=== PATIENT | male | born 1950 | race African-American/Black ===

== ENCOUNTER 2018-10-09 17:56 | Emergency (ER) | payer OTHER ==
[2018-10-09 18:54] LABS: Absolute Lymphocytes (CBC) 1.3 K/uL (0.7-4.9); Absolute Monocytes 0.4 K/uL (0.1-1.3); Absolute Neutrophil 4.1 K/uL (1.8-8.0); Basophils % 0.5 % (0-1.3); Eosinophils % 1.2 % (0-4.4); Lymphocytes % 22.5 % (15.3-44.8); Monocytes % 6.1 % (3.3-12.3); Protime INR 1.15; RBC Red Blood Cell Count 3.88 M/uL (4.33-5.43)
[2018-10-09 19:07] LABS: ALT/SGPT 42 U/L (12-78); AST/SGOT 85 U/L (15-37); Albumin 3.6 g/dL (3.4-5.0); Alkaline Phosphatase 152 U/L (45-117); BUN Blood Urea Nitrogen 6 mg/dL (7-18); Bicarbonate 27 mmol/L (21-32); Bilirubin Direct 0.4 mg/dL (0-0.2); Bilirubin Total 0.5 mg/dL (0.2-1.0); Glucose Level 95 mg/dL (74-106); NT PRO-BNP 377 pg/mL (<125); Potassium 3.9 mmol/L (3.5-5.1); Protein, Total 7.7 g/dL (6.4-8.2); Sodium Level 140 mmol/L (136-145); Troponin (Emerg Dept Use Only) < 0.02 ng/mL (0.0-0.045)
--- NOTE | 2018-10-09 19:15 | RAD REPORT ---
EXAM DESCRIPTION: Mac Single View10/09/2018 7:01 pm CLINICAL HISTORY: sob COMPARISON: 2017 FINDINGS: The lungs appear clear of acute infiltrate. The heart is normal size IMPRESSION: No acute abnormalities displayed
[2018-10-09 20:47] LABS: Urine Blood NEGATIVE (NEG); Urine Glucose NEGATIVE (NEG); Urine Protein NEGATIVE (NEG); Urine Specific Gravity 1.015 (1.005-1.030); Urine pH 5.5 (5.0-7.0)
[2018-10-09] MEDS ORDERED: NA CHLORIDE 0.9% 1,000 ML ONE (21:00)
[2018-10-09] MEDS ORDERED: CEFTRIAXONE/SWI 1gm 1 GM/10 ML SYR ONE (21:19)
[2018-10-09] MEDS ORDERED: predniSONE 20 MG TAB ONE (21:21)
[2018-10-09] MEDS ORDERED: HYDROCODONE/APAP 10/325 TAB ONE (21:38)
--- NOTE | 2018-10-09 22:10 | ER ---
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 Transition of care: patient was not received from another setting of care. Onset of symptoms was October 09, 2018. Risk Assessment: Do you want to hurt yourself or someone else? Patient reports no desire to harm self or others. Initial Sepsis Screen: Does the patient meet any 2 criteria? RR > 20 per min. HR > 90 bpm. Does the patient have a suspected source of infection? No. Patient's initial sepsis screen is negative. Care prior to arrival: None. 18:07 Method Of Arrival: Wheelchair sg 18:07 Acuity: JOSEPHINE 3 sg Historical: - Allergies: 18:06 No Known Allergies; sg - PSHx: 18:06 None; sg - Immunization history:: Adult Immunizations not up to date. - Social history:: Smoking status: Patient uses tobacco products, unknown amount. - Ebola Screening: : Patient negative for fever greater than or equal to 101.5 degrees Fahrenheit, and additional compatible Ebola Virus Disease symptoms Patient denies exposure to infectious person Patient denies travel to an Ebola-affected area in the 21 days before illness onset No symptoms or risks identified at this time. Screenin:30 Abuse screen: Denies threats or abuse. Denies injuries from another. Nutritional hb screening: No deficits noted. Tuberculosis screening: No symptoms or risk factors identified. Fall Risk None identified. Assessment: 18:30 General: Appears in no apparent distress. ill, Behavior is calm, cooperative. Pain: hb Denies pain. Neuro: Level of Consciousness is awake, alert, obeys commands, Oriented to person, place, time, situation. Cardiovascular: Heart tones S1 S2 present Capillary refill < 3 seconds Patient's skin is warm and dry. Respiratory: Airway is patent Respiratory effort is even, mildly labored Respiratory pattern is tachypnea Breath sounds with rhonchi. GI: Abdomen is non-distended, Bowel sounds present X 4 quads. Abd is soft X 4 quads Reports nausea. : No signs and/or symptoms were reported regarding the genitourinary system. EENT: No signs and/or symptoms were reported regarding the EENT system. Derm: Skin is intact, is healthy with good turgor. Musculoskeletal: No signs and/or symptoms reported regarding the musculoskeletal system. 19:00 General: Appears uncomfortable, Behavior is calm, cooperative, appropriate for age. ea Pain: Denies pain. Neuro: Level of Consciousness is awake, alert, obeys commands, Oriented to person, place, time, situation. Cardiovascular: Patient's skin is warm and dry. Respiratory: Airway is patent Respiratory effort is even. : No signs and/or symptoms were reported regarding the genitourinary system. Derm: Skin is intact. Musculoskeletal: No signs and/or symptoms reported regarding the musculoskeletal system. 19:15 Reassessment: Patient appears in no apparent distress at this time. Patient and/or jd3 family updated on plan of care and expected duration. Pain level reassessed. Patient is alert, oriented x 3, equal unlabored respirations, skin warm/dry/pink. 20:05 Reassessment: Patient appears in no apparent distress at this time. Patient and/or jd3 family updated on plan of care and expected duration. Pain level reassessed. Patient is alert, oriented x 3, equal unlabored respirations, skin warm/dry/pink. 21:02 Reassessment: Patient appears in no apparent distress at this time. No changes from jd3 previously documented assessment. Patient and/or family updated on plan of care and expected duration. Pain level reassessed. Patient is alert, oriented x 3, equal unlabored respirations, skin warm/dry/pink. 23:03 Reassessment: Patient appears in no apparent distress at this time. Patient and/or jd3 family updated on plan of care and expected duration. Pain level reassessed. Patient is alert, oriented x 3, equal unlabored respirations, skin warm/dry/pink. Patient states feeling better. Vital Signs: 18:06 BP 161 / 90; Pulse 108; Resp 21; Temp 97.7; Pulse Ox 94% on R/A; Weight 64.41 kg; sg 19:30 BP 153 / 81; Pulse 104; Resp 22 S; Pulse Ox 98% on R/A; jd3 20:30 BP 147 / 79; Pulse 102; Resp 16 S; Pulse Ox 98% on R/A; jd3 21:04 BP 157 / 73; Pulse 124; Resp 25 S; Pulse Ox 97% on R/A; jd3 22:02 BP 155 / 79; Pulse 104; Resp 29; Temp 101.6; Pulse Ox 98% ; lt1 22:42 BP 154 / 88; Pulse 120; Resp 26; Temp 100.5; Pulse Ox 98% ; lt1 ED Course: 17:57 Patient arrived in ED. as 18:08 Triage completed. sg 18:09 Arm band placed on. sg 18:10 David Sapp NP is PHCP. pm1 18:10 Uday Hardin MD is Attending Physician. pm1 18:30 Cierra Conner, RN is Primary Nurse. hb 18:31 EKG done, by ED staff, reviewed by David Sapp NP. jb1 18:38 Flu and/or RSV swab sent to lab. jb1 18:38 Flu Sent. jb1 18:44 Patient has correct armband on for positive identification. Placed in gown. Bed in low hb position. Call light in reach. Side rails up X 1. after school tutor on. Pulse ox on. NIBP on. 18:44 Inserted saline lock: 20 gauge in right antecubital area, using aseptic technique. hb Blood collected. 19:01 XRAY Chest (1 view) In Process Unspecified. EDMS 22:26 Primary Nurse role handed off by Cierra Conner, RN ed1 22:49 Sean Vu, DAYANA is Primary Nurse. jd3 23:05 No provider procedures requiring assistance completed. IV discontinued, intact, jd3 bleeding controlled, No redness/swelling at site. Pressure dressing applied. Administered Medications: 21:21 Drug: predniSONE 60 mg Route: PO; jd3 22:10 Follow up: Response: No adverse reaction ea 21:22 Drug: NS 0.9% 1000 ml Route: IV; Rate: 1000 ml; Site: right antecubital; jd3 23:06 Follow up: Response: No adverse reaction; IV Status: Completed infusion jd3 21:22 Drug: Rocephin 1 grams Route: IV; Rate: calculated rate; Site: right antecubital; jd3 23:06 Follow up: Response: No adverse reaction; IV Status: Completed infusion jd3 21:39 Drug: [place] 10 mg-325 mg 1 tabs Route: PO; jd3 23:06 Follow up: Response: No adverse reaction jd3 22:10 Drug: Ibuprofen 600 mg Route: PO; ea 23:06 Follow up: Response: No adverse reaction jd3 22:26 Drug: Xopenex 1.25 mg Route: Inhalation; jd3 Outcome: 22:09 Discharge ordered by MD. pm1 23:05 Discharged to home via wheelchair, with family. jd3 23:05 Condition: stable 23:05 Discharge instructions given to patient, family. 23:07 Patient left the ED. jd3 Signatures: Dispatcher [employer] EDMS Alli Regalado jb1 Cristi Kincaid, Susi Andrade RN, Erika, RN RN ed1 David Sapp, [employer] pm1 Cierra Conner RN RN hb Antunez, Elena, RN RN ea Davies, Jonathon, RN RN jd3 Tran, Leah [facility]
--- NOTE | 2018-10-09 22:10 | EDPHYS ---
Physician Documentation [facility] Name: Alex Mdarid Jr Age: 68 yrs Sex: Male : 1950 Arrival Date: 10/09/2018 Time: 17:57 Bed 4 Private MD: ED Physician Uday Hardin HPI: 10/09 19:05 This 68 yrs old Black Male presents to ER via Wheelchair with complaints of Vomiting, pm1 Shortness Of Breath. 19:05 The patient or guardian reports cough, with productive sputum, that is yellow. Onset: pm1 The symptoms/episode began/occurred today. Severity of symptoms: in the emergency department the symptoms have improved. Modifying factors: The symptoms are alleviated by nothing, the symptoms are aggravated by nothing. Associated signs and symptoms: Pertinent positives: Vomiting this AM and prior to arrival. Shortness of breath, Pertinent negatives: chest pain, fever, abdominal pain, diarrhea. The patient has not experienced similar symptoms in the past. The patient has not recently seen a physician. Historical: - Allergies: 18:06 No Known Allergies; sg - PSHx: 18:06 None; sg - Immunization history:: Adult Immunizations not up to date. - Social history:: Smoking status: Patient uses tobacco products, unknown amount. - Ebola Screening: : Patient negative for fever greater than or equal to 101.5 degrees Fahrenheit, and additional compatible Ebola Virus Disease symptoms Patient denies exposure to infectious person Patient denies travel to an Ebola-affected area in the 21 days before illness onset No symptoms or risks identified at this time. ROS: 19:05 Constitutional: Negative for fever, chills, and weight loss, Eyes: Negative for injury, pm1 pain, redness, and discharge, ENT: Negative for injury, pain, and discharge, Neck: Negative for injury, pain, and swelling, Cardiovascular: Negative for chest pain, palpitations, and edema. 19:05 Back: Negative for injury and pain. 19:05 : Negative for injury, bleeding, discharge, and swelling, MS/Extremity: Negative for injury and deformity, Skin: Negative for injury, rash, and discoloration, Neuro: Negative for headache, weakness, numbness, tingling, and seizure. 19:05 Respiratory: Positive for cough, shortness of breath, Negative for sputum production, wheezing. 19:05 Abdomen/GI: Positive for vomiting, Negative for abdominal pain, diarrhea, constipation. Exam: 19:05 Constitutional: This is a well developed, well nourished patient who is awake, alert, pm1 and in no acute distress. Head/Face: Normocephalic, atraumatic. Eyes: Pupils equal round and reactive to light, extra-ocular motions intact. Lids and lashes normal. Conjunctiva and sclera are non-icteric and not injected. Cornea within normal limits. Periorbital areas with no swelling, redness, or edema. ENT: Nares patent. No nasal discharge, no septal abnormalities noted. Tympanic membranes are normal and external auditory canals are clear. Oropharynx with no redness, swelling, or masses, exudates, or evidence of obstruction, uvula midline. Mucous membranes moist. Neck: Trachea midline, no thyromegaly or masses palpated, and no cervical lymphadenopathy. Supple, full range of motion without nuchal rigidity, or vertebral point tenderness. No Meningismus. Chest/axilla: Normal chest wall appearance and motion. Nontender with no deformity. No lesions are appreciated. Cardiovascular: Regular rate and rhythm with a normal S1 and S2. No gallops, murmurs, or rubs. No pulse deficits. Respiratory: Lungs have equal breath sounds bilaterally, clear to auscultation and percussion. No rales, rhonchi or wheezes noted. No increased work of breathing, no retractions or nasal flaring. Abdomen/GI: Soft, non-tender, with normal bowel sounds. No distension or tympany. No guarding or rebound. No evidence of tenderness throughout. Back: No spinal tenderness. No costovertebral tenderness. Full range of motion. Skin: Warm, dry with normal turgor. Normal color with no rashes, no lesions, and no evidence of cellulitis. MS/ Extremity: Pulses equal, no cyanosis. Neurovascular intact. Full, normal range of motion. 19:05 Neuro: Orientation: is normal, Motor: is normal, moves all fours. Vital Signs: 18:06 BP 161 / 90; Pulse 108; Resp 21; Temp 97.7; Pulse Ox 94% on R/A; Weight 64.41 kg; sg 19:30 BP 153 / 81; Pulse 104; Resp 22 S; Pulse Ox 98% on R/A; jd3 20:30 BP 147 / 79; Pulse 102; Resp 16 S; Pulse Ox 98% on R/A; jd3 21:04 BP 157 / 73; Pulse 124; Resp 25 S; Pulse Ox 97% on R/A; jd3 22:02 BP 155 / 79; Pulse 104; Resp 29; Temp 101.6; Pulse Ox 98% ; lt1 22:42 BP 154 / 88; Pulse 120; Resp 26; Temp 100.5; Pulse Ox 98% ; lt1 MDM: 18:10 Patient medically screened. pm1 20:51 Data reviewed: vital signs. pm1 21:23 ED course: Patient without any complaints of shortness of breath. Patient reports left pm1 knee pain for the past 30 minutes. Possible cause for elevated heart rate along with vomiting. Will give patient fluids and pain medication. 22:09 Data interpreted: Pulse oximetry: on room air is 98 %. Interpretation: normal. pm1 Counseling: I had a detailed discussion with the patient and/or guardian regarding: the historical points, exam findings, and any diagnostic results supporting the discharge/admit diagnosis, lab results, radiology results, the need for outpatient follow up, to return to the emergency department if symptoms worsen or persist or if there are any questions or concerns that arise at home. 10/09 18:32 Order name: Basic Metabolic Panel; Complete Time: 19:08 pm1 10/09 18:32 Order name: CBC with Diff; Complete Time: 19:07 pm1 10/09 18:32 Order name: LFT's; Complete Time: 19:08 pm1 10/09 18:32 Order name: Magnesium; Complete Time: 19:08 pm1 10/09 18:32 Order name: NT PRO-BNP; Complete Time: 19:08 pm1 10/09 18:32 Order name: PT-INR; Complete Time: 19:07 pm1 10/09 18:32 Order name: Troponin (emerg Dept Use Only); Complete Time: 19:08 pm1 10/09 18:32 Order name: XRAY Chest (1 view); Complete Time: 19:16 pm1 10/09 18:32 Order name: Flu; Complete Time: 20:37 pm1 10/09 19:20 Order name: Urine Dipstick--Ancillary (enter results); Complete Time: 20:51 eb 10/09 18:32 Order name: EKG; Complete Time: 18:33 pm1 10/09 18:32 Order name: Cardiac monitoring; Complete Time: 18:32 pm1 10/09 18:32 Order name: EKG - Nurse/Tech; Complete Time: 18:33 pm1 10/09 18:32 Order name: IV Saline Lock; Complete Time: 18:33 pm1 10/09 18:32 Order name: Labs collected and sent; Complete Time: 18:44 pm1 10/09 18:32 Order name: O2 Per Protocol; Complete Time: 18:33 pm1 10/09 18:32 Order name: O2 Sat Monitoring; Complete Time: 18:33 pm1 Administered Medications: 21:21 Drug: predniSONE 60 mg Route: PO; jd3 22:10 Follow up: Response: No adverse reaction ea 21:22 Drug: NS 0.9% 1000 ml Route: IV; Rate: 1000 ml; Site: right antecubital; jd3 23:06 Follow up: Response: No adverse reaction; IV Status: Completed infusion jd3 21:22 Drug: Rocephin 1 grams Route: IV; Rate: calculated rate; Site: right antecubital; jd3 23:06 Follow up: Response: No adverse reaction; IV Status: Completed infusion jd3 21:39 Drug: [place] 10 mg-325 mg 1 tabs Route: PO; jd3 23:06 Follow up: Response: No adverse reaction jd3 22:10 Drug: Ibuprofen 600 mg Route: PO; ea 23:06 Follow up: Response: No adverse reaction jd3 22:26 Drug: Xopenex 1.25 mg Route: Inhalation; jd3 Disposition: 10/09/18 22:09 Discharged to Home. Impression: Bronchitis, not specified as acute or chronic. - Condition is Stable. - Discharge Instructions: Acute Bronchitis, Adult, How to Use an Inhaler, Steps to Quit Smoking, Cough, Adult. - Prescriptions for Zithromax Z- Jaylon 250 mg Oral Tablet - take 1 tablet by ORAL route as directed for 5 days Day 1 - take two (2) tablets one time. Day 2, 3, 4 , 5 take one (1) tablet once daily.; 6 tablet. Medrol (Jaylon) 4 mg Oral Tablets, Dose Pack - take 1 tablet by ORAL route as directed - follow package instructions; 1 packet. Albuterol Sulfate 90 mcg/actuation - inhale 1-2 puff by INHALATION route every 4-6 hours; 1 Inhaler. Guaifenesin AC 10- 100 mg/5 mL Oral Liquid - take 10 milliliter by ORAL route every 4 hours As needed; 240 milliliter. - Medication Reconciliation Form, Thank You Letter, Antibiotic Education, Prescription Opioid Use, Family Work Release form. - Follow up: Emergency Department; When: As needed; Reason: Worsening of condition. Follow up: Private Physician; When: 2 - 3 days; Reason: Recheck today's complaints, Continuance of care, Re-evaluation by your physician. - Problem is new. - Symptoms have improved. Addendum: 10/12/2018 19:16 Co-signature as Attending Physician, Uday Hardin MD. r n Signatures: Dispatcher [employer] EDCristi Krishnamurthy RN Uday Malagon MD MD rn Marinas, Patrick, PROTECTIVE SERVICES SOCIAL WORKER PROTECTIVE SERVICES SOCIAL WORKER pm1 Najma Winters RN Sean Arenas ea, RN RN jd3 Corrections: (The following items were deleted from the chart) 10/09 23:07 22:09 10/09/2018 22:09 Discharged to Home. Impression: Bronchitis, not specified as jd3 acute or chronic. Condition is Stable. Forms are Medication Reconciliation Form, Thank You Letter, Antibiotic Education, Prescription Opioid Use. Follow up: Emergency Department; When: As needed; Reason: Worsening of condition. Follow up: Private Physician; When: 2 - 3 days; Reason: Recheck today's complaints, Continuance of care, Re-evaluation by your physician. Problem is new. Symptoms have improved. pm1
[2018-10-09] MEDS ORDERED: IBUPROFEN 400 MG TAB ONE (22:17)
[2018-10-09] MEDS ORDERED: IBUPROFEN 200 MG TAB PO ONE (22:17)
[2018-10-09] MEDS ORDERED: LEVALBUTEROL 1.25 MG/3 ML NEB ONE (22:33)
--- NOTE | 2018-10-10 07:28 | EKG ---
Test Date: 2018-10-09 Test Time: 18:15:32 Propeller Inspector: VERO MEASUREMENT RESULTS: Intervals: Rate: 104 OH: 184 QRSD: 74 QT: 346 QTc: 454 [place]: P: 64 OH: 184 QRS: 0 T: 61 INTERPRETIVE STATEMENTS: Sinus tachycardia Otherwise normal ECG No previous ECG available for comparison Electronically Signed On 10-10-18 07:27:56 CDT by Ollie Thomas
== END 2018-10-09 23:07 | disposition home or self-care (01) ==
LOC: ER 17:56
DX: J40 Bronchitis, not specified as acute or chronic (principal); Z72.0 Tobacco use
CPT/HCPCS: 96365; 93005; 85025; 80048; 36415; 83735; 85610; 80076; 81003; 84484; 83880; 87804 ×2; 71045; 99285; 96366; J0696; J7030; J7512

== ENCOUNTER 2018-11-05 13:12 | Observation (INO) | payer OTHER ==
[2018-11-05 14:30] LABS: Absolute Lymphocytes (CBC) 2.4 K/uL (0.7-4.9); Absolute Monocytes 0.4 K/uL (0.1-1.3); Absolute Neutrophil 2.3 K/uL (1.8-8.0); Basophils % 0.8 % (0-1.3); Eosinophils % 3.8 % (0-4.4); Hematocrit 40.4 % (39.6-49.0); Lymphocytes % 44.6 % (15.3-44.8); MPV 10.4 fL (7.6-11.3); Monocytes % 7.7 % (3.3-12.3); RBC Red Blood Cell Count 3.76 M/uL (4.33-5.43)
[2018-11-05 14:35] LABS: Protime INR 1.16
[2018-11-05 14:49] LABS: Urine Blood NEGATIVE (NEG); Urine Glucose NEGATIVE (NEG); Urine Protein NEGATIVE (NEG); Urine pH 5.5 (5.0-7.0)
[2018-11-05 14:51] LABS: ALT/SGPT 37 U/L (12-78); AST/SGOT 64 U/L (15-37); Albumin 3.4 g/dL (3.4-5.0); Alkaline Phosphatase 139 U/L (45-117); BUN Blood Urea Nitrogen 4 mg/dL (7-18); Bicarbonate 27 mmol/L (21-32); Bilirubin Direct 0.3 mg/dL (0-0.2); Bilirubin Total 0.7 mg/dL (0.2-1.0); Glucose Level 84 mg/dL (74-106); Magnesium 2.2 mg/dL (1.8-2.4); NT PRO-BNP 242 pg/mL (<125); Potassium 3.8 mmol/L (3.5-5.1); Protein, Total 7.6 g/dL (6.4-8.2); Sodium Level 143 mmol/L (136-145); Troponin (Emerg Dept Use Only) 0.02 ng/mL (0.0-0.045)
--- NOTE | 2018-11-05 15:10 | RAD REPORT ---
EXAM DESCRIPTION: Mac Single View11/05/2018 2:33 pm CLINICAL HISTORY: Shortness of breath COMPARISON: September 2018 FINDINGS: The lungs appear clear of acute infiltrate. The heart is normal size IMPRESSION: No acute abnormalities displayed
[2018-11-05 15:20] LABS: Anisocytosis 1+; Blood Morphology Comment NOTED (NOT SEEN); Macrocytosis 1+; Platelet Estimate DECR; Urine White Blood Cell Casts OK
--- NOTE | 2018-11-05 17:00 | ER ---
Nurse's Notes [facility] Name: Alex Madrid Jr Age: 68 yrs Sex: Male : 1950 Arrival Date: 11/05/2018 Time: 13:15 Bed 16 Private MD: William Seth Diagnosis: Acute embolism and thrombosis of unspecified deep veins of left lower extremity Presentation: 11/05 13:26 Presenting complaint: states: bilateral feet swelling and pain that has been ss ongoing for 1 week. Also c/o intermittent R elbow swelling and pain for the same period. Transition of care: patient was not received from another setting of care. Onset of symptoms was October 29, 2018. Risk Assessment: Do you want to hurt yourself or someone else? Patient reports no desire to harm self or others. Initial Sepsis Screen: Does the patient meet any 2 criteria? No. Patient's initial sepsis screen is negative. Does the patient have a suspected source of infection? No. Patient's initial sepsis screen is negative. Care prior to arrival: None. 13:26 Method Of Arrival: Wheelchair ss 13:26 Acuity: JOSEPHINE 3 ss Historical: - Allergies: 13:28 No Known Allergies; ss - Home Meds: 13:28 None [Active]; ss - PMHx: 13:28 Hypertension; ss - PSHx: 13:28 None; ss - Immunization history:: Adult Immunizations up to date. - Social history:: Smoking status: Patient uses tobacco products, smokes one-half pack cigarettes per day. - Ebola Screening: : Patient denies exposure to infectious person Patient denies travel to an Ebola-affected area in the 21 days before illness onset. Screenin:27 Abuse screen: Denies threats or abuse. Denies injuries from another. Nutritional jl7 screening: No deficits noted. Tuberculosis screening: No symptoms or risk factors identified. Fall Risk IV access (20 points). Assessment: 14:27 General: Appears in no apparent distress. uncomfortable, Behavior is calm, cooperative, jl7 appropriate for age. Pain: Complains of pain in bilateral feet Pain currently is 9 out of 10 on a pain scale. Quality of pain is described as stinging, Pain began 1 week ago Is continuous. Neuro: Level of Consciousness is awake, alert, obeys commands, Oriented to person, place, time, situation. Cardiovascular: Denies chest pain, Heart tones S1 S2 present Patient's skin is warm and dry. Edema is 3+ to left ankle, left foot, right ankle and right foot. Respiratory: Airway is patent Respiratory effort is even, unlabored, Respiratory pattern is regular, symmetrical, Breath sounds are clear bilaterally. Denies shortness of breath. GI: No signs and/or symptoms were reported involving the gastrointestinal system. : No signs and/or symptoms were reported regarding the genitourinary system. EENT: No signs and/or symptoms were reported regarding the EENT system. Derm: Skin is dry, Skin is normal, Skin temperature is warm. Musculoskeletal: Swelling present in right elbow. 15:30 Reassessment: Patient appears in no apparent distress at this time. No changes from jl7 previously documented assessment. Patient and/or family updated on plan of care and expected duration. Pain level reassessed. Patient is alert, oriented x 3, equal unlabored respirations, skin warm/dry/pink. 16:34 Reassessment: Patient appears in no apparent distress at this time. Patient and/or jl7 family updated on plan of care and expected duration. Pain level reassessed. Patient is alert, oriented x 3, equal unlabored respirations, skin warm/dry/pink. 17:30 Reassessment: Patient appears in no apparent distress at this time. Patient and/or em family updated on plan of care and expected duration. Pain level reassessed. Patient is alert, oriented x 3, equal unlabored respirations, skin warm/dry/pink. Patient denies pain at this time. Vital Signs: 13:28 BP 143 / 87; Pulse 73; Resp 16; Temp 99.3(TE); Pulse Ox 98% on R/A; Weight 58.97 kg; ss Height 5 ft. 9 in. (175.26 cm); Pain 9/10; 14:27 BP 139 / 81; Pulse 75; Resp 17 S; Pulse Ox 99% on R/A; jl7 16:34 BP 136 / 73; Pulse 86; Resp 22 S; Pulse Ox 98% on R/A; jl7 17:30 BP 115 / 65; Pulse 76; Resp 18; Temp 98.1(O); Pulse Ox 99% on R/A; Pain 0/10; em 13:28 Body Mass Index 19.20 (58.97 kg, 175.26 cm) ED Course: 13:15 Patient arrived in ED. mr 13:15 William Seth MD is Private Physician. mr 13:28 Triage completed. ss 13:28 Arm band placed on right wrist. ss 13:31 Renard Oneil PA is PHCP. cp 13:31 Tamir Quijano MD is Attending Physician. cp 14:05 Praveena Yap, DAYANA is Primary Nurse. jl7 14:20 Inserted saline lock: 20 gauge in left antecubital area, using aseptic technique. jl7 ,using aseptic technique. inserted by Jayy Poultry Pinner Student. 14:25 Initial lab(s) drawn, by pa, sent to lab. jl7 14:26 EKG done, by ED staff, reviewed by Tamir Quijano MD. [facility] 14:27 Patient has correct armband on for positive identification. Placed in gown. Bed in low jl7 position. Call light in reach. Side rails up X 1. bus driver/monitor on. Pulse ox on. NIBP on. 14:33 XRAY Chest (1 view) In Process Unspecified. EDMS 15:54 Ultrasound completed. Patient tolerated well. Notified [employer]ITIONAL [employer] HERBALIST/PA page. sg3 16:43 US Extremity Venous W Compression Sammy In Process Unspecified. EDMS 16:59 Abiola Rudolph MD is Hospitalizing Provider. cp 18:08 No provider procedures requiring assistance completed. Patient admitted, IV remains in em place. Administered Medications: 16:05 Drug: Lasix 20 mg Route: IVP; Site: left antecubital; jl7 16:36 Follow up: Response: No adverse reaction jl7 Outcome: 17:00 Decision to Hospitalize by Provider. cp 18:08 Admitted to Tele accompanied by tech, via wheelchair, room 427, with chart, Report em called to DAYANA Vazquez 18:08 Condition: good 18:08 Instructed on the need for admit, Demonstrated understanding of instructions. 18:11 Patient left the ED. em Signatures: Dispatcher [employer] Erkia Garcia mr HooperJh, PLANT MECHANIC PLANT MECHANIC em Mary Grace Sebastian RN RN Renard Oneil PA PA Heavenly Reynolds 5 Praveena Yap RN RN jl7 Renetta Cardona sg3
--- NOTE | 2018-11-05 17:00 | EDPHYS ---
Physician Documentation [facility] Name: Alex Madrid Jr Age: 68 yrs Sex: Male : 1950 Arrival Date: 11/05/2018 Time: 13:15 Bed 16 Private MD: William Seth ED Physician Tamir Quijano HPI: 11/05 14:05 This 68 yrs old Black Male presents to ER via Wheelchair with complaints of Elbow cp Swelling, Feet Swelling. 14:05 The patient presents with pain, that is acute, swelling, tenderness. The complaints cp affect the anterior aspect of left ankle and dorsum of left foot, anterior aspect of right ankle and dorsum of right foot. Onset: The symptoms/episode began/occurred 1 week(s) ago. 14:05 Associated signs and symptoms: Pertinent negatives fever, warmth, weakness. Treatment cp prior to arrival includes: no previous treatment. Historical: - Allergies: 13:28 No Known Allergies; ss - Home Meds: 13:28 None [Active]; ss - PMHx: 13:28 Hypertension; ss - PSHx: 13:28 None; ss - Immunization history:: Adult Immunizations up to date. - Social history:: Smoking status: Patient uses tobacco products, smokes one-half pack cigarettes per day. - Ebola Screening: : Patient denies exposure to infectious person Patient denies travel to an Ebola-affected area in the 21 days before illness onset. ROS: 14:10 Constitutional: Negative for body aches, chills, fever, poor PO intake. cp 14:10 Eyes: Negative for injury, pain, redness, and discharge. cp 14:10 ENT: Negative for drainage from ear(s), ear pain, sore throat, difficulty swallowing, difficulty handling secretions. 14:10 Cardiovascular: Positive for edema, Negative for chest pain, palpitations. 14:10 Respiratory: Negative for cough, shortness of breath, wheezing. 14:10 Abdomen/GI: Negative for abdominal pain, nausea, vomiting, and diarrhea. 14:10 MS/extremity: Positive for swelling, of the right elbow, Negative for injury or acute deformity, decreased range of motion. 14:10 Skin: Negative for rash. 14:10 Neuro: Negative for altered mental status, headache, weakness. 14:10 All other systems are negative. Exam: 14:15 Constitutional: The patient appears in no acute distress, alert, awake, cp non-diaphoretic, non-toxic, well developed, well nourished. 14:15 Head/Face: Normocephalic, atraumatic. cp 14:15 Eyes: Periorbital structures: appear normal, Conjunctiva: normal, no exudate, no injection, Sclera: no appreciated abnormality, Lids and lashes: appear normal, bilaterally. 14:15 ENT: External ear(s): are unremarkable, Nose: is normal, Mouth: is normal, Posterior pharynx: is normal, airway is patent, no erythema, no exudate, Voice: is normal. 14:15 Chest/axilla: Inspection: normal, Palpation: is normal, no crepitus, no tenderness. 14:15 Cardiovascular: Rate: normal, Rhythm: regular, Edema: pedal edema, that is moderate, ankle edema, that is moderate, JVD: is not appreciated. 14:15 Respiratory: the patient does not display signs of respiratory distress, Respirations: normal, no use of accessory muscles, no retractions, no splinting, no tachypnea, labored breathing, is not present, Breath sounds: are clear throughout, no decreased breath sounds, no stridor, no wheezing. 14:15 Abdomen/GI: Inspection: abdomen appears normal, Palpation: abdomen is soft and non-tender, in all quadrants. 14:15 Back: pain, is absent, ROM is normal. 14:15 Musculoskeletal/extremity: Extremities: grossly normal except: noted in the posterior aspect right elbow: swelling, There is no evidence of decreased ROM, erythema, pain. 14:15 Skin: cellulitis, is not appreciated, no rash present. 14:15 Neuro: Orientation: to person, place \T\ time. Mentation: is normal, Cerebellar function: is grossly normal, Motor: moves all fours, strength is normal, Sensation: is normal. 14:44 ECG was reviewed by the Attending Physician. cp Vital Signs: 13:28 BP 143 / 87; Pulse 73; Resp 16; Temp 99.3(TE); Pulse Ox 98% on R/A; Weight 58.97 kg; ss Height 5 ft. 9 in. (175.26 cm); Pain 9/10; 14:27 BP 139 / 81; Pulse 75; Resp 17 S; Pulse Ox 99% on R/A; jl7 16:34 BP 136 / 73; Pulse 86; Resp 22 S; Pulse Ox 98% on R/A; jl7 17:30 BP 115 / 65; Pulse 76; Resp 18; Temp 98.1(O); Pulse Ox 99% on R/A; Pain 0/10; em 13:28 Body Mass Index 19.20 (58.97 kg, 175.26 cm) ss MDM: 13:31 Patient medically screened. cp 16:45 Data reviewed: vital signs, nurses notes, lab test result(s), EKG, radiologic studies, cp plain films, ultrasound. 11/05 14:01 Order name: Basic Metabolic Panel; Complete Time: 15:21 cp 11/05 15:21 Interpretation: Normal except: BUN 4. cp 11/05 14:01 Order name: CBC with Diff; Complete Time: 15:21 cp 11/05 15:22 Interpretation: Normal except: RBC 3.76; MCV 107.6; MCH 36.1; PLT 107. cp 11/05 14:01 Order name: LFT's; Complete Time: 15:21 cp 11/05 15:22 Interpretation: Normal except: AST 64; ALK 139; BILID 0.3; GLOB 4.2; A/G 0.8. cp 11/05 14:01 Order name: Magnesium; Complete Time: 15:21 cp 11/05 14:01 Order name: NT PRO-BNP; Complete Time: 15:21 cp 11/05 14:01 Order name: PT-INR; Complete Time: 15:21 cp 11/05 14:01 Order name: Troponin (emerg Dept Use Only); Complete Time: 15:21 cp 11/05 14:01 Order name: XRAY Chest (1 view); Complete Time: 15:21 cp 11/05 14:01 Order name: EKG; Complete Time: 14:02 cp 11/05 14:01 Order name: US Extremity Venous W Compression Sammy; Complete Time: 16:15 cp 11/05 14:34 Order name: CBC Smear Scan; Complete Time: 15:21 EDMS 11/05 14:45 Order name: Urine Dipstick--Ancillary (enter results); Complete Time: 15:21 eb 11/05 16:43 Order name: Abdomen Exam Complete EDMS 11/05 14:01 Order name: Cardiac monitoring; Complete Time: 14:27 cp 11/05 14:01 Order name: EKG - Nurse/Tech; Complete Time: 14:26 cp 11/05 14:01 Order name: IV Saline Lock; Complete Time: 14: cp 11/05 14:01 Order name: Labs collected and sent; Complete Time: 14:26 cp 11/05 14:01 Order name: O2 Per Protocol; Complete Time: 14: cp 11/05 14:01 Order name: O2 Sat Monitoring; Complete Time: 14:26 cp EC:44 Rate is 78 beats/min. Rhythm is regular. VA interval is normal. QRS interval is normal. cp QT interval is normal. Interpreted by me. Reviewed by me. Administered Medications: 16:05 Drug: Lasix 20 mg Route: IVP; Site: left antecubital; jl7 16:36 Follow up: Response: No adverse reaction jl7 Disposition: 11/05/18 17:00 Hospitalization ordered by Abiola Rudolph for Observation. Preliminary diagnosis is Acute embolism and thrombosis of unspecified deep veins of left lower extremity. - Bed requested for Telemetry/MedSurg (observation). - Status is Observation. em - Condition is Stable. - Problem is new. - Symptoms have improved. UTI on Admission? No Addendum: 11/07/2018 08:07 Co-signature as Attending Physician, Tamir Quijano MD Available for consultation at p s1 all times. . Signatures: Dispatcher [employer] Anamika Encinas RN RN dw Jh Hooper, ADJUNCT FACULTY ADJUNCT FACULTY em Mary Grace Sebastian RN RN Renard Oneil PA PA cp Praveena Yap RN RN jl7 Tamir Quijano MD MD ps1 Corrections: (The following items were deleted from the chart) 11/05 17:39 17:00 Hospitalization Ordered by Abiola Rudolph MD for Observation. Preliminary dw diagnosis is Acute embolism and thrombosis of unspecified deep veins of left lower extremity. Bed requested for Telemetry/MedSurg (observation). Status is Observation. Condition is Stable. Problem is new. Symptoms have improved. UTI on Admission? No. cp 18:11 17:39 11/05/2018 17:00 Hospitalization Ordered by Abiola Rudolph MD for Observation. em Preliminary diagnosis is Acute embolism and thrombosis of unspecified deep veins of left lower extremity. Bed requested for Telemetry/MedSurg (observation). Status is Observation. Condition is Stable. Problem is new. Symptoms have improved. UTI on Admission? No. dw 11/06 16:15 11/05 15:30 Data reviewed: vital signs, nurses notes, lab test result(s), EKG, cp radiologic studies, plain films, ultrasound, cp
--- NOTE | 2018-11-05 17:07 | RAD REPORT ---
EXAM DESCRIPTION: USExtrem Venous W Compress Bil11/05/2018 4:43 pm CLINICAL HISTORY: Bilateral leg pain COMPARISON: none FINDINGS: Echogenic material consistent with acute thrombus is present within the right common femor al, right superficial femoral and right popliteal veins. The veins are not compressible No thrombus is seen within the left common femoral, left superficial femoral, left popliteal and left posterior tibial veins IMPRESSION: Acute thrombus involving the right lower extremity.
--- NOTE | 2018-11-05 17:52 | P.HP ---
Certification for Inpatient Patient admitted to: Observation With expected LOS: <2 Midnights Patient will require the following post-hospital care: None Practitioner: I am a practitioner with admitting privileges, knowledge of patient current condition, hospital course, and medical plan of care. Services: Services provided to patient in accordance with Admission requirements found in Title 42 Section 412.3 of the Code of Federal Regulations Patient History Date of Service: 11/05/18 Primary Care Provider: None Reason for admission: leg Swelling History of Present Illness: 68 y.o M with no significant PMHx presenting to the hospital with c.o of BL Ankle Swelling that started about 1 week ago and got worse over time. He has been laying in bed a lot lately due to the swelling in his ankle. About 2 days ago he started having some mild pain in the right LE and thus today his decided to bring him in to the hospital. Pt admit to smoking 1 pack of cig a day and 2 beer cans every night. Denied having CP, SOB, Fever or chills at this time. In the ER pt had lab work and imaging done and was found to have DVT of the Right LE and thus admitted for further w/u. Allergies No Known Allergies Allergy (Unverified 11/23/16 08:58) Home medications list reviewed: Yes - Past Medical/Surgical History Has patient received pneumonia vaccine in the past: No Diabetic: No Past Medical History: Patient denies medical history Past Surgical History: Patient denies surgical history - Family History Family History: Reviewed- Non-Contributory - Social History Smoking Status: Heavy Tobacco smoker (>10 cigarettes/day) Counseled patient to stop smoking for: more than 10 minutes Smoking therapy provided: Yes Patient receptive to therapy: Yes Alcohol use: Yes CD- Drugs: No Caffeine use: No Place of Residence: Home Review of Systems 10-point ROS is otherwise unremarkable Physical Examination - Physical Exam General: Alert, In no apparent distress HEENT: Atraumatic, PERRLA, Mucous membr. moist/pink, EOMI, Sclerae nonicteric Neck: Supple, 2+ carotid pulse no bruit, No LAD, Without JVD or thyroid abnormality Respiratory: Clear to auscultation bilaterally, Normal air movement Cardiovascular: Regular rate/rhythm, Normal S1 S2 Gastrointestinal: Normal bowel sounds, No tenderness Musculoskeletal: Swelling (BL ankle Swelling 2+), Tenderness, Other (BL LE Swelling. Right more than Left) Integumentary: No rashes Neurological: Normal speech, Normal tone Lymphatics: No axilla or inguinal lymphadenopathy - Studies Laboratory Data (last 24 hrs) 11/05/18 14:18: PT 13.6 H, INR 1.16 11/05/18 14:18: WBC 5.4, Hgb 13.6, Hct 40.4, Plt Count 107 L 11/05/18 14:18: Sodium 143, Potassium 3.8, BUN 4 L, Creatinine 0.80, Glucose 84 , Magnesium 2.2, Total Bilirubin 0.7, AST 64 H, ALT 37, Alkaline Phosphatase 139 H Assessment and Plan - Problems (Diagnosis) (1) DVT (deep venous thrombosis) Current Visit: Yes Status: Acute Plan: Acute Right DVT 2.2 to Prolonged inactivity -Currently Plt's are 107. Not a good candidate for Lovenox. -Will await Liver US to start on Eliquis vs xarelto. If unable to do so, may need to be evaluated for IVC filter placement. -U/S of the arterial LE pending -Will also get CTA to r.o PE due to extensive DVT on the right. High Wells Score Qualifiers: DVT location: lower extremity Affected thrombotic vein of extremity: femoral Chronicity: acute Laterality: right Qualified Code(s): I82.411 - Acute embolism and thrombosis of right femoral vein (2) Elevated LFTs Current Visit: Yes Status: Acute Plan: Elevated LFT's 2.2 to Alcohol abuse -US of the abdomen pending to r.o any liver abnormality. -Educated on Alcohol abstain (3) Leg swelling Current Visit: Yes Status: Acute Plan: Leg Swelling 2.2 to DVT -WB lovenox at this time (4) Alcohol abuse Current Visit: Yes Status: Chronic Plan: Drinks 2 cans of beer a night. -CIWA protocol -Ativan PRN - Plan Admit the patient to med surg for treatment of DVT on the right extremity and elevation of her LFT's Discharge Plan: Home Plan to discharge in: 48 Hours - Advance Directives Does patient have a Living Will: No Does patient have a Durable POA for Healthcare: No - Code Status/Comfort Care Code Status Assessed: Yes Critical Care: No
[2018-11-05 19:01] VITALS: O2SAT 99
--- NOTE | 2018-11-05 19:23 | RAD REPORT ---
EXAM DESCRIPTION: CT - Chest For Pe Angio - 11/05/2018 7:08 pm CLINICAL HISTORY: Chest pain COMPARISON: None. TECHNIQUE: Dynamically enhanced axial 3 mm thick images of the chest were obtained during administra tion of <100> mL Isovue 370 IV contrast. Coronal and oblique reconstruction images were generated and reviewed. Exam utilizes a protocol for optimal evaluation of pulmonary arterial tree. Maximum intensity projections 3D imaging was utilized All CT scans are performed using dose optimization technique as appropriate and may include automated exposure control or mA/KV adjustment according to patient size. FINDINGS: A pulmonary embolus is not seen. A thoracic aortic aneurysm is not noted. A pleural effusion is not seen. A pericardial effusion is not seen. A lung consolidation is not present. Fatty liver IMPRESSION: Negative for a pulmonary embolism.
[2018-11-05] MEDS: FOLIC ACID 1 MG, MULTIVITAMINS INJ 10 ML, THIAMINE HCL 100 MG in NA CHLORIDE 0.9% 1,000 ML IV SCH (21:00)
[2018-11-05] MEDS ORDERED: THIAMINE 200 MG/2 ML INJ ONE (23:45)
[2018-11-05] MEDS ORDERED: NA CHLORIDE 0.9% 100 ML IV ONE (23:45)
[2018-11-05] MEDS ORDERED: MULTIVITAMINS 10 ML VIAL (INJ) IV ONE (23:46)
[2018-11-05] MEDS ORDERED: FOLIC ACID 5 MG/ML VIAL ONE (23:47)
[2018-11-06 02:06] VITALS: BMI 19.2
[2018-11-06 06:00] LABS: Absolute Lymphocytes (CBC) 1.9 K/uL (0.7-4.9); Absolute Monocytes 0.5 K/uL (0.1-1.3); Basophils % 0.8 % (0-1.3); Eosinophils % 3.4 % (0-4.4); Lymphocytes % 33.7 % (15.3-44.8); MPV 9.7 fL (7.6-11.3); Monocytes % 9.1 % (3.3-12.3); RBC Red Blood Cell Count 3.53 M/uL (4.33-5.43)
[2018-11-06 06:13] LABS: Potassium 3.9 mmol/L (3.5-5.1); Sodium Level 141 mmol/L (136-145)
[2018-11-06 06:14] LABS: ALT/SGPT 32 U/L (12-78); AST/SGOT 50 U/L (15-37); Albumin 3.1 g/dL (3.4-5.0); Alkaline Phosphatase 168 U/L (45-117); BUN Blood Urea Nitrogen 7 mg/dL (7-18); Bicarbonate 25 mmol/L (21-32); Bilirubin Total 0.6 mg/dL (0.2-1.0); Glucose Level 98 mg/dL (74-106); Protein, Total 6.8 g/dL (6.4-8.2)
[2018-11-06] MEDS ORDERED: PNEUMOCOCCAL VACCINE 0.5 ML IMVAC ONE (08:00)
--- NOTE | 2018-11-06 11:29 | P.PN ---
Subjective Date of Service: 11/06/18 Primary Care Provider: None Chief Complaint: leg Swelling Patient seen and examined at bedside with RN. Chart reviewed. Case discussed with Hematology. Patient denies having any hematemesis, melena or any other bleeding. Denies having any fever chills nausea vomiting. Wants to know when he can go home. Review of Systems 10-point ROS is otherwise unremarkable Physical Examination - Vital Signs Temperature: 98.4 F Blood Pressure: 150/78 Pulse: 80 Respirations: 18 Pulse Ox (%): 100 - Physical Exam General: Alert, In no apparent distress HEENT: Atraumatic, PERRLA, EOMI Neck: Supple, JVD not distended Respiratory: Clear to auscultation bilaterally, Normal air movement Cardiovascular: Regular rate/rhythm, Normal S1 S2 Gastrointestinal: Normal bowel sounds, No tenderness Musculoskeletal: No tenderness Integumentary: No rashes Neurological: Normal speech, Normal tone, Normal affect Lymphatics: No axilla or inguinal lymphadenopathy - Studies Laboratory Data (last 24 hrs) 11/05/18 14:18: PT 13.6 H, INR 1.16 11/05/18 14:18: WBC 5.4, Hgb 13.6, Hct 40.4, Plt Count 107 L 11/05/18 14:18: Sodium 143, Potassium 3.8, BUN 4 L, Creatinine 0.80, Glucose 84 , Magnesium 2.2, Total Bilirubin 0.7, AST 64 H, ALT 37, Alkaline Phosphatase 139 H Medications List Reviewed: Yes Assessment And Plan - Current Problems (Diagnosis) (1) DVT (deep venous thrombosis) Current Visit: Yes Status: Acute Plan: Acute Right DVT 2.2 to Prolonged inactivity -CTA negative for PE -Currently Plt's are 98. -started Xarelto today -Hematology consulted appreciated recommendations at this time -patient does have history of alcoholism and falls at home. Currently patient needs to be anticoagulated however if he comes back to the hospital with multiple falls and possible brain bleed patient can be assessed for IVC filter placement. Qualifiers: DVT location: lower extremity Affected thrombotic vein of extremity: femoral Chronicity: acute Laterality: right Qualified Code(s): I82.411 - Acute embolism and thrombosis of right femoral vein (2) Elevated LFTs Current Visit: Yes Status: Acute Plan: Elevated LFT's 2.2 to Alcohol abuse -US of the abdomen pending to r.o any liver abnormality. Pending at this time -Educated on Alcohol abstain (3) Leg swelling Current Visit: Yes Status: Acute Plan: Leg Swelling 2.2 to DVT (4) Alcohol abuse Current Visit: Yes Status: Chronic Plan: Drinks 2 cans of beer a night. -[facility] protocol -Ativan PRN - Plan Pending clinical improvement at this time. Started on Zaroxolyn today. Will monitor with the hemoglobin and platelets for any acute bleeding after starting of anticoagulation. If patient doing well can be discharge in 24-48 hr after case management arrange for medication. Patient does not have any PCP thus it will be hard for patient to be on Lovenox for warfarin due to inability to monitor his INR outpatient. Discharge Plan: Home Plan to discharge in: 48 Hours - Code Status/Comfort Care Code Status Assessed: Yes Critical Care: No
--- NOTE | 2018-11-06 13:48 | RAD REPORT ---
EXAM DESCRIPTION: US - Abdomen Exam Complete - 11/06/2018 1:33 pm CLINICAL HISTORY: Abnormal liver function, abdominal pain COMPARISON: CT chest November 05. FINDINGS: Gallbladder size is normal. No definitive gallstones. Echogenic focus near the fundus coul d be stone or adjacent echogenic bowel. There is no wall thickening or pericholecystic fluid. Acute g allbladder process is not suspected. Common bile duct is normal with no common duct stone identified. Liver is normal in size. There is increased echogenicity throughout the hepatic parenchyma consistent with prominent for disease. No focal lesions seen. Spleen is normal size without focal abnormality. The pancreas is grossly normal but partially obscured. Body and tail of the pancreas were unremarkabl e on the prior day CT study. No hydronephrosis or suspicious mass in either kidney. Aorta and IVC show no suspicious findings. No ascites or bulky lymphadenopathy. IMPRESSION: Acute gallbladder process is not suspected. Echogenic focus near the fundus is probably abutting echogenic bowel wall. Stones fixed in the fundus would be possible. No biliary tree abnormal ity. Diffuse fatty infiltration pattern to the liver. No focal liver lesions seen.
--- NOTE | 2018-11-06 13:50 | RAD REPORT ---
EXAM DESCRIPTION: US - Lower Extremity Arterial Bilat - 11/06/2018 1:33 pm CLINICAL HISTORY: Leg pain, peripheral arterial disease COMPARISON: None. TECHNIQUE: Waveforms and velocity values were obtained along the length of each lower extremity. Vis ual inspection of the lower extremity arterial tree performed. FINDINGS: Calcifications are seen along the length of each lower extremity arterial tree. There is n o occlusion or flow restricting lesion. Triphasic waveform pattern is seen throughout each lower extr emity with the exception of the right dorsalis pedis artery. No suspicious velocity value or waveform . No suspicious finding in the adjacent soft tissues. IMPRESSION: Arterial tree calcifications are seen throughout each lower extremity. No occlusion, focal flow restricting lesion or other significant luminal narrowing.
[2018-11-06] MEDS ORDERED: RIVAROXABAN 10 MG TABLET PO SCH (17:00)
[2018-11-06] MEDS: FOLIC ACID 1 MG, MULTIVITAMINS INJ 10 ML, THIAMINE HCL 100 MG in NA CHLORIDE 0.9% 1,000 ML IV SCH (18:31)
--- NOTE | 2018-11-06 22:13 | P.CNS ---
Date of Consult: 11/06/18 (Hematology) Reason for consultation: DVT with thrombocytopenia HPI: 68 y.o M with no significant PMHx other than chronic alcohol intake and extensive smoking, admitted with for management of right lower extremity DVT. Apparently, pt noticed swelling in both feet a few days ago which progressively got worse with pain. He reports being sedentary and bed bound most of the time. He does not have a pcp as he never had any problems. No prior DVT/PE, family history of VTE, autoimmune problems, hormone use, long distance travel, recent surgery etc. Dopplers revealed extensive DVT of the right abigail extremity involving the right femoral, superfical femoral, and popliteal veins. CTA negative for PE. He denies any loss of weight or appetite. Denies any abd pain, N/V/D, bleeding per rectum, melena, bowel or bladder problems. Allergies No Known Allergies Allergy NOt on any meds at home. PMH/PSH: None Family History: Reviewed- Non-Contributory Social history: Smoked 1ppd for more than 20 years; Alcohol 2-4 beers a day for more than 10 years. Denies drugs use. 10-point ROS is otherwise unremarkable Physical Exam General: Alert, In no apparent distress HEENT: Atraumatic, PERRLA, Mucous membr. moist/pink, EOMI, Sclerae nonicteric Neck: Supple, 2+ carotid pulse no bruit, No LAD, Without JVD or thyroid abnormality Respiratory: Clear to auscultation bilaterally, Normal air movement Cardiovascular: Regular rate/rhythm, Normal S1 S2 Gastrointestinal: Normal bowel sounds, No tenderness Musculoskeletal: Swelling (BL ankle Swelling 2+), Tenderness, Other (BL LE Swelling. Right more than Left) Integumentary: No rashes Neurological: Normal speech, Normal tone Lymphatics: No axilla or inguinal lymphadenopathy Laboratory Data (last 24 hrs) 11/05/18 14:18: PT 13.6 H, INR 1.16 11/05/18 14:18: WBC 5.4, Hgb 13.6, Hct 40.4, Plt Count 107 L MCV 107 11/05/18 14:18: Sodium 143, Potassium 3.8, BUN 4 L, Creatinine 0.80, Glucose 84 , Magnesium 2.2, Total Bilirubin 0.7, AST 64 H, ALT 37, Alkaline Phosphatase 139 H Problems (Diagnosis) 1. DVT (deep venous thrombosis) Pertinent provoking factors include sedentary lifestyle and smoking. CTA negative for PE. Consider CT abdomen. pelvis with contrast as well to assess extent of VTE, r/o other provoking causes. As per guidelines, being the first provoked venous thromboembolism (VTE) recommend anticoagulation for atleast 3 months. Duration of anticoagulation should be re-addressed in due course of time to evaluate the risk of recurrent VTE. I explained the concerns of bleeding if he has falls or injury when intoxicated with alcohol. He and his understands the seriousness and he assures to make every effort to remain abstinent of alcohol. He reports being negligent of his health and will work on improving his life style, be active, exercise as tolerated. He will establish care with primary care to help him through this process as well. Discussed various options of anticoagulation with their risks and benefits: 1. bridging lovenox and transition to coumadin. Needs frequent INR testing and dietary restrictions. 2. Lovenox alone 3. Newer oral anticoagulants (NOACs) with either xarelto or eliquis. 4. IVC filter is an option if anticoagulation is contraindicated. He prefers to be on xarelto. He does not want to take injections nor have blood draws/ diet restriction. He understands the risks of bleeding with any anticoagulation. He needs to remain abstinent from alcohol. Seek medical attention should he have any change in baseline status. 2. Thrombocytopenia: mild and no evidence of bleeding. Likely has underlying liver disease due to alcohol intake causing hypersplenism. Follow up with GI to evaluate for alcohol liver disease. Check PT/PTT Hold anticoagulation if plt ct < 50,000 or if bleeding. 3. Macrocytosis: Likely from chronic alcohol intake. No anemia. Check B12/ folate, TSH 4. Tobacco abuse counseling: Discussed the CVS malignant risks involved with smoking and strongly urged to seek help to quit smoking. Recommend monitoring by pcp on discharge and refer to Hematology as outpatient.
--- NOTE | 2018-11-07 05:56 | EKG ---
Test Date: 2018-11-05 Test Time: 14:33:58 [employer] Manager: PATY MEASUREMENT RESULTS: Intervals: Rate: 78 MS: 174 QRSD: 78 QT: 404 QTc: 460 [place]: P: 60 MS: 174 QRS: -1 T: 54 INTERPRETIVE STATEMENTS: Normal sinus rhythm Septal infarct, age undetermined Abnormal ECG Compared to ECG 10/09/2018 18:15:32 Myocardial infarct finding now present Sinus tachycardia no longer present Electronically Signed On 11-07-18 05:55:23 CDT by Ollie Thomas
[2018-11-07 06:41] LABS: Absolute Lymphocytes (CBC) 1.7 K/uL (0.7-4.9); Absolute Monocytes 0.4 K/uL (0.1-1.3); Absolute Neutrophil 2.3 K/uL (1.8-8.0); Basophils % 0.7 % (0-1.3); Lymphocytes % 36.9 % (15.3-44.8); MPV 10.9 fL (7.6-11.3); RBC Red Blood Cell Count 3.44 M/uL (4.33-5.43)
[2018-11-07 06:56] LABS: ALT/SGPT 25 U/L (12-78); AST/SGOT 34 U/L (15-37); Albumin 2.9 g/dL (3.4-5.0); Alkaline Phosphatase 131 U/L (45-117); BUN Blood Urea Nitrogen 5 mg/dL (7-18); Bicarbonate 25 mmol/L (21-32); Glucose Level 111 mg/dL (74-106); Potassium 3.7 mmol/L (3.5-5.1); Protein, Total 6.3 g/dL (6.4-8.2); Sodium Level 142 mmol/L (136-145)
[2018-11-07 08:18] VITALS: TEMP 98.8
[2018-11-07 11:19] VITALS: BP 143/81
--- NOTE | 2018-11-07 13:35 | P.DS ---
Admission Date: 11/05/18 Discharge Date: 11/07/18 Primary Care Provider: None Disposition: ROUTINE DISCHARGE Discharge Condition: GOOD Reason for Admission: leg Swelling Consultations: Hematology-Dr. Finley Procedures: CT chest: FINDINGS: A pulmonary embolus is not seen. A thoracic aortic aneurysm is not noted. A pleural effusion is not seen. A pericardial effusion is not seen. A lung consolidation is not present. Fatty liver IMPRESSION: Negative for a pulmonary embolism. Venous doppler: FINDINGS: Echogenic material consistent with acute thrombus is present within the right common femoral, right superficial femoral and right popliteal veins. The veins are not compressible No thrombus is seen within the left common femoral, left superficial femoral, left popliteal and left posterior tibial veins IMPRESSION: Acute thrombus involving the right lower extremity. Arterial Doppler: COMPARISON: None. TECHNIQUE: Waveforms and velocity values were obtained along the length of each lower extremity. Visual inspection of the lower extremity arterial tree performed. FINDINGS: Calcifications are seen along the length of each lower extremity arterial tree. There is no occlusion or flow restricting lesion. Triphasic waveform pattern is seen throughout each lower extremity with the exception of the right dorsalis pedis artery. No suspicious velocity value or waveform. No suspicious finding in the adjacent soft tissues. IMPRESSION: Arterial tree calcifications are seen throughout each lower extremity. No occlusion, focal flow restricting lesion or other significant luminal narrowing. ABUS: FINDINGS: Gallbladder size is normal. No definitive gallstones. Echogenic focus near the fundus could be stone or adjacent echogenic bowel. There is no wall thickening or pericholecystic fluid. Acute gallbladder process is not suspected. Common bile duct is normal with no common duct stone identified. Liver is normal in size. There is increased echogenicity throughout the hepatic parenchyma consistent with prominent for disease. No focal lesions seen. Spleen is normal size without focal abnormality. The pancreas is grossly normal but partially obscured. Body and tail of the pancreas were unremarkable on the prior day CT study. No hydronephrosis or suspicious mass in either kidney. Aorta and IVC show no suspicious findings. No ascites or bulky lymphadenopathy. IMPRESSION: Acute gallbladder process is not suspected. Echogenic focus near the fundus is probably abutting echogenic bowel wall. Stones fixed in the fundus would be possible. No biliary tree abnormality. Diffuse fatty infiltration pattern to the liver. No focal liver lesions seen. Medical Problem List: Right lower extremity DVT Alcohol abuse Elevated liver function likely underlying liver disease related to alcohol abuse and fatty liver Thrombocytopenia likely related to and liver disease Elevated blood pressure without hypertension GERD Brief History of Present Illness: 68-year-old male presented to the emergency room with right lower extremity swelling and pain. Patient found to have right lower extremity DVT. Hospital Course: Patient presented with right lower extremity swelling and pain. Patient found to have right lower extremity DVT. Patient was seen and evaluated by Hematology due to his thrombocytopenia. 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 Patient has alcohol abuse. Patient was treated with anti coagulation therapy during his stay. Patient responded to therapy. Recommendation is to continue with anti coagulation therapy for 3 months. Patient will continue with Xarelto 15 mg twice daily for 21 days then Xarelto 20 mg daily for 3 months. Recommend a follow up with hematology in 2-4 weeks to follow up this hospitalization and continue his care. Recommend to follow up with his PCP within 1 week to follow up this hospitalization and continue his care. Patient with alcohol abuse. Alcohol cessation education was addressed in detail. Patient understands the importance of cessation. At discharge, Patient will continue with folic acid 1 mg and thiamine 100 mg daily. Recommend to continue with alcohol cessation. Patient with thrombocytopenia during his stay. This was likely related to underlying alcohol liver disease due to his alcohol abuse. CT scan revealed fatty liver. Recommend to recheck CBC in 1 week to monitor his progress especially since the patient will be on chronic anti coagulation for 3 months. Patient to monitor for any bleeding. He is to contact his PCP if bleeding continues to worsen. Patient some elevated blood pressure. This remained stable during his stay. Patient is to monitors blood pressures daily. If his blood pressures remain above 140/90 consistently patient may require medication. This can be further addressed by his PCP. Vital Signs/Physical Exam: Temp Pulse Resp BP Pulse Ox 98.8 F 74 18 143/81 H 98 11/07/18 08:00 11/07/18 08:00 11/07/18 08:00 11/07/18 10:00 11/07/18 08:00 General: Alert, In no apparent distress, Oriented x3, Cooperative HEENT: Atraumatic Neck: Supple Respiratory: Clear to auscultation bilaterally, Normal air movement Cardiovascular: Normal pulses, Regular rate/rhythm Gastrointestinal: Normal bowel sounds, Soft and benign, Non-distended, No tenderness, No masses, No rebound, No guarding Musculoskeletal: No erythema, No tenderness, No warmth Integumentary: No tenderness/swelling, No erythema, No warmth, No cyanosis Neurological: Normal speech, Normal strength at 5/5 x4 extr, Normal tone, Normal affect Laboratory Data at Discharge: WBC 4.6 K/uL (4.3-10.9) D 11/07/18 06:14 Hgb 12.5 g/dL (13.6-17.9) L 11/07/18 06:14 Hct 37.0 % (39.6-49.0) L 11/07/18 06:14 Plt Count 91 K/uL (152-406) L 11/07/18 06:14 PT 13.6 SECONDS (9.5-12.5) H 11/05/18 14:18 INR 1.16 11/05/18 14:18 Sodium 142 mmol/L (136-145) 11/07/18 06:14 Potassium 3.7 mmol/L (3.5-5.1) 11/07/18 06:14 BUN 5 mg/dL (7-18) L 11/07/18 06:14 Creatinine 0.73 mg/dL (0.55-1.3) 11/07/18 06:14 Glucose 111 mg/dL (74-106) H 11/07/18 06:14 Magnesium 2.2 mg/dL (1.8-2.4) 11/05/18 14:18 Total Bilirubin 1.0 mg/dL (0.2-1.0) 11/07/18 06:14 AST 34 U/L (15-37) 11/07/18 06:14 ALT 25 U/L (12-78) 11/07/18 06:14 Alkaline Phosphatase 131 U/L (45-117) H 11/07/18 06:14 Home Medications: Folic Acid 1 mg PO DAILY #90 tablet 11/07/18 Rivaroxaban [Xarelto] 15 mg PO BID #42 tablet 11/07/18 Rivaroxaban [Xarelto] 20 mg PO DAILY #30 tablet 11/07/18 Thiamine HCl 100 mg PO DAILY #90 tablet 11/07/18 New Medications: Folic Acid 1 mg PO DAILY #90 tablet Rivaroxaban [Xarelto] 15 mg PO BID #42 tablet Rivaroxaban [Xarelto] 20 mg PO DAILY #30 tablet Thiamine HCl 100 mg PO DAILY #90 tablet Patient Discharge Instructions: 1. Follow up with PCP to establish care and to follow up this hospitalization within 1-2 days. 2. Patient found to have right lower extremity DVT. Patient now on chronic anti coagulation for 3 months. Patient will continue with Xarelto 15 mg twice daily for 21 days then Xarelto 20 mg daily for 3 months. Recommend a follow up with hematology in 2-4 weeks to follow up this hospitalization and continue his care. 3. Patient with alcohol abuse. Alcohol cessation education will be provided. Patient will continue with folic acid 1 mg and thiamine 100 mg daily. Recommend to continue with alcohol cessation. 4. Patient with thrombocytopenia likely related to alcohol liver disease. Patient with fatty liver. Recommend to recheck CBC in 1 week to monitor his progress especially since the patient will be on chronic anti coagulation for 3 months. Patient to monitor for any bleeding. He is to contact his PCP if bleeding continues to worsen. 5. Patient with elevated blood pressure. Patient is to monitors blood pressures daily. If his blood pressures remain above 140/90 consistently patient may require medication. This can be further addressed by his PCP. Diet: AHA Activity: Fall precautions Followup: Nataliya Finley MD [ACTIVE - CAN ADMIT] - (follow up in 2 to 4 weeks. ) Time spent managing pt's care (in minutes): 55
== END 2018-11-07 10:20 | disposition home or self-care (01) ==
LOC: ER 13:12 → ERHOLD 16:42 → 4TH 18:03
PROVIDERS: ADMIT Family Medicine; ATTEND Family Medicine
DX: I82.411 Acute embolism and thrombosis of right femoral vein (principal); R79.89 Other specified abnormal findings of blood chemistry; F10.10 Alcohol abuse, uncomplicated; F17.210 Nicotine dependence, cigarettes, uncomplicated; D69.6 Thrombocytopenia, unspecified; D75.89 Other specified diseases of blood and blood-forming organs; K76.0 Fatty (change of) liver, not elsewhere classified; Z91.81 History of falling
CPT/HCPCS: 93005; 85025 ×3; 80048; 36415 ×2; 83735; 85610; 80076; 81003; 84484; 80053 ×2; 83880; 71275; 71045; 93925; 93970; 76700; 96374; 99285; Q9967; J3411 ×3; J7030 ×2; G0378 ×2

== ENCOUNTER 2022-12-23 20:59 | Emergency (ER) | payer OTHER ==
[2022-12-23] MEDS ORDERED: FLUORESCEIN SODIUM 1 MG/WRAP ONE (21:55)
[2022-12-23] MEDS ORDERED: TETRACAINE HCL 0.5% 4ML OPTH ONE (21:55)
[2022-12-23] MEDS ORDERED: LIDOCAINE 1% MPF 2 ML AMPULE ONE (22:39)
[2022-12-23] MEDS ORDERED: CEFTRIAXONE 1000 MG/VIAL ONE (22:39)
[2022-12-23] MEDS ORDERED: TOBRAMYCIN SULF 0.3% OPTH OINT ONE (22:39)
[2022-12-23] MEDS ORDERED: GENTAMICIN 0.3% OPTH DROP 5ML ONE (22:43)
--- NOTE | 2022-12-23 22:54 | ER ---
Nurse's Notes [facility] Name: Alex Madrid Jr Age: 72 yrs Sex: Male : 1950 Arrival Date: 12/23/2022 Time: 20:59 Bed 10 Private MD: Diagnosis: Other mucopurulent conjunctivitis, bilateral;Acute upper respiratory infection, unspecified;Acute purulent rhinitis, acute bacterial pharyngitis Presentation: 12/23 21:09 Coronavirus screen: Vaccine status: Patient reports being unvaccinated. Ebola Screen: mb9 No symptoms or risks identified at this time. Initial Sepsis Screen: Does the patient meet any 2 criteria? No. Patient's initial sepsis screen is negative. Does the patient have a suspected source of infection? No. Patient's initial sepsis screen is negative. Risk Assessment: Do you want to hurt yourself or someone else? Patient reports no desire to harm self or others. Onset of symptoms. 21:09 Acuity: JOSEPHINE 4 mb9 21:09 Method Of Arrival: Wheelchair mb9 21:11 Chief complaint: Patient's son or daughter states: "Yesterday we noticed that his left mb9 eye started getting red and mucous.". Triage Assessment: 21:12 General: Appears in no apparent distress. Behavior is cooperative. Pain: Denies pain. mb9 EENT: left eye red and has mucous. Cardiovascular: Patient's skin is warm and dry. Respiratory: Airway is patent Respiratory effort is even, unlabored, Respiratory pattern is regular, symmetrical. Derm: Skin is pink, warm \\T\\ dry. Musculoskeletal: Range of motion: intact in all extremities. 21:13 Neuro: Harmon Agitation-Sedation Scale (RASS): 0 - Alert and Calm Level of mb9 Consciousness is awake, alert, obeys commands, Oriented to person, place, time, situation, Appropriate for age. Historical: - Allergies: 21:11 No Known Allergies; mb9 - Home Meds: 21:11 None [Active]; mb9 - PMHx: 21:11 Hypertension; mb9 - PSHx: 21:11 None; mb9 - Immunization history:: Adult Immunizations up to date. - Social history:: Smoking status: Patient reports the use of cigarette tobacco products, smokes one-half pack cigarettes per day. - Family history:: not pertinent. Screenin:08 [facility] ED Fall Risk Assessment (Adult) Score/Fall Risk Level 0 - 2 = Low Risk. Abuse as6 screen: Denies threats or abuse. Denies injuries from another. Nutritional screening: No deficits noted. Tuberculosis screening: No symptoms or risk factors identified. Vital Signs: 21:09 BP 124 / 72; Pulse 79; Resp 18; Temp 98.6; Pulse Ox 98% on R/A; Weight 72.57 kg; Height mb9 5 ft. 9 in. ; Pain 0/10; 23:09 BP 120 / 61; Pulse 71; Resp 18 S; Pulse Ox 97% on R/A; as6 21:09 Body Mass Index 23.63 (72.57 kg, 175.26 cm) mb9 21:09 Pain Scale: Adult mb9 ED Course: 21:03 Patient arrived in ED. es 21:09 Arm band placed on. mb9 21:10 Triage completed. mb9 21:18 Main Powell MD is Attending Physician. sp4 23:08 Bed in low position. Call light in reach. Side rails up X 1. Adult w/ patient. as6 23:08 Assist provider with eye exam of left eye. using fluorescein stain, Performed by Main as6 Sherry ARROYO Patient tolerated well. Patient did not have IV access during this emergency room visit. Administered Medications: 22:36 Not Given (Other Intervention Used): Tobramycin Ophthalmic Drops (0.3 %) 2 drops as6 Ophthalmic once 22:45 Drug: Tetracaine Ophthalmic Drops 0.5 % 1 drops {Note: administered by provider.} as6 Route: Ophthalmic; Site: left eye; 23:08 Follow up: Response: No adverse reaction as6 22:53 Drug: Gentamicin Ophthalmic Drops 0.3 % 2 drops Route: Ophthalmic; Site: left eye; as6 23:08 Follow up: Response: No adverse reaction as6 22:54 Drug: Rocephin (cefTRIAXone) IM 1 grams Route: IM; Site: right vastus lateralis; as6 23:07 Follow up: Response: No adverse reaction as6 Medication: 23:08 VIS not applicable for this client. as6 Outcome: 22:54 Discharge ordered by . sp4 23:09 Discharged to home via wheelchair, with family. as6 23:09 Condition: stable 23:09 Discharge instructions given to patient, family, Instructed on discharge instructions, follow up and referral plans. medication usage, Demonstrated understanding of instructions, follow-up care, medications, Prescriptions given X 3. 23:09 Patient left the ED. as6 Signatures: Lula Gautam Ashby, RN RN as6 Erika Salvador RN RN mb9 Main Powell MD MD sp4 Corrections: (The following items were deleted from the chart) 21:13 21:12 Neuro: Harmon Agitation-Sedation Scale (RASS): 0 - Alert and Calm Level of mb9 Consciousness is awake, alert, obeys commands, Oriented to person, place, time, situation, none mb9
--- NOTE | 2022-12-23 22:55 | EDPHYS ---
Physician Documentation [facility] Name: Alex aMdrid Jr Age: 72 yrs Sex: Male : 1950 Arrival Date: 12/23/2022 Time: 20:59 Bed 10 Private MD: ED Physician Main Powell HPI: 12/23 21:19 This 72 yrs old Black Male presents to ER via Wheelchair with complaints of Drainage sp4 From Eye. 21:19 72-year-old male presents with acute onset left eye drainage and redness starting this sp4 morning.. Patient is wheelchair confined man with signs of dementia. Patient not able to provide any history history and review of systems provided by patient's relative. Patient has moderate purulent drainage and redness of the left eye.. Historical: - Allergies: 21:11 No Known Allergies; mb9 - Home Meds: 21:11 None [Active]; mb9 - PMHx: 21:11 Hypertension; mb9 - PSHx: 21:11 None; mb9 - Immunization history:: Adult Immunizations up to date. - Social history:: Smoking status: Patient reports the use of cigarette tobacco products, smokes one-half pack cigarettes per day. - Family history:: not pertinent. ROS: 21:19 Constitutional: Negative for fever, chills, and weight loss, Eyes: Negative for injury, sp4 positive for left eye redness, discharge, irritation. ENT: Negative for injury, pain, and discharge. 21:19 All other systems are negative. 21:19 Unable to obtain ROS due to baseline dementia. Exam: 21:19 Constitutional: This is a well developed, well nourished patient who is awake, alert, sp4 appears to have moderate dementia. Head/Face: Normocephalic, atraumatic. Eyes: Pupils equal round and reactive to light, extra-ocular motions intact. , Left upper and lower eyelid irritation, left corneal erythema, mucopurulent discharge from the left eye there is also a right eye mucopurulent discharge which appears to come from the tear duct, overall there is infection of upper respiratory passages with apparent infection of bilateral tear ducts leading to bilateral eye mucopurulent discharge ENT: Nares patent. No nasal discharge, no septal abnormalities noted. Tympanic membranes are normal and external auditory canals are clear. Oropharynx with no redness, swelling, or masses, exudates, or evidence of obstruction, uvula midline. Mucous membranes moist. Neck: Trachea midline, no thyromegaly or masses palpated, and no cervical lymphadenopathy. Supple, full range of motion without nuchal rigidity, or vertebral point tenderness. No Meningismus. Chest/axilla: Normal chest wall appearance and motion. Nontender with no deformity. No lesions are appreciated. Cardiovascular: Regular rate and rhythm with a normal S1 and S2. No gallops, murmurs, or rubs. Normal PMI, no JVD. No pulse deficits. Respiratory: Lungs have equal breath sounds bilaterally, clear to auscultation and percussion. No rales, rhonchi or wheezes noted. No increased work of breathing, no retractions or nasal flaring. Abdomen/GI: Soft, non-tender, with normal bowel sounds. No distension or tympany. No guarding or rebound. No evidence of tenderness throughout. Back: No spinal tenderness. No costovertebral tenderness. Skin: Warm, dry with normal turgor. Normal color with no rashes, no lesions, and no evidence of cellulitis. MS/ Extremity: Pulses equal, no cyanosis. Neurovascular intact. Full, normal range of motion. Neuro: Awake and alert, GCS 15, oriented to person, Cranial nerves II-XII grossly intact. Motor strength 5/5 in all extremities. Sensory grossly intact. Sounds of positive dementia Vital Signs: 21:09 BP 124 / 72; Pulse 79; Resp 18; Temp 98.6; Pulse Ox 98% on R/A; Weight 72.57 kg; Height mb9 5 ft. 9 in. ; Pain 0/10; 23:09 BP 120 / 61; Pulse 71; Resp 18 S; Pulse Ox 97% on R/A; as6 21:09 Body Mass Index 23.63 (72.57 kg, 175.26 cm) mb9 21:09 Pain Scale: Adult mb9 MDM: 21:19 Differential diagnosis: Corneal abrasion of Corneal ulcer of Foreign body in Acute sp4 iritis of Data reviewed: vital signs, nurses notes. 21:23 Patient medically screened. sp4 22:52 ED course: Bilateral eye exam reveals moderate to severe irritation, bilateral sp4 mucopurulent discharge with apparent upper respiratory infection bilateral tear duct infection. Patient warrants a Rocephin IM, Keflex and Bactrim twice a day for 10 days. 12/23 21:19 Order name: Eye Tray; Complete Time: 21:51 sp4 12/23 21:19 Order name: Fluoresene Opth strip; Complete Time: 21:51 sp4 Administered Medications: 22:36 Not Given (Other Intervention Used): Tobramycin Ophthalmic Drops (0.3 %) 2 drops as6 Ophthalmic once 22:45 Drug: Tetracaine Ophthalmic Drops 0.5 % 1 drops {Note: administered by provider.} as6 Route: Ophthalmic; Site: left eye; 23:08 Follow up: Response: No adverse reaction as6 22:53 Drug: Gentamicin Ophthalmic Drops 0.3 % 2 drops Route: Ophthalmic; Site: left eye; as6 23:08 Follow up: Response: No adverse reaction as6 22:54 Drug: Rocephin (cefTRIAXone) IM 1 grams Route: IM; Site: right vastus lateralis; as6 23:07 Follow up: Response: No adverse reaction as6 Disposition Summary: 12/23/22 22:54 Discharge Ordered Location: Home sp4 Problem: new sp4 Symptoms: have improved sp4 Condition: Stable sp4 Diagnosis - Other mucopurulent conjunctivitis, bilateral sp4 - Acute upper respiratory infection, unspecified sp4 - Acute purulent rhinitis, acute bacterial pharyngitis sp4 Followup: sp4 - With: Private Physician - When: 7 - 10 days - Reason: Recheck today's complaints Discharge Instructions: - Discharge Summary Sheet sp4 - Bacterial Conjunctivitis, Adult, [id number] sp4 Forms: - Antibiotic Education sp4 Prescriptions: - tobramycin 0.3 % Ophthalmic drops - instill 2 drop by OPHTHALMIC route every 4 hours for 5 days 2 drops both eyes sp4 every 4 hours; 5 milliliter; Refills: 0, Product Selection Permitted - Cephalexin 500 mg Oral Capsule - take 1 capsule by ORAL route every 12 hours for 10 days; 20 capsule; Refills: sp4 0, Product Selection Permitted - Bactrim DS 800-160 mg Oral Tablet - take 1 tablet by ORAL route every 12 hours for 10 days; 20 tablet; Refills: 0, sp4 Product Selection Permitted Signatures: Rodri Padilla RN RN as6 Erika Salvador RN RN mb9 Main Powell MD MD sp4 Corrections: (The following items were deleted from the chart) 22:52 21:19 Constitutional: This is a well developed, well nourished patient who is awake, sp4 alert, appears to have moderate dementia. Head/Face: Normocephalic, atraumatic. Eyes: Pupils equal round and reactive to light, extra-ocular motions intact. , Left upper and lower eyelid irritation, left corneal erythema, mucopurulent discharge from the left eye ENT: Nares patent. No nasal discharge, no septal abnormalities noted. Tympanic membranes are normal and external auditory canals are clear. Oropharynx with no redness, swelling, or masses, exudates, or evidence of obstruction, uvula midline. Mucous membranes moist. Neck: Trachea midline, no thyromegaly or masses palpated, and no cervical lymphadenopathy. Supple, full range of motion without nuchal rigidity, or vertebral point tenderness. No Meningismus. Chest/axilla: Normal chest wall appearance and motion. Nontender with no deformity. No lesions are appreciated. Cardiovascular: Regular rate and rhythm with a normal S1 and S2. No gallops, murmurs, or rubs. Normal PMI, no JVD. No pulse deficits. Respiratory: Lungs have equal breath sounds bilaterally, clear to auscultation and percussion. No rales, rhonchi or wheezes noted. No increased work of breathing, no retractions or nasal flaring. Abdomen/GI: Soft, non-tender, with normal bowel sounds. No distension or tympany. No guarding or rebound. No evidence of tenderness throughout. Back: No spinal tenderness. No costovertebral tenderness. Skin: Warm, dry with normal turgor. Normal color with no rashes, no lesions, and no evidence of cellulitis. MS/ Extremity: Pulses equal, no cyanosis. Neurovascular intact. Full, normal range of motion. Neuro: Awake and alert, GCS 15, oriented to person, Cranial nerves II-XII grossly intact. Motor strength 5/5 in all extremities. Sensory grossly intact. Sounds of positive dementia sp4
[2022-12-23 23:14] VITALS: TEMP 98.6
[2022-12-23 23:16] VITALS: BP 120/61; O2SAT 97
== END 2022-12-23 23:09 | disposition home or self-care (01) ==
LOC: ER 20:59
DX: H10.023 Other mucopurulent conjunctivitis, bilateral (principal); J06.9 Acute upper respiratory infection, unspecified; J00 Acute nasopharyngitis [common cold]; I10 Essential (primary) hypertension; F17.210 Nicotine dependence, cigarettes, uncomplicated
CPT/HCPCS: 96372; 99284; J0696

== ENCOUNTER 2023-03-28 18:23 | Emergency (ER) | payer OTHER ==
--- NOTE | 2023-03-28 18:51 | EDPHYS ---
Physician Documentation [facility] Name: Alex Madrid Jr Age: 73 yrs Sex: Male : 1950 Arrival Date: 03/28/2023 Time: 18:23 Bed IW1 Private MD: ED Physician Cori Rudolph HPI: 03/28 19:05 This 73 yrs old Black Male presents to ER via Wheelchair with complaints of knot on kb face. 19:05 Description: swollen. The patient has not recently seen a physician. Daughter states kb she noticed a swollen area to patient's face today but patient told her it was there when he shaved a few days ago. Patient states " its been there for a long time its more noticeable when I shave." Denies pain, fever. Historical: - Allergies: 18:45 No Known Allergies; iw - PMHx: 18:45 Asthma; Hypertension; iw - Immunization history:: Adult Immunizations. - Social history:: Smoking status: unknown. ROS: 18:59 Constitutional: Negative for fever, chills, and weight loss. kb 18:59 Eyes: Positive for discharge, of the left eye. 18:59 Skin: Positive for of the right preauricular area, cyst. 18:59 All other systems are negative. Exam: 18:59 Constitutional: This is a well developed, well nourished patient who is awake, alert, kb and in no acute distress. Head/Face: Normocephalic, atraumatic. ENT: Moist Mucous membranes Respiratory: Respirations even and unlabored. No increased work of breathing. Talking in full sentences MS/ Extremity: Pulses equal, no cyanosis. Neurovascular intact. Full, normal range of motion. Neuro: Awake and alert, GCS 15, oriented to person, place, time, and situation. Moves all extremities. Normal gait. 18:59 Eyes: Conjunctiva: exudate, in the left eye, injected, in the left eye. 18:59 Skin: epidermal cyst without erythema or warmth to preauricular area right side. Vital Signs: 18:46 BP 133 / 81; Pulse 78; Resp 16; Temp 98.4; Pulse Ox 98% on R/A; iw MDM: 18:47 Patient medically screened. kb 19:03 Data reviewed: vital signs, nurses notes. kb 19:04 Differential diagnosis: abscess, allergic reaction, cellulitis, insect bite. Historians kb other than the Patient: Daughter/Son: daughter. Counseling: I had a detailed discussion with the patient and/or guardian regarding the historical points, exam findings, and any diagnostic results supporting the discharge/admit diagnosis, the need for outpatient follow up, a image consultant, to return to the emergency department if symptoms worsen or persist or if there are any questions or concerns that arise at home. Administered Medications: No medications were administered Disposition Summary: 03/28/23 18:50 Discharge Ordered Location: Home kb Condition: Stable kb Diagnosis - Epidermal cyst kb Followup: kb - With: Emergency Department - When: As needed - Reason: Worsening of condition Followup: kb - With: Private Physician - When: 2 - 3 days - Reason: Recheck today's complaints, Continuance of care, Re-evaluation by your physician Discharge Instructions: - Discharge Summary Sheet kb - Epidermoid Cyst, [id number] kb - Bacterial Conjunctivitis, Adult, [id number] kb Forms: - Medication Reconciliation Form kb - Thank You Letter kb - Antibiotic Education kb - Prescription Opioid Use kb - Patient Portal Instructions kb - Leadership Thank You Letter kb Prescriptions: - Vigamox 0.5 % Ophthalmic Drops - instill 1 drop by OPHTHALMIC route every 8 hours for 7 days; 5 milliliter; kb Refills: 0, Product Selection Permitted Signatures: Davida Tellez FNP-C FNP-Danya Dey, RN RN iw
--- NOTE | 2023-03-28 18:51 | ER ---
Nurse's Notes [facility] Name: Alex Madrid Jr Age: 73 yrs Sex: Male : 1950 Arrival Date: 03/28/2023 Time: 18:23 Bed IW1 Private MD: Diagnosis: Epidermal cyst Presentation: 03/28 18:43 Chief complaint: Patient states: knot on right side of face X 4 -5 days. iw 18:43 Acuity: JOSEPHINE 4 iw 18:46 Chief complaint: Patient states: also he sill has drainage from his left eye , they iw gave him drops last time. Coronavirus screen: At this time, the client does not indicate any symptoms associated with coronavirus-19. Ebola Screen: Patient negative for fever greater than or equal to 101.5 degrees Fahrenheit, and additional compatible Ebola Virus Disease symptoms Patient denies exposure to infectious person. Patient denies travel to an Ebola-affected area in the 21 days before illness onset. No symptoms or risks identified at this time. Initial Sepsis Screen: Does the patient meet any 2 criteria? No. Patient's initial sepsis screen is negative. Does the patient have a suspected source of infection? No. Patient's initial sepsis screen is negative. Risk Assessment: Do you want to hurt yourself or someone else? Patient reports no desire to harm self or others. Onset of symptoms was March 23, 2023. 18:46 Method Of Arrival: Wheelchair iw Historical: - Allergies: 18:45 No Known Allergies; iw - PMHx: 18:45 Asthma; Hypertension; iw - Immunization history:: Adult Immunizations. - Social history:: Smoking status: unknown. Screenin:58 [facility] ED Fall Risk Assessment (Adult) Score/Fall Risk Level. Abuse screen: Denies iw threats or abuse. Denies injuries from another. Nutritional screening: No deficits noted. Tuberculosis screening: No symptoms or risk factors identified. Assessment: 18:58 General: Appears in no apparent distress. Behavior is calm, cooperative. Pain: Denies iw pain. Neuro: Level of Consciousness is awake, alert, obeys commands, Moves all extremities. Cardiovascular: Patient's skin is warm and dry. Respiratory: Respiratory effort is even, unlabored, Respiratory pattern is regular. Vital Signs: 18:46 BP 133 / 81; Pulse 78; Resp 16; Temp 98.4; Pulse Ox 98% on R/A; iw ED Course: 18:27 Patient arrived in ED. ts1 18:35 Davida Tellez FNP-C is [facility]. kb 18:35 Cori Rudolph MD is Attending Physician. kb 18:45 Triage completed. iw 18:45 Arm band placed on. iw 18:57 Danya Gates, RN is Primary Nurse. iw 18:57 Patient has correct armband on for positive identification. Provided Education on: . iw 18:58 No provider procedures requiring assistance completed. Patient did not have IV access iw during this emergency room visit. Administered Medications: No medications were administered Medication: 18:58 VIS not applicable for this client. iw Outcome: 18:50 Discharge ordered by . kb 18:58 Discharged to home via wheelchair, with family. iw 18:58 Condition: good 18:58 Discharge instructions given to patient, family, Instructed on discharge instructions, follow up and referral plans. medication usage, Demonstrated understanding of instructions, medications, Prescriptions given X 1. 18:58 Patient left the ED. iw Signatures: Davida Tellez FNP-C FNP-Danya Dey, RN RN iw Priscilla Camara, PAS PAS ts1
[2023-03-28 19:08] VITALS: BP 133/81; TEMP 98.4; O2SAT 98
== END 2023-03-28 18:58 | disposition home or self-care (01) ==
LOC: ER 18:23
DX: L72.9 Follicular cyst of the skin and subcutaneous tissue, unspecified (principal)
CPT/HCPCS: 99283

== ENCOUNTER 2023-03-31 15:08 | Inpatient (IN) | payer OTHER ==
[2023-03-31] MEDS ORDERED: ACETAMINOPHEN 500 MG TAB ONE (15:31)
[2023-03-31] MEDS ORDERED: NA CHLORIDE 0.9% 500 ML ONE (15:31)
[2023-03-31] MEDS ORDERED: MAGNESIUM SULFATE 1 gm IVPB 1 GM/100 ML BAG IV ONE (15:32)
--- NOTE | 2023-03-31 15:54 | RAD REPORT ---
EXAM DESCRIPTION: Mac Single View03/31/2023 3:41 pm CLINICAL HISTORY: Cough COMPARISON: 2018 FINDINGS: The lungs appear clear of acute infiltrate. The heart is normal size IMPRESSION: No acute abnormalities displayed
--- NOTE | 2023-03-31 16:03 | RAD REPORT ---
EXAM DESCRIPTION: CT - Head Brain Wo Cont - 03/31/2023 3:46 pm CLINICAL HISTORY: Alteration of awareness/confusion COMPARISON: None TECHNIQUE: Computed axial tomography of the head was obtained. IV contrast was not requested. All CT scans are performed using dose optimization technique as appropriate and may include automated exposure control or mA/KV adjustment according to patient size. FINDINGS: An intracranial bleed is not seen The ventricles are normal in caliber No extra-axial fluid collection is noted. No significant hypodensity within the brain Fluid within the sinuses/ mastoids is not seen. IMPRESSION: No acute intracranial abnormality is seen If patient's symptoms persist MRI of the brain would be recommended
[2023-03-31 16:29] LABS: Absolute Lymphocytes (CBC) 0.4 K/uL (0.7-4.9); Hematocrit 37.1 % (39.6-49.0); Lymphocytes % 13.3 % (15.3-44.8); MCV 99.5 fL (80-100); MPV 9.8 fL (7.6-11.3); Platelets 93 thou/uL (152-406); RBC Red Blood Cell Count 3.73 M/uL (4.33-5.43)
[2023-03-31 16:35] LABS: Protime INR 1.24
[2023-03-31 16:39] LABS: SARS-CoV-2 Antigen Rapid Res Positive (Negative)
[2023-03-31 16:43] LABS: Albumin 3.6 g/dL (3.4-5.0); Bilirubin Total 0.5 mg/dL (0.2-1.0); Potassium 3.9 mEq/L (3.5-5.1); Protein, Total 7.3 g/dL (6.4-8.2)
--- NOTE | 2023-03-31 17:08 | ER ---
[facility] Name: Alex Madrid Jr Age: 73 yrs Sex: Male : 1950 Arrival Date: 03/31/2023 Time: 15:08 Bed 4 Private MD: Diagnosis: SARS-associated coronavirus as the cause of diseases classified elsewhere;Muscle weakness (generalized);Dehydration;Altered mental status, unspecified Presentation: 03/31 15:34 Chief complaint: EMS states: [facility] ld1 weakness. Granddaughter reports weakness began this morning, "he usually walks and does everything for himself." Pt denies pain. Coronavirus screen: At this time, the client does not indicate any symptoms associated with coronavirus-19. Ebola Screen: No symptoms or risks identified at this time. Initial Sepsis Screen: Does the patient meet any 2 criteria? No. Patient's initial sepsis screen is negative. Does the patient have a suspected source of infection? No. Patient's initial sepsis screen is negative. Risk Assessment: Do you want to hurt yourself or someone else? Patient reports no desire to harm self or others. Onset of symptoms was March 31, 2023. 15:34 Method Of Arrival: EMS: [facility] ld1 15:34 Acuity: JOSEPHINE 3 ld1 Triage Assessment: 15:37 General: Appears in no apparent distress. comfortable, Behavior is calm, cooperative, ld1 appropriate for age. Pain: Denies pain. EENT: No signs and/or symptoms were reported regarding the EENT system. Neuro: Level of Consciousness is awake, alert, obeys commands, Oriented to person, place, time, situation, Appropriate for age. Cardiovascular: Capillary refill < 3 seconds Patient's skin is warm and dry. Rhythm is upon arrival to ER - pt SVT rhythm. Respiratory: Airway is patent Respiratory effort is even, unlabored. GI: Abdomen is flat, non-distended. : No signs and/or symptoms were reported regarding the genitourinary system. Derm: No signs and/or symptoms reported regarding the dermatologic system. Musculoskeletal: No signs and/or symptoms reported regarding the musculoskeletal system. Historical: - Allergies: 15:37 No Known Allergies; ld1 - Home Meds: 15:37 None [Active]; ld1 - PMHx: 15:37 Asthma; Hypertension; ld1 - PSHx: 15:37 None; ld1 - Immunization history:: Adult Immunizations up to date. - Social history:: Smoking status: Patient reports the use of cigarette tobacco products, smokes one-half pack cigarettes per day, Patient uses alcohol, occasionally. - Family history:: not pertinent. - Hospitalizations: : No recent hospitalization is reported. Screenin:39 [facility] ED Fall Risk Assessment (Adult) History of falling in the last 3 months, ld1 including since admission No falls in past 3 months (0 pts). Abuse screen: Denies threats or abuse. Denies injuries from another. Nutritional screening: No deficits noted. Tuberculosis screening: No symptoms or risk factors identified. Assessment: 15:39 Reassessment: See triage assessment. ld1 16:59 Reassessment: Patient appears in no apparent distress at this time. No changes from ld1 previously documented assessment. Patient and/or family updated on plan of care and expected duration. Pain level reassessed. 18:27 Reassessment: Patient appears in no apparent distress at this time. No changes from ld1 previously documented assessment. Patient and/or family updated on plan of care and expected duration. Pain level reassessed. 19:01 Reassessment: Judy - granddaughter - [phone]. ld1 19:30 Reassessment: Patient and/or family updated on plan of care and expected duration. Pain ha1 level reassessed. 19:42 Reassessment: Patient and/or family updated on plan of care and expected duration. Pain ha1 level reassessed. Report given to DAYANA Chadwick. Vital Signs: 15:34 BP 145 / 73; Pulse 94; Resp 18; Temp 98.8(O); Pulse Ox 93% on R/A; Weight 89.81 kg; ld1 Height 5 ft. 10 in. ; Pain 0/10; 16:07 BP 147 / 79; Pulse 101; Resp 27; Pulse Ox 100% on R/A; ld1 16:59 BP 124 / 61; Pulse 107; Resp 25; Pulse Ox 100% on R/A; Pain 0/10; ld1 18:27 BP 133 / 64; Pulse 89; Resp 18; Pulse Ox 100% on R/A; Pain 0/10; ld1 19:30 BP 147 / 85; Pulse 93; Resp 18 S; Pulse Ox 95% on R/A; ha1 15:34 Body Mass Index 28.41 (89.81 kg, 177.8 cm) ld1 15:34 Pain Scale: Adult ld1 16:59 Pain Scale: Adult ld1 18:27 Pain Scale: Adult ld1 ED Course: 15:12 Patient arrived in ED. rn 15:12 Uday Hardin MD is Attending Physician. rn 15:37 Triage completed. ld1 15:37 Arm band placed on right wrist. ld1 15:39 Carole Carson, RN is Primary Nurse. ld1 15:39 Patient has correct armband on for positive identification. Placed in gown. Bed in low ld1 position. Call light in reach. Side rails up X2. property assessment monitor on. Pulse ox on. NIBP on. Door closed. Noise minimized. Warm blanket given. 15:39 No provider procedures requiring assistance completed. Maintain EMS IV. Dressing ld1 intact. Good blood return noted. Site clean \\T\\ dry. Gauge \\T\\ site: 20g LAC. 15:43 Chest Single View XRAY In Process Unspecified. EDMS 15:48 CT Head Brain wo Cont In Process Unspecified. EDMS 16:01 Flu Sent. ld1 16:01 SARS RAPID Sent. ld1 16:59 Carole Carson, RN is Primary Nurse. ld1 17:06 Margo Samayoa MD is Hospitalizing Provider. rn 17:17 Jax Keene is Hospitalizing Provider. rn 20:10 Patient admitted, IV remains in place. ha1 Administered Medications: 16:01 Drug: Magnesium Sulfate IVPB 1 grams Route: IVPB; Infused Over: 1 hrs; Site: left ld1 antecubital; 16:01 Drug: NS 0.9% IV 500 ml Route: IV; Rate: bolus; Site: left antecubital; ld1 16:02 Drug: Acetaminophen PO 1000 mg Route: PO; ld1 Medication: 15:39 VIS not applicable for this client. ld1 Outcome: 17:07 Decision to Hospitalize by Provider. rn 20:09 Admitted to Tele accompanied by nurse, via stretcher, room 401, with chart, Report ha1 called to DAYANA Chadwick 20:09 Condition: stable 20:10 Patient left the ED. ha1 Signatures: Dispatcher [employer] EDMS Uday Hardin MD MD rn CarsonCarole RN RN ld1 Jennifer Bryan RN RN ha1
--- NOTE | 2023-03-31 17:08 | EDPHYS ---
Physician Documentation [facility] Name: Alex Madrid Jr Age: 73 yrs Sex: Male : 1950 Arrival Date: 03/31/2023 Time: 15:08 Bed 4 Private MD: ED Physician Uday Hardin HPI: 03/31 15:46 This 73 yrs old Black Male presents to ER via EMS with complaints of Fever and weakness.rn 15:46 EMS reports called out to family residence for fever and generalized weakness. Baseline rn is him walking around and more energetic. Reports cough and congestion lately. Unknown onset. No syncope. No focal pain. No head injury or trauma. Patient reports tired and chills.. Onset: The symptoms/episode began/occurred at an unknown time. Severity of symptoms: At their worst the symptoms were moderate in the emergency department the symptoms are unchanged. The patient has not experienced similar symptoms in the past. The patient has not recently seen a physician. Historical: - Allergies: 15:37 No Known Allergies; ld1 - Home Meds: 15:37 None [Active]; ld1 - PMHx: 15:37 Asthma; Hypertension; ld1 - PSHx: 15:37 None; ld1 - Immunization history:: Adult Immunizations up to date. - Social history:: Smoking status: Patient reports the use of cigarette tobacco products, smokes one-half pack cigarettes per day, Patient uses alcohol, occasionally. - Family history:: not pertinent. - Hospitalizations: : No recent hospitalization is reported. ROS: 15:46 Constitutional: Positive for fever and chills Eyes: Negative for injury, pain, redness, rn and discharge, ENT: Positive for congestion Cardiovascular: Negative for chest pain, palpitations, and edema, Respiratory: Positive for cough Abdomen/GI: Negative for abdominal pain, nausea, vomiting, diarrhea, and constipation, Back: Negative for injury and pain, MS/Extremity: Negative for injury and deformity, Skin: Negative for injury, rash, and discoloration, Neuro: Positive for generalized weakness Exam: 15:46 Constitutional: This is a well developed, well nourished patient who is somnolent but rn awakens to voice and tactile stimulation Head/Face: Normocephalic, atraumatic. Eyes: Pupils equal round and reactive to light, extra-ocular motions intact. ENT: Dry mucous membranes Cardiovascular: tachycardic, regular. No pulse deficits. Respiratory: No increased work of breathing, no retractions or nasal flaring. Abdomen/GI: Soft, non-tender Skin: Warm, dry MS/ Extremity: Pulses equal, no cyanosis. Neuro: Somnolent, awakens to voice, GCS 15, oriented to person place but not time. Moves all 4 extremities but 4 out of 5 strength. Sensation grossly equal. 16:13 ECG was reviewed by the Attending Physician. rn Vital Signs: 15:34 BP 145 / 73; Pulse 94; Resp 18; Temp 98.8(O); Pulse Ox 93% on R/A; Weight 89.81 kg; ld1 Height 5 ft. 10 in. ; Pain 0/10; 16:07 BP 147 / 79; Pulse 101; Resp 27; Pulse Ox 100% on R/A; ld1 16:59 BP 124 / 61; Pulse 107; Resp 25; Pulse Ox 100% on R/A; Pain 0/10; ld1 18:27 BP 133 / 64; Pulse 89; Resp 18; Pulse Ox 100% on R/A; Pain 0/10; ld1 19:30 BP 147 / 85; Pulse 93; Resp 18 S; Pulse Ox 95% on R/A; ha1 15:34 Body Mass Index 28.41 (89.81 kg, 177.8 cm) ld1 15:34 Pain Scale: Adult ld1 16:59 Pain Scale: Adult ld1 18:27 Pain Scale: Adult ld1 MDM: 15:12 Patient medically screened. rn 17:05 Differential Diagnosis sepsis, flu, COVID, dehydration pneumonia, UTI. Data reviewed: rn vital signs, nurses notes, lab test result(s), EKG, radiologic studies, CT scan, plain films, and as a result, I will admit patient. Consideration of Admission/Observation Patient was admitted/placed on observation. Escalation of care including admission/observation considered. Management of patient was discussed with the following: Hospitalist: . Independent interpretation of the following test(s) in the Emergency Department EKG: See my EKG interpretation above X-Ray: My interpretation is Chest x-ray images negative for focal pneumonia per my interpretation. Counseling: I had a detailed discussion with the patient and/or guardian regarding the historical points, exam findings, and any diagnostic results supporting the discharge/admit diagnosis, lab results, radiology results, the need for further work-up and treatment in the hospital. Response to treatment: the patient's symptoms have mildly improved after treatment. 03/31 15:13 Order name: Blood Culture Adult (2) rn 03/31 15:13 Order name: CBC with Diff; Complete Time: 17:02 rn 03/31 15:13 Order name: CMP; Complete Time: 17:02 rn 03/31 15:13 Order name: Lactate w/ 2H reflex if indic.; Complete Time: 17:02 rn 03/31 15:13 Order name: Protime (+inr); Complete Time: 17:02 rn 03/31 15:13 Order name: Ptt, Activated; Complete Time: 17:02 rn 03/31 15:13 Order name: Urinalysis w/ reflexes rn 03/31 15:13 Order name: SARS RAPID; Complete Time: 17:02 rn 03/31 15:13 Order name: Flu; Complete Time: 17:02 rn 03/31 16:12 Order name: Glucose, Ancillary Testing; Complete Time: 16:25 EDMS 03/31 18:01 Order name: D-Dimer; Complete Time: 18:57 EDMS 03/31 18:04 Order name: Magnesium; Complete Time: 18:57 EDMS 03/31 18:04 Order name: Phosphorus; Complete Time: 18:57 EDMS 03/31 18:04 Order name: Thyroid Stimulating Hormone; Complete Time: 18:57 EDMS 03/31 18:04 Order name: Urinalysis w/ reflexes EDMS 03/31 18:04 Order name: Basic Metabolic Panel EDMS 03/31 18:04 Order name: Basic Metabolic Panel EDMS 03/31 18:05 Order name: CBC with Automated Diff EDMS 03/31 18:05 Order name: CBC with Automated Diff EDMS 03/31 18:05 Order name: Lipid Profile EDMS 03/31 18:05 Order name: Lipid Profile EDMS 03/31 15:13 Order name: Chest Single View XRAY; Complete Time: 16:05 rn 03/31 15:13 Order name: CT Head Brain wo Cont; Complete Time: 16:05 rn 03/31 19:21 Order name: MRI; Complete Time: 19:25 EDMS 03/31 15:13 Order name: EKG; Complete Time: 15:14 rn 03/31 18:04 Order name: Heart Healthy EDPA 03/31 15:13 Order name: Accucheck; Complete Time: 16:01 rn 03/31 15:13 Order name: Cardiac monitoring; Complete Time: 16:01 rn 03/31 15:13 Order name: EKG - Nurse/Tech; Complete Time: 15:39 rn 03/31 15:13 Order name: IV Saline Lock - Large Bore; Complete Time: 15:40 rn 03/31 15:13 Order name: Labs collected and sent; Complete Time: 16:01 rn 03/31 15:13 Order name: O2 Per Protocol; Complete Time: 15:39 rn 03/31 15:13 Order name: O2 Sat Monitoring; Complete Time: 15:39 rn 03/31 15:13 Order name: Vital Signs; Complete Time: 15:39 rn EC:13 Rate is 94 beats/min. Rhythm is regular. QRS [place] is Normal. MO interval is normal. QRS rn interval is normal. QT interval is normal. No Q waves. T waves are Normal. No ST changes noted. Clinical impression: NSR w/ Non-specific ST/T Changes. Interpreted by me. Reviewed by me. Administered Medications: 16:01 Drug: Magnesium Sulfate IVPB 1 grams Route: IVPB; Infused Over: 1 hrs; Site: left ld1 antecubital; 16:01 Drug: NS 0.9% IV 500 ml Route: IV; Rate: bolus; Site: left antecubital; ld1 16:02 Drug: Acetaminophen PO 1000 mg Route: PO; ld1 Disposition Summary: 03/31/23 17:07 Hospitalization Ordered Hospitalization Status: Inpatient Admission rn [facility] rn Condition: Stable rn Problem: new rn Symptoms: are unchanged rn Bed/Room Type: Standard rn Provider: Jax Keene(03/31/23 17:17) rn Room Assignment: [facility][note 3](03/31/23 19:29) eb1 Diagnosis - SARS-associated coronavirus as the cause of diseases classified elsewhere rn - Muscle weakness (generalized) rn - Dehydration rn - Altered mental status, unspecified rn Forms: - Medication Reconciliation Form rn - SBAR form rn - Leadership Thank You Letter rn Signatures: Dispatcher [facility] Uday Hardin MD MD rn Basinger, Emily, RN RN eb1 Carole Carson RN RN ld1 Corrections: (The following items were deleted from the chart) : 17: Margo Samayoa rn, rn 19:29 17: prieto [email or web address]
[2023-03-31] MEDS ORDERED: HYDROCODONE/APAP 5/325 MG TAB PO PRN (17:58)
[2023-03-31] MEDS ORDERED: ONDANSETRON 4 MG/2 ML VIAL IV PRN (18:02)
--- NOTE | 2023-03-31 18:18 | P.HP ---
Certification for Inpatient Patient admitted to: Inpatient With expected LOS: >2 Midnights Patient will require the following post-hospital care: None Practitioner: I am a practitioner with admitting privileges, knowledge of patient current condition, hospital course, and medical plan of care. Services: Services provided to patient in accordance with Admission requirements found in Title 42 Section 412.3 of the Code of Federal Regulations Patient History Date of Service: 03/31/23 Reason for admission: Altered mental status, fever and generalized weakness History of Present Illness: Patient is a 73-year-old male with a past medical history significant for asthma, nicotine dependence and hypertension who presents with complaint of altered mental status, fever and generalized weakness. Patient is alert and oriented x1, confused and unable to provide accurate history. Patient reported that he has been having cough and congestion for the past 3 weeks and runny nose as well. Patient reports longstanding tremors. Patient denies any other signs and symptoms. Symptoms are aggravated or relieved by nothing. Patient was brought to the hospital for medical evaluation. Allergies No Known Allergies Allergy (Unverified 11/23/16 08:58) Home Medications: Folic Acid 1 mg PO DAILY #90 tablet 11/07/18 Rivaroxaban [Xarelto] 15 mg PO BID #42 tablet 11/07/18 Rivaroxaban [Xarelto] 20 mg PO DAILY #30 tablet 11/07/18 Thiamine HCl 100 mg PO DAILY #90 tablet 11/07/18 - Past Medical/Surgical History Diabetic: No -: Asthma. -: Hypertension. -: Nicotine dependence. Past Surgical History: Reviewed- Non-Contributory - Family History Family History: Reviewed- Non-Contributory - Social History Smoking Status: Current every day smoker Smoking therapy provided: No (Patient confused.) Alcohol use: Yes CD- Drugs: No Caffeine use: Yes Place of Residence: Home Review of Systems is unable to be obtained (Patient confused and unable to provide accurate history.) Physical Examination - Physical Exam General: Alert, In no apparent distress, Oriented x1, Cooperative, Confused HEENT: Atraumatic, PERRLA, Mucous membr. moist/pink, EOMI, Sclerae nonicteric Neck: Supple, 2+ carotid pulse no bruit, No LAD, Without JVD or thyroid abnormality Respiratory: Diminished Cardiovascular: No edema, Regular rate/rhythm, Normal S1 S2 Capillary refill: <2 Seconds Gastrointestinal: Normal bowel sounds, Non-distended, No tenderness Musculoskeletal: No clubbing, No swelling, No tenderness Integumentary: No rashes, No tenderness/swelling Neurological: Normal speech, Normal tone, Normal affect Lymphatics: No axilla or inguinal lymphadenopathy - Studies Laboratory Data (last 24 hrs) 03/31/23 03/31/23 03/31/23 16:07 16:07 16:07 WBC 3.10 L Hgb 12.3 L Hct 37.1 L Plt Count 93 L PT 13.6 H INR 1.24 APTT 33.1 Sodium 137 Potassium 3.9 BUN 10 Creatinine 1.22 Glucose 104 Total Bilirubin 0.5 AST 20 ALT 17 Alkaline Phosphatase 81 Microbiology Data (last 24 hrs): 03/31/23 16:07 Nasopharnyx Influenza Type A Antigen Screen - Final 03/31/23 16:07 Nasopharnyx Influenza Type B Antigen Screen - Final Assessment and Plan - Plan --Acute metabolic encephalopathy. UA pending.. CT head unremarkable for any acute intracranial abnormality. MRI brain pending for further evaluation. Continue supportive care. -- COVID-19 infection. Patient's O2 sat within normal limits on room air. Ly st x-ray unremarkable for any acute finding. Continue airborne and contact precautions. -- Hypertension. Poorly controlled. Continue home medications and labetalol as needed. --Elevated D-dimer. CT PE angiogram pending for further evaluation. Continue supportive care. --Generalized weakness. MRI brain pending for further evaluation. PT eval and treat. -- Tremors. Patient reports longstanding tremors. Likely essential tremors. Continue supportive care. --Nicotine dependence. Patient placed on nicotine patch. Patient will be counseled on tobacco cessation when appropriate. --Asthma. Stable. Continue home medication. --DVT prophylaxis with Lovenox subQ. Discharge Plan: Home Plan to discharge in: Greater than 2 days - Advance Directives Does patient have a Living Will: No Does patient have a Durable POA for Healthcare: No - Code Status/Comfort Care Code Status Assessed: Yes Physician Review: Patient Assessed, Agree with Above Assessment and Plan Critical Care: No
[2023-03-31 18:40] LABS: Magnesium 2.1 mg/dL (1.6-2.4); Thyroid Stimulating Hormone 0.26 uIU/mL (0.358-3.740)
--- NOTE | 2023-03-31 19:19 | RAD REPORT ---
EXAM DESCRIPTION: MRI - Brain Wo Cont - 03/31/2023 7:11 pm CLINICAL HISTORY: AMS COMPARISON: No comparisons TECHNIQUE: Sagittal T1-weighted images were obtained along with PD/heavily T2-weighted and T2-FLAIR images. Axial DWI and ADC mapping sequences were also obtained along with coronal heavily T2-weighted images were obtained. FINDINGS: No intracranial hemorrhage, mass or acute infarction. There is no edema or shift of midlin e structures. No extra-axial fluid collections. Signal voids are seen as a normal finding in the ramos r intracranial vessels. No significant white matter disease. Mild T2/FLAIR hyperintense signal abnorm ality within the- deep white matter likely reflecting chronic small vessel ischemic changes. Mastoid air cells and paranasal sinuses are clear. Solid-appearing 19 mm right parotid mass. IMPRESSION: No acute intracranial abnormality. Specifically, no evidence of acute infarct. Right parotid mass. Consider either ENT referral or nonemergent neck CT with contrast for further maria r luation.
[2023-03-31] MEDS ORDERED: LABETALOL 20 MG/4ML SYRINGE IV PRN (21:08)
[2023-03-31] MEDS: ENOXAPARIN 40 MG/0.4 ML SQ SCH (23:21)
[2023-04-01 06:16] LABS: Absolute Lymphocytes (CBC) 0.7 K/uL (0.7-4.9); Hematocrit 33.3 % (39.6-49.0); Lymphocytes % 23.8 % (15.3-44.8); MCV 98.4 fL (80-100); MPV 9.7 fL (7.6-11.3); Platelets 95 thou/uL (152-406); RBC Red Blood Cell Count 3.38 M/uL (4.33-5.43)
[2023-04-01 06:20] VITALS: BMI 28.4
[2023-04-01 06:31] LABS: Potassium 3.7 mEq/L (3.5-5.1)
[2023-04-01] MEDS: ACETAMINOPHEN 325 MG TABLET PO PRN ×2 (07:25→16:15)
[2023-04-01] MEDS: ASPIRIN 81 MG CHEWABLE TABLET PO SCH (08:57)
[2023-04-01] MEDS: NICOTINE 14 MG/PAT TD SCH (08:57)
[2023-04-01] MEDS ORDERED: POTASSIUM CL SA 10 MEQ TAB PO ONE (09:00)
[2023-04-01 09:39] LABS: Blood Morphology Comment NOT SEEN (NOT SEEN); Platelet Estimate DECR
--- NOTE | 2023-04-01 12:28 | EKG ---
Test Date: 2023-03-31 Test Time: 15:32:51 Narcotics Detective: HB MEASUREMENT RESULTS: Intervals: Rate: 94 OR: 190 QRSD: 86 QT: 364 QTc: 455 [place]: P: 12 OR: 190 QRS: 3 T: 30 INTERPRETIVE STATEMENTS: Normal sinus rhythm Normal ECG Compared to ECG 11/05/2018 14:33:58 Myocardial infarct finding no longer present Electronically Signed On 04-01-23 12:25:03 CDT by Felix Garcia
[2023-04-01] MEDS: ENOXAPARIN 40 MG/0.4 ML SQ SCH (16:15)
--- NOTE | 2023-04-01 17:10 | P.PN ---
Subjective Date of Service: 04/01/23 Chief Complaint: Altered mental status, fever and generalized weakness Patient has been experiencing intermittent fever. He appears mildly confused. Daughter reports redness and discharge from both eyes. Physical Examination - Vital Signs Temperature: 102.3 F Blood Pressure: 134/73 Pulse: 90 Respirations: 20 Pulse Ox (%): 99 - Studies Laboratory Data (last 24 hrs) 03/31/23 16:07 Phosphorus 3.0 Magnesium 2.1 Microbiology Data (last 24 hrs): 03/31/23 16:07 Nasopharnyx Influenza Type A Antigen Screen - Final 03/31/23 16:07 Nasopharnyx Influenza Type B Antigen Screen - Final Assessment And Plan - Plan Physical Exam General: Alert, In no apparent distress, Oriented x1, Cooperative, Confused HEENT: Bilateral reddened eyes with discharge mucous membr. EOMI, Sclerae nonicteric, palpable rounded mass-right parotid area. Neck: Supple, no elevated JVD Respiratory: Diminished, no crackles. Cardiovascular: No edema, Regular rate/rhythm, Normal S1 S2 Gastrointestinal: Normal bowel sounds, Non-distended, No tenderness Musculoskeletal: No clubbing, No swelling, No tenderness Integumentary: No rashes, No tenderness/swelling Neurological: Normal speech, Normal tone, Normal affect Diagnosis Acute metabolic encephalopathy/COVID-19 infection/COVID-19 conjunctivitis Likely secondary to COVID-[address] and MRI shows no acute intracranial disease. Patient with upper respiratory infection including conjunctivitis Supportive measures. Consult to Dr. Mcclure. Tylenol as needed for fever. Contact and airborne precautions. Hypertension. Patient is currently normotensive Hold home antihypertensives. Elevated D-dimer. Likely related to COVID-[address] PE angiogram negative for PE. Tremors. Chronic. Likely essential tremors. Continue supportive care. Nicotine dependence. Patient placed on nicotine patch. Asthma Stable. Continue home medication. DVT prophylaxis with Lovenox subQ. Discharge Plan: Home
[2023-04-01] MEDS: ACETAMINOPHEN 325 MG TABLET PO SCH (21:00)
[2023-04-02] MEDS: ACETAMINOPHEN 325 MG TABLET PO SCH ×4 (03:54→21:35)
[2023-04-02 07:30] LABS: Potassium 3.6 mEq/L (3.5-5.1)
[2023-04-02] MEDS: NICOTINE 14 MG/PAT TD SCH (09:00)
[2023-04-02] MEDS: ASPIRIN 81 MG CHEWABLE TABLET PO SCH (09:19)
[2023-04-02] MEDS: ENOXAPARIN 40 MG/0.4 ML SQ SCH (16:06)
[2023-04-02] MEDS: CEFEPIME 2 GM in NA CHLORIDE 0.9% 100 ML IV SCH ×2 (17:54→21:34)
[2023-04-02] MEDS: VANCOMYCIN 1.75 GM in NA CHLORIDE 0.9% 500 ML IVPB SCH (17:54)
--- NOTE | 2023-04-02 17:55 | P.PN ---
Subjective Date of Service: 04/02/23 Chief Complaint: Altered mental status, fever and generalized weakness Patient is more awake and interactive today but has been experiencing fever. He appears mildly confused. Physical Examination - Vital Signs Temperature: 101 F Blood Pressure: 135/71 Pulse: 93 Respirations: 16 Pulse Ox (%): 95 Assessment And Plan - Plan Physical Exam General: Alert, In no apparent distress, Oriented x1, Cooperative, Confused HEENT: Bilateral reddened eyes with discharge mucous membr. Sclerae nonicteric, palpable rounded mass-right parotid area. Neck: Supple, no elevated JVD Respiratory: Diminished, no crackles. Cardiovascular: No edema, Regular rate/rhythm, Normal S1 S2 Gastrointestinal: Normal bowel sounds, Non-distended, No tenderness Musculoskeletal:No swelling, No tenderness Integumentary: No rashes, No tenderness/swelling Neurological: Mildly confused, he moves all extremities. Diagnosis Acute metabolic encephalopathy/COVID-19 infection/COVID-19 conjunctivitis Likely secondary to COVID-[address] and MRI shows no acute intracranial disease. Patient with upper respiratory infection including conjunctivitis. Persistent fever Supportive measures. Tylenol as needed for fever. Contact and airborne precautions. Blood cultures shows no growth to date. Empiric IV antibiotics given acute swelling in the parotid area. Follow cultures. Nodule-parotid area Rounded palpable swelling in the right parotid area of unknown etiology. Empiric antibiotics. Follow-up ENT as outpatient if it does not respond to antibiotics. Hypertension. Patient is currently normotensive Hold home antihypertensives. Elevated D-dimer. Likely related to COVID-[address] PE angiogram negative for PE. Tremors. Chronic. Likely essential tremors. Continue supportive care. Nicotine dependence. Patient placed on nicotine patch. Asthma Stable. Continue home medication. DVT prophylaxis with Lovenox subQ. Discharge Plan: Home
[2023-04-02] MEDS ORDERED: VANCOMYCIN 1.25 GM in NA CHLORIDE 0.9% 250 ML IVPB SCH (21:00)
[2023-04-03] MEDS: ACETAMINOPHEN 325 MG TABLET PO SCH ×4 (05:03→20:58)
[2023-04-03 06:53] LABS: Hematocrit 36.6 % (39.6-49.0); Lymphocytes % 41.2 % (15.3-44.8); MCV 98.2 fL (80-100); MPV 10.2 fL (7.6-11.3); Platelets 81 thou/uL (152-406); RBC Red Blood Cell Count 3.73 M/uL (4.33-5.43)
[2023-04-03 07:11] LABS: Potassium 3.8 mEq/L (3.5-5.1)
[2023-04-03] MEDS ORDERED: POTASSIUM 25 MEQ EFFERV TAB PO ONE (08:00)
[2023-04-03 08:01] LABS: White Blood Cell Scan OK (OK)
[2023-04-03 08:02] LABS: Blood Morphology Comment NOT SEEN (NOT SEEN); Platelet Estimate DECR
[2023-04-03] MEDS: NICOTINE 14 MG/PAT TD SCH (09:00)
[2023-04-03] MEDS: CEFEPIME 2 GM in NA CHLORIDE 0.9% 100 ML IV SCH ×2 (09:34→20:58)
[2023-04-03] MEDS: ASPIRIN 81 MG CHEWABLE TABLET PO SCH (09:36)
--- NOTE | 2023-04-03 15:28 | P.PN ---
Subjective Date of Service: 04/03/23 Chief Complaint: Altered mental status, fever and generalized weakness Patient is awake and interactive. No fever recorded today. He is tolerating diet. Physical Examination - Vital Signs Temperature: 98.9 F Blood Pressure: 120/70 Pulse: 80 Respirations: 16 Pulse Ox (%): 100 Assessment And Plan - Plan Physical Exam General: Alert, In no apparent distress, Oriented x1, Cooperative, Confused HEENT: Bilateral reddened eyes with discharge mucous membr. Sclerae nonicteric, palpable rounded mass-right parotid area. Neck: Supple, no elevated JVD Respiratory: Diminished, no crackles. Cardiovascular: No edema, Regular rate/rhythm, Normal S1 S2 Gastrointestinal: Normal bowel sounds, Non-distended, No tenderness Musculoskeletal:No swelling, No tenderness Integumentary: No rashes, No tenderness/swelling Neurological: Mildly confused, he moves all extremities. Diagnosis Acute metabolic encephalopathy/COVID-19 infection/COVID-19 conjunctivitis Likely secondary to COVID-[address] and MRI shows no acute intracranial disease. Patient with upper respiratory infection including conjunctivitis. Supportive measures. Tylenol as needed for fever. Contact and airborne precautions. Blood cultures shows no growth to date. Empiric IV antibiotics given acute swelling in the parotid area. Follow cultures. PT evaluation for generalized weakness. Nodule-parotid area Empiric antibiotics. Follow-up ENT as outpatient if it does not respond to antibiotics. Hypertension. Patient is currently normotensive Hold home antihypertensives. Elevated D-dimer. Likely related to COVID-[address] PE angiogram negative for PE. Tremors. Chronic. Likely essential tremors. Continue supportive care. Nicotine dependence. Patient placed on nicotine patch. Asthma Stable. Continue home medication. DVT prophylaxis: Lovenox subQ. Discharge Plan: Home
[2023-04-03] MEDS: dexAMETHasone 4 MG TAB PO SCH (16:57)
[2023-04-03] MEDS: VANCOMYCIN 1.75 GM in NA CHLORIDE 0.9% 500 ML IVPB SCH (16:58)
[2023-04-03] MEDS: ENOXAPARIN 40 MG/0.4 ML SQ SCH (16:58)
--- NOTE | 2023-04-03 17:44 | RAD REPORT ---
EXAM DESCRIPTION: CT - Chest For Pe Angio - 04/01/2023 6:24 am CLINICAL HISTORY: The patient is 73 years old and is Male; Elevated D-dimer, COVID TECHNIQUE: Axial computed tomographic angiography images of the chest with intravenous contrast. S agittal and coronal reformatted images were created and reviewed. This CT exam was performed using one or more of the following dose reduction techniques: automated exposure control, adjustment of t he mA and/or kV according to patient size, and/or use of iterative reconstruction technique. MIP re constructed images were created and reviewed. COMPARISON: No relevant prior studies available. FINDINGS: Pulmonary arteries: No PE identified. Aorta: No acute findings. No thoracic aortic aneurysm. Lungs: Unremarkable. No mass. No consolidation. Pleural space: No significant effusion. No pneumothorax. Heart: Cardiomegaly. Mediastinum: No pneumomediastinum. Bones/joints: Bilateral os acromiale with high-grade chondromalacia. No acute fracture visualized. No dislocation. Soft tissues: Unremarkable. Lymph nodes: No pathologically enlarged lymph nodes. IMPRESSION: No PE identified. Electronically signed by: Rand Zurita MD 04/01/2023 5:20 AM CDT Due to temporary technical issues with the PACS/Fluency reporting system, reports are being signed by the in house radiologists without review as a courtesy to insure prompt reporting. The interpreting radiologist is fully responsible for the content of the report.
[2023-04-04] MEDS: ACETAMINOPHEN 325 MG TABLET PO SCH ×4 (05:15→22:00)
[2023-04-04] MEDS: NICOTINE 14 MG/PAT TD SCH (09:00)
[2023-04-04] MEDS: dexAMETHasone 4 MG TAB PO SCH (09:36)
[2023-04-04] MEDS: CEFEPIME 2 GM in NA CHLORIDE 0.9% 100 ML IV SCH ×2 (09:36→21:12)
[2023-04-04] MEDS: ASPIRIN 81 MG CHEWABLE TABLET PO SCH (09:36)
--- NOTE | 2023-04-04 16:44 | P.PN ---
Subjective Date of Service: 04/04/23 Chief Complaint: Altered mental status, fever and generalized weakness Patient is awake. Tolerating diet. No fever past 48 hours. Physical Examination - Vital Signs Temperature: 98.9 F Blood Pressure: 149/77 Pulse: 79 Respirations: 16 Pulse Ox (%): 98 Assessment And Plan - Plan Physical Exam General: Alert, In no apparent distress, Oriented x1, Cooperative. He follows commands. HEENT: Bilateral reddened eyes with discharge mucous membr. Sclerae nonicteric, palpable rounded mass-right parotid area. Respiratory: Diminished, no crackles. Cardiovascular: No edema, Regular rate/rhythm, Normal S1 S2 Gastrointestinal: Normal bowel sounds, Non-distended, No tenderness Musculoskeletal:No tenderness Integumentary: No rashes, No tenderness/swelling Neurological: No focal motor deficit. Diagnosis Acute metabolic encephalopathy/COVID-19 infection/COVID-19 conjunctivitis Likely secondary to COVID-[address] and MRI shows no acute intracranial disease. Patient with upper respiratory infection including conjunctivitis. Supportive measures. Tylenol as needed for fever. Contact and airborne precautions. Blood cultures shows no growth to date. Continue IV antibiotics. Blood cultures: No growth to date. PT evaluation for generalized weakness. Nodule-parotid area Empiric antibiotics. Follow-up ENT as outpatient if it does not respond to antibiotics. Hypertension. Patient is currently normotensive Hold home antihypertensives. Elevated D-dimer. Likely related to COVID-[address] PE angiogram negative for PE. Tremors. Chronic. Likely essential tremors. Continue supportive care. Nicotine dependence. Patient placed on nicotine patch. Asthma Stable. Continue home medication. DVT prophylaxis: Lovenox subQ. Discharge Plan: Home
[2023-04-04] MEDS: VANCOMYCIN 1.75 GM in NA CHLORIDE 0.9% 500 ML IVPB SCH (18:33)
[2023-04-04] MEDS: ENOXAPARIN 40 MG/0.4 ML SQ SCH (18:33)
[2023-04-05] MEDS: ACETAMINOPHEN 325 MG TABLET PO SCH ×5 (00:54→22:00)
[2023-04-05] MEDS ORDERED: CEFEPIME 2 GM in NA CHLORIDE 0.9% 100 ML IV SCH (09:00)
[2023-04-05] MEDS: NICOTINE 14 MG/PAT TD SCH (09:49)
[2023-04-05] MEDS: dexAMETHasone 4 MG TAB PO SCH (09:52)
[2023-04-05] MEDS: ASPIRIN 81 MG CHEWABLE TABLET PO SCH (09:52)
[2023-04-05] MEDS: levoFLOXacin 750 MG TAB PO SCH (11:17)
--- NOTE | 2023-04-05 15:31 | P.PN ---
Subjective Date of Service: 04/05/23 Chief Complaint: Altered mental status, fever and generalized weakness Patient is awake and seen sitting up in bed and eating by himself. No fever for 72 hours. Physical Examination - Vital Signs Temperature: 99.5 F Blood Pressure: 140/77 Pulse: 94 Respirations: 16 Pulse Ox (%): 96 Assessment And Plan - Plan Physical Exam General: Alert, In no apparent distress, Oriented x1, Cooperative. He follows commands. HEENT: Bilateral reddened eyes improved. palpable rounded mass-right parotid area-unchanged. Respiratory: Diminished, no crackles. Cardiovascular: No edema, Regular rate/rhythm, Normal S1 S2 Gastrointestinal: Normal bowel sounds, Non-distended, No tenderness Musculoskeletal:No tenderness Integumentary: No rashes, No tenderness/swelling Neurological: No focal motor deficit. Diagnosis Acute metabolic encephalopathy/COVID-19 infection/COVID-19 conjunctivitis Likely secondary to COVID-[address] and MRI shows no acute intracranial disease. Patient with upper respiratory infection including conjunctivitis. Supportive measures. Continue contact and airborne precautions. Blood cultures shows no growth to date. IV antibiotics-cefepime and vancomycin changed to oral Levaquin and clindamycin Blood cultures: No growth to date. Continue PT for generalized weakness. Nodule-parotid area Empiric antibiotics. Follow-up ENT as outpatient. Patient may require excisional biopsy. Hypertension. Patient is now hypertensive. Resume home medications. Elevated D-dimer. Likely related to COVID-[address] PE angiogram negative for PE. Tremors/history of alcohol abuse Chronic. Likely essential tremors. Continue supportive care. Nicotine dependence. Patient placed on nicotine patch. Asthma Stable. Continue home medication. DVT prophylaxis: Lovenox subQ. Discharge Plan: Anticipating discharge to skilled rehab.
[2023-04-05] MEDS: ENOXAPARIN 40 MG/0.4 ML SQ SCH (16:41)
[2023-04-06] MEDS: ACETAMINOPHEN 325 MG TABLET PO SCH ×3 (04:00→16:31)
[2023-04-06 05:20] LABS: Absolute Lymphocytes (CBC) 1.2 K/uL (0.7-4.9); Hematocrit 35.3 % (39.6-49.0); Lymphocytes % 26.9 % (15.3-44.8); MCV 96.9 fL (80-100); MPV 10.9 fL (7.6-11.3); Platelets 88 thou/uL (152-406); RBC Red Blood Cell Count 3.64 M/uL (4.33-5.43)
[2023-04-06 05:34] LABS: Potassium 4.1 mEq/L (3.5-5.1)
--- NOTE | 2023-04-06 07:17 | P.PN ---
Date of Service: 04/06/23 Subjective: difficulty swallowing overnight family at bedside, state slight improvement today regarding his alertness, answering a few words/short sentences no new/worsening symptoms still very weak; not eating much yet ROS: 10 point ROS as noted above, otherwise negative Physical Exam: GEN: oriented x2, follows commands, responds appropriately HEENT: palpable rounded mass-right parotid area; nontender CV: Regular rate and rhythm, no edema Pulm: Nonlabored respirations on room air, diminished at bases b/l ABD: Soft, nontender, nondistended Neuro: Normal speech, appears fatigued vitals reviewed Problem List: Fever Acute metabolic encephalopathy likely secondary to COVID-19 infection. COVID-19 infection/COVID-19 conjunctivitis Nodule of R parotid area Hypertension Elevated D-dimer Tremors/history of alcohol abuse Nicotine dependence Asthma Fever Acute metabolic encephalopathy likely secondary to COVID-19 infection. COVID-19 infection/COVID-[address] and MRI brain (03/31) both negative for any acute intracranial disease. Patient with upper respiratory infection including conjunctivitis. Continue contact and airborne precautions. Supportive measures. Blood cx (03/31): without growth Previously on Cefepime (04/02-04/05) / Vancomycin (04/02-04/04) Continue PO Levaquin / clindamycin (04/05-) for now, may need to transition back to IV if not tolerating PO speech therapy consulted Continue PT has not eaten much, may need dobhoff temporarily Nodule-parotid area does not appear to be infectious patient/family state first noticed it ~1 week prior to admission nontender reviewed over phone with ENT, who reviewed MRI, no surrounding inflammatory changes; highly unlikely to be infectious f/u ENT as outpatient. Patient may require FNA/ biopsy. Hypertension. Confirm home medications, restart as appropriate Elevated D-dimer. Likely related to COVID-[address] PE angiogram negative for PE. Tremors/history of alcohol abuse Chronic. Likely essential tremors. Continue supportive care. Nicotine dependence. Cessation advised. Patient placed on nicotine patch. Asthma Stable. Continue home medication. VTE: Lovenox Code: Full Dispo: home with , 2-3 days
--- NOTE | 2023-04-06 08:28 | P.CNS ---
Date of Consult: 04/06/23 Reason for Consult: covid, viral syndrome vs bacterial, abx Chief Complaint: Altered mental status, fever and generalized weakness History of Present Illness: Patient is a 73-year-old male with a past medical history of asthma, hypertension and nicotine dependence who presented to the ED with complaints of fever, generalized weakness and altered mental status. Patient had reported having cough and congestion for about 3 weeks prior to arrival. CT head u nremarkable for any acute intracranial abnormality. COVID-19 positive. Elevated D-dimer. CT angiogram negative for PE. Allergies No Known Allergies Allergy (Unverified 11/23/16 08:58) Home medications list reviewed: Yes Home Medications: Folic Acid 1 mg PO DAILY #90 tablet 11/07/18 Rivaroxaban [Xarelto] 15 mg PO BID #42 tablet 11/07/18 Rivaroxaban [Xarelto] 20 mg PO DAILY #30 tablet 11/07/18 Thiamine HCl 100 mg PO DAILY #90 tablet 11/07/18 - Past Medical/Surgical History Diabetic: No -: Asthma. -: Hypertension. -: Nicotine dependence. - Social History Smoking Status: Current every day smoker Alcohol use: Yes CD- Drugs: No Caffeine use: Yes Place of Residence: Home Review of Systems is unable to be obtained Physical Examination Temp Pulse Resp BP Pulse Ox 99.1 F 94 H 20 145/73 H 98 04/06/23 04:00 04/06/23 04:00 04/06/23 04:00 04/06/23 04:00 04/06/23 04:00 General: In no apparent distress, Confused HEENT: Atraumatic, Other (poor dentition) Neck: Supple Respiratory: Normal air movement (on room air), Diminished, Other (intermittent cough) Cardiovascular: No edema, Normal S1 S2 Gastrointestinal: Normal bowel sounds, No tenderness Musculoskeletal: No clubbing, No tenderness Integumentary: No rashes Laboratory data reviewed Microbiology data reviewed Imagings Data: --CTA Chest 03/31: "Pulmonary arteries: No PE identified. Aorta: No acute findings. No thoracic aortic aneurysm. Lungs: Unremarkable. No mass. No consolidation. Pleural space: No significant effusion. No pneumothorax. Heart: Cardiomegaly. Mediastinum: No pneumomediastinum. Bones/joints: Bilateral os acromiale with high-grade chondromalacia. No acute fracture visualized. No dislocation. Soft tissues: Unremarkable. Lymph nodes: No pathologically enlarged lymph nodes." Conclusions/Impression: Problem list Acute metabolic encephalopathy COVID-19 infection Asthma Hypertension Tremors Nicotine dependence Thrombocytopenia Hyponatremia Hypocalcemia -Previously on Cefepime (04/02-04/05) and Vancomycin (04/02-04/04) -Currently on Levaquin and clindamycin (started 04/05) -Blood cultures 03/31: No growth to date -Tested positive for COVID on 03/31 - Influenza A&B: Negative - 24hour Tmax of 100 F -No leukocytosis - XR Chest 04/06: "FINDINGS: The lungs are clear. No pneumothorax or effusion. The cardiomediastinal contours are unremarkable. IMPRESSION: No acute cardiopulmonary process." Recommendations - Continue Levaquin and Clindamycin for 5 days (04/05-04/10) - Monitor WBC and fever trends - Supportive care and nutritional supplementation as needed - Aspiration precautions Case discussed with Thaddeus Lozano
[2023-04-06] MEDS: levoFLOXacin 750 MG TAB PO SCH (09:00)
[2023-04-06] MEDS: NICOTINE 14 MG/PAT TD SCH (09:00)
[2023-04-06] MEDS: ASPIRIN 81 MG CHEWABLE TABLET PO SCH (09:00)
[2023-04-06] MEDS: dexAMETHasone 4 MG TAB PO SCH (09:00)
--- NOTE | 2023-04-06 12:44 | RAD REPORT ---
EXAM DESCRIPTION: [place] Single View04/06/2023 12:33 pm CLINICAL HISTORY: cough, aspiration risk, eval pneumonia COMPARISON: Chest Single View dated 03/31/2023; Chest Single View dated 11/05/2018; Chest Single View d ated 10/09/2018; Chest Pa And Lat (2 Views) dated 11/23/2016 TECHNIQUE: Portable AP view of the chest. FINDINGS: The lungs are clear. No pneumothorax or effusion. The cardiomediastinal contours are unrem arkable. IMPRESSION: No acute cardiopulmonary process.
[2023-04-06] MEDS: ENOXAPARIN 40 MG/0.4 ML SQ SCH (16:30)
[2023-04-06] MEDS ORDERED: ACETAMINOPHEN 325 MG TABLET PO PRN (18:20)
[2023-04-07 03:48] LABS: Absolute Lymphocytes (CBC) 1.5 K/uL (0.7-4.9); Hematocrit 37.7 % (39.6-49.0); MCV 98.4 fL (80-100); MPV 10.8 fL (7.6-11.3); Platelets 90 thou/uL (152-406); RBC Red Blood Cell Count 3.83 M/uL (4.33-5.43)
[2023-04-07 04:00] LABS: Albumin 2.8 g/dL (3.4-5.0); Bilirubin Total 0.6 mg/dL (0.2-1.0); Magnesium 2.2 mg/dL (1.6-2.4); Phosphorus 3.1 mg/dL (2.5-4.9); Potassium 4.2 mEq/L (3.5-5.1); Protein, Total 6.8 g/dL (6.4-8.2)
--- NOTE | 2023-04-07 07:23 | P.PN ---
Date of Service: 04/07/23 Subjective: no acute events overnight patient appears more alert this afternoon states doing ok, still with weakness, not eating much family brought boost to help ROS: 10 point ROS as noted above, otherwise negative Physical Exam: GEN: oriented x1, follows commands, responds appropriately/slowly HEENT: palpable rounded mass-right parotid area; nontender CV: Regular rate and rhythm, no edema Pulm: Nonlabored respirations on room air, diminished at bases b/l ABD: Soft, nontender, nondistended Neuro: Normal/slow speech, fatigued appearing, generalized weakness vitals reviewed Problem List: Fever Acute metabolic encephalopathy likely secondary to COVID-19 infection. COVID-19 infection/COVID-19 conjunctivitis Nodule of R parotid area Hypertension Elevated D-dimer Tremors/history of alcohol abuse Nicotine dependence Asthma Fever Acute metabolic encephalopathy likely secondary to COVID-19 infection. COVID-19 infection/COVID-[address] and MRI brain (03/31) both negative for any acute intracranial disease. Patient with upper respiratory infection including conjunctivitis. Continue contact and airborne precautions. Supportive measures. Blood cx (03/31): without growth ID consulted Previously on Cefepime (04/02-04/05) / Vancomycin (04/02-04/04) Continue PO Levaquin / clindamycin (04/05-) for now, may need to transition back to IV if not tolerating PO speech therapy consulted Continue PT has not eaten much, may need dobhoff temporarily Nodule-parotid area does not appear to be infectious patient/family state first noticed it ~1 week prior to admission nontender reviewed over phone with ENT, who reviewed MRI, no surrounding inflammatory changes; highly unlikely to be infectious f/u ENT as outpatient. Patient may require FNA/ biopsy. Hypertension. Confirm home medications, restart as appropriate Elevated D-dimer. Likely related to COVID-[address] PE angiogram negative for PE. Tremors/history of alcohol abuse Chronic. Likely essential tremors. Continue supportive care. Nicotine dependence. Cessation advised. Patient placed on nicotine patch. Asthma Stable. Continue home medication. VTE: Lovenox Code: Full Dispo: home with , 2-3 days
[2023-04-07] MEDS: dexAMETHasone 4 MG TAB PO SCH (08:44)
[2023-04-07] MEDS: ASPIRIN 81 MG CHEWABLE TABLET PO SCH (08:44)
[2023-04-07] MEDS: levoFLOXacin 750 MG TAB PO SCH (08:44)
[2023-04-07] MEDS: NICOTINE 14 MG/PAT TD SCH (08:45)
[2023-04-07] MEDS: ENOXAPARIN 40 MG/0.4 ML SQ SCH (17:21)
--- NOTE | 2023-04-07 18:25 | P.PN ---
Date of Service: 04/07/23 Chief Complaint: Altered mental status, fever and generalized weakness Subjective: Patient seen and examined at bedside. No new or worsening complaints. Daughter at bedside. Physical Examination Temp Pulse Resp BP Pulse Ox 98.4 F 79 14 138/65 97 04/07/23 16:00 04/07/23 16:00 04/07/23 16:00 04/07/23 16:00 04/07/23 16:00 General: In no apparent distress, Confused HEENT: Atraumatic. Poor dentition. Neck: Supple Respiratory: Normal air movement. On room air. Diminished. Cardiovascular: No edema, Normal S1 S2 Gastrointestinal: Normal bowel sounds, No tenderness Musculoskeletal: No clubbing, No tenderness Integumentary: No rashes Laboratory data reviewed Microbiology data reviewed Imagings Data: --CTA Chest 03/31: "Pulmonary arteries: No PE identified. Aorta: No acute findings. No thoracic aortic aneurysm. Lungs: Unremarkable. No mass. No consolidation. Pleural space: No significant effusion. No pneumothorax. Heart: Cardiomegaly. Mediastinum: No pneumomediastinum. Bones/joints: Bilateral os acromiale with high-grade chondromalacia. No acute fracture visualized. No dislocation. Soft tissues: Unremarkable. Lymph nodes: No pathologically enlarged lymph nodes." Assessment and Plan Problem list Acute metabolic encephalopathy COVID-19 infection Asthma Hypertension Tremors Nicotine dependence Thrombocytopenia Hyponatremia Hypocalcemia Acute metabolic encephalopathy COVID-19 infection -Previously on Cefepime (04/02-04/05) and Vancomycin (04/02-04/04) -Currently on Levaquin and clindamycin (started 04/05) -Blood cultures 03/31: No growth to date - Influenza A&B: Negative -No leukocytosis. Afebrile. - XR Chest 04/06: "FINDINGS: The lungs are clear. No pneumothorax or effusion. The cardiomediastinal contours are unremarkable. IMPRESSION: No acute cardiopulmonary process." Recommendations - Continue Levaquin and Clindamycin for 5 days (04/05-04/10) - Monitor WBC and fever trends - Supportive care and nutritional supplementation as needed - Aspiration precautions - Physical therapy Case discussed with Thaddeus oLzano
[2023-04-07] MEDS: ENSURE ENLIVE 237 ML CAN PO SCH (21:43)
[2023-04-08 05:05] LABS: Albumin 2.7 g/dL (3.4-5.0); Potassium 4.1 mEq/L (3.5-5.1)
--- NOTE | 2023-04-08 07:22 | P.PN ---
Date of Service: 04/08/23 Subjective: no acute events overnight working with PT, able to provide more assist and ROM with exercises however still fatigues quickly and needing breaks per PT note appetite improving afebrile mild cough ROS: 10 point ROS as noted above, otherwise negative Physical Exam: GEN: oriented x2, follows commands, responds appropriately/slowly HEENT: palpable rounded mass-right parotid area; nontender CV: Regular rate and rhythm, no edema Pulm: Nonlabored respirations on room air, diminished at bases b/l, mild cough ABD: Soft, nontender, nondistended Neuro: Normal/slow speech, fatigued appearing, generalized weakness vitals reviewed Problem List: Fever Acute metabolic encephalopathy likely secondary to COVID-19 infection. COVID-19 infection/COVID-19 conjunctivitis Nodule of R parotid area Hypertension Elevated D-dimer Tremors/history of alcohol abuse Nicotine dependence Asthma Fever Acute metabolic encephalopathy likely secondary to COVID-19 infection. COVID-19 infection/COVID-[address] and MRI brain (03/31) both negative for any acute intracranial disease. Patient with upper respiratory infection including conjunctivitis. Continue contact and airborne precautions. Supportive measures. Blood cx (03/31): without growth ID consulted Previously on Cefepime (04/02-04/05) / Vancomycin (04/02-04/04) Continue PO Levaquin / clindamycin (04/05-) for now speech therapy consulted Continue PT improving Nodule-parotid area does not appear to be infectious patient/family state first noticed it ~1 week prior to admission nontender reviewed over phone with ENT, who reviewed MRI, no surrounding inflammatory changes; highly unlikely to be infectious f/u ENT as outpatient. Patient may require FNA/ biopsy. Hypertension. Confirm home medications, restart as appropriate Elevated D-dimer. Likely related to COVID-[address] PE angiogram negative for PE. Tremors/history of alcohol abuse Chronic. Likely essential tremors. Continue supportive care. Nicotine dependence. Cessation advised. Patient placed on nicotine patch. Asthma Stable. Continue home medication. VTE: Lovenox Code: Full Dispo: home with HH vs SNF, 2-3 days
[2023-04-08] MEDS: levoFLOXacin 750 MG TAB PO SCH (08:59)
[2023-04-08] MEDS: ENSURE ENLIVE 237 ML CAN PO SCH ×2 (08:59→21:00)
[2023-04-08] MEDS: ASPIRIN 81 MG CHEWABLE TABLET PO SCH (08:59)
[2023-04-08] MEDS: dexAMETHasone 4 MG TAB PO SCH (08:59)
[2023-04-08] MEDS: NICOTINE 14 MG/PAT TD SCH (09:00)
--- NOTE | 2023-04-08 14:45 | P.PN ---
Date of Service: 04/08/23 Chief Complaint: Altered mental status, fever and generalized weakness Subjective: Patient seen and examined at bedside. In no apparent distress. No acute events reported overnight. Physical Examination Temp Pulse Resp BP Pulse Ox 99.1 F 89 16 115/63 100 04/08/23 12:00 04/08/23 12:00 04/08/23 12:00 04/08/23 12:00 04/08/23 12:00 General: In no apparent distress. Lethargic. HEENT: Atraumatic. Poor dentition. Neck: Supple Respiratory: Normal air movement. On room air. Diminished. Cardiovascular: No edema, Normal S1 S2 Gastrointestinal: Normal bowel sounds, No tenderness Musculoskeletal: No clubbing, No tenderness Integumentary: No rashes Laboratory data reviewed Microbiology data reviewed Imagings Data: --CTA Chest 03/31: "Pulmonary arteries: No PE identified. Aorta: No acute findings. No thoracic aortic aneurysm. Lungs: Unremarkable. No mass. No consolidation. Pleural space: No significant effusion. No pneumothorax. Heart: Cardiomegaly. Mediastinum: No pneumomediastinum. Bones/joints: Bilateral os acromiale with high-grade chondromalacia. No acute fracture visualized. No dislocation. Soft tissues: Unremarkable. Lymph nodes: No pathologically enlarged lymph nodes." Assessment and Plan Problem list Acute metabolic encephalopathy COVID-19 infection Asthma Hypertension Tremors Nicotine dependence Thrombocytopenia Hyponatremia Hypocalcemia Acute metabolic encephalopathy COVID-19 infection -Previously on Cefepime (04/02-04/05) and Vancomycin (04/02-04/04) -Currently on Levaquin and clindamycin (started 04/05) -Blood cultures 03/31: No growth to date - Influenza A&B: Negative -No leukocytosis. Afebrile. - XR Chest 04/06: "FINDINGS: The lungs are clear. No pneumothorax or effusion. The cardiomediastinal contours are unremarkable. IMPRESSION: No acute cardiopulmonary process." Recommendations - Continue Levaquin and Clindamycin for 5 days (04/05-04/10) - Monitor WBC and fever trends - Continue supportive care and nutritional supplementation as needed - Physical therapy Case discussed with Thaddeus Lozano
[2023-04-08] MEDS: ENOXAPARIN 40 MG/0.4 ML SQ SCH (18:25)
[2023-04-09 04:00] LABS: Absolute Lymphocytes (CBC) 1.5 K/uL (0.7-4.9); Hematocrit 35.7 % (39.6-49.0); Lymphocytes % 34.8 % (15.3-44.8); MCV 96.6 fL (80-100); MPV 10.1 fL (7.6-11.3); Platelets 143 thou/uL (152-406); RBC Red Blood Cell Count 3.69 M/uL (4.33-5.43)
[2023-04-09 04:23] LABS: Albumin 2.8 g/dL (3.4-5.0); Bilirubin Total 0.5 mg/dL (0.2-1.0); Magnesium 2.1 mg/dL (1.6-2.4); Phosphorus 2.9 mg/dL (2.5-4.9); Potassium 4.3 mEq/L (3.5-5.1); Protein, Total 6.9 g/dL (6.4-8.2); Thyroid Stimulating Hormone 0.643 uIU/mL (0.358-3.740)
--- NOTE | 2023-04-09 07:07 | P.PN ---
Date of Service: 04/09/23 Subjective: Feeling better today - more alert; speech more clear today no acute events overnight appetite improving afebrile ROS: 10 point ROS as noted above, otherwise negative Physical Exam: GEN: oriented x2, follows commands, responds appropriately HEENT: palpable rounded mass-right parotid area; nontender CV: Regular rate and rhythm, no edema Pulm: Nonlabored respirations on room air, diminished at bases b/l, mild cough ABD: Soft, nontender, nondistended Neuro: Normal/slow speech (improving), fatigued appearing, generalized weakness vitals reviewed Problem List: Fever Acute metabolic encephalopathy likely secondary to COVID-19 infection. COVID-19 infection/COVID-19 conjunctivitis Nodule of R parotid area Hypertension Elevated D-dimer Tremors/history of alcohol abuse Nicotine dependence Asthma Fever Acute metabolic encephalopathy likely secondary to COVID-19 infection. COVID-19 infection/COVID-[address] and MRI brain (03/31) both negative for any acute intracranial disease. Patient with upper respiratory infection including conjunctivitis. Continue contact and airborne precautions. Supportive measures. Blood cx (03/31): without growth ID consulted Previously on Cefepime (04/02-04/05) / Vancomycin (04/02-04/04) Continue PO Levaquin / clindamycin (04/05-04/10) x5 days per ID Continue PT/ST improving Nodule-parotid area does not appear to be infectious patient/family state first noticed it ~1 week prior to admission nontender reviewed over phone with ENT, who reviewed MRI, no surrounding inflammatory changes; highly unlikely to be infectious f/u ENT as outpatient. Patient may require FNA/ biopsy. Hypertension. Confirm home medications, restart as appropriate Elevated D-dimer. Likely related to COVID-[address] PE angiogram negative for PE. Tremors/history of alcohol abuse Chronic. Likely essential tremors. Continue supportive care. Nicotine dependence. Cessation advised. Patient placed on nicotine patch. Asthma Stable. Continue home medication. VTE: Lovenox Code: Full Dispo: home with HH vs SNF, 2-3 days
--- NOTE | 2023-04-09 08:41 | P.PN ---
Date of Service: 04/09/23 Chief Complaint: Altered mental status, fever and generalized weakness Subjective: Improving. No acute events reported overnight. Patient seen and examined at bedside. More alert and responsive this morning. Oriented x 2, In no apparent distress, Breathing comfortably on room air. He denies any new or worsening complaints at this time. Physical Examination Temp Pulse Resp BP Pulse Ox 97.2 F 88 17 122/82 94 04/09/23 04:00 04/09/23 04:00 04/09/23 04:00 04/09/23 04:00 04/09/23 04:00 General: In no apparent distress. Awake. Oriented x2. HEENT: Atraumatic, normocephalic. Poor dentition, missing teeth. Neck: Supple. No JVD. Respiratory: Normal air movement. On room air. No wheezing, crackles or r rales or rhonchi Cardiovascular: No edema, Normal S1 S2 Gastrointestinal: Normal bowel sounds, No tenderness Musculoskeletal: No clubbing, No tenderness. Generalized weakness. Integumentary: No rashes Laboratory Data: - Reviewed Microbiology Data - Reviewed Imagings Data: --CTA Chest 03/31: "Pulmonary arteries: No PE identified. Aorta: No acute findings. No thoracic aortic aneurysm. Lungs: Unremarkable. No mass. No consolidation. Pleural space: No significant effusion. No pneumothorax. Heart: Cardiomegaly. Mediastinum: No pneumomediastinum. Bones/joints: Bilateral os acromiale with high-grade chondromalacia. No acute fracture visualized. No dislocation. Soft tissues: Unremarkable. Lymph nodes: No pathologically enlarged lymph nodes." Medications List: Reviewed Assessment and Plan Problem list Acute metabolic encephalopathy COVID-19 infection Asthma Hypertension Tremors Nicotine dependence Thrombocytopenia Hyponatremia Mild PCM Acute metabolic encephalopathy COVID-19 infection -Previously on Cefepime (04/02-04/05) and Vancomycin (04/02-04/04) -Currently on Levaquin and clindamycin (started 04/05) -Blood cultures 03/31: No growth to date - Influenza A&B: Negative - XR Chest 04/06: "FINDINGS: The lungs are clear. No pneumothorax or effusion. The cardiomediastinal contours are unremarkable. IMPRESSION: No acute cardio pulmonary process." -No leukocytosis. Afebrile. Recommendations - Continue Levaquin and Clindamycin for 5 days (04/05-04/10). - Currently on day 4 of 5. - Continue supportive care and nutritional supplementation as needed - Physical therapy Case discussed with Thaddeus Lozano
[2023-04-09] MEDS: NICOTINE 14 MG/PAT TD SCH (09:00)
[2023-04-09] MEDS: ENSURE ENLIVE 237 ML CAN PO SCH ×2 (09:00→21:00)
[2023-04-09] MEDS: dexAMETHasone 4 MG TAB PO SCH (09:08)
[2023-04-09] MEDS: ASPIRIN 81 MG CHEWABLE TABLET PO SCH (09:08)
[2023-04-09] MEDS: levoFLOXacin 750 MG TAB PO SCH (09:08)
[2023-04-09] MEDS: ENOXAPARIN 40 MG/0.4 ML SQ SCH (17:10)
--- NOTE | 2023-04-10 07:20 | P.PN ---
Date of Service: 04/10/23 Subjective: Continues to show some improvement each day low grade temp 100.0, +mild cough overnight family helping with patient's nutrition - drinking 2-3 boost/day since yesterday now denies choking/aspiration symptoms while eating/drinking otherwise no new / worsening problems ROS: 10 point ROS as noted above, otherwise negative Physical Exam: GEN: oriented x2, follows commands, responds appropriately for the most part but slowly HEENT: palpable rounded mass-right parotid area; nontender CV: Regular rate and rhythm, no edema Pulm: Nonlabored respirations on room air, diminished at bases b/l, mild cough ABD: Soft, nontender, nondistended Neuro: Normal/slow speech (improving), fatigued appearing, generalized weakness vitals reviewed Problem List: Fever Acute metabolic encephalopathy likely secondary to COVID-19 infection. COVID-19 infection/COVID-19 conjunctivitis Nodule of R parotid area Hypertension Elevated D-dimer Tremors/history of alcohol abuse Nicotine dependence Asthma Fever Acute metabolic encephalopathy likely secondary to COVID-19 infection. COVID-19 infection/COVID-[address] and MRI brain (03/31): both negative for any acute intracranial disease. Patient with upper respiratory infection including conjunctivitis on admission Continue contact and airborne precautions. Supportive measures. Blood cx (03/31): without growth ID consulted Previously on Cefepime (04/02-04/05) / Vancomycin (04/02-04/04) Completed 5 day course of Levaquin / clindamycin (04/05-04/09) low grade temp 100.0 (04/10), no leukocytosis mild cough overnight, check CXR clinically improving, will hold off on further antibiotics at this time, monitor continue decadron wean 04/10 Continue PT/ST improving Nodule of R parotid area does not appear to be infectious patient/family state first noticed it ~1 week prior to admission nontender reviewed over phone with ENT, who reviewed MRI, no surrounding inflammatory changes; highly unlikely to be infectious f/u ENT as outpatient. Patient may require FNA/ biopsy. Hypertension Confirm home medications, restart as appropriate Elevated D-dimer Likely related to COVID-[address] PE angiogram negative for PE. Tremors/history of alcohol abuse. Chronic. Likely essential tremors. Continue supportive care. Nicotine dependence. Cessation advised. Patient placed on nicotine patch. Asthma. Stable. Continue home medication. VTE: Lovenox Code: Full Dispo: home with HH vs SNF, ~2 days
[2023-04-10] MEDS: ASPIRIN 81 MG CHEWABLE TABLET PO SCH (08:23)
[2023-04-10] MEDS: dexAMETHasone 4 MG TAB PO SCH (08:23)
[2023-04-10] MEDS: ENSURE ENLIVE 237 ML CAN PO SCH ×2 (08:24→20:31)
[2023-04-10] MEDS: NICOTINE 14 MG/PAT TD SCH (08:24)
--- NOTE | 2023-04-10 14:02 | RAD REPORT ---
EXAM DESCRIPTION: Mac Single View04/10/2023 1:54 pm CLINICAL HISTORY: cough COMPARISON: April 06, 2023 FINDINGS: The lungs appear clear of acute infiltrate. The heart is mildly enlarged. Aorta is tortuous IMPRESSION: No acute abnormalities displayed
[2023-04-10] MEDS: ENOXAPARIN 40 MG/0.4 ML SQ SCH (16:25)
[2023-04-10] MEDS: BENZONATATE 100 MG CAP PO PRN (21:08)
[2023-04-11 06:39] LABS: Absolute Lymphocytes (CBC) 1.8 K/uL (0.7-4.9); MCV 96.9 fL (80-100); MPV 9.3 fL (7.6-11.3); Platelets 158 thou/uL (152-406); RBC Red Blood Cell Count 3.61 M/uL (4.33-5.43)
[2023-04-11 06:56] LABS: Albumin 2.7 g/dL (3.4-5.0); Bilirubin Total 0.5 mg/dL (0.2-1.0); C-Reactive Protein 32.1 mg/L (<3.00); Magnesium 2.4 mg/dL (1.6-2.4); Potassium 4.4 mEq/L (3.5-5.1); Protein, Total 6.8 g/dL (6.4-8.2)
[2023-04-11] MEDS: NICOTINE 14 MG/PAT TD SCH (08:35)
[2023-04-11] MEDS: ENSURE ENLIVE 237 ML CAN PO SCH ×2 (08:35→20:45)
[2023-04-11] MEDS: ASPIRIN 81 MG CHEWABLE TABLET PO SCH (08:35)
[2023-04-11] MEDS: dexAMETHasone 4 MG TAB PO SCH (08:35)
--- NOTE | 2023-04-11 12:06 | P.PN ---
Date of Service: 04/11/23 Subjective: Continues to show some improvement each day 99.7 temp this morning, +tessalon perles helping with cough drinking 2-3 boost/day per family - improved compared to a few days ago no acute events overnight ROS: 10 point ROS as noted above, otherwise negative Physical Exam: GEN: oriented x2, follows commands, responds appropriately for the most part but slowly HEENT: palpable rounded mass-right parotid area; nontender CV: Regular rate and rhythm, no edema Pulm: Nonlabored respirations on room air, diminished at bases b/l, minimal cough ABD: Soft, nontender, nondistended Neuro: Normal/slow speech (improving), fatigued appearing, generalized weakness vitals reviewed Problem List: Fever Acute metabolic encephalopathy likely secondary to COVID-19 infection. COVID-19 infection/COVID-19 conjunctivitis Nodule of R parotid area Hypertension Elevated D-dimer Tremors/history of alcohol abuse Nicotine dependence Asthma Fever Acute metabolic encephalopathy likely secondary to COVID-19 infection. COVID-19 infection/COVID-[address] and MRI brain (03/31): both negative for any acute intracranial disease. Patient with upper respiratory infection including conjunctivitis on admission Continue contact and airborne precautions. Supportive measures. Blood cx (03/31): without growth ID consulted Previously on Cefepime (04/02-04/05) / Vancomycin (04/02-04/04) Completed 5 day course of Levaquin / clindamycin (04/05-04/09) Tessalon Perles helping with cough, CXR negative for any acute findings clinically improving, will hold off on further antibiotics at this time, monitor continue decadron wean 04/10 Continue PT/ST improving Nodule of R parotid area does not appear to be infectious patient/family state first noticed it ~1 week prior to admission nontender reviewed over phone with ENT, who reviewed MRI, no surrounding inflammatory changes; highly unlikely to be infectious f/u ENT as outpatient. Patient may require FNA/ biopsy. Hypertension Confirm home medications, restart as appropriate Elevated D-dimer Likely related to COVID-[address] PE angiogram negative for PE. Tremors/history of alcohol abuse. Chronic. Likely essential tremors. Continue supportive care. Nicotine dependence. Cessation advised. Patient placed on nicotine patch. Asthma. Stable. Continue home medication. VTE: Lovenox Code: Full Dispo: home with HH vs SNF, ~1-2 days
[2023-04-11] MEDS: ENOXAPARIN 40 MG/0.4 ML SQ SCH (18:02)
[2023-04-11] MEDS: BENZONATATE 100 MG CAP PO PRN (21:23)
[2023-04-12 06:39] LABS: Absolute Lymphocytes (CBC) 1.7 K/uL (0.7-4.9); Hematocrit 35.3 % (39.6-49.0); Lymphocytes % 23.9 % (15.3-44.8); MCV 97.1 fL (80-100); MPV 9.2 fL (7.6-11.3); Platelets 181 thou/uL (152-406); RBC Red Blood Cell Count 3.63 M/uL (4.33-5.43)
[2023-04-12 06:57] LABS: Albumin 2.8 g/dL (3.4-5.0); Bilirubin Total 0.6 mg/dL (0.2-1.0); C-Reactive Protein 41.4 mg/L (<3.00); Magnesium 2.2 mg/dL (1.6-2.4); Phosphorus 3.9 mg/dL (2.5-4.9); Potassium 4.5 mEq/L (3.5-5.1); Protein, Total 7.1 g/dL (6.4-8.2)
--- NOTE | 2023-04-12 08:35 | P.PN ---
Date of Service: 04/12/23 Chief Complaint: Altered mental status, fever and generalized weakness Subjective: Patient is sitting up in bed, in no apparent distress. A&Ox2-3. Denies any cough, chest pain or shortness of breath at this time. Denies any pain. No nausea, vomiting or diarrhea. No acute events reported overnight. Physical Examination Temp Pulse Resp BP Pulse Ox 97.2 F 97 H 17 109/60 98 04/12/23 04:00 04/12/23 04:00 04/12/23 04:00 04/12/23 04:00 04/12/23 04:00 General: In no apparent distress. Awake. Oriented x2. HEENT: Atraumatic, normocephalic. Poor dentition, missing teeth. Respiratory: Normal air movement. On room air. Clear to auscultation. Cardiovascular: No edema, Normal S1 S2 Gastrointestinal: Normal bowel sounds, No tenderness Musculoskeletal: No clubbing, No tenderness. Generalized weakness. Integumentary: No rashes Laboratory Data: - Reviewed Microbiology Data - Reviewed Imagings Data: --CTA Chest 03/31: "Pulmonary arteries: No PE identified. Aorta: No acute findings. No thoracic aortic aneurysm. Lungs: Unremarkable. No mass. No consolidation. Pleural space: No significant effusion. No pneumothorax. Heart: Cardiomegaly. Mediastinum: No pneumomediastinum. Bones/joints: Bilateral os acromiale with high-grade chondromalacia. No acute fracture visualized. No dislocation. Soft tissues: Unremarkable. Lymph nodes: No pathologically enlarged lymph nodes." Medications List: Reviewed Assessment and Plan Problem list Acute metabolic encephalopathy COVID-19 infection Asthma Hypertension Tremors Nicotine dependence Thrombocytopenia Hyponatremia Mild PCM Acute metabolic encephalopathy COVID-19 infection -Previously on Cefepime (04/02-04/05) and Vancomycin (04/02-04/04) - Levaquin and clindamycin (04/05-04/10) - Influenza A&B: Negative - XR Chest 04/06: "FINDINGS: The lungs are clear. No pneumothorax or effusion. The cardiomediastinal contours are unremarkable. IMPRESSION: No acute cardiopulmonary process." - XR Chest 04/10: "The lungs appear clear of acute infiltrate. The heart is mildly enlarged. Aorta is tortuous. IMPRESSION: No acute abnormalities displayed" Blood cultures 03/31: No growth to date No leukocytosis. Afebrile. Recommendations - Completed 7 days of antibiotics on 04/10. Continue to monitor for worsening s/s of infection. - Fever trends. PRN tylenol. - Continue supportive care - Nutritional supplementation - Physical therapy Case discussed with Thaddeus Lozano
[2023-04-12] MEDS: ENSURE ENLIVE 237 ML CAN PO SCH (09:00)
[2023-04-12] MEDS: dexAMETHasone 4 MG TAB PO SCH (10:43)
[2023-04-12] MEDS: ASPIRIN 81 MG CHEWABLE TABLET PO SCH (10:43)
[2023-04-12] MEDS: NICOTINE 14 MG/PAT TD SCH (10:43)
[2023-04-12] MEDS: BENZONATATE 100 MG CAP PO PRN (10:43)
--- NOTE | 2023-04-12 13:46 | P.PN ---
Date of Service: 04/12/23 Subjective: still quite lethargic and slow of thought. ROS: 10 point ROS as noted above, otherwise negative Physical Exam: GEN: oriented x2, follows commands, responds appropriately for the most part but slowly HEENT: palpable rounded mass-right parotid area; nontender CV: Regular rate and rhythm, no edema Pulm: Nonlabored respirations on room air, diminished at bases b/l, minimal cough ABD: Soft, nontender, nondistended Neuro: Normal/slow speech (improving), fatigued appearing, generalized weakness vitals reviewed Problem List: Fever Acute metabolic encephalopathy likely secondary to COVID-19 infection. COVID-19 infection/COVID-19 conjunctivitis Nodule of R parotid area Hypertension Elevated D-dimer Tremors/history of alcohol abuse Nicotine dependence Asthma Fever Acute metabolic encephalopathy likely secondary to COVID-19 infection. COVID-19 infection/COVID-[address] and MRI brain (03/31): both negative for any acute intracranial disease. Patient with upper respiratory infection including conjunctivitis on admission Continue contact and airborne precautions. Supportive measures. Blood cx (03/31): without growth ID consulted Previously on Cefepime (04/02-04/05) / Vancomycin (04/02-04/04) Completed 5 day course of Levaquin / clindamycin (04/05-04/09) Aleksandar Hoff helping with cough, CXR negative for any acute findings clinically improving, will hold off on further antibiotics at this time, monitor continue decadron wean 04/10 Continue PT/ST improving Nodule of R parotid area does not appear to be infectious patient/family state first noticed it ~1 week prior to admission nontender reviewed over phone with ENT, who reviewed MRI, no surrounding inflammatory changes; highly unlikely to be infectious f/u ENT as outpatient. Patient may require FNA/ biopsy. Hypertension Confirm home medications, restart as appropriate Elevated D-dimer Likely related to COVID-[address] PE angiogram negative for PE. Tremors/history of alcohol abuse. Chronic. Likely essential tremors. Continue supportive care. Nicotine dependence. Cessation advised. Patient placed on nicotine patch. Asthma. Stable. Continue home medication. VTE: Lovenox Code: Full Dispo: home with HH vs SNF.
[2023-04-12] MEDS: modafiniL 100 MG TAB PO SCH (14:00)
[2023-04-12] MEDS: ENOXAPARIN 40 MG/0.4 ML SQ SCH (18:05)
--- NOTE | 2023-04-13 08:31 | P.PN ---
Date of Service: 04/13/23 Chief Complaint: Altered mental status, fever and generalized weakness Subjective: Patient seen and examined at bedside. No acute events reported overnight. In no apparent distress. Breathing comfortably on room air. He denies any new or worsening complaints at this time. Patient has been off antibiotics since 04/10. Continue current plan of care. Physical Examination Temp Pulse Resp BP Pulse Ox 97.1 F 87 16 117/61 99 04/13/23 04:00 04/13/23 04:00 04/13/23 04:00 04/13/23 04:00 04/13/23 04:00 General: In no apparent distress. Awake. Oriented x2. HEENT: Atraumatic, normocephalic. Poor dentition, missing teeth. Respiratory: Normal air movement. On room air. Clear to auscultation. Cardiovascular: No edema, Normal S1 S2 Gastrointestinal: Normal bowel sounds, No tenderness Musculoskeletal: No clubbing, No tenderness. Generalized weakness. Integumentary: No rashes. left buttock superficial wound. Studies Laboratory Data: - Reviewed Microbiology Data - Reviewed Imagings Data: --CTA Chest 03/31: "Pulmonary arteries: No PE identified. Aorta: No acute findings. No thoracic aortic aneurysm. Lungs: Unremarkable. No mass. No consolidation. Pleural space: No significant effusion. No pneumothorax. Heart: Cardiomegaly. Mediastinum: No pneumomediastinum. Bones/joints: Bilateral os acromiale with high-grade chondromalacia. No acute fracture visualized. No dislocation. Soft tissues: Unremarkable. Lymph nodes: No pathologically enlarged lymph nodes." Medications List: Reviewed Assessment and Plan Problem list Acute metabolic encephalopathy COVID-19 infection Asthma Hypertension Tremors Nicotine dependence Thrombocytopenia Hyponatremia Mild PCM Acute metabolic encephalopathy COVID-19 infection -Previously on Cefepime (04/02-04/05) and Vancomycin (04/02-04/04) - Levaquin and clindamycin (04/05-04/10) - Influenza A&B: Negative - XR Chest 04/06: "FINDINGS: The lungs are clear. No pneumothorax or effusion. The cardiomediastinal contours are unremarkable. IMPRESSION: No acute cardiopulmonary process." - XR Chest 04/10: "The lungs appear clear of acute infiltrate. The heart is mildly enlarged. Aorta is tortuous. IMPRESSION: No acute abnormalities displayed" - Completed 7 day course of antibiotics on 04/10. Blood cultures 03/31: No growth to date No leukocytosis. Afebrile. Recommendations - Off antibiotics since 04/10. Afebrile. Continue to monitor for worsening s/s of infection. - Apply barrier cream to buttocks. Pressure offloading measures. - Continue supportive care - Nutritional supplementation - Physical therapy Case discussed with Thaddeus Lozano
[2023-04-13] MEDS: ASPIRIN 81 MG CHEWABLE TABLET PO SCH (09:00)
[2023-04-13] MEDS: modafiniL 100 MG TAB PO SCH (09:00)
[2023-04-13] MEDS: dexAMETHasone 4 MG TAB PO SCH (09:00)
[2023-04-13] MEDS: NICOTINE 14 MG/PAT TD SCH (10:34)
[2023-04-13] MEDS: ENOXAPARIN 40 MG/0.4 ML SQ SCH (16:19)
--- NOTE | 2023-04-13 17:57 | P.PN ---
Subjective Date of Service: 04/13/23 Chief Complaint: Altered mental status, fever and generalized weakness Patient appears confused. No issues overnight. Physical Examination - Vital Signs Temperature: 98.1 F Blood Pressure: 101/54 Pulse: 88 Respirations: 16 Pulse Ox (%): 95 Assessment And Plan - Plan Physical Exam General: Alert, In no apparent distress, confused. HEENT: palpable rounded mass-right parotid area-unchanged. Respiratory: Diminished, no crackles. Cardiovascular: No edema, Regular rate/rhythm, Normal S1 S2 Gastrointestinal: Normal bowel sounds, Non-distended, No tenderness Musculoskeletal:No tenderness Integumentary: No rashes, No tenderness/swelling Neurological: No focal motor deficit. Psychomotor retardation Diagnosis Acute metabolic encephalopathy/COVID-19 infection/COVID-19 conjunctivitis Likely secondary to COVID-[address] and MRI shows no acute intracranial disease. Patient with upper respiratory infection including conjunctivitis. Supportive measures. Continue contact and airborne precautions. Blood cultures: No growth IV antibiotics-cefepime and vancomycin changed to oral Levaquin and clindamycin. Patient completed antibiotics Continue PT for generalized weakness. Patient is on dexamethasone. Neurology consult to evaluate persistent confusion. Nodule-parotid area Empiric antibiotics. Follow-up ENT as outpatient. Patient may require excisional biopsy. Hypertension. Continue home antihypertensive Elevated D-dimer. Likely related to COVID-[address] PE angiogram negative for PE. Tremors/history of alcohol abuse Chronic. Likely essential tremors. Continue supportive care. Nicotine dependence. Patient placed on nicotine patch. Asthma Stable. Continue home medication. DVT prophylaxis: Lovenox subQ. Discharge Plan: Family refused skilled rehab placement.
[2023-04-13] MEDS: BENZONATATE 100 MG CAP PO PRN (20:10)
[2023-04-13] MEDS: ALBUTEROL 2.5 MG/3 ML NEB SOL NEB PRN (22:55)
[2023-04-14 03:41] LABS: Absolute Lymphocytes (CBC) 1.1 K/uL (0.7-4.9); Hematocrit 35.4 % (39.6-49.0); Lymphocytes % 16.5 % (15.3-44.8); MCV 97.4 fL (80-100); MPV 9.3 fL (7.6-11.3); Platelets 197 thou/uL (152-406); RBC Red Blood Cell Count 3.64 M/uL (4.33-5.43)
[2023-04-14 04:21] LABS: Potassium 4.4 mEq/L (3.5-5.1)
[2023-04-14] MEDS: NICOTINE 14 MG/PAT TD SCH (08:54)
[2023-04-14] MEDS: dexAMETHasone 4 MG TAB PO SCH (08:54)
[2023-04-14] MEDS: ASPIRIN 81 MG CHEWABLE TABLET PO SCH (08:54)
[2023-04-14] MEDS: modafiniL 100 MG TAB PO SCH (08:55)
--- NOTE | 2023-04-14 15:00 | P.PN ---
Subjective Date of Service: 04/14/23 Chief Complaint: Altered mental status, fever and generalized weakness Patient appear lethargic, responds intermittently to questions. Daughter reports patient had a choking spell last night. Physical Examination - Vital Signs Temperature: 98.2 F Blood Pressure: 117/69 Pulse: 93 Respirations: 20 Pulse Ox (%): 98 Assessment And Plan - Plan Physical Exam General: Alert, In no apparent distress, confused. HEENT: palpable rounded mass-right parotid area-unchanged. Respiratory: Diminished, no crackles. Cardiovascular: No edema, Regular rate/rhythm, Normal S1 S2 Gastrointestinal: Normal bowel sounds, Non-distended, No tenderness Musculoskeletal:No tenderness Integumentary: No rashes, No tenderness/swelling Neurological: No focal motor deficit. Psychomotor retardation Diagnosis Acute metabolic encephalopathy/COVID-19 infection/COVID-19 conjunctivitis Likely secondary to COVID-[address] and MRI shows no acute intracranial disease. Patient had upper respiratory infection including conjunctivitis which have resolved. Supportive measures. Airborne isolation no longer needed. Blood cultures: No growth Patient was treated with IV antibiotics-cefepime and vancomycin which was later changed to oral Levaquin and clindamycin. Patient completed antibiotics Continue PT for generalized weakness. Patient is on dexamethasone. Case discussed with neurology Dr. Wynn, patient diagnosed with COVID encephalopathy. Nodule-parotid area Empiric antibiotics. Follow-up ENT as outpatient. Patient may require excisional biopsy. Hypertension. Continue home antihypertensive Elevated D-dimer. Likely related to COVID-[address] PE angiogram negative for PE. Tremors/history of alcohol abuse Chronic. Likely essential tremors. Continue supportive care. Severe protein calorie malnutrition/failure to thrive/oropharyngeal dysphagia Patient has profound weakness. Dysphagia related to the profound weakness. Modified barium swallow today. Considering PEG tube for failure to thrive. Nicotine dependence. Patient placed on nicotine patch. Asthma Stable. Continue home medication. DVT prophylaxis: Lovenox subQ. Discharge Plan: Family refused skilled rehab placement. Anticipating home with home health.
--- NOTE | 2023-04-14 15:43 | P.PN ---
Date of Service: 04/14/23 Chief Complaint: Altered mental status, fever and generalized weakness Subjective: Patient seen and examined at bedside. No acute events reported overnight. Resting comfortably in bed at this time. Denies any new or worsening complaints. Physical Examination Temp Pulse Resp BP Pulse Ox 98.2 F 93 H 20 117/69 98 04/14/23 15:00 04/14/23 15:00 04/14/23 15:00 04/14/23 15:00 04/14/23 15:00 General: In no apparent distress. Awake. Oriented x2. HEENT: Atraumatic, normocephalic. Poor dentition, missing teeth. Respiratory: Normal air movement. On room air. Clear to auscultation. Cardiovascular: No edema, Normal S1 S2 Gastrointestinal: Normal bowel sounds, No tenderness Musculoskeletal: No clubbing, No tenderness. Generalized weakness. Integumentary: No rashes. left buttock superficial wound. Studies Laboratory Data: - Reviewed Microbiology Data - Reviewed Imagings Data: --CTA Chest 03/31: "Pulmonary arteries: No PE identified. Aorta: No acute findings. No thoracic aortic aneurysm. Lungs: Unremarkable. No mass. No consolidation. Pleural space: No significant effusion. No pneumothorax. Heart: Cardiomegaly. Mediastinum: No pneumomediastinum. Bones/joints: Bilateral os acromiale with high-grade chondromalacia. No acute fracture visualized. No dislocation. Soft tissues: Unremarkable. Lymph nodes: No pathologically enlarged lymph nodes." Medications List: Reviewed Assessment and Plan Problem list Acute metabolic encephalopathy COVID-19 infection Asthma Hypertension Tremors Nicotine dependence Thrombocytopenia Hyponatremia Mild PCM Acute metabolic encephalopathy COVID-19 infection -Previously on Cefepime (04/02-04/05) and Vancomycin (04/02-04/04) - Levaquin and clindamycin (04/05-04/10) - Influenza A&B: Negative - XR Chest 04/06: "FINDINGS: The lungs are clear. No pneumothorax or effusion. The cardiomediastinal contours are unremarkable. IMPRESSION: No acute cardiopulmonary process." - XR Chest 04/10: "The lungs appear clear of acute infiltrate. The heart is mildly enlarged. Aorta is tortuous. IMPRESSION: No acute abnormalities disp layed" - Completed 7 day course of antibiotics on 04/10. Blood cultures 03/31: No growth to date No leukocytosis. Afebrile. Recommendations - Off antibiotics since 04/10. Afebrile. Continue to monitor for worsening s/s of infection. - Apply barrier cream to buttocks. Pressure offloading measures. - Continue supportive care - Nutritional supplementation - Physical therapy - speech therapy for swallow eval - pending discharge home with home health ID will sign off at this time. Please reconsult if new or worsening signs/symptoms of infection. Case discussed with Thaddeus Lozano
--- NOTE | 2023-04-14 15:51 | RAD REPORT ---
EXAM DESCRIPTION: RAD - Barium Swallow Modified - 04/14/2023 2:52 pm CLINICAL HISTORY: Oropharyngeal dysphagia COMPARISON: None. TECHNIQUE: The patient was given liquid, semi-solid and solid forms of barium. Lateral view fluorosc opic imaging was performed in conjunction with speech pathology service. Fluoro time: 1:59 minutes. FINDINGS: No whitley aspiration or laryngeal penetration observed. Residues at the tongue base, vallec ulae, and pyriform sinuses. IMPRESSION: No whitley aspiration or laryngeal penetration observed. Please refer to speech pathology report for additional details.
[2023-04-14] MEDS: ENOXAPARIN 40 MG/0.4 ML SQ SCH (16:29)
[2023-04-14] MEDS: ALBUTEROL 2.5 MG/3 ML NEB SOL NEB PRN (19:45)
[2023-04-15] MEDS: NICOTINE 14 MG/PAT TD SCH (09:00)
[2023-04-15] MEDS: ASPIRIN 81 MG CHEWABLE TABLET PO SCH (09:00)
[2023-04-15] MEDS: dexAMETHasone 4 MG TAB PO SCH (09:00)
[2023-04-15] MEDS: modafiniL 100 MG TAB PO SCH (09:00)
[2023-04-15] MEDS ORDERED: Ringers Lactate 1,000 ML IV ONE (12:23)
[2023-04-15] MEDS ORDERED: LIDOCAINE 1% MPF 5 ML VIAL ONE (12:57)
[2023-04-15] MEDS ORDERED: propofoL 200 MG/20 ML VIAL IV ONE (12:57)
--- NOTE | 2023-04-15 16:39 | P.PN ---
Subjective Date of Service: 04/15/23 Chief Complaint: Altered mental status, fever and generalized weakness Patient more interactive today. He was kept n.p.o. after MBS. Grand daughter reports patient has difficulty clearing his throat. Physical Examination - Vital Signs Temperature: 97 F Blood Pressure: 109/72 Pulse: 87 Respirations: 16 Pulse Ox (%): 95 Assessment And Plan - Plan Physical Exam General: Alert, In no apparent distress, confused. HEENT: palpable rounded mass-right parotid area-unchanged. Respiratory: Diminished, no crackles. Cardiovascular: No edema, Regular rate/rhythm, Normal S1 S2 Gastrointestinal: Normal bowel sounds, Non-distended, No tenderness Musculoskeletal:No tenderness Integumentary: No rashes, No tenderness/swelling Neurological: No focal motor deficit. Psychomotor retardation Diagnosis Acute metabolic encephalopathy/COVID-19 infection/COVID-19 conjunctivitis Likely secondary to COVID-[address] and MRI shows no acute intracranial disease. Patient had upper respiratory infection including conjunctivitis which have reso lved. Supportive measures. Airborne isolation no longer needed. Blood cultures: No growth Patient was treated with IV antibiotics-cefepime and vancomycin which was later changed to oral Levaquin and clindamycin. Patient completed antibiotics Continue PT for generalized weakness. Patient is on dexamethasone. Case discussed with neurology Dr. Wynn, patient diagnosed with COVID encephalopathy. Nodule-parotid area Empiric antibiotics. Follow-up ENT as outpatient. Patient may require excisional biopsy. Hypertension. Continue home antihypertensive Elevated D-dimer. Likely related to COVID-[address] PE angiogram negative for PE. Tremors/history of alcohol abuse Chronic. Likely essential tremors. Continue supportive care. Severe protein calorie malnutrition/failure to thrive/oropharyngeal dysphagia Patient has profound weakness. Dysphagia related to the profound weakness. Patient failed Barium swallow yesterday. Granddaughter agreed to PEG tube placement. Surgery Dr. Mckeon have consulted, PEG tube placed today. Keep n.p.o. and start feeding from tomorrow. Nicotine dependence. Patient placed on nicotine patch. Asthma Stable. Continue home medication. DVT prophylaxis: Lovenox subQ. Discharge Plan: Family refused skilled rehab placement. Anticipating home with home health.
[2023-04-15] MEDS: ENOXAPARIN 40 MG/0.4 ML SQ SCH (17:15)
[2023-04-15] MEDS ORDERED: MORPHINE 4 MG/ML SYR IV PRN (20:00)
[2023-04-15] MEDS: Ringers Lactate 1,000 ML IV SCH (22:47)
[2023-04-16] MEDS: ASPIRIN 81 MG CHEWABLE TABLET PO SCH (08:58)
[2023-04-16] MEDS: NICOTINE 14 MG/PAT TD SCH (08:58)
[2023-04-16] MEDS: dexAMETHasone 4 MG TAB PO SCH (08:58)
[2023-04-16] MEDS: modafiniL 100 MG TAB PO SCH (08:59)
[2023-04-16] MEDS: Ringers Lactate 1,000 ML IV SCH (11:20)
[2023-04-16] MEDS: ENOXAPARIN 40 MG/0.4 ML SQ SCH (16:01)
--- NOTE | 2023-04-16 17:08 | P.PN ---
Subjective Date of Service: 04/16/23 Chief Complaint: Altered mental status, fever and generalized weakness Patient is awake and interactive. PEG tube placed yesterday. Physical Examination - Vital Signs Temperature: 99 F Blood Pressure: 133/68 Pulse: 101 Respirations: 20 Pulse Ox (%): 97 Assessment And Plan - Plan Physical Exam General: Alert, In no apparent distress, confused. HEENT: palpable rounded mass-right parotid area-unchanged. Respiratory: Diminished, no crackles. Cardiovascular: No edema, Regular rate/rhythm, Normal S1 S2 Gastrointestinal: Normal bowel sounds, Non-distended, No tenderness, PEG tube in place. Musculoskeletal: No tenderness Integumentary: No rashes, No tenderness/swelling Neurological: No focal motor deficit. Psychomotor retardation Diagnosis Acute metabolic encephalopathy/COVID-19 infection/COVID-19 conjunctivitis Likely secondary to COVID-[address] and MRI shows no acute intracranial disease. Patient had upper respiratory infection including conjunctivitis which have resolved. Airborne isolation no longer needed. Blood cultures: No growth Patient was treated with IV antibiotics-cefepime and vancomycin which was later changed to oral Levaquin and clindamycin. Patient completed antibiotics Continue PT for generalized weakness. Patient is on dexamethasone. Case discussed with neurology Dr. Wynn, patient diagnosed with COVID encephalopathy. Nodule-parotid area Empiric antibiotics. Follow-up ENT as outpatient. Patient may require excisional biopsy. Hypertension. Continue home antihypertensive Elevated D-dimer. Likely related to COVID-[address] PE angiogram negative for PE. Tremors/history of alcohol abuse Chronic. Likely essential tremors. Continue supportive care. Severe protein calorie malnutrition/failure to thrive/oropharyngeal dysphagia Patient has profound weakness. Dysphagia related to the profound weakness. Patient failed Barium swallow yesterday. Granddaughter agreed to PEG tube placement. Surgery Dr. Mckeon have consulted, PEG tube placed today. Start tube feeding and monitor residual. Dietitian consult appreciated. Nicotine dependence. Patient placed on nicotine patch. Asthma Stable. Continue home medication. DVT prophylaxis: Lovenox subQ. Discharge Plan: Family now requesting for skilled rehab placement.
--- NOTE | 2023-04-16 18:59 | CON ---
Date of Consultation: 04/15/2023 Reason For Consultation: Malnutrition. Brief History Of Present Illness: Patient is a 73-year-old male with past medical history for asthma , nicotine dependence, hypertension, who presents with altered mental status, fever, generalized weak ness. He has been having worsening p.o. intake. The case is discussed primarily with Dr. Keene as well as the patient's medical power of estate attorney who is his granddaughter, who self identified his [facility] power of estate attorney. I have discussed the details of the case with the patient. They have discus sed that the patient continues to have malnourishment with decreased p.o. intake and has been malnour ished for some time and has difficulty swallowing, is not taking adequate p.o. intake and as such I a m consulted for placement of a percutaneous endoscopic gastrostomy tube. Past Medical History: Significant for asthma, hypertension, nicotine dependence. Patient is letharg ic during my examination. Allergies: NO KNOWN DRUG ALLERGIES. Home Medications: Include folic acid, Xarelto, and thiamine. Review of Systems: 10-point review of systems unable to obtain. Social History: Smoking history: Patient has a significant tobacco use history. Has significant al cohol history, but denied any recreational drug use. Physical Examination: At the time of my examination: General: He is awake, alert, oriented. He is thin and frail in appearance and has lethargy generall y. HEENT: Otherwise normocephalic. He has some temporal wasting. Neck: Supple without JVD. Chest: Expansion and excursion. Cardiovascular: Regular rate and rhythm. Pulmonary: Clear to auscultation bilaterally. Abdomen: Soft, nontender, nondistended. No rebound. No guarding. No focal peritonitis. Extremities: No clubbing or edema. Skin: Warm, dry. Laboratory Data: Revealed a white blood count of 6.9, hemoglobin 12.3, hematocrit 35.4, platelet cou nt was 197. His chemistry showed a sodium 135, potassium 4.4, chloride 106, carbon dioxide 25, BUN 2 4, creatinine was 0.9, glucose was 131. His last calcium was 8.7. He had a modified barium swallow on 04/14/2023, officially read as no whitley aspiration or laryngeal penetration observed. Please refe r to Speech Pathology for additional details. Speech pathologist's note confirmed and found to state on 04/14/2023. Speech Therapy recommends alternative feeding methods such as TPN or Dobbhoff tube. Assessment And Plan: 1.This is a 73-year-old male, who comes in with malnutrition and difficulty with p.o. intake. I hav e been consulted to discuss the options of a PEG tube for a short term/possible long-term feeding. 2.I have explained risks, benefits, and alternatives of percutaneous endoscopic gastrostomy tube wit h an upper endoscopy with the patient's medical power of estate attorney and the patient and I have discusse d the risks, benefits, and alternatives to above-stated plan including, but not limited to bleeding, infection, damage to surrounding tissue, injury to intestines, need for further operation procedures, stroke, heart attack, blood clot, unforeseen complication around the perioperative period. Patient' s medical power of estate attorney and patient agreed to proceed as indicated. PEGGY/DAVID Voice ID: [id number] Report ID: [id number]
[2023-04-17] MEDS: Ringers Lactate 1,000 ML IV SCH ×2 (00:40→14:00)
[2023-04-17 04:55] LABS: Hematocrit 36.1 % (39.6-49.0); Lymphocytes % 7.6 % (15.3-44.8); MCV 99.3 fL (80-100); MPV 9.7 fL (7.6-11.3); Platelets 172 thou/uL (152-406); RBC Red Blood Cell Count 3.64 M/uL (4.33-5.43)
[2023-04-17 05:12] LABS: Magnesium 3.1 mg/dL (1.6-2.4); Phosphorus 3.4 mg/dL (2.5-4.9); Potassium 4.2 mEq/L (3.5-5.1)
[2023-04-17] MEDS: NICOTINE 14 MG/PAT TD SCH (09:00)
--- NOTE | 2023-04-17 09:14 | RAD REPORT ---
EXAM DESCRIPTION: RAD - Chest Single View - 04/17/2023 7:06 am CLINICAL HISTORY: crackles and congestion Chest pain. COMPARISON: <Comparisons> FINDINGS: Portable technique limits examination quality. Mild interstitial pulmonary edema seen. The heart is mildly enlarged in size. No displaced fractures. IMPRESSION: Mild CHF.
[2023-04-17] MEDS: modafiniL 100 MG TAB PO SCH (09:50)
[2023-04-17] MEDS: ASPIRIN 81 MG CHEWABLE TABLET PO SCH (09:50)
[2023-04-17] MEDS: dexAMETHasone 4 MG TAB PO SCH (09:50)
--- NOTE | 2023-04-17 12:04 | P.PN ---
Subjective Date of Service: 04/17/23 Chief Complaint: Altered mental status, fever and generalized weakness Subjective: Improving Physical Examination - Vital Signs Temperature: 98.6 F Blood Pressure: 124/76 Pulse: 94 Respirations: 16 Pulse Ox (%): 98 - Physical Exam General: In no apparent distress, Cachectic, Demented Gastrointestinal: Soft and benign, Other (PEG tube in place, funtioning well) Assessment And Plan - Current Problems (Diagnosis) (1) Malnutrition compromising bodily function Current Visit: Yes Status: Acute Plan: - continue tube feeding per search engine marketing manager recommendations - tube care reviewed with patients family - granddaughter @ bedside today - follow up in my clinic PRN - website instructions reviewed Physician Review: Patient Assessed, Agree with Above Assessment and Plan
--- NOTE | 2023-04-17 16:06 | P.PN ---
Subjective Date of Service: 04/17/23 Chief Complaint: Altered mental status, fever and generalized weakness Patient is awake and interactive. No issues overnight. Patient is tolerating PEG tube feeding. Physical Examination - Vital Signs Temperature: 98.6 F Blood Pressure: 124/76 Pulse: 94 Respirations: 16 Pulse Ox (%): 98 Assessment And Plan - Plan Physical Exam General: Alert, In no apparent distress, confused. HEENT: palpable rounded mass-right parotid area-unchanged. Respiratory: Diminished, no crackles. Cardiovascular: No edema, Regular rate/rhythm, Normal S1 S2 Gastrointestinal: Normal bowel sounds, Non-distended, No tenderness, PEG tube in place. Musculoskeletal: No tenderness Integumentary: No rashes, No tenderness/swelling Neurological: No focal motor deficit. Psychomotor retardation Diagnosis Acute metabolic encephalopathy/COVID-19 infection/COVID-19 conjunctivitis Likely secondary to COVID-[address] and MRI shows no acute intracranial disease. Patient had upper respiratory infection including conjunctivitis which have resolved. Airborne isolation no longer needed. Blood cultures: No growth Patient was treated with IV antibiotics-cefepime and vancomycin which was later changed to oral Levaquin and clindamycin. Patient completed antibiotics Continue PT for generalized weakness. Discontinue dexamethasone. Case discussed with neurology Dr. Wynn, patient diagnosed with COVID encephalopathy. Nodule-parotid area Empiric antibiotics. Follow-up ENT as outpatient. Patient may require excisional biopsy. Hypertension. Continue home antihypertensive Elevated D-dimer. Likely related to COVID-[address] PE angiogram negative for PE. Tremors/history of alcohol abuse Chronic. Likely essential tremors. Continue supportive care. Severe protein calorie malnutrition/failure to thrive/oropharyngeal dysphagia Patient has profound weakness. Dysphagia related to the profound weakness. Patient failed Barium swallow yesterday. Granddaughter agreed to PEG tube placement. Surgery Dr. Mckeon consulted, PEG tube placed.. Nicotine dependence. Patient placed on nicotine patch. Asthma Stable. Continue home medication. DVT prophylaxis: Lovenox subQ. Discharge Plan: Family requesting for skilled rehab placement. human services professional assisting with disposition to [facility] bed.
[2023-04-18] MEDS ORDERED: FUROSEMIDE 40 MG/4 ML VIAL IV ONE (02:02)
[2023-04-18] MEDS: Ringers Lactate 1,000 ML IV SCH (03:20)
[2023-04-18 03:32] LABS: Magnesium 2.9 mg/dL (1.6-2.4); Phosphorus 2.8 mg/dL (2.5-4.9); Potassium 4.2 mEq/L (3.5-5.1)
[2023-04-18] MEDS: modafiniL 100 MG TAB PO SCH (08:25)
[2023-04-18] MEDS: ASPIRIN 81 MG CHEWABLE TABLET PO SCH (08:25)
[2023-04-18] MEDS: ENOXAPARIN 40 MG/0.4 ML SQ SCH ×2 (08:31→18:45)
[2023-04-18] MEDS: NICOTINE 14 MG/PAT TD SCH (09:00)
--- NOTE | 2023-04-18 17:20 | P.PN ---
Subjective Date of Service: 04/18/23 Chief Complaint: Altered mental status, fever and generalized weakness Patient seems to be more awake today. No issues overnight. Patient is tolerating PEG tube feeding. Physical Examination - Vital Signs Temperature: 98.2 F Blood Pressure: 132/69 Pulse: 93 Respirations: 18 Pulse Ox (%): 95 Assessment And Plan - Plan Physical Exam General: Alert, In no apparent distress, confused. HEENT: palpable rounded mass-right parotid area-unchanged. Respiratory: Diminished, no crackles. Cardiovascular: No edema, Regular rate/rhythm, Normal S1 S2 Gastrointestinal: Normal bowel sounds, Non-distended, No tenderness, PEG tube in place. Musculoskeletal: No tenderness Integumentary: No rashes, No tenderness/swelling Neurological: No focal motor deficit. Diagnosis Acute metabolic encephalopathy/COVID-19 infection/COVID-19 conjunctivitis Likely secondary to COVID-[address] and MRI shows no acute intracranial disease. Patient had upper respiratory infection including conjunctivitis which have resolved. Airborne isolation no longer needed. Blood cultures: No growth Patient was treated with IV antibiotics-cefepime and vancomycin which was later changed to oral Levaquin and clindamycin. Patient completed antibiotics Off dexamethasone. Case discussed with neurology Dr. Wynn, patient diagnosed with COVID encephalopathy. Nodule-parotid area Empiric antibiotics. Follow-up ENT as outpatient. Patient may require excisional biopsy. Hypertension. Continue home antihypertensive Elevated D-dimer. Likely related to COVID-[address] PE angiogram negative for PE. Tremors/history of alcohol abuse Chronic. Likely essential tremors. Continue supportive care. Severe protein calorie malnutrition/failure to thrive/oropharyngeal dysphagia Patient has profound weakness. Dysphagia related to the profound weakness. Patient failed Barium swallow yesterday. Granddaughter agreed to PEG tube placement. Surgery Dr. Mckeon consulted, PEG tube placed. He is tolerating PEG tube feeding. Monitor residuals. Nicotine dependence. Patient placed on nicotine patch. Asthma Stable. Continue home medication. DVT prophylaxis: Lovenox subQ. Discharge Plan: Family requesting for skilled rehab placement. student financial services counselor assisting with disposition to [facility] bed.
[2023-04-19 06:36] LABS: Absolute Lymphocytes (CBC) 1.2 K/uL (0.7-4.9); Hematocrit 36.3 % (39.6-49.0); Lymphocytes % 18.5 % (15.3-44.8); MCV 100.7 fL (80-100); MPV 10.4 fL (7.6-11.3); Platelets 128 thou/uL (152-406); RBC Red Blood Cell Count 3.61 M/uL (4.33-5.43)
[2023-04-19 06:49] LABS: Potassium 4.2 mEq/L (3.5-5.1)
[2023-04-19] MEDS: NICOTINE 14 MG/PAT TD SCH (08:17)
[2023-04-19] MEDS: modafiniL 100 MG TAB PO SCH (08:28)
[2023-04-19] MEDS: ASPIRIN 81 MG CHEWABLE TABLET PO SCH (08:28)
--- NOTE | 2023-04-19 09:40 | P.PN ---
Date of Service: 04/19/23 Chief Complaint: Altered mental status, fever and generalized weakness Subjective: Patient resting comfortably in bed at this time. Breathing comfortably on room air. Denies any new or worsening complaints. No acute events reported overnight. Physical Examination Temp Pulse Resp BP Pulse Ox 99.8 F 108 H 40 H 125/66 94 04/19/23 08:00 04/19/23 08:00 04/19/23 08:00 04/19/23 08:00 04/19/23 08:00 General: In no apparent distress. Oriented x1-2. HEENT: Atraumatic, normocephalic. Poor dentition, missing teeth. Respiratory: Diminished. Mild crackles. Nonlabored respirations on room air. Cardiovascular: No edema, Normal S1 S2. Gastrointestinal: Normal bowel sounds, No tenderness. PEG tube. Musculoskeletal: No clubbing, No tenderness. Generalized weakness. Integumentary: No rashes. Studies Laboratory Data: - Reviewed Microbiology Data - Reviewed Imagings Data: -CTA Chest 03/31: "Pulmonary arteries: No PE identified. Aorta: No acute findings. No thoracic aortic aneurysm. Lungs: Unremarkable. No mass. No consolidation. Pleural space: No significant effusion. No pneumothorax. Heart: Cardiomegaly. Mediastinum: No pneumomediastinum. Bones/joints: Bilateral os acromiale with high-grade chondromalacia. No acute fracture visualized. No dislocation. Soft tissues: Unremarkable. Lymph nodes: No pathologically enlarged lymph nodes." Medications List: Reviewed Assessment and Plan Problem list Acute metabolic encephalopathy COVID-19 infection Asthma Hypertension Tremors Nicotine dependence Thrombocytopenia Hyponatremia Severe PCM Acute metabolic encephalopathy COVID-19 infection -Previously on Cefepime (04/02-04/05) and Vancomycin (04/02-04/04) - Levaquin and clindamycin (04/05-04/10) - Influenza A&B: Negative - XR Chest 04/06: "FINDINGS: The lungs are clear. No pneumothorax or effusion. The cardiomediastinal contours are unremarkable. IMPRESSION: No acute cardiopulmonary process." - XR Chest 04/10: "The lungs appear clear of acute infiltrate. The heart is mildly enlarged. Aorta is tortuous. IMPRESSION: No acute abnormalities displayed" - Completed 7 day course of antibiotics on 04/10. - XR Chest 04/17: " Mild interstitial pulmonary edema seen. The heart is mildly enlarged in size. No displaced fractures. IMPRESSION: Mild CHF " No leukocytosis Afebrile. Blood cultures 03/31: No growth to date Severe Protein-Calorie Malnutrition - severe weakness. covid encephalopathy. poor oral intake - speech therapy consulted - PEG tube placement 04/[address] Mckeon Recommendations - Patient has been off antibiotics since 04/10. No new or worsening signs/symptoms of infection reported. - Pressure offloading measures. Apply barrier cream to buttocks. - Continue supportive care and nutritional supplementation. - Physical therapy Pending discharge home. CM/SW following. Case discussed with Thaddeus Lozano
[2023-04-19] MEDS: ENOXAPARIN 40 MG/0.4 ML SQ SCH (17:00)
--- NOTE | 2023-04-19 19:07 | P.PN ---
Subjective Date of Service: 04/19/23 Chief Complaint: Altered mental status, fever and generalized weakness Patient is more interactive today. Patient is tolerating PEG tube feeding. Physical Examination - Vital Signs Temperature: 99.1 F Blood Pressure: 106/64 Pulse: 103 Respirations: 38 Pulse Ox (%): 103 Assessment And Plan - Plan Physical Exam General: Awake, in no apparent distress. HEENT: palpable rounded mass-right parotid area-unchanged. Respiratory: Diminished, no crackles. Cardiovascular: No edema, Regular rate/rhythm, Normal S1 S2 Gastrointestinal: Normal bowel sounds, Non-distended, No tenderness, PEG tube in place. Musculoskeletal: No tenderness Integumentary: Stage II sacral decubitus ulcer Neurological: No focal motor deficit. Diagnosis Acute metabolic encephalopathy/COVID-19 infection/COVID-19 conjunctivitis Likely secondary to COVID-[address] and MRI showed no acute intracranial disease. Patient had upper respiratory infection including conjunctivitis which resolved. Airborne isolation no longer needed. Blood cultures: No growth Patient was treated with IV antibiotics-cefepime and vancomycin which was later changed to oral Levaquin and clindamycin. Patient completed antibiotics Off dexamethasone. Case discussed with neurology Dr. Wynn, patient diagnosed with COVID encephalopathy. Nodule-parotid area Empiric antibiotics. Follow-up ENT as outpatient. Patient may require excisional biopsy. Hypertension. Continue home antihypertensive Elevated D-dimer. Likely related to COVID-[address] PE angiogram negative for PE. Tremors/history of alcohol abuse Chronic. Likely essential tremors. Continue supportive care. Severe protein calorie malnutrition/failure to thrive/oropharyngeal dysphagia Patient has profound weakness. Dysphagia related to the profound weakness. Patient failed Barium swallow. Granddaughter agreed to PEG tube placement. Surgery Dr. Mckeon consulted, PEG tube placed. He is tolerating PEG tube feeding. Monitor residuals. Nicotine dependence. Patient placed on nicotine patch. Asthma Stable. Continue home medication. Sacral decubitus ulcer Local wound care Wound cultures taken. Follow wound cultures. DVT prophylaxis: Lovenox subQ. Discharge Plan: Family requesting for skilled rehab placement. front services agent assisting with disposition. He was denied [facility] bed.
[2023-04-20] MEDS: JEVITY 1.5 CAL LIQUID 1,000 ML BOT RTH SCH ×2 (00:59→21:02)
[2023-04-20 07:05] LABS: Absolute Lymphocytes (CBC) 1.3 K/uL (0.7-4.9); Hematocrit 36.1 % (39.6-49.0); Lymphocytes % 21.1 % (15.3-44.8); MPV 10.1 fL (7.6-11.3); Platelets 118 thou/uL (152-406); RBC Red Blood Cell Count 3.64 M/uL (4.33-5.43)
[2023-04-20 07:28] LABS: Magnesium 2.4 mg/dL (1.6-2.4); Phosphorus 3.8 mg/dL (2.5-4.9); Potassium 4.2 mEq/L (3.5-5.1)
--- NOTE | 2023-04-20 07:43 | P.PN ---
Date of Service: 04/20/23 Subjective: tolerating tube feeds no acute events overnight improving per family ROS: 10 point ROS as noted above, otherwise negative Physical Exam: GEN: oriented x2, follows basic commands slowly HEENT: palpable rounded mass-right parotid area; nontender CV: Regular rate and rhythm, no edema Pulm: Nonlabored respirations on room air, diminished at bases b/l ABD: Soft, nontender, nondistended, + PEG tube Neuro: Normal/slow speech, fatigued appearing, generalized weakness PEG tube in place vitals reviewed Problem List: Acute metabolic encephalopathy secondary COVID-19 infection/COVID-19 conjunctivitis Nodule of R parotid area Severe protein calorie malnutrition/failure to thrive/oropharyngeal dysphagia; now s/p PEG tube placement Sacral decubitus ulcer h/o Hypertension Elevated D-dimer Tremors/history of alcohol abuse Nicotine dependence Asthma Acute metabolic encephalopathy likely secondary COVID-19 infection/COVID-[address] and MRI brain (03/31): both negative for any acute intracranial disease. Patient had upper respiratory infection including conjunctivitis which resolved. Airborne isolation no longer needed. Blood cultures: No growth Patient was treated with IV antibiotics-cefepime and vancomycin which was later changed to oral Levaquin and clindamycin. Patient completed antibiotics Off dexamethasone. Case discussed with neurology Dr. Wynn, patient diagnosed with COVID encephalopathy. Continue PT/ST improving slowly Nodule of R parotid area does not appear to be infectious; nontender patient/family state first noticed it ~1 week prior to admission reviewed over phone with ENT, who reviewed MRI, no surrounding inflammatory changes; highly unlikely to be infectious f/u ENT as outpatient. Patient may require FNA/ biopsy. Severe protein calorie malnutrition/failure to thrive/oropharyngeal dysphagia Patient has profound weakness. Dysphagia related to the profound weakness. Patient failed Barium swallow. Granddaughter agreed to PEG tube placement. Surgery Dr. Mckeon consulted, PEG tube placed 04/15 He is tolerating PEG tube feeding. Monitor residual Sacral decubitus ulcer Local wound care Wound cultures taken. Follow wound cultures. h/o Hypertension not on home meds; BP normal Elevated D-dimer Likely related to COVID-[address] PE angiogram negative for PE. Tremors/history of alcohol abuse. Chronic. Likely essential tremors. Continue supportive care. Nicotine dependence. Cessation advised. Patient placed on nicotine patch. Asthma. Stable. Continue home medication. VTE: Lovenox Code: Full Dispo: SNF - pending approval ss/cm consulted
[2023-04-20] MEDS: ASPIRIN 81 MG CHEWABLE TABLET PO SCH (08:41)
[2023-04-20] MEDS: modafiniL 100 MG TAB PO SCH (08:41)
[2023-04-20] MEDS: NICOTINE 14 MG/PAT TD SCH (08:42)
[2023-04-20] MEDS: ENOXAPARIN 40 MG/0.4 ML SQ SCH (17:00)
[2023-04-21 07:10] LABS: Albumin 2.2 g/dL (3.4-5.0); Bilirubin Total 0.7 mg/dL (0.2-1.0); Magnesium 2.5 mg/dL (1.6-2.4); Phosphorus 3.3 mg/dL (2.5-4.9); Protein, Total 7.2 g/dL (6.4-8.2)
--- NOTE | 2023-04-21 07:39 | P.PN ---
Date of Service: 04/21/23 Subjective: BM overnight per family no acute events overnight denies any new / worsening symptoms afebrile , weak ROS: 10 point ROS as noted above, otherwise negative Physical Exam: GEN: oriented x2, follows basic commands slowly, appears tired / weak HEENT: palpable rounded mass-right parotid area; nontender CV: Sinus Tachycardic, no edema Pulm: Nonlabored respirations on room air, diminished at bases b/l ABD: Soft, nontender, nondistended, + PEG tube Integumentary: Sacral decubitus ulcer, Stage 2 Neuro: Normal/slow speech, fatigued appearing, generalized weakness PEG tube in place vitals reviewed Problem List: Acute metabolic encephalopathy secondary COVID-19 infection/COVID-19 conjunctivitis Elevated LFTs Fatty liver Nodule of R parotid area Severe protein calorie malnutrition/failure to thrive/oropharyngeal dysphagia; now s/p PEG tube placement Sacral decubitus ulcer, stage 2 h/o Hypertension Elevated D-dimer Tremors history of alcohol abuse Nicotine dependence Asthma Acute metabolic encephalopathy likely secondary COVID-19 infection/COVID-[address] and MRI brain (03/31): both negative for any acute intracranial disease. Patient had upper respiratory infection including conjunctivitis which resolved. Airborne isolation no longer needed. Blood cultures: No growth Patient was treated with IV antibiotics-cefepime and vancomycin which was later changed to oral Levaquin and clindamycin. Patient completed antibiotics Off dexamethasone. Case discussed with neurology Dr. Wynn, patient diagnosed with COVID encephalopathy. Continue PT/ST improving slowly Elevated LFTs Fatty liver h/o alcohol abuse LFTs, CRP elevated unclear etiology; possibly medication induced, unclear if downtrending or increa sing. trend labs in AM Liver u/s (04/21): Cholelithiasis without cholecystitis. Fatty liver check hep panel GI consulted Nodule of R parotid area does not appear to be infectious; nontender patient/family state first noticed it ~1 week prior to admission reviewed over phone with ENT, who reviewed MRI, no surrounding inflammatory changes; highly unlikely to be infectious f/u ENT as outpatient. Patient may require FNA/ biopsy. Severe protein calorie malnutrition/failure to thrive/oropharyngeal dysphagia; now s/p PEG tube placement Patient has profound weakness. Dysphagia related to the profound weakness. Patient failed Barium swallow. Surgery, Dr. Kovacev consulted, PEG tube placed 04/15 tolerating PEG tube feeding. Monitor residual Sacral decubitus ulcer, stage 2 Local wound care Wound cx (04/19): +GNR. Follow wound cultures. h/o Hypertension not on home meds; BP normal Elevated D-dimer Likely related to COVID-[address] PE angiogram negative for PE. Tremors. Chronic. Likely essential tremors. Continue supportive care. Nicotine dependence. Cessation advised. Patient placed on nicotine patch. Asthma. Stable. Continue home medication. VTE: Lovenox Code: Full Dispo: SNF - pending approval ss/cm consulted sacral wound (04/21/23)
--- NOTE | 2023-04-21 09:25 | RAD REPORT ---
EXAM DESCRIPTION: US - Abdomen Exam Limited - 04/21/2023 8:04 am CLINICAL HISTORY: elevated LFTs COMPARISON: Barium Swallow Modified dated 04/14/2023 TECHNIQUE: Sonographic grayscale and color flow images of the right upper abdominal quadrant were obtained. FINDINGS: The gallbladder demonstrates echogenic sludge and multiple small shadowing stones. No zach cholecystic fluid or gallbladder wall thickening. The common bile duct is normal measuring 5 mm. The liver demonstrates diffuse parenchymal hyperechogenicity suggesting steatosis. Limited visualizat ion of the left lobe. No findings of intrahepatic biliary dilatation. IMPRESSION: Cholelithiasis. No findings to suggest acute cholecystitis. Diffuse hepatic steatosis.
[2023-04-21] MEDS: modafiniL 100 MG TAB PO SCH (09:42)
[2023-04-21] MEDS: ASPIRIN 81 MG CHEWABLE TABLET PO SCH (09:42)
[2023-04-21] MEDS: NICOTINE 14 MG/PAT TD SCH (09:42)
[2023-04-21 10:11] LABS: Hepatitis B Core IgM Nonreactive (Nonreactive); Hepatitis B surface AG Interp. Nonreactive (Nonreactive); Hepatitis C Virus Ab Nonreactive (Nonreactive)
--- NOTE | 2023-04-21 14:26 | P.PN ---
Date of Service: 04/21/23 Chief Complaint: Altered mental status, fever and generalized weakness Subjective: Patient resting comfortably in bed at this time. Breathing comfortably on room air. Denies any new or worsening complaints. No acute events reported overnight. Physical Examination Temp Pulse Resp BP Pulse Ox 99.8 F 108 H 40 H 125/66 94 04/19/23 08:00 04/19/23 08:00 04/19/23 08:00 04/19/23 08:00 04/19/23 08:00 General: In no apparent distress. Oriented x1-2. HEENT: Atraumatic, normocephalic. Poor dentition, missing teeth. Respiratory: Diminished. Mild crackles. Nonlabored respirations on room air. Cardiovascular: No edema, Normal S1 S2. Gastrointestinal: Normal bowel sounds, No tenderness. PEG tube. Musculoskeletal: No clubbing, No tenderness. Generalized weakness. Integumentary: No rashes. Studies Laboratory Data: - Reviewed Microbiology Data - Reviewed Imagings Data: -CTA Chest 03/31: "Pulmonary arteries: No PE identified. Aorta: No acute findings. No thoracic aortic aneurysm. Lungs: Unremarkable. No mass. No consolidation. Pleural space: No significant effusion. No pneumothorax. Heart: Cardiomegaly. Mediastinum: No pneumomediastinum. Bones/joints: Bilateral os acromiale with high-grade chondromalacia. No acute fracture visualized. No dislocation. Soft tissues: Unremarkable. Lymph nodes: No pathologically enlarged lymph nodes." Medications List: Reviewed Assessment and Plan Problem list Acute metabolic encephalopathy COVID-19 infection Asthma Hypertension Tremors Nicotine dependence Thrombocytopenia Hyponatremia Severe PCM Acute metabolic encephalopathy COVID-19 infection -Previously on Cefepime (04/02-04/05) and Vancomycin (04/02-04/04) - Levaquin and clindamycin (04/05-04/10) - Influenza A&B: Negative - XR Chest 04/06: "FINDINGS: The lungs are clear. No pneumothorax or effusion. The cardiomediastinal contours are unremarkable. IMPRESSION: No acute cardiopulmonary process." - XR Chest 04/10: "The lungs appear clear of acute infiltrate. The heart is mildly enlarged. Aorta is tortuous. IMPRESSION: No acute abnormalities displayed" - Completed 7 day course of antibiotics on 04/10. - XR Chest 04/17: " Mild interstitial pulmonary edema seen. The heart is mildly enlarged in size. No displaced fractures. IMPRESSION: Mild CHF " Sacrum pressure ulcer stage II - sacral wound culture 04/19: gram negative rods - wound care No leukocytosis Afebrile. Blood cultures 03/31: No growth to date Severe Protein-Calorie Malnutrition - severe weakness. covid encephalopathy. poor oral intake - PEG tube placement 04/[address] Mckeon - on tube feeds - flight hostess consulted Recommendations - Sacral pressure ulcer wound care: Clean area with Dakins solution, then apply medihoney, cover with foam dressing. Daily and PRN if soiled. - Pressure offloading measures. turn patient Q2H. Wedge pillow. Low air- loss mattress. - Follow up with final wound culture results. - Continue supportive care and nutritional supplementation. - Physical therapy Pending discharge to SNF. CM/SW following. Case discussed with Thaddeus Lozano
[2023-04-21] MEDS: ENOXAPARIN 40 MG/0.4 ML SQ SCH (16:56)
[2023-04-21 21:56] VITALS: O2SAT 96
[2023-04-22 06:26] LABS: Absolute Lymphocytes (CBC) 1.3 K/uL (0.7-4.9); Hematocrit 36.2 % (39.6-49.0); Lymphocytes % 19.4 % (15.3-44.8); MCV 98.9 fL (80-100); MPV 11.1 fL (7.6-11.3); Platelets 91 thou/uL (152-406); RBC Red Blood Cell Count 3.66 M/uL (4.33-5.43)
[2023-04-22 06:57] LABS: Albumin 2.2 g/dL (3.4-5.0); Bilirubin Total 0.6 mg/dL (0.2-1.0); Ferritin 2497.8 ng/mL (26-388); Protein, Total 7.5 g/dL (6.4-8.2)
--- NOTE | 2023-04-22 07:23 | RAD REPORT ---
EXAM DESCRIPTION: Mac Single View04/22/2023 4:52 am CLINICAL HISTORY: Cough COMPARISON: April 17, 2023 FINDINGS: Mild to moderate left basilar lung opacities Right lung appears clear of acute infiltrate. Heart is normal size IMPRESSION: Mild to moderate left basilar lung opacities may indicate pneumonia
--- NOTE | 2023-04-22 07:37 | P.PN ---
Date of Service: 04/22/23 Subjective: appears more SOB, tachypneic today in bed Sinus Tachycardic with HR in 110s denies abdominal pain afebrile very weak, slower to respond today ROS: 10 point ROS as noted above, otherwise negative Physical Exam: GEN: oriented x1, weak, cachectic; fatigued HEENT: palpable rounded mass-right parotid area; nontender CV: Sinus Tachycardic, no edema Pulm: mod labored respirations on room air, diminished at bases b/l, tachypneic ABD: Soft, nontender, nondistended, + PEG tube Integumentary: Sacral decubitus ulcer, Stage 2 Neuro: Normal/slow speech, fatigued appearing, generalized weakness PEG tube in place vitals reviewed Problem List: Acute metabolic encephalopathy secondary COVID-19 infection/COVID-19 conjunctivitis Elevated LFTs Fatty liver Nodule of R parotid area Severe protein calorie malnutrition/failure to thrive/oropharyngeal dysphagia; now s/p PEG tube placement Sacral decubitus ulcer, stage 2 h/o Hypertension Elevated D-dimer Tremors history of alcohol abuse Nicotine dependence Asthma Acute metabolic encephalopathy likely secondary COVID-19 infection/COVID-19 conjunctivitis Left Basilar Lung opacity concerning for pneumonia CT and MRI brain (03/31): both negative for any acute intracranial disease. Patient had upper respiratory infection including conjunctivitis which resolved. Airborne isolation no longer needed. Blood cultures: No growth Patient was treated with IV antibiotics-cefepime and vancomycin which was later changed to oral Levaquin and clindamycin. Patient completed antibiotics Off dexamethasone. Case discussed with neurology Dr. Wynn, patient diagnosed with COVID encephalopathy. Continue PT/ST ID following temp in 99s 04/21, rising CRP, elevated LFTs, cough, and less alert CXR (04/22): Mild to moderate left basilar lung opacities may indicate pneumonia blood cx(04/22): pending lactate 1.2 pseuodmonas growing in decubitus ulcer Start empiric Zosyn (04/22-) Elevated LFTs Fatty liver h/o alcohol abuse LFTs, CRP elevated unclear etiology; possibly medication induced, unclear if downtrending or increasing. trend labs in AM Liver u/s (04/21): Cholelithiasis without cholecystitis. Fatty liver check hep panel GI consulted Nodule of R parotid area does not appear to be infectious; nontender patient/family state first noticed it ~1 week prior to admission reviewed over phone with ENT, who reviewed MRI, no surrounding inflammatory changes; highly unlikely to be infectious f/u ENT as outpatient. Patient may require FNA/ biopsy. Severe protein calorie malnutrition/failure to thrive/oropharyngeal dysphagia; now s/p PEG tube placement Patient has profound weakness. Dysphagia related to the profound weakness. Patient failed Barium swallow. Surgery, Dr. Mckeon consulted, PEG tube placed 04/15 tolerating PEG tube feeding. Monitor residual Sacral decubitus ulcer, stage 2 Clean area with Dakins solution, then apply medihoney, cover with foam dressing. Daily and PRN if soiled. turn patient Q2H to offload pressure Wound cx (04/19): Pseudomonas Aeruginosa. started on empiric Zosyn (04/22-) h/o Hypertension not on home meds; BP normal Elevated D-dimer Likely related to COVID-[address] PE angiogram negative for PE. Tremors. Chronic. Likely essential tremors. Continue supportive care. Nicotine dependence. Cessation advised. Patient placed on nicotine patch. Asthma. Stable. Continue home medication. VTE: Lovenox Code: Full Dispo: SNF - pending approval /improvement, several days ss/cm consulted discussed with granddaughter regarding minimal progress, patient worsening clinically discussed goals of care. States to continue with treatment, continue full code; will discuss with rest of family
[2023-04-22] MEDS: PIPER TAZO 3.375 GM in NA CHLORIDE 0.9% 100 ML IV SCH ×2 (08:12→17:26)
[2023-04-22] MEDS: NICOTINE 14 MG/PAT TD SCH (08:13)
[2023-04-22] MEDS: ASPIRIN 81 MG CHEWABLE TABLET PO SCH (08:13)
[2023-04-22] MEDS: SODIUM HYPOCHLORITE 0.5% 473 ML TOP SCH ×2 (08:13→21:00)
[2023-04-22] MEDS: MEDIHONEY 44 ML TOPICAL TUBE TOP SCH (08:13)
[2023-04-22] MEDS: modafiniL 100 MG TAB PO SCH (08:13)
--- NOTE | 2023-04-22 08:41 | P.PN ---
Date of Service: 04/22/23 Chief Complaint: Altered mental status, fever and generalized weakness Subjective: Patient seen and examined at bedside. No acute events reported overnight. In no apparent distress. + cough Physical Examination Temp Pulse Resp BP Pulse Ox 97.9 F 117 H 17 119/58 L 97 04/22/23 04:00 04/22/23 04:00 04/22/23 04:00 04/22/23 04:00 04/22/23 04:00 General: In no apparent distress. Oriented x1-2. HEENT: Atraumatic, normocephalic. Poor dentition. Missing teeth. Respiratory: Diminished. symmetrical chest expansion. Unlabored breathing. On room air. Cardiovascular: No edema, Normal S1 S2. Gastrointestinal: Normal bowel sounds, No tenderness. PEG tube. Musculoskeletal: No clubbing, No tenderness. Generalized weakness. Integumentary: Buttocks/sacrum stage II pressure ulcer Studies Laboratory Data: - Reviewed Microbiology Data - Reviewed Imagings Data: -CTA Chest 03/31: "Pulmonary arteries: No PE identified. Aorta: No acute findings. No thoracic aortic aneurysm. Lungs: Unremarkable. No mass. No consolidation. Pleural space: No significant effusion. No pneumothorax. Heart: Cardiomegaly. Mediastinum: No pneumomediastinum. Bones/joints: Bilateral os acromiale with high-grade chondromalacia. No acute fracture visualized. No dislocation. Soft tissues: Unremarkable. Lymph nodes: No pathologically enlarged lymph nodes." - XR Chest 04/10: "The lungs appear clear of acute infiltrate. The heart is mildly enlarged. Aorta is tortuous. IMPRESSION: No acute abnormalities displayed" - XR Chest 04/17: " Mild interstitial pulmonary edema seen. The heart is mildly enlarged in size. No displaced fractures. IMPRESSION: Mild CHF " Medications List: Reviewed Assessment and Plan Problem list Acute metabolic encephalopathy COVID-19 infection Asthma Hypertension Tremors Nicotine dependence Thrombocytopenia Hyponatremia Severe PCM Acute metabolic encephalopathy COVID-19 infection -Previously on Cefepime (04/02-04/05) and Vancomycin (04/02-04/04) - Levaquin and clindamycin (04/05-04/10) - Influenza A&B: Negative - Completed 7 day course of antibiotics on 04/10. - XR Chest 04/06: "FINDINGS: The lungs are clear. No pneumothorax or effusion. The cardiomediastinal contours are unremarkable. IMPRESSION: No acute cardiopulmonary process." - XR Chest 04/22: "Mild to moderate left basilar lung opacities may indicate pneumonia" Sacrum pressure ulcer stage II - sacral wound culture 04/19: Pseudomonas aeruginosa - wound care - pressure offloading measures No leukocytosis Afebrile. Blood cultures 03/31: No growth to date Blood cultures 04/22: pending Severe Protein-Calorie Malnutrition - severe weakness. covid encephalopathy. poor oral intake - PEG tube placement 04/[address] Mckeon - on tube feeds - hearing aid specialist consulted Recommendations -Wound culture with Pseudomonas and chest x-ray with consolidation concerning for pneumonia. - Started on Zosyn (04/22-). Continue x 5 days. - Sacral pressure ulcer wound care: Clean area with Dakins solution, then apply medihoney, cover with foam dressing. Daily and PRN if soiled. - Pressure offloading measures. turn patient Q2H. Wedge pillow. Low air- loss mattress. - Continue supportive care and nutritional supplementation. - Physical therapy Pending discharge to SNF. CM/SW following. Case discussed with Thaddeus Lozano
[2023-04-22 09:35] LABS: Blood Morphology Comment NOT SEEN (NOT SEEN); Platelet Estimate DECR; White Blood Cell Scan OK (OK)
[2023-04-22] MEDS: ENOXAPARIN 40 MG/0.4 ML SQ SCH (17:26)
[2023-04-23] MEDS: PIPER TAZO 3.375 GM in NA CHLORIDE 0.9% 100 ML IV SCH ×3 (01:19→16:14)
--- NOTE | 2023-04-23 07:31 | P.PN ---
Date of Service: 04/23/23 Subjective: Feeling a little better today more alert / talkative; easier to understand - responding to questions mostly appropriately Breathing more comfortably today tolerating tube feeds reports some pain when urinating - unable elaborate for how long hes had this symptom afebrile ROS: 10 point ROS as noted above, otherwise negative Physical Exam: GEN: alert, oriented x2, weak HEENT: palpable rounded mass-right parotid area; nontender CV: Sinus Tachycardic, no edema Pulm: mod labored respirations on room air, diminished at bases b/l ABD: Soft, nontender, nondistended, + PEG tube Integumentary: Sacral decubitus ulcer, Stage 2 Neuro: Normal/slow speech, fatigued appearing, generalized weakness PEG tube in place vitals reviewed Problem List: Acute metabolic encephalopathy secondary COVID-19 infection/COVID-19 c onjunctivitis Elevated LFTs Fatty liver Nodule of R parotid area Severe protein calorie malnutrition/failure to thrive/oropharyngeal dysphagia; now s/p PEG tube placement Sacral decubitus ulcer, stage 2 h/o Hypertension Elevated D-dimer Tremors history of alcohol abuse Nicotine dependence Asthma Acute metabolic encephalopathy likely secondary COVID-19 infection/COVID-19 conjunctivitis Left Basilar Lung opacity concerning for pneumonia CT and MRI brain (03/31): both negative for any acute intracranial disease. Patient had upper respiratory infection including conjunctivitis which resolved. Airborne isolation no longer needed. Blood cultures: No growth Patient was treated with IV antibiotics-cefepime and vancomycin which was later changed to oral Levaquin and clindamycin. Patient completed antibiotics Off dexamethasone. Case discussed with neurology Dr. Wynn, patient diagnosed with COVID encephalopathy. Continue PT/ST ID following temp in 99s 04/21, rising CRP, elevated LFTs, cough, and less alert CXR (04/22): Mild to moderate left basilar lung opacities may indicate pneumonia blood cx(04/22): NGTD lactate 1.2 pseuodmonas growing in decubitus ulcer continue empiric Zosyn (04/22-) afebrile, no leukocytosis Elevated LFTs Fatty liver h/o alcohol abuse LFTs, CRP elevated unclear etiology; possibly medication induced, trend labs in AM Liver u/s (04/21): Cholelithiasis without cholecystitis. Fatty liver GI consulted LFTs improving Nodule of R parotid area does not appear to be infectious; nontender patient/family state first noticed it ~1 week prior to admission reviewed over phone with ENT, who reviewed MRI, no surrounding inflammatory changes; highly unlikely to be infectious f/u ENT as outpatient. Patient may require FNA/ biopsy. Severe protein calorie malnutrition/failure to thrive/oropharyngeal dysphagia; now s/p PEG tube placement Patient has profound weakness. Dysphagia related to the profound weakness. Patient failed Barium swallow. Surgery, Dr. Mckeon consulted, PEG tube placed 04/15 tolerating PEG tube feeding. Monitor residual Sacral decubitus ulcer, stage 2 Clean area with Dakins solution, then apply medihoney, cover with foam dressing. Daily and PRN if soiled. turn patient Q2H to offload pressure Wound cx (04/19): Pseudomonas Aeruginosa. continue empiric Zosyn (04/22-) h/o Hypertension not on home meds; BP normal Elevated D-dimer Likely related to COVID-[address] PE angiogram negative for PE. Tremors. Chronic. Likely essential tremors. Continue supportive care. Nicotine dependence. Cessation advised. Patient placed on nicotine patch. Asthma. Stable. Continue home medication. VTE: Lovenox Code: Full Dispo: SNF - pending approval /improvement, several days ss/cm consulted discussed with granddaughter regarding minimal progress, patient worsening clinically discussed goals of care. States to continue with treatment, continue full code; will discuss with rest of family
[2023-04-23 07:35] LABS: Absolute Lymphocytes (CBC) 1.3 K/uL (0.7-4.9); Hematocrit 34.3 % (39.6-49.0); Lymphocytes % 18.3 % (15.3-44.8); MCV 98.5 fL (80-100); MPV 11.4 fL (7.6-11.3); Platelets 97 thou/uL (152-406); RBC Red Blood Cell Count 3.48 M/uL (4.33-5.43)
[2023-04-23 07:51] LABS: Albumin 2.1 g/dL (3.4-5.0); Bilirubin Total 0.5 mg/dL (0.2-1.0); C-Reactive Protein 97.2 mg/L (<3.00); Protein, Total 7.2 g/dL (6.4-8.2)
[2023-04-23] MEDS: ASPIRIN 81 MG CHEWABLE TABLET PO SCH (08:09)
[2023-04-23] MEDS: NICOTINE 14 MG/PAT TD SCH (08:09)
[2023-04-23] MEDS: modafiniL 100 MG TAB PO SCH (08:09)
[2023-04-23] MEDS: MEDIHONEY 44 ML TOPICAL TUBE TOP SCH (09:57)
[2023-04-23] MEDS: SODIUM HYPOCHLORITE 0.5% 473 ML TOP SCH ×2 (09:57→20:23)
--- NOTE | 2023-04-23 16:12 | PN ---
Subjective: Patient is lying in bed. No new acute event. Chart reviewed. Opens eyes spontaneously . Objective: Vital Signs: Temperature 98, pulse 100, respirations 16, blood pressure 118/68. Lungs: Basal crackles. Heart: S1, S2. Regular. Abdomen: Soft, nontender. Bowel sounds present. Extremities: No edema. Skin: Sacrococcyx wound noted with in place. Laboratory Data: Shows WBC 7, hemoglobin 11.6, platelets are 97. Chemistry shows BUN of 31, creatin ine 0.9, GFR of 89. Micro data: Culture from the wound is showing Pseudomonas aeruginosa. Patient is currently being treated with Zosyn and local wound care. Assessment And Plan: Sacrococcyx unstageable wound. Consider and barrier cream. Left lo wer lobe infiltrate. Consider continuing antibiotic for 7 days, Zosyn. History of COVID infection, asthma, hypertension, tremors, nicotine dependence, thrombocytopenia. Continue current treatment. W e will follow the patient as needed. CAITIE/MODL Voice ID: [id number] Report ID: [id number]
[2023-04-23] MEDS: ENOXAPARIN 40 MG/0.4 ML SQ SCH (16:14)
[2023-04-24] MEDS: PIPER TAZO 3.375 GM in NA CHLORIDE 0.9% 100 ML IV SCH ×3 (00:54→16:15)
--- NOTE | 2023-04-24 07:55 | P.PN ---
Date of Service: 04/24/23 Subjective: "little pain" when asked if in pain; cant elaborate further tolerating tube feeds no acute events overnight afebrile ROS: 10 point ROS as noted above, otherwise negative Physical Exam: GEN: alert, oriented x2, weak HEENT: palpable rounded mass-right parotid area; nontender CV: Sinus Tachycardic, no edema Pulm: mod labored respirations on room air, diminished at bases b/l ABD: Soft, nontender, nondistended, + PEG tube Integumentary: Sacral decubitus ulcer, Stage 2 Neuro: Normal/slow speech, fatigued appearing, generalized weakness PEG tube in place vitals reviewed Problem List: Acute metabolic encephalopathy likely secondary COVID-19 infection/COVID-19 conjunctivitis Sepsis likely due to suspected pneumonia Elevated LFTs Fatty liver Nodule of R parotid area Severe protein calorie malnutrition/failure to thrive/oropharyngeal dysphagia; now s/p PEG tube placement Sacral decubitus ulcer, stage 2 h/o Hypertension Elevated D-dimer Tremors history of alcohol abuse Nicotine dependence Asthma Acute metabolic encephalopathy likely secondary COVID-19 infection/COVID-19 conjunctivitis Sepsis likely secondary to suspected pneumonia CT and MRI brain (03/31): both negative for any acute intracranial disease. Patient had upper respiratory infection including conjunctivitis which resolved. Airborne isolation no longer needed. Blood cultures: No growth Patient was treated with IV antibiotics-cefepime and vancomycin which was later changed to oral Levaquin and clindamycin. Patient completed antibiotics Off dexamethasone. Case discussed with neurology Dr. Wynn, patient diagnosed with COVID encephalopathy. Continue PT/ST ID following temp in 99s 04/21, rising CRP, elevated LFTs, cough, and less alert CXR (04/22): Mild to moderate left basilar lung opacities may indicate pneumonia blood cx(04/22): NGTD lactate 1.2 pseuodmonas growing in decubitus ulcer continue empiric Zosyn (04/22-) afebrile, no leukocytosis CRP improving Elevated LFTs Fatty liver h/o alcohol abuse LFTs, CRP elevated unclear etiology; possibly medication induced, trend labs in AM Liver u/s (04/21): Cholelithiasis without cholecystitis. Fatty liver GI consulted LFTs improving Nodule of R parotid area does not appear to be infectious; nontender patient/family state first noticed it ~1 week prior to admission reviewed over phone with ENT, who reviewed MRI, no surrounding inflammatory changes; highly unlikely to be infectious f/u ENT as outpatient. Patient may require FNA/ biopsy. Severe protein calorie malnutrition/failure to thrive/oropharyngeal dysphagia; now s/p PEG tube placement Patient has profound weakness. Dysphagia related to the profound weakness. Patient failed Barium swallow. Surgery, Dr. Mckeon consulted, PEG tube placed 04/15 tolerating PEG tube feeding. Monitor residual Sacral decubitus ulcer, stage 2 Clean area with Dakins solution, then apply medihoney, cover with foam dressing. Daily and PRN if soiled. turn patient Q2H to offload pressure Wound cx (04/19): Pseudomonas Aeruginosa. continue empiric Zosyn (04/22-) h/o Hypertension not on home meds; BP normal Elevated D-dimer Likely related to COVID-[address] PE angiogram negative for PE. Tremors. Chronic. Likely essential tremors. Continue supportive care. Nicotine dependence. Cessation advised. Patient placed on nicotine patch. Asthma. Stable. Continue home medication. VTE: Lovenox Code: Full Dispo: SNF - pending approval /improvement, several days ss/cm consulted discussed with granddaughter regarding minimal progress, patient worsening clinically discussed goals of care. States to continue with treatment, continue full code; will discuss with rest of family
[2023-04-24 07:59] LABS: Absolute Lymphocytes (CBC) 1.7 K/uL (0.7-4.9); Hematocrit 34.2 % (39.6-49.0); Lymphocytes % 21.4 % (15.3-44.8); MCV 98.8 fL (80-100); MPV 11.4 fL (7.6-11.3); Platelets 91 thou/uL (152-406); RBC Red Blood Cell Count 3.47 M/uL (4.33-5.43)
[2023-04-24] MEDS: NICOTINE 14 MG/PAT TD SCH (08:14)
[2023-04-24] MEDS: ASPIRIN 81 MG CHEWABLE TABLET PO SCH (08:14)
[2023-04-24] MEDS: SODIUM HYPOCHLORITE 0.5% 473 ML TOP SCH ×2 (08:14→20:13)
[2023-04-24] MEDS: modafiniL 100 MG TAB PO SCH (08:14)
[2023-04-24] MEDS: MEDIHONEY 44 ML TOPICAL TUBE TOP SCH (08:14)
[2023-04-24 08:27] LABS: Albumin 2.1 g/dL (3.4-5.0); Bilirubin Total 0.5 mg/dL (0.2-1.0); C-Reactive Protein 76.5 mg/L (<3.00); Potassium 3.8 mEq/L (3.5-5.1); Protein, Total 7.2 g/dL (6.4-8.2)
[2023-04-24] MEDS ORDERED: POTASSIUM 25 MEQ EFFERV TAB PO ONE (10:22)
[2023-04-24] MEDS: ENOXAPARIN 40 MG/0.4 ML SQ SCH (16:15)
[2023-04-25] MEDS: PIPER TAZO 3.375 GM in NA CHLORIDE 0.9% 100 ML IV SCH ×3 (00:11→16:50)
[2023-04-25 06:32] LABS: Albumin 1.9 g/dL (3.4-5.0); Bilirubin Total 0.4 mg/dL (0.2-1.0); C-Reactive Protein 52.8 mg/L (<3.00); Magnesium 2.5 mg/dL (1.6-2.4); Phosphorus 3.4 mg/dL (2.5-4.9); Potassium 3.8 mEq/L (3.5-5.1); Protein, Total 6.5 g/dL (6.4-8.2)
[2023-04-25] MEDS ORDERED: PIPERACIL/TAZO 3.375 GM VIAL IV ONE (07:50)
--- NOTE | 2023-04-25 07:56 | P.PN ---
Date of Service: 04/25/23 Subjective: Doing okay - more alert today; +easier to understand. talking more ./ >2 words at a time feels like he is improving; Doesn't feel anything is getting worse when asked denies any pain no acute events overnight afebrile ROS: 10 point ROS as noted above, otherwise negative Physical Exam: GEN: alert, oriented x2, weak HEENT: palpable rounded mass-right parotid area; nontender CV: Sinus Tachycardic, no edema Pulm: mod labored respirations on room air, diminished at bases b/l ABD: Soft, nontender, nondistended, + PEG tube Integumentary: Sacral decubitus ulcer, Stage 2 Neuro: Normal/slow speech, fatigued appearing, generalized weakness PEG tube in place vitals reviewed Problem List: Acute metabolic encephalopathy likely secondary COVID-19 infection/COVID-19 conjunctivitis Sepsis likely due to suspected pneumonia Elevated LFTs Fatty liver Nodule of R parotid area Severe protein calorie malnutrition/failure to thrive/oropharyngeal dysphagia; now s/p PEG tube placement Sacral decubitus ulcer, stage 2 h/o Hypertension Elevated D-dimer Tremors history of alcohol abuse Nicotine dependence Asthma Acute metabolic encephalopathy likely secondary COVID-19 infection/COVID-19 conjunctivitis Sepsis likely secondary to suspected pneumonia CT and MRI brain (03/31): both negative for any acute intracranial disease. Case discussed with neurology Dr. Wynn, patient diagnosed with COVID encephalopathy. Patient had upper respiratory infection including conjunctivitis which resolved. Airborne isolation no longer needed. Blood cultures: No growth Patient was treated with IV antibiotics-cefepime and vancomycin which was later changed to oral Levaquin and clindamycin. Patient completed antibiotics from initial infection started zosyn 04/22 for wound and suspected pneumonia Continue PT/ST ID following temp in 99s 04/21, rising CRP, elevated LFTs, cough, and less alert CXR (04/22): Mild to moderate left basilar lung opacities may indicate pneumon ia blood cx(04/22): NGTD lactate 1.2 pseuodmonas growing in decubitus ulcer continue empiric Zosyn (04/22-) afebrile, no leukocytosis CRP improving Elevated LFTs Fatty liver h/o alcohol abuse LFTs, CRP elevated unclear etiology; possibly medication induced, trend labs in AM Liver u/s (04/21): Cholelithiasis without cholecystitis. Fatty liver GI consulted LFTs improving Nodule of R parotid area does not appear to be infectious; nontender patient/family state first noticed it ~1 week prior to admission reviewed over phone with ENT, who reviewed MRI, no surrounding inflammatory changes; highly unlikely to be infectious f/u ENT as outpatient. Patient may require FNA/ biopsy. Severe protein calorie malnutrition/failure to thrive/oropharyngeal dysphagia; now s/p PEG tube placement Patient has profound weakness. Dysphagia related to the profound weakness. Patient failed Barium swallow. Surgery, Dr. Mckeon consulted, PEG tube placed 04/15 tolerating PEG tube feeding. Monitor residual Sacral decubitus ulcer, stage 2 Clean area with Dakins solution, then apply medihoney, cover with foam dressing. Daily and PRN if soiled. turn patient Q2H to offload pressure Wound cx (04/19): Pseudomonas Aeruginosa. continue empiric Zosyn (04/22-) h/o Hypertension not on home meds; BP normal Elevated D-dimer Likely related to COVID-[address] PE angiogram negative for PE. Tremors. Chronic. Likely essential tremors. Continue supportive care. Nicotine dependence. Cessation advised. Patient placed on nicotine patch. Asthma. Stable. Continue home medication. VTE: Lovenox Code: Full Dispo: SNF - pending approval /improvement, ~2-3 days ss/cm consulted improving
[2023-04-25] MEDS: ASPIRIN 81 MG CHEWABLE TABLET PO SCH (08:55)
[2023-04-25] MEDS: SODIUM HYPOCHLORITE 0.5% 473 ML TOP SCH ×2 (08:55→20:40)
[2023-04-25] MEDS: MEDIHONEY 44 ML TOPICAL TUBE TOP SCH (08:55)
[2023-04-25] MEDS: modafiniL 100 MG TAB PO SCH (08:55)
[2023-04-25] MEDS: NICOTINE 14 MG/PAT TD SCH (08:55)
[2023-04-25] MEDS ORDERED: POTASSIUM 25 MEQ EFFERV TAB PO ONE (09:00)
[2023-04-25] MEDS: ENOXAPARIN 40 MG/0.4 ML SQ SCH (16:49)
[2023-04-26] MEDS: PIPER TAZO 3.375 GM in NA CHLORIDE 0.9% 100 ML IV SCH ×3 (00:34→17:05)
[2023-04-26 06:32] LABS: Albumin 1.9 g/dL (3.4-5.0); Bilirubin Total 0.4 mg/dL (0.2-1.0); Protein, Total 6.4 g/dL (6.4-8.2)
--- NOTE | 2023-04-26 07:25 | P.PN ---
Date of Service: 04/26/23 Subjective: no acute events overnight appears tachypneic replies "no" when asked if anything is worse tired ROS: 10 point ROS as noted above, otherwise negative Physical Exam: GEN: alert, oriented x2, weak HEENT: palpable rounded mass-right parotid area; nontender CV: Sinus Tachycardic, no edema Pulm: mod labored respirations on room air, diminished at bases b/l ABD: Soft, nontender, nondistended, + PEG tube Integumentary: Sacral decubitus ulcer, Stage 2 Neuro: Normal/slow speech, fatigued appearing, generalized weakness PEG tube in place vitals reviewed Problem List: Acute metabolic encephalopathy likely secondary COVID-19 infection/COVID-19 conjunctivitis Sepsis likely due to suspected pneumonia Elevated LFTs Fatty liver Nodule of R parotid area Severe protein calorie malnutrition/failure to thrive/oropharyngeal dysphagia; now s/p PEG tube placement Sacral decubitus ulcer, stage 2 h/o Hypertension Elevated D-dimer Tremors history of alcohol abuse Nicotine dependence Asthma Acute metabolic encephalopathy likely secondary COVID-19 infection/COVID-19 conjunctivitis Sepsis likely secondary to suspected pneumonia CT and MRI brain (03/31): both negative for any acute intracranial disease. Case discussed with neurology Dr. Wynn, patient diagnosed with COVID encephalopathy. Patient had upper respiratory infection including conjunctivitis which resolved. Airborne isolation no longer needed. Blood cultures: No growth Patient was treated with IV antibiotics-cefepime and vancomycin which was later changed to oral Levaquin and clindamycin. Patient completed antibiotics from initial infection started zosyn 04/22 for wound and suspected pneumonia Continue PT/ST ID following temp in 99s 04/21, rising CRP, elevated LFTs, cough, and less alert CXR (04/22): Mild to moderate left basilar lung opacities may indicate pneumonia repeat CXR (04/26): ordered blood cx(04/22): NGTD lactate 1.2 pseuodmonas growing in decubitus ulcer continue empiric Zosyn (04/22-) afebrile, no leukocytosis CRP improving Elevated LFTs Fatty liver h/o alcohol abuse LFTs, CRP elevated unclear etiology; possibly medication induced, trend labs in AM Liver u/s (04/21): Cholelithiasis without cholecystitis. Fatty liver GI consulted LFTs improving Nodule of R parotid area does not appear to be infectious; nontender patient/family state first noticed it ~1 week prior to admission reviewed over phone with ENT, who reviewed MRI, no surrounding inflammatory changes; highly unlikely to be infectious f/u ENT as outpatient. Patient may require FNA/ biopsy. Severe protein calorie malnutrition/failure to thrive/oropharyngeal dysphagia; now s/p PEG tube placement Patient has profound weakness. Dysphagia related to the profound weakness. Patient failed Barium swallow. Surgery, Dr. Mckeon consulted, PEG tube placed 04/15 tolerating PEG tube feeding. Monitor residual Sacral decubitus ulcer, stage 2 Clean area with Dakins solution, then apply medihoney, cover with foam dressing. Daily and PRN if soiled. turn patient Q2H to offload pressure Wound cx (04/19): Pseudomonas Aeruginosa. continue empiric Zosyn (04/22-) x7 days per ID h/o Hypertension not on home meds; BP normal Elevated D-dimer Likely related to COVID-[address] PE angiogram negative for PE. Tremors. Chronic. Likely essential tremors. Continue supportive care. Nicotine dependence. Cessation advised. Patient placed on nicotine patch. Asthma. Stable. Continue home medication. VTE: Lovenox Code: Full Dispo: SNF - pending approval /improvement, ~2-3 days ss/cm consulted improving
[2023-04-26] MEDS: MEDIHONEY 44 ML TOPICAL TUBE TOP SCH (08:05)
[2023-04-26] MEDS: NICOTINE 14 MG/PAT TD SCH (08:05)
[2023-04-26] MEDS: modafiniL 100 MG TAB PO SCH (08:05)
[2023-04-26] MEDS: ASPIRIN 81 MG CHEWABLE TABLET PO SCH (08:05)
[2023-04-26] MEDS: SODIUM HYPOCHLORITE 0.5% 473 ML TOP SCH ×2 (08:06→21:00)
--- NOTE | 2023-04-26 08:58 | P.PN ---
Date of Service: 04/26/23 Chief Complaint: Altered mental status, fever and generalized weakness Subjective: Patient seen and examined at bedside. Denies any new or worsening complaints. No acute events reported over the weekend. Still pending SNF placement. Physical Examination Temp Pulse Resp BP Pulse Ox 97.6 F 97 H 40 H 109/65 98 04/26/23 08:00 04/26/23 08:00 04/26/23 08:00 04/26/23 08:00 04/26/23 08:00 General: In no apparent distress. Oriented x1-2. HEENT: Atraumatic, normocephalic. Poor dentition. Missing teeth. Respiratory: Diminished. symmetrical chest expansion. Unlabored breathing. On room air. Cardiovascular: No edema, Normal S1 S2. Gastrointestinal: Normal bowel sounds, No tenderness. PEG tube. Musculoskeletal: No clubbing, No tenderness. Generalized weakness. Integumentary: Buttocks/sacrum stage II pressure ulcer Studies Laboratory Data: - Reviewed Microbiology Data - Reviewed Imagings Data: -CTA Chest 03/31: "Pulmonary arteries: No PE identified. Aorta: No acute findings. No thoracic aortic aneurysm. Lungs: Unremarkable. No mass. No consolidation. Pleural space: No significant effusion. No pneumothorax. Heart: Cardiomegaly. Mediastinum: No pneumomediastinum. Bones/joints: Bilateral os acromiale with high-grade chondromalacia. No acute fracture visualized.No dislocation. Soft tissues: Unremarkable. Lymph nodes: No pathologically enlarged lymph nodes." - XR Chest 04/10: "The lungs appear clear of acute infiltrate. The heart is mildly enlarged. Aorta is tortuous. IMPRESSION: No acute abnormalities displayed" - XR Chest 04/17: " Mild interstitial pulmonary edema seen. The heart is mildly enlarged in size. No displaced fractures. IMPRESSION: Mild CHF " Medications List: Reviewed Assessment and Plan Problem list Acute metabolic encephalopathy COVID-19 infection Asthma Hypertension Tremors Nicotine dependence Thrombocytopenia Hyponatremia Severe PCM Acute metabolic encephalopathy COVID-19 infection -Previously on Cefepime (04/02-04/05) and Vancomycin (04/02-04/04) - Levaquin and clindamycin (04/05-04/10) - Influenza A&B: Negative - Completed 7 day course of antibiotics on 04/10. - XR Chest 04/06: "FINDINGS: The lungs are clear. No pneumothorax or effusion. The cardiomediastinal contours are unremarkable. IMPRESSION: No acute cardiopu lmonary process." - XR Chest 04/22: "Mild to moderate left basilar lung opacities may indicate pneumonia" Sacrum pressure ulcer stage II - sacral wound culture 04/19: Pseudomonas aeruginosa - wound care - pressure offloading measures No leukocytosis Afebrile. Blood cultures 03/31: No growth to date Blood cultures 04/22: pending Severe Protein-Calorie Malnutrition - severe weakness. covid encephalopathy. poor oral intake - PEG tube placement 04/[address] Mckeon - on tube feeds - wildland fire fighter consulted Recommendations -Wound culture with Pseudomonas and chest x-ray with consolidation concerning for pneumonia. - Started on Zosyn (04/22-). Continue for 7 days. On day 4 of 7. - Sacral pressure ulcer wound care: Clean area thoroughly and pat dry, then apply medihoney, cover with foam dressing. Daily and PRN if soiled. - Pressure offloading measures. turn patient Q2H. Wedge pillow. Low air- loss mattress. - Continue supportive care and nutritional supplementation. - Aspiration precautions Pending discharge to SNF. CM/SW following. Case discussed with Thaddeus Lozano
[2023-04-26] MEDS: ENOXAPARIN 40 MG/0.4 ML SQ SCH (17:05)
[2023-04-26] MEDS ORDERED: OXYMETAZOLINE HCL 0.05% 15ML NAS PRN (17:32)
--- NOTE | 2023-04-26 18:16 | RAD REPORT ---
EXAM DESCRIPTION: RADChest Single View04/26/2023 12:44 pm CLINICAL HISTORY: f/u opacities COMPARISON: Chest Single View dated 04/22/2023; Chest Single View dated 04/17/2023; Chest Single View dated 04/10/2023; Chest Single View dated 04/06/2023 TECHNIQUE: Portable AP view of the chest. FINDINGS: Patient rotation somewhat limits evaluation. Left basilar patchy airspace opacities are pr obably stable allowing for patient rotation. Right lung remains clear. No pneumothorax or effusion. The cardiomediastinal contours are unremarkable. IMPRESSION: Probably stable left basilar patchy airspace opacities, cannot exclude underlying pneumo clair.
[2023-04-27] MEDS: PIPER TAZO 3.375 GM in NA CHLORIDE 0.9% 100 ML IV SCH ×3 (02:18→16:20)
[2023-04-27 03:24] LABS: Bilirubin Total 0.4 mg/dL (0.2-1.0); Potassium 4.2 mEq/L (3.5-5.1); Protein, Total 6.7 g/dL (6.4-8.2)
[2023-04-27] MEDS: modafiniL 100 MG TAB PO SCH (07:52)
[2023-04-27] MEDS: ASPIRIN 81 MG CHEWABLE TABLET PO SCH (07:52)
[2023-04-27] MEDS: MEDIHONEY 44 ML TOPICAL TUBE TOP SCH (07:53)
[2023-04-27] MEDS: NICOTINE 14 MG/PAT TD SCH (07:53)
[2023-04-27] MEDS: SODIUM HYPOCHLORITE 0.5% 473 ML TOP SCH ×2 (07:53→21:00)
--- NOTE | 2023-04-27 09:22 | P.PN ---
Date of Service: 04/27/23 Chief Complaint: Altered mental status, fever and generalized weakness Subjective: Pending SNF placement. Patient is lethargic. In no apparent distress. + generalized weakness No acute events reported overnight. Physical Examination Temp Pulse Resp BP Pulse Ox 98 F 92 H 18 102/54 L 100 04/27/23 04:00 04/27/23 04:00 04/27/23 04:00 04/27/23 04:00 04/27/23 04:00 General: In no apparent distress. Oriented x1-2. HEENT: Atraumatic, normocephalic. Poor dentition. Missing teeth. Respiratory: Diminished. crackles. On room air. Cardiovascular: No edema, Normal S1 S2. tachycardic Gastrointestinal: Normal bowel sounds, No tenderness. PEG tube. Musculoskeletal: No clubbing, No tenderness. Generalized weakness. Integumentary: Buttocks/sacrum stage II pressure ulcer Studies Laboratory Data: - Reviewed Microbiology Data - Reviewed Imagings Data: -CTA Chest 03/31: "Pulmonary arteries: No PE identified. Aorta: No acute findings. No thoracic aortic aneurysm. Lungs: Unremarkable. No mass. No consolidation. Pleural space: No significant effusion. No pneumothorax. Heart: Cardiomegaly. Mediastinum: No pneumomediastinum. Bones/joints: Bilateral os acromiale with high-grade chondromalacia. No acute fracture visualized.No dislocation. Soft tissues: Unremarkable. Lymph nodes: No pathologically enlarged lymph nodes." - XR Chest 04/10: "The lungs appear clear of acute infiltrate. The heart is mildly enlarged. Aorta is tortuous. IMPRESSION: No acute abnormalities displayed" - XR Chest 04/17: " Mild interstitial pulmonary edema seen. The heart is mildly enlarged in size. No displaced fractures. IMPRESSION: Mild CHF " Medications List: Reviewed Assessment and Plan Problem list Acute metabolic encephalopathy COVID-19 infection Asthma Hypertension Tremors Nicotine dependence Thrombocytopenia Hyponatremia Severe PCM Acute metabolic encephalopathy COVID-19 infection -Previously on Cefepime (04/02-04/05) and Vancomycin (04/02-04/04) - Levaquin and clindamycin (04/05-04/10) - Influenza A&B: Negative - Completed 7 day course of antibiotics on 04/10. - XR Chest 04/06: "FINDINGS: The lungs are clear. No pneumothorax or effusion. The cardiomediastinal contours are unremarkable. IMPRESSION: No acute cardiopulmonary process." - XR Chest 04/22: "Mild to moderate left basilar lung opacities may indicate pneumonia" Sacrum pressure ulcer stage II - sacral wound culture 04/19: Pseudomonas aeruginosa - wound care - pressure offloading measures No leukocytosis Afebrile. Blood cultures 03/31: No growth to date Blood cultures 04/22: pending Severe Protein-Calorie Malnutrition - severe weakness. covid encephalopathy. poor oral intake - PEG tube placement 04/[address] Mckeon - on tube feeds - hotel security officer consulted Recommendations -Wound culture with Pseudomonas and chest x-ray with consolidation concerning for pneumonia. - Started on Zosyn (04/22-). Continue for 7 days. On day 5 of 7. - Sacral pressure ulcer wound care: Clean area thoroughly and pat dry, then apply medihoney, cover with foam dressing. Daily and PRN if soiled. - Pressure offloading measures. turn patient Q2H. Wedge pillow. Low air-loss mattress. - Continue supportive care and nutritional supplementation. - Aspiration precautions Pending SNF placement. CM/SW following. Case discussed with Thaddeus Lozano
--- NOTE | 2023-04-27 16:08 | P.PN ---
Subjective Date of Service: 04/27/23 Chief Complaint: Altered mental status, fever and generalized weakness Patient looks lethargic but able to obey simple commands Patient is tolerating PEG tube feeding. No recorded fever. Physical Examination - Vital Signs Temperature: 98.3 F Blood Pressure: 119/55 Pulse: 95 Respirations: 18 Pulse Ox (%): 97 Assessment And Plan - Plan Physical Exam General: Awake, in no apparent distress. HEENT: palpable rounded mass-right parotid area-unchanged. Respiratory: Diminished, no crackles. Cardiovascular: No edema, Regular rate/rhythm, Normal S1 S2 Gastrointestinal: Normal bowel sounds, Non-distended, No tenderness, PEG tube in place. Musculoskeletal: No tenderness Integumentary: Stage II sacral decubitus ulcer Neurological: Lethargic, patient moves all extremities. Diagnosis Acute metabolic encephalopathy/COVID-19 infection/COVID-19 conjunctivitis Likely secondary to COVID-[address] and MRI showed no acute intracranial disease. Patient had upper respiratory infection including conjunctivitis which resolved. Airborne isolation no longer needed. Blood cultures: No growth Patient was treated with IV antibiotics-cefepime and vancomycin which was later changed to oral Levaquin and clindamycin. Currently on IV Zosyn for wound infection. Off dexamethasone. Case discussed with neurology Dr. Wynn, patient diagnosed with COVID encephalopathy. Nodule-parotid area Empiric antibiotics. Follow-up ENT as outpatient. Patient may require excisional biopsy. Hypertension. Continue home antihypertensive Elevated D-dimer. Likely related to COVID-[address] PE angiogram negative for PE. Tremors/history of alcohol abuse Chronic. Likely essential tremors. Continue supportive care. Severe protein calorie malnutrition/failure to thrive/oropharyngeal dysphagia Patient has profound weakness. Dysphagia related to the profound weakness. Patient failed Barium swallow. Granddaughter agreed to PEG tube placement. Surgery Dr. Mckeon placed PEG tube. He is tolerating PEG tube feeding. Monitor residuals. Nicotine dependence. Patient placed on nicotine patch. Asthma Stable. Continue home medication. Sacral decubitus ulcer Wound cultures positive for Pseudomonas Local wound care. Patient is on Zosyn. DVT prophylaxis: Lovenox subQ. Discharge Plan: Family requesting for skilled rehab placement. billing services manager assisting with disposition.
[2023-04-27] MEDS: ENOXAPARIN 40 MG/0.4 ML SQ SCH (16:20)
[2023-04-28] MEDS: PIPER TAZO 3.375 GM in NA CHLORIDE 0.9% 100 ML IV SCH ×2 (00:28→09:16)
[2023-04-28 03:51] LABS: Absolute Lymphocytes (CBC) 1.7 K/uL (0.7-4.9); Hematocrit 30.1 % (39.6-49.0); Lymphocytes % 21.8 % (15.3-44.8); MCV 99.6 fL (80-100); MPV 10.9 fL (7.6-11.3); Platelets 126 thou/uL (152-406); RBC Red Blood Cell Count 3.02 M/uL (4.33-5.43)
[2023-04-28 04:08] LABS: Potassium 4.1 mEq/L (3.5-5.1)
[2023-04-28] MEDS ORDERED: PIPERACIL/TAZO 3.375 GM VIAL IV ONE (08:15)
[2023-04-28] MEDS ORDERED: NA CHLORIDE 0.9% 100 ML ONE (08:25)
[2023-04-28] MEDS: NICOTINE 14 MG/PAT TD SCH (09:14)
[2023-04-28] MEDS: ASPIRIN 81 MG CHEWABLE TABLET PO SCH (09:14)
[2023-04-28] MEDS: modafiniL 100 MG TAB PO SCH (09:14)
[2023-04-28] MEDS: MEDIHONEY 44 ML TOPICAL TUBE TOP SCH (09:15)
[2023-04-28] MEDS: SODIUM HYPOCHLORITE 0.5% 473 ML TOP SCH (09:15)
--- NOTE | 2023-04-28 09:33 | P.PN ---
Date of Service: 04/28/23 Chief Complaint: Altered mental status, fever and generalized weakness Subjective: Patient seen and examined at bedside. In no apparent distress at this time. + generalized weakness Physical Examination Temp Pulse Resp BP Pulse Ox 98.3 F 91 H 25 H 115/62 100 04/28/23 08:00 04/28/23 08:00 04/28/23 08:00 04/28/23 08:00 04/28/23 08:00 General: In no apparent distress. Oriented x1-2. HEENT: Atraumatic, normocephalic. Poor dentition. Missing teeth. Respiratory: Diminished. crackles. On room air. Cardiovascular: No edema, Normal S1 S2. tachycardic. Gastrointestinal: Normal bowel sounds, No tenderness. PEG tube with tube feeds. Musculoskeletal: No clubbing, No tenderness. Generalized weakness. Integumentary: Buttocks/sacrum stage II pressure ulcer Studies Laboratory Data: - Reviewed Microbiology Data - Reviewed Imagings Data: -CTA Chest 03/31: "Pulmonary arteries: No PE identified. Aorta: No acute findings. No thoracic aortic aneurysm. Lungs: Unremarkable. No mass. No consolidation. Pleural space: No significant effusion. No pneumothorax. Heart: Cardiomegaly. Mediastinum: No pneumomediastinum. Bones/joints: Bilateral os acromiale with high-grade chondromalacia. No acute fracture visualized.No dislocation. Soft tissues: Unremarkable. Lymph nodes: No pathologically enlarged lymph nodes." - XR Chest 04/10: "The lungs appear clear of acute infiltrate. The heart is mildly enlarged. Aorta is tortuous. IMPRESSION: No acute abnormalities displayed" - XR Chest 04/17: " Mild interstitial pulmonary edema seen. The heart is mildly enlarged in size. No displaced fractures. IMPRESSION: Mild CHF " Medications List: Reviewed Assessment and Plan Problem list Acute metabolic encephalopathy COVID-19 infection Asthma Hypertension Tremors Nicotine dependence Thrombocytopenia Hyponatremia Severe PCM Acute metabolic encephalopathy COVID-19 infection -Previously on Cefepime (04/02-04/05) and Vancomycin (04/02-04/04) - Levaquin and clindamycin (04/05-04/10) - Influenza A&B: Negative - Completed 7 day course of antibiotics on 04/10. - XR Chest 04/06: "FINDINGS: The lungs are clear. No pneumothorax or effusion. The cardiomediastinal contours are unremarkable. IMPRESSION: No acute cardiopulmonary process." - XR Chest 04/22: "Mild to moderate left basilar lung opacities may indicate pneumonia" Sacrum pressure ulcer stage II - sacral wound culture 04/19: Pseudomonas aeruginosa - wound care - pressure offloading measures No leukocytosis Afebrile. Blood cultures 03/31: No growth to date Blood cultures 04/22: pending Severe Protein-Calorie Malnutrition - severe weakness. covid encephalopathy. poor oral intake - PEG tube placement 04/[address] Mckeon - on tube feeds - lamp cleaner street light consulted Recommendations -Wound culture with Pseudomonas and chest x-ray with consolidation concerning for pneumonia. - Started on Zosyn (04/22-). Continue for 7 days. On day 6 of 7. - Sacral pressure ulcer wound care: Clean area thoroughly and pat dry, then apply medihoney, cover with foam dressing. Daily and PRN if soiled. - Pressure offloading measures. turn patient Q2H. Wedge pillow. Low air-loss mattress. - Continue supportive care and nutritional supplementation. - Aspiration precautions Pending SNF/NH placement. CM/SW following. Case discussed with Thaddeus Lozano
--- NOTE | 2023-04-28 10:06 | P.DS ---
Admission Date: 03/31/23 Discharge Date: 04/28/23 Disposition: TRANSFER TO SENIOR CARE Discharge Condition: FAIR Reason for Admission: Altered mental status, fever and generalized weakness Brief History of Present Illness: Patient is a 73-year-old male with a past medical history significant for asthma, nicotine dependence and hypertension who presents with complaint of altered mental status, fever and generalized weakness. Patient was alert and oriented x1, confused and unable to provide accurate history. Patient reported that he had been having cough and congestion for 3 weeks. Patient reported longstanding tremors. Patient tested positive for COVID-19. He was admitted for further management. Hospital Course: Diagnosis Acute metabolic encephalopathy/COVID-19 infection/COVID-19 conjunctivitis Likely secondary to COVID-[address] and MRI showed no acute intracranial disease. Patient had upper respiratory infection including conjunctivitis which resolved. Airborne isolation no longer needed. Blood cultures: No growth Patient was treated with IV antibiotics-cefepime and vancomycin which was later changed to oral Levaquin and clindamycin. Patient was treated with IV Zosyn for wound infection. He was on dexamethasone for several days Case discussed with neurology Dr. Wynn, patient diagnosed with COVID encephalopathy. Nodule-parotid area Empiric antibiotics. Follow-up ENT as outpatient. Patient may require excisional biopsy. Elevated D-dimer. Likely related to COVID-[address] PE angiogram negative for PE. Tremors/history of alcohol abuse Chronic. Likely essential tremors. Continue supportive care. Severe protein calorie malnutrition/failure to thrive/oropharyngeal dysphagia Patient has profound weakness. Dysphagia related to the profound weakness. Patient failed Barium swallow. Granddaughter agreed to PEG tube placement. Surgery Dr. Mckeon placed PEG tube. He is tolerating PEG tube feeding. Monitor residuals. Nicotine dependence. Patient placed on nicotine patch. Asthma Stable. Continue home medication. Sacral decubitus ulcer Wound cultures positive for Pseudomonas Local wound care with [facility]. Patient completed Zosyn. Vital Signs/Physical Exam: Temp Pulse Resp BP Pulse Ox 98.3 F 91 H 25 H 115/62 100 04/28/23 08:00 04/28/23 08:00 04/28/23 08:00 04/28/23 08:00 04/28/23 08:00 General: In no apparent distress, Other (Awake, obey simple commands) Neck: JVD not distended Respiratory: Diminished (Bilateral) Cardiovascular: No edema, Regular rate/rhythm, Normal S1 S2 Gastrointestinal: Normal bowel sounds, Soft and benign, Non-distended, No tende rness Musculoskeletal: No swelling Integumentary: Other (Stage II sacral decubitus ulcer) Neurological: Other (Patient moves all extremities.) Laboratory Data at Discharge: WBC 7.90 thou/uL (4.3-10.9) 04/28/23 03:28 Hgb 10.3 g/dL (13.6-17.9) L 04/28/23 03:28 Hct 30.1 % (39.6-49.0) L 04/28/23 03:28 Plt Count 126 thou/uL (152-406) L 04/28/23 03:28 PT 13.6 SECONDS (9.5-12.5) H 03/31/23 16:07 INR 1.24 03/31/23 16:07 APTT 33.1 SECONDS (24.3-36.9) 03/31/23 16:07 Sodium 138 mEq/L (136-145) 04/28/23 03:28 Potassium 4.1 mEq/L (3.5-5.1) 04/28/23 03:28 BUN 20 mg/dL (7-18) H 04/28/23 03:28 Creatinine 0.65 mg/dL (0.70-1.30) L 04/28/23 03:28 Glucose 148 mg/dL (74-106) H 04/28/23 03:28 Phosphorus 3.4 mg/dL (2.5-4.9) 04/25/23 06:04 Magnesium 2.5 mg/dL (1.6-2.4) H 04/25/23 06:04 Total Bilirubin 0.4 mg/dL (0.2-1.0) 04/27/23 02:35 AST 55 U/L (15-37) H 04/27/23 02:35 ALT 99 U/L (16-61) H 04/27/23 02:35 Alkaline Phosphatase 214 U/L (45-117) H 04/27/23 02:35 Triglycerides 41 mg/dL (<150) 04/01/23 06:00 Cholesterol 108 mg/dL (<200) 04/01/23 06:00 HDL Cholesterol 46 mg/dL (40-60) 04/01/23 06:00 Cholesterol/HDL Ratio 2.35 04/01/23 06:00 Home Medications: Aspirin Chewable [Aspirin Chewable*] 81 mg PO DAILY tab.chew 04/28/23 Jevity 1.5 Sonido Liquid 55 ml RTH CONT bot 04/28/23 Medihoney [Medihoney Woundcare Gel*] 1 appl TOP DAILY tube 04/28/23 Nicotine [Nicoderm*] 14 mg TD DAILY 04/28/23 Activity: Fall precautions Followup: Alexy Mckeon MD [ACTIVE - CAN ADMIT] - NONE,NONE [Primary Care Provider] -
[2023-04-28 11:21] VITALS: BP 120/65; TEMP 98.9
--- NOTE | 2023-04-29 07:31 | ECHO ---
HEIGHT: 5 ft 10 in WEIGHT: 198 lb 0 oz DATE OF STUDY: 04/28/[address]: Jax Keene MD 2-DIMENSIONAL: YES M.MODE: YES DOPPLER: YES COLOR FLOW: YES TDS: YES PORTABLE: YES DEFINITY: BUBBLE STUDY: DIAGNOSIS: VENTRICULAR TACHYCARDIA/ EVALUATE EJECTION FRACTION CARDIAC HISTORY: CATHERIZATION: SURGERY: PROSTHETIC VALVE: PACEMAKER: MEASUREMENTS (cm) DIASTOLIC (NORMALS) SYSTOLIC (NORMALS) IVSd (0.6-1.2) LA Diam (1.9-4.0) LVEF 50% LVIDd (3.5-5.7) LVIDs (2.0-3.5) %FS % LVPWd (0.6-1.2) Ao Diam 3.1 (2.0-3.7) 2 DIMENSIONAL ASSESSMENT: RIGHT ATRIUM: NORMAL LEFT ATRIUM: NORMAL RIGHT VENTRICLE: NORMAL LEFT VENTRICLE: SEVERE LEFT VENTRICULAR HYPERTROPHY TRICUSPID VALVE: NORMAL MITRAL VALVE: NORMAL PULMONIC VALVE: NOT SEEN AORTIC VALVE: MILD AORTIC INSUFFICIENCY PERICARDIAL EFFUSION: NONE AORTIC ROOT: NORMAL LEFT VENTRICULAR WALL MOTION: NORMAL DOPPLER/COLOR FLOW: SEE BELOW COMMENTS: 1. NORMAL LEFT VENTRICULAR EJECTION FRACTION 50-55% WITH NORMAL WALL MOTION 2. SEVERE CONCENTRIC LEFT VENTRICULAR HYPERTROPHY 3. DIASTOLIC DYSFUNCTION 4. MILD AORTIC INSUFFICIENCY TECHNOLOGIST: KENNEDY WAN
== END 2023-04-28 12:53 | DRG 177 ==
LOC: ER 15:08 → ERHOLD 17:43 → 4TH 19:37 → UNDODISIN 04-16 13:14
PROVIDERS: ADMIT Internal Medicine; ATTEND Internal Medicine
PROC: 0DB98ZX Excision of Duodenum, Via Natural or Artificial Opening Endoscopic, Diagnostic (ICD-10-PCS; 2023-04-15)
PROC: 0DB78ZX Excision of Stomach, Pylorus, Via Natural or Artificial Opening Endoscopic, Diagnostic (ICD-10-PCS; 2023-04-15)
PROC: 0DH63UZ Insertion of Feeding Device into Stomach, Percutaneous Approach (ICD-10-PCS; principal; 2023-04-15 12:15)
DX: U07.1 COVID-19 (principal); A41.52 Sepsis due to Pseudomonas; E43 Unspecified severe protein-calorie malnutrition; G93.41 Metabolic encephalopathy; J15.1 Pneumonia due to Pseudomonas; E87.1 Hypo-osmolality and hyponatremia; R64 Cachexia; E87.0 Hyperosmolality and hypernatremia; K29.40 Chronic atrophic gastritis without bleeding; I10 Essential (primary) hypertension; H10.9 Unspecified conjunctivitis; E83.51 Hypocalcemia; E86.0 Dehydration; K76.0 Fatty (change of) liver, not elsewhere classified; D69.6 Thrombocytopenia, unspecified; K21.9 Gastro-esophageal reflux disease without esophagitis; L89.152 Pressure ulcer of sacral region, stage 2; K80.20 Calculus of gallbladder without cholecystitis without obstruction; J45.909 Unspecified asthma, uncomplicated; F17.210 Nicotine dependence, cigarettes, uncomplicated; B96.5 Pseudomonas (aeruginosa) (mallei) (pseudomallei) as the cause of diseases classified elsewhere; R25.1 Tremor, unspecified; R13.12 Dysphagia, oropharyngeal phase; R79.89 Other specified abnormal findings of blood chemistry; Z71.6 Tobacco abuse counseling; Z79.01 Long term (current) use of anticoagulants; Z79.82 Long term (current) use of aspirin; Z79.899 Other long term (current) drug therapy
CPT/HCPCS: 36415; 70450; 70551; 71045; 71275; 74230; 76705; 80048; 80053; 80061; 80069; 80074; 80202; 82103; 82140; 82390; 82728; 82947; 83540; 83605; 83735; 83880; 84100; 84145; 84439; 84443; 84466; 85025; 85379; 85610; 85730; 86015; 86038; 86140; 86255; 87040; 87070; 87075; 87077; 87186; 87205; 87804; 87811; 88305; 88312; 92526; 92610; 92611; 93005; 93306; 94640; 96374; 97110; 97161; 97530; 99283; 99285; J0692; J1650; J1940; J2001; J2543; J2704; J3475; J7040; J7120; J7613; J8540; Q9967

== ENCOUNTER 2023-05-21 14:14 | Inpatient (IN) | payer OTHER ==
[2023-05-21] MEDS ORDERED: NA CHLORIDE 0.9% 100 ML ONE (15:09)
[2023-05-21] MEDS ORDERED: PIPERACIL/TAZO 3.375 GM VIAL IV ONE (15:09)
[2023-05-21 15:12] LABS: Absolute Lymphocytes (CBC) 2.1 K/uL (0.7-4.9); Hematocrit 24.7 % (39.6-49.0); Lymphocytes % 21.2 % (15.3-44.8); MCV 99.1 fL (80-100); MPV 9.2 fL (7.6-11.3); Platelets 177 thou/uL (152-406); RBC Red Blood Cell Count 2.49 M/uL (4.33-5.43)
[2023-05-21 15:18] LABS: Protime INR 1.27
[2023-05-21 15:31] LABS: Albumin 1.8 g/dL (3.4-5.0); Bilirubin Total 0.4 mg/dL (0.2-1.0); Potassium 3.3 mEq/L (3.5-5.1); Protein, Total 6.4 g/dL (6.4-8.2)
[2023-05-21 15:37] LABS: Troponin High Sensitivity 79.2 pg/mL (<58.9)
[2023-05-21 15:46] LABS: Calcium Oxalate Crystals- Ur Few /HPF (None Seen); Specific Gravity 1.023 (1.005-1.030); Urine Bacteria None Seen /HPF (<20); Urine Bilirubin NEGATIVE (Negative); Urine Blood Negative (Negative); Urine Clarity Clear (Clear); Urine Color Yellow (Yellow); Urine Glucose NEGATIVE (Negative); Urine Mucus Slight /HPF (None Seen); Urine Protein TRACE (Negative); Urine RBC <5 /HPF (None Seen); Urine Urobilinogen 2+ (Normal)
--- NOTE | 2023-05-21 16:16 | RAD REPORT ---
EXAM DESCRIPTION: CT - Abdomen Pelvis W Contrast - 05/21/2023 3:33 pm CLINICAL HISTORY: Abdominal pain/sacral ulceration COMPARISON: none. TECHNIQUE: Computed axial tomography of the abdomen pelvis was obtained. 100 cc Isovue-300 was admin istered intravenously. Oral contrast was not requested which limits evaluation of bowel and appendix All CT scans are performed using dose optimization technique as appropriate and may include automated exposure control or mA/KV adjustment according to patient size. FINDINGS: The liver, spleen, pancreas, adrenal and kidneys appear unremarkable. Cholelithiasis. Gallbladder wall thickening. Percutaneous tube within the stomach The rectum is distended with stool measuring 7.2 centimeters No evidence diverticulitis Left posterior soft tissue pelvis ulceration. Subtle cortical irregularity involving the posterior as pect of the coccyx IMPRESSION: Cholelithiasis without evidence of cholecystitis Large posterior pelvis soft tissue ulceration. Subtle cortical irregularity involving the posterior a spect of the coccyx may indicate osteomyelitis Rectum is distended with stool
--- NOTE | 2023-05-21 16:23 | RAD REPORT ---
EXAM DESCRIPTION: Mac Single View05/21/2023 3:30 pm CLINICAL HISTORY: Fever COMPARISON: April 26, 2023 FINDINGS: The lungs appear clear of acute infiltrate. The heart is mildly enlarged IMPRESSION: No acute abnormalities displayed
[2023-05-21] MEDS ORDERED: NA CHLORIDE 0.9% 250 ML ONE (16:54)
[2023-05-21] MEDS ORDERED: VANCOMYCIN 1 GM/VIAL ONE (16:54)
--- NOTE | 2023-05-21 17:06 | ER ---
Nurse's Notes [facility] Name: Alex Madrid Jr Age: 73 yrs Sex: Male : 1950 Arrival Date: 05/21/2023 Time: 14:14 Bed 15 Private MD: Diagnosis: Sacral osteomyelitis;Sepsis Presentation: 05/21 14:40 Chief complaint: EMS states: they were toned out to [facility] for low blood pressure kc6 and high heart rate. pt was recently hospitalized here. Coronavirus screen: At this time, the client does not indicate any symptoms associated with coronavirus-19. Ebola Screen: No symptoms or risks identified at this time. Initial Sepsis Screen: Does the patient meet any 2 criteria? HR > 90 bpm. Does the patient have a suspected source of infection? No. Patient's initial sepsis screen is negative. Risk Assessment: Do you want to hurt yourself or someone else? Patient reports no desire to harm self or others. Onset of symptoms was May 21, 2023. 14:40 Method Of Arrival: EMS: [facility] kc6 14:40 Acuity: JOSEPHINE 2 kc6 Triage Assessment: 14:42 General: Appears in no apparent distress. comfortable, malnourished, Behavior is calm, kc6 cooperative, appropriate for age, quiet. Pain: Unable to use pain scale. Patient is disoriented. EENT: No signs and/or symptoms were reported regarding the EENT system. Neuro: Level of Consciousness is lethargic, Oriented to person. Cardiovascular: Heart tones S1 S2 present Capillary refill < 3 seconds Rhythm is sinus tachycardia. Respiratory: Airway is patent Trachea midline Respiratory effort is even, unlabored, Respiratory pattern is regular, symmetrical. GI: No signs and/or symptoms were reported involving the gastrointestinal system. PEG tube in place, clamped. to gravity drainage. Site clean. : No signs and/or symptoms were reported regarding the genitourinary system. Derm: No signs and/or symptoms reported regarding the dermatologic system. Skin is pink, warm \T\ dry. Wound noted buttocks. Musculoskeletal: No signs and/or symptoms reported regarding the musculoskeletal system. Circulation, motion, and sensation intact. Capillary refill < 3 seconds. Historical: - Allergies: 14:42 No Known Allergies; kc6 - PMHx: 14:42 Asthma; Hypertension; kc6 - PSHx: 14:42 peg tube (Hypertension); kc6 - Immunization history:: Adult Immunizations unknown. - Social history:: Smoking status: Patient denies any tobacco usage or history of. - Family history:: not pertinent. Screenin:44 [facility] ED Fall Risk Assessment (Adult) History of falling in the last 3 months, kc6 including since admission No falls in past 3 months (0 pts) Confusion or Disorientation Yes (5 pts) Intoxicated or Sedated No (0 pts) Impaired Gait Yes (1 pt) Mobility Assist Device Used No (0 pt) Altered Elimination Yes (1 pt) Score/Fall Risk Level 3 or more points = High Risk. Abuse screen: Denies threats or abuse. Denies injuries from another. Nutritional screening: No deficits noted. Tuberculosis screening: No symptoms or risk factors identified. Assessment: 14:45 Reassessment: please see triage assesment. kc6 15:45 Reassessment: Patient appears in no apparent distress at this time. No changes from [facility] previously documented assessment. Patient and/or family updated on plan of care and expected duration. Pain level reassessed. 16:45 Reassessment: Patient appears in no apparent distress at this time. No changes from [facility] previously documented assessment. Patient and/or family updated on plan of care and expected duration. Pain level reassessed. 17:18 Reassessment: Patient appears in no apparent distress at this time. No changes from [facility] previously documented assessment. Patient and/or family updated on plan of care and expected duration. Pain level reassessed. 18:18 Reassessment: Patient appears in no apparent distress at this time. No changes from [facility] previously documented assessment. Patient and/or family updated on plan of care and expected duration. Pain level reassessed. 18:38 Reassessment: attempted to call report to 4th floor. nurse Felisha unavailable at this [facility] time. please see [employer] for further charting. Vital Signs: 14:40 BP 125 / 67; Pulse 108; Resp 18 S; Temp 100.6(O); Pulse Ox 97% on R/A; Weight 60 kg (M);kc6 16:09 BP 112 / 72; Pulse 96; Resp 19 S; Pulse Ox 94% on R/A; kc6 17:18 BP 114 / 63; Pulse 96; Resp 20 S; Temp 98.1(TE); Pulse Ox 95% on R/A; kc6 18:38 BP 96 / 55; Pulse 99; Resp 16 S; Temp 100.8(O); Pulse Ox 98% on R/A; kc6 19:24 BP 111 / 64; Pulse 107; Resp 22 S; Pulse Ox 100% on R/A; lg3 ED Course: 14:40 Patient arrived in ED. kc6 14:40 Aleksey Jones MD is Attending Physician. rt 14:42 Triage completed. kc6 14:42 Arm band placed on. kc6 14:44 Patient has correct armband on for positive identification. Placed in gown. Bed in low kc6 position. Call light in reach. Side rails up X2. Adult w/ patient. Client placed on continuous cardiac and pulse oximetry monitoring. NIBP monitoring applied. him clerk on. 14:44 Maintain EMS IV. Dressing intact. Good blood return noted. Site clean \T\ dry. Gauge \T\ adrian 6 site: 20G LFA. Patient maintains SpO2 saturation greater than 95% on room air. 14:45 Fariba Morris RN is Primary Nurse. kc6 15:32 Chest Single View XRAY In Process Unspecified. EDMS 15:35 CT Abd/Pelvis - IV Contrast Only In Process Unspecified. EDMS 17:05 Abdiel Rubio MD is Hospitalizing Provider. rt 19:00 Report given to DAYANA Block. kc6 19:35 No provider procedures requiring assistance completed. Patient admitted, IV remains in lg3 place. intact, No redness/swelling at site. 19:36 Provided Education on: admission. lg3 Administered Medications: 15:44 Drug: Piperacillin-Tazobactam IVPB 3.375 grams IVPB once over 60 mins; (mix in NS 100 kc6 mL) Route: IVPB; Infused Over: 60 mins; Site: left antecubital; 16:47 Follow up: Response: No adverse reaction; IV Status: Completed infusion; IV Intake: kc6 100ml 15:44 Drug: NS 0.9% IV 1000 ml IV at 1 bolus Per protocol; 1000 mL bolus Route: IV; Rate: 1 kc6 bolus; Site: left antecubital; 16:12 Follow up: Response: No adverse reaction; IV Status: Completed infusion; IV Intake: kc6 1000ml 16:47 Drug: vancoMYCIN IVPB 1 grams IVPB once over 2 hrs Route: IVPB; Infused Over: 2 hrs; kc6 Site: left antecubital; 18:39 Follow up: Response: No adverse reaction; IV Status: Completed infusion; IV Intake: kc6 250ml Medication: 19:36 VIS not applicable for this client. lg3 Intake: 16:12 IV: 1000ml; Total: 1000ml. kc6 16:47 IV: 100ml; Total: 1100ml. kc6 18:39 IV: 250ml; Total: 1350ml. kc6 Outcome: 17:05 Decision to Hospitalize by Provider. rt 19:35 Admitted to Med/surg accompanied by tech, via stretcher, room 431, Report called to [facility] [place] 19:35 Condition: stable 19:35 Instructed on the need for admit, 20:28 Patient left the ED. 3 Signatures: Dispatcher [employer] EDMckayla Nair RN RN lg3 Fariba Morris RN RN kc6 Aleksey Jones MD MD rt Corrections: (The following items were deleted from the chart) 17:18 15:45 Reassessment: Patient appears in no apparent distress at this time. No changes kc6 from previously documented assessment. Patient and/or family updated on plan of care and expected duration. Pain level reassessed. Patient is alert, oriented x 3, equal unlabored respirations, skin warm/dry/pink. kc6
--- NOTE | 2023-05-21 17:06 | EDPHYS ---
Physician Documentation [facility] Name: Alex Madrid Jr Age: 73 yrs Sex: Male : 1950 Arrival Date: 05/21/2023 Time: 14:14 Bed 15 Private MD: ED Physician Aleksey Jones HPI: 05/21 17:56 This 73 yrs old Black Male presents to ER via EMS with complaints of Fever, hypotension.rt 17:56 Patient presents to the ED with fever, hypotension, tachycardia from [facility]. Was rt first noticed today. Patient also has a known poorly healing sacral decubitus ulcer wound. There is been a small amount of drainage from there. Denies other acute complaints at this time, history limited due to patient with dementia. Symptoms are moderate in severity, no other aggravating or alleviating factors.. Historical: - Allergies: 14:42 No Known Allergies; kc6 - PMHx: 14:42 Asthma; Hypertension; kc6 - PSHx: 14:42 peg tube (Hypertension); kc6 - Immunization history:: Adult Immunizations unknown. - Social history:: Smoking status: Patient denies any tobacco usage or history of. - Family history:: not pertinent. ROS: 17:56 Skin: Positive for Wound, purulence, rt 17:56 Unable to obtain ROS due to baseline dementia, Exam: 17:56 Constitutional: This is a well developed, well nourished patient who is awake, alert, rt and in no acute distress. Head/Face: Normocephalic, atraumatic. Chest/axilla: Normal chest wall appearance and motion. Nontender with no deformity. No lesions are appreciated. Cardiovascular: Regular rate and rhythm with a normal S1 and S2. No gallops, murmurs, or rubs. Normal PMI, no JVD. No pulse deficits. Respiratory: Lungs have equal breath sounds bilaterally, clear to auscultation and percussion. No rales, rhonchi or wheezes noted. No increased work of breathing, no retractions or nasal flaring. Abdomen/GI: Soft, non-tender, with normal bowel sounds. No distension or tympany. No guarding or rebound. No evidence of tenderness throughout. 17:56 ECG was reviewed by the Attending Physician. 17:56 Skin: Large tunneling wound noted, packed with gauze, foul-smelling purulent drainage from wound.. Vital Signs: 14:40 BP 125 / 67; Pulse 108; Resp 18 S; Temp 100.6(O); Pulse Ox 97% on R/A; Weight 60 kg (M);kc6 16:09 BP 112 / 72; Pulse 96; Resp 19 S; Pulse Ox 94% on R/A; kc6 17:18 BP 114 / 63; Pulse 96; Resp 20 S; Temp 98.1(TE); Pulse Ox 95% on R/A; kc6 18:38 BP 96 / 55; Pulse 99; Resp 16 S; Temp 100.8(O); Pulse Ox 98% on R/A; kc6 19:24 BP 111 / 64; Pulse 107; Resp 22 S; Pulse Ox 100% on R/A; lg3 MDM: 14:40 Patient medically screened. rt 17:56 Differential Diagnosis Sepsis, sacral wound, UTI, pneumonia. Data reviewed: vital rt signs, nurses notes, lab test result(s), EKG, radiologic studies. Consideration of Admission/Observation Patient was admitted/placed on observation. Management of patient was discussed with the following: Hospitalist: Agrees to admit. I considered the following discharge prescriptions or medication management in the emergency department Medications were administered in the Emergency Department. See MAR. Independent interpretation of the following test(s) in the Emergency Department CT Scan: My interpretation is Wound with fat stranding noted to have a mitral rotation of the CT scan images. Care significantly affected by the following chronic conditions: Hypertension. Counseling: I had a detailed discussion with the patient and/or guardian regarding the historical points, exam findings, and any diagnostic results supporting the discharge/admit diagnosis, lab results, radiology results, the need for further work-up and treatment in the hospital. 05/21 14:41 Order name: Blood Culture Adult (2) rt 05/21 14:41 Order name: CBC with Diff; Complete Time: 15:49 rt 05/21 14:41 Order name: CMP; Complete Time: 15:49 rt 05/21 14:41 Order name: Lactate w/ 2H reflex if indic.; Complete Time: 15:49 rt 05/21 14:41 Order name: Protime (+inr); Complete Time: 15:49 rt 05/21 14:41 Order name: Ptt, Activated; Complete Time: 15:49 rt 05/21 14:41 Order name: Urinalysis w/ reflexes; Complete Time: 15:49 rt 05/21 14:41 Order name: Troponin High Sensitivity; Complete Time: 15:49 rt 05/21 17:15 Order name: Urinalysis w/ reflexes EDMS 05/21 17:15 Order name: Basic Metabolic Panel EDMS 05/21 17:15 Order name: Basic Metabolic Panel EDMS 05/21 17:15 Order name: Basic Metabolic Panel EDMS 05/21 17:15 Order name: Basic Metabolic Panel EDMS 05/21 17:15 Order name: CBC with Automated Diff EDMS 05/21 17:15 Order name: CBC with Automated Diff EDMS 05/21 17:15 Order name: CBC with Automated Diff EDMS 05/21 17:15 Order name: CBC with Automated Diff EDMS 05/21 17:15 Order name: Magnesium EDMS 05/21 17:15 Order name: Magnesium EDMS 05/21 17:15 Order name: Magnesium EDMS 05/21 17:15 Order name: Magnesium EDMS 05/21 17:15 Order name: Phosphorus EDMS 05/21 17:16 Order name: Phosphorus EDMS 05/21 17:16 Order name: Phosphorus EDMS 05/21 17:16 Order name: Phosphorus EDMS 05/21 14:41 Order name: Chest Single View XRAY; Complete Time: 16:26 rt 05/21 14:41 Order name: CT Abd/Pelvis - IV Contrast Only; Complete Time: 16:26 rt 05/21 14:41 Order name: EKG; Complete Time: 14:41 rt 05/21 14:41 Order name: Accucheck; Complete Time: 15:16 rt 05/21 14:41 Order name: Cardiac monitoring; Complete Time: 15:16 rt 05/21 14:41 Order name: EKG - Nurse/Tech; Complete Time: 15:16 rt 05/21 14:41 Order name: IV Saline Lock - Large Bore; Complete Time: 14:45 rt 05/21 14:41 Order name: Labs collected and sent; Complete Time: 15:16 rt 05/21 14:41 Order name: O2 Per Protocol; Complete Time: 14:45 rt 05/21 14:41 Order name: O2 Sat Monitoring; Complete Time: 14:45 rt 05/21 14:41 Order name: Vital Signs; Complete Time: 14:45 rt EC:56 Rate is 102 beats/min. Rhythm is regular, Sinus tachycardia with No ectopy. QRS [place] is rt Normal. WA interval is normal. QRS interval is normal. QT interval is normal. No Q waves. T waves are Normal. Administered Medications: 15:44 Drug: Piperacillin-Tazobactam IVPB 3.375 grams IVPB once over 60 mins; (mix in NS 100 kc6 mL) Route: IVPB; Infused Over: 60 mins; Site: left antecubital; 16:47 Follow up: Response: No adverse reaction; IV Status: Completed infusion; IV Intake: kc6 100ml 15:44 Drug: NS 0.9% IV 1000 ml IV at 1 bolus Per protocol; 1000 mL bolus Route: IV; Rate: 1 kc6 bolus; Site: left antecubital; 16:12 Follow up: Response: No adverse reaction; IV Status: Completed infusion; IV Intake: kc6 1000ml 16:47 Drug: vancoMYCIN IVPB 1 grams IVPB once over 2 hrs Route: IVPB; Infused Over: 2 hrs; kc6 Site: left antecubital; 18:39 Follow up: Response: No adverse reaction; IV Status: Completed infusion; IV Intake: kc6 250ml Disposition Summary: 05/21/23 17:05 Hospitalization Ordered Notes: Hospitalization Status: Inpatient Admission rt Provider: Abdiel Rubio rt Location: Telemetry/[facility] (Inpatient) rt Condition: Stable rt Problem: an ongoing problem rt Symptoms: are unchanged rt Bed/Room Type: Standard rt Room Assignment: 431(05/21/23 18:26) eb Diagnosis - Sacral osteomyelitis rt - Sepsis rt Forms: - Medication Reconciliation Form rt - SBAR form rt - Leadership Thank You Letter rt Signatures: Dispatcher [employer] Kristan Garrido Kaitlyn, RN RN kc6 Aleksey Jones MD MD rt Corrections: (The following items were deleted from the chart) 18:26 17:05 rt eb
[2023-05-21] MEDS ORDERED: ONDANSETRON 4 MG/2 ML VIAL IV PRN (17:07)
[2023-05-21] MEDS ORDERED: JEVITY 1.5 CAL LIQUID 1,000 ML BOT FT SCH ×2 (17:30→23:00)
[2023-05-21] MEDS ORDERED: ENTERAL FORMULA RTH SCH (17:30)
--- NOTE | 2023-05-21 17:31 | P.HP ---
Certification for Inpatient Patient admitted to: Inpatient Practitioner: I am a practitioner with admitting privileges, knowledge of patient current condition, hospital course, and medical plan of care. Services: Services provided to patient in accordance with Admission requirements found in Title 42 Section 412.3 of the Code of Federal Regulations Patient History Date of Service: 05/21/23 Reason for admission: Sacral osteomyelitis,Sepsis History of Present Illness: Mr. Madrid is a 73-year-old male with past medical history of significant for asthma, nicotine dependence and hypertension was brought to the ER by the ambulance with complaints of low blood pressure, fever, generalized weakness. Patient is alert alert and oriented x1, unable to provide accurate medical history. Patient denies chest pain, pressure or shortness of breath. Patient denies abdominal pain, nausea, vomiting. EMS brought to the patient because of the hypertension, blood pressure is normal in the emergency room. Patient is febrile 100.6, tachycardic pulse 108/min. CT abdomen pelvis with contrast shows left posterior soft tissue pelvis ulceration involving the posterior aspect of the coccyx. Initial lab findings significant for hemoglobin 8.4, hematocrit 24.7, hyponatremia 134, hypokalemia of 3.3,, troponin elevated 79.2. ED course Vital Signs: BP 148 / 70; Pulse 74; Resp 17; Pulse Ox 100% on R/A Patient was given antibiotics Zosyn 3.375 g IV piggyback, vancomycin 1 g IV piggyback. Admitting the patient with a diagnosis of sacral osteomyelitis, sepsis. Allergies No Known Allergies Allergy (Unverified 11/23/16 08:58) Home medications list reviewed: Yes Home Medications: Aspirin Chewable [Aspirin Chewable*] 81 mg PO DAILY tab.chew 04/28/23 Jevity 1.5 Sonido Liquid 55 ml RTH CONT bot 04/28/23 Medihoney [Medihoney Woundcare Gel*] 1 appl TOP DAILY tube 04/28/23 Nicotine [Nicoderm*] 14 mg TD DAILY 04/28/23 - Past Medical/Surgical History Diabetic: No -: Asthma. -: Hypertension. -: Nicotine dependence. -: Sacral decub - Social History Alcohol use: Yes CD- Drugs: No Caffeine use: Yes Review of Systems 10-point ROS is otherwise unremarkable Physical Examination - Physical Exam General: Alert, Oriented x2, Oriented x1 HEENT: Atraumatic, Normocephalic Neck: Supple Respiratory: Clear to auscultation bilaterally, Normal air movement Cardiovascular: No edema Capillary refill: <2 Seconds Gastrointestinal: Normal bowel sounds, Soft and benign (PEG tube in situ), No ascites, No rebound Musculoskeletal: No clubbing, No swelling Integumentary: Pressure ulcer (Sacral decubitus ulcer unstageable) Neurological: Normal gait - Studies Laboratory Data (last 24 hrs) 05/21/23 05/21/23 05/21/23 15:00 15:00 15:00 WBC 9.70 Hgb 8.4 L Hct 24.7 L Plt Count 177 PT 14.0 H INR 1.27 APTT 28.8 Sodium 134 L Potassium 3.3 L BUN 17 Creatinine 0.44 L Glucose 115 H Total Bilirubin 0.4 AST 57 H ALT 75 H Alkaline Phosphatase 341 H Assessment and Plan - Plan Assessment and plan Sacral decubitus unstageable sacral osteomyelitis Sepsis without septic Anemia Hyponatremia Elevated troponin Hypertension Asthma Severe protein calorie malnutrition/failure to thrive/ Dysphagia Enteral nutrition Assessment and plan Sacral decubitus unstageable sacral osteomyelitis Sepsis without septic shock * Patient was brought to the EMS by the ambulance from assisted with fever, generalized weakness * Patient is febrile 100.6 tachycardic 108/min, lactic acid is normal * Patient with sacral bedsore.CT abdomen pelvis with contrast shows left posterior soft tissue pelvis ulceration involving the posterior aspect of the coccyx 05/21/2023) * Admitting the patient for further management. Continue to monitor vitals closely * Infectious disease program evaluation consultant Dr. Torre * Antibiotic started Zosyn and ceftriaxone Anemia * Chronic hemoglobin 8.4, hematocrit 24.7 * Will continue to monitor Hyponatremia * Hyponatremia 134, started normal saline 100 mL/h * Will continue to recheck and monitor Elevated troponin * Acute, denies chest chest pain * Patient on aspirin * Trend troponin * Cardiology consult Dr. Garcia Hypertension * Chronic, not on any blood pressure medications at this time * Will continue to monitor Asthma * Chronic, controlled, continue home Severe protein calorie malnutrition/failure to thrive/ Dysphagia Enteral nutrition * Chronic, worsening frail looking patient * Will continue to monitor albumin * Will continue the enteral feed Jevity 1.5 at 55 mL/h * Dietary consultation CODE STATUS Code DVT prophylaxis Lovenox Diet DVT 1.5 through PEG tube. Discharge Plan: Retirement Plan to discharge in: 48 Hours - Advance Directives Does patient have a Living Will: No Does patient have a Durable POA for Healthcare: No - Code Status/Comfort Care Code Status Assessed: Yes (Full code) Code Status: Full Code Critical Care: No
[2023-05-21] MEDS: ENOXAPARIN 40 MG/0.4 ML SQ SCH (18:00)
[2023-05-21] MEDS: NA CHLORIDE 0.9% 1,000 ML IV SCH (18:00)
[2023-05-21] MEDS ORDERED: ACETAMINOPHEN 650MG/RECT SUPP PR PRN (18:27)
[2023-05-21] MEDS ORDERED: NA CHLORIDE 0.9% 1,000 ML ONE (18:56)
[2023-05-21] MEDS ORDERED: ENOXAPARIN 40 MG/0.4 ML SQ ONE (18:56)
[2023-05-21] MEDS ORDERED: ACETAMINOPHEN 650MG/RECT SUPP PR ONE (18:56)
[2023-05-21 20:41] VITALS: BMI 18.0
[2023-05-21 20:51] LABS: Hematocrit 27.3 % (39.6-49.0)
[2023-05-22] MEDS: PIPER TAZO 3.375 GM in NA CHLORIDE 0.9% 100 ML IV SCH ×2 (01:15→07:49)
[2023-05-22] MEDS: NA CHLORIDE 0.9% 1,000 ML IV SCH ×4 (03:18→19:12)
[2023-05-22 04:52] LABS: Absolute Lymphocytes (CBC) 2.4 K/uL (0.7-4.9); Hematocrit 24.5 % (39.6-49.0); Lymphocytes % 29.8 % (15.3-44.8); MCV 98.8 fL (80-100); MPV 9.3 fL (7.6-11.3); Platelets 181 thou/uL (152-406); RBC Red Blood Cell Count 2.48 M/uL (4.33-5.43)
[2023-05-22 05:18] LABS: Albumin 1.5 g/dL (3.4-5.0); Bilirubin Total 0.6 mg/dL (0.2-1.0); Magnesium 2.2 mg/dL (1.6-2.4); Phosphorus 3.1 mg/dL (2.5-4.9); Potassium 3.5 mEq/L (3.5-5.1); Protein, Total 5.6 g/dL (6.4-8.2)
[2023-05-22] MEDS: CEFTRIAXONE 1,000 MG in NA CHLORIDE 0.9% 50 ML IVPB SCH (07:49)
[2023-05-22] MEDS: ENOXAPARIN 40 MG/0.4 ML SQ SCH (07:49)
[2023-05-22] MEDS: ASPIRIN 81 MG CHEWABLE TABLET PO SCH (07:50)
[2023-05-22] MEDS ORDERED: NICOTINE 14 MG/PAT TD SCH (09:00)
[2023-05-22] MEDS ORDERED: ASPIRIN 81 MG PO SCH (09:00)
[2023-05-22] MEDS ORDERED: POTASSIUM 25 MEQ EFFERV TAB PO ONE (09:00)
[2023-05-22] MEDS ORDERED: MEDIHONEY 44 ML TOPICAL TUBE TOP SCH (09:00)
[2023-05-22] MEDS: VANCOMYCIN 1.75 GM in NA CHLORIDE 0.9% 500 ML IVPB SCH (10:27)
[2023-05-22] MEDS: ACETAMINOPHEN 500 MG TAB PO PRN ×2 (10:27→19:12)
[2023-05-22] MEDS ORDERED: PNEUMOCOCCAL VACCINE 0.5 ML IMVAC ONE (11:00)
--- NOTE | 2023-05-22 13:30 | P.PN ---
Subjective Date of Service: 05/22/23 Chief Complaint: Sacral osteomyelitis,Sepsis Subjective: No new changes, No C/O voiced, Improving, Doing well Date of admission: 05/21/23 Reason for admission: Sacral osteomyelitis,Sepsis History of Present Illness: Mr. Madrid is a 73-year-old male with past medical history of significant for asthma, nicotine dependence and hypertension was brought to the ER by the ambulance with complaints of low blood pressure, fever, generalized weakness. Patient is alert alert and oriented x1, unable to provide accurate medical history. Patient denies chest pain, pressure or shortness of breath. Patient denies abdominal pain, nausea, vomiting. EMS brought to the patient because of the hypertension, blood pressure is normal in the emergency room. Patient is febrile 100.6, tachycardic pulse 108/min. CT abdomen pelvis with contrast shows left posterior soft tissue pelvis ulceration involving the posterior aspect of the coccyx. Initial lab findings significant for hemoglobin 8.4, hematocrit 24.7, hyponatremia 134, hypokalemia of 3.3,, troponin elevated 79.2. ED course Vital Signs: BP 148 / 70; Pulse 74; Resp 17; Pulse Ox 100% on R/A Patient was given antibiotics Zosyn 3.375 g IV piggyback, vancomycin 1 g IV piggyback. Admitting the patient with a diagnosis of sacral osteomyelitis, sepsis. 05/22/2023 Patient is awake, breathing normal on room air Patient denies any pain or discomfort Vitals stable Review of Systems 10-point ROS is otherwise unremarkable Physical Examination - Vital Signs Temperature: 98.3 F Blood Pressure: 112/63 Pulse: 93 Respirations: 16 Pulse Ox (%): 100 - Studies Laboratory Data (last 24 hrs) 05/21/23 05/21/23 05/21/23 15:00 15:00 15:00 WBC 9.70 Hgb 8.4 L Hct 24.7 L Plt Count 177 PT 14.0 H INR 1.27 APTT 28.8 Sodium 134 L Potassium 3.3 L BUN 17 Creatinine 0.44 L Glucose 115 H Total Bilirubin 0.4 AST 57 H ALT 75 H Alkaline Phosphatase 341 H Microbiology Data (last 24 hrs): 05/21/23 15:00 Blood - Blood Anaerobic Blood Culture - Final Assessment And Plan - Plan - Physical Exam General: Alert, Oriented x2, Oriented x1 HEENT: Atraumatic, Normocephalic Neck: Supple Respiratory: Clear to auscultation bilaterally, Normal air movement Cardiovascular: No edema Capillary refill: <2 Seconds Gastrointestinal: Normal bowel sounds, Soft and benign (PEG tube in situ), No ascites, No rebound Musculoskeletal: No clubbing, No swelling Integumentary: Pressure ulcer (Sacral decubitus ulcer unstageable) Neurological: Normal gait Assessment and plan Sacral decubitus unstageable sacral osteomyelitis Sepsis without septic Anemia Hyponatremia Elevated troponin Hypertension Asthma Severe protein calorie malnutrition/failure to thrive/ Dysphagia Enteral nutrition Assessment and plan Sacral decubitus unstageable sacral osteomyelitis Sepsis without septic shock * Acute, improving patient is afebrile today. WBC 7.9. * Patient with sacral bedsore.CT abdomen pelvis with contrast shows left posterior soft tissue pelvis ulceration involving the posterior aspect of the coccyx 05/21/2023) * Admitting the patient for further management. Continue to monitor vitals closely * Infectious disease product/industry consultant Dr. Torre * Antibiotic started vancomycin and ceftriaxone Anemia * Chronic hemoglobin 8.3, hematocrit 18 * Will continue to monitor Hyponatremia * Hyponatremia 134, started normal saline 100 mL/h * Will continue to recheck and monitor Elevated troponin * Acute, denies chest chest pain * Patient on aspirin * Trend troponin * Cardiology consult Dr. Garcia Hypertension * Chronic, not on any blood pressure medications at this time * Will continue to monitor Asthma * Chronic, controlled, continue home Severe protein calorie malnutrition/failure to thrive Dysphagia Enteral nutrition * Chronic, worsening frail looking patient * Will continue to monitor albumin * Will continue the enteral feed Jevity 1.5 at 40 mL/h * Dietary consultation CODE STATUS Code DVT prophylaxis Lovenox Diet DVT 1.5 through PEG tube. Discharge Plan: Home Plan to discharge in: 24 Hours - Code Status/Comfort Care Code Status Assessed: Yes (full code) Code Status: Full Code Critical Care: No Time Spent Managing PTS Care (In Minutes): 35 (minutes)
[2023-05-23] MEDS: NA CHLORIDE 0.9% 1,000 ML IV SCH ×2 (04:54→19:00)
[2023-05-23 06:39] LABS: Absolute Lymphocytes (CBC) 1.7 K/uL (0.7-4.9); Hematocrit 24.4 % (39.6-49.0); Lymphocytes % 25.5 % (15.3-44.8); MCV 98.2 fL (80-100); MPV 9.3 fL (7.6-11.3); Platelets 177 thou/uL (152-406); RBC Red Blood Cell Count 2.48 M/uL (4.33-5.43)
[2023-05-23 06:53] LABS: Magnesium 2.2 mg/dL (1.6-2.4)
[2023-05-23 07:28] LABS: Potassium 4.3 mEq/L (3.5-5.1)
[2023-05-23] MEDS: ASPIRIN 81 MG CHEWABLE TABLET PO SCH (09:20)
[2023-05-23] MEDS: ENOXAPARIN 40 MG/0.4 ML SQ SCH (09:20)
[2023-05-23] MEDS: CEFTRIAXONE 1,000 MG in NA CHLORIDE 0.9% 50 ML IVPB SCH (09:20)
[2023-05-23] MEDS: VANCOMYCIN 1.75 GM in NA CHLORIDE 0.9% 500 ML IVPB SCH (09:21)
[2023-05-23] MEDS ORDERED: PNEUMOCOCCAL VACCINE 0.5 ML IMVAC ONE (11:00)
--- NOTE | 2023-05-23 11:01 | P.PN ---
Subjective Date of Service: 05/23/23 Chief Complaint: Sacral osteomyelitis,Sepsis Subjective: No new changes, Improving, Doing well Date of admission: 05/21/23 Reason for admission: Sacral osteomyelitis,Sepsis History of Present Illness: Mr. Madrid is a 73-year-old male with past medical history of significant for asthma, nicotine dependence and hypertension was brought to the ER by the ambulance with complaints of low blood pressure, fever, generalized weakness. Patient is alert alert and oriented x1, unable to provide accurate medical history. Patient denies chest pain, pressure or shortness of breath. Patient denies abdominal pain, nausea, vomiting. EMS brought to the patient because of the hypertension, blood pressure is normal in the emergency room. Patient is febrile 100.6, tachycardic pulse 108/min. CT abdomen pelvis with contrast shows left posterior soft tissue pelvis ulceration involving the posterior aspect of the coccyx. Initial lab findings significant for hemoglobin 8.4, hematocrit 24 .7, hyponatremia 134, hypokalemia of 3.3,, troponin elevated 79.2. ED course Vital Signs: BP 148 / 70; Pulse 74; Resp 17; Pulse Ox 100% on R/A Patient was given antibiotics Zosyn 3.375 g IV piggyback, vancomycin 1 g IV piggyback. Admitting the patient with a diagnosis of sacral osteomyelitis, sepsis. 05/23/2023 Patient is awake, breathing normal on room air Patient denies any pain or discomfort Vitals stable <Leigh Cortez - Last Filed: 05/23/23 10:58> Date of Service: 05/23/23 <Abdiel Rubio - Last Filed: 05/23/23 15:58> Review of Systems 10-point ROS is otherwise unremarkable <Leigh Cortez - Last Filed: 05/23/23 10:58> Physical Examination - Vital Signs Temperature: 99.1 F Blood Pressure: 149/72 Pulse: 112 Respirations: 16 Pulse Ox (%): 97 - Studies Microbiology Data (last 24 hrs): 05/21/23 15:00 Blood - Blood Anaerobic Blood Culture - Final <Leigh Cortez - Last Filed: 05/23/23 10:58> - Studies Microbiology Data (last 24 hrs): 05/21/23 15:00 Blood - Blood Anaerobic Blood Culture - Final <Abdiel Rubio - Last Filed: 05/23/23 15:58> Assessment And Plan - Plan - Physical Exam General: Alert, Oriented x2, Oriented x1 HEENT: Atraumatic, Normocephalic Neck: Supple Respiratory: Clear to auscultation bilaterally, Normal air movement Cardiovascular: No edema Capillary refill: <2 Seconds Gastrointestinal: Normal bowel sounds, Soft and benign (PEG tube in situ), No ascites, No rebound Musculoskeletal: No clubbing, No swelling Integumentary: Pressure ulcer (Sacral decubitus ulcer unstageable) Neurological: Normal gait Assessment and plan Sacral decubitus unstageable sacral osteomyelitis Sepsis without septic Anemia Hyponatremia Elevated troponin Hypertension Asthma Severe protein calorie malnutrition/failure to thrive/ Dysphagia Enteral nutrition Assessment and plan Sacral decubitus unstageable sacral osteomyelitis Sepsis without septic shock * Acute, improving patient is afebrile today. WBC 6.8 * Patient with sacral bedsore.CT abdomen pelvis with contrast shows left posterior soft tissue pelvis ulceration involving the posterior aspect of the coccyx 05/21/2023) * Admitting the patient for further management. Continue to monitor vitals closely * Infectious disease warehouse consultant Dr. Torre * Antibiotic started vancomycin and ceftriaxone Anemia * Chronic hemoglobin 8.3, hematocrit 24 * Will continue to monitor Hyponatremia * Hyponatremia 134, started normal saline 100 mL/h * Will continue to recheck and monitor Elevated troponin * Acute, denies chest chest pain * Patient on aspirin * Trend troponin * Cardiology consult Dr. Garcia Hypertension * Chronic, not on any blood pressure medications at this time * Will continue to monitor Asthma * Chronic, controlled, continue home Severe protein calorie malnutrition/failure to thrive Dysphagia Enteral nutrition * Chronic, worsening frail looking patient * Will continue to monitor albumin * Will continue the enteral feed Jevity 1.5 at 40 mL/h * Dietary consultation CODE STATUS Code DVT prophylaxis Lovenox Diet DVT 1.5 through PEG tube. Discharge Plan: Home Plan to discharge in: 48 Hours - Code Status/Comfort Care Code Status Assessed: Yes (full code) Code Status: Full Code Critical Care: No Time Spent Managing PTS Care (In Minutes): 35 (minutes) <Leigh Cortez - Last Filed: 05/23/23 10:58> Physician Review: Patient Assessed, Agree with Above Assessment and Plan Physician Review Additional Text: He appears comfortable this morning. Wound culture returned positive for coagulase-positive Staphylococcus. Spoke with Dr. Mckeon, who recommended Santyl for wound care. Dr. Samayoa to take over as the attending physician tomorrow. <Abdiel Rubio - Last Filed: 05/23/23 15:58>
[2023-05-24] MEDS: ACETAMINOPHEN 500 MG TAB PO PRN (04:09)
[2023-05-24] MEDS: NA CHLORIDE 0.9% 1,000 ML IV SCH ×3 (04:32→23:54)
[2023-05-24 06:28] LABS: Absolute Lymphocytes (CBC) 1.9 K/uL (0.7-4.9); Hematocrit 23.6 % (39.6-49.0); Lymphocytes % 31.5 % (15.3-44.8); MCV 98.3 fL (80-100); MPV 8.9 fL (7.6-11.3); Platelets 171 thou/uL (152-406)
[2023-05-24 06:45] LABS: Magnesium 2.2 mg/dL (1.6-2.4); Phosphorus 3.2 mg/dL (2.5-4.9); Potassium 3.9 mEq/L (3.5-5.1)
--- NOTE | 2023-05-24 06:56 | P.PN ---
Subjective Date of Service: 05/24/23 Chief Complaint: Sacral osteomyelitis,Sepsis Subjective: Improving, Doing well, Other (Low-grade fever, tachycardic, no verbal complaints,) Review of Systems 10-point ROS is otherwise unremarkable Physical Examination - Vital Signs Temperature: 100.7 F Blood Pressure: 135/63 Pulse: 117 Respirations: 16 Pulse Ox (%): 100 - Physical Exam General: Alert, In no apparent distress, Oriented x3, Other (Frail) HEENT: Atraumatic, Normocephalic Neck: Supple, 2+ carotid pulse no bruit, JVD not distended Respiratory: Clear to auscultation bilaterally, Normal air movement Cardiovascular: No edema, Normal pulses, Other (Tachycardic HR 108) Gastrointestinal: Normal bowel sounds, Soft and benign Musculoskeletal: No clubbing, No swelling Integumentary: Other (Sacral wound unstageable, dry dressing) Neurological: Other (Moderate generalized weakness) Assessment And Plan - Plan Assessment and plan Sacral decubitus unstageable acute on chronic sacral osteomyelitis acute CT abdomen pelvis with contrast shows left posterior soft tissue pelvis ulceration involving the posterior aspect of the coccyx 05/21/2023) Infectious disease advertising sales consultant Dr. Torre, Surgery consulted Antibiotic vancomycin and ceftriaxone Coccyx wound culture gram-positive cocci in clusters on vancomycin and ceftriaxone blood cultures no growth 05/24 awaiting family to do paperwork/financials for placement Sepsis without septic shock-improved low grade temp, tach HR 108. WBC normal Anemiai chronic Chronic hemoglobin 8.3, hematocrit 24 Will continue to monitor Hyponatremia Hyponatremia 134, started normal saline 100 mL/h Will continue to recheck and monitor Elevated troponin Acute, denies chest chest pain Patient on aspirin Trend troponin Hypertension Chronic, not on any blood pressure medications at this time Will continue to monitor Asthma controlled PRN nebs, continue home Severe protein calorie malnutrition/failure to thrive-acute on chronic Dysphagia Enteral nutrition Chronic, worsening frail looking patient Will continue to monitor albumin Will continue the enteral feed Jevity 1.5 at 40 mL/h CODE full code DVTLovenox Diet DVT 1.5 through PEG tube. Physician Review: Patient Assessed, Agree with Above Assessment and Plan Critical Care: No
--- NOTE | 2023-05-24 09:43 | P.CNS ---
Date of Consult: 05/24/23 Reason for Consult: sepsis, sacral osteomyelitis Chief Complaint: Sacral osteomyelitis,Sepsis History of Present Illness: Patient is a 73-year-old male with a past medical history hypertension and asthma who presented to the ED from the half-way due to hypotension, fever, generalized weakness. Patient was noted to have sacral pressure injury unstageable. CT abdomen pelvis with concern for osteomyelitis. Infectious disease and general surgery consulted. Allergies No Known Allergies Allergy (Unverified 11/23/16 08:58) Home medications list reviewed: Yes Home Medications: Acetaminophen [Tylenol] 2 tab .ROUTE Q6H PRN 05/21/23 Ascorbic Acid 1 tab .ROUTE DAILY 05/21/23 Donepezil HCl [Aricept] 1 tab .ROUTE BEDTIME 05/21/23 Jevity 1.5 Sonido Liquid 40 ml RTH CONT 05/21/23 Lactulose [Enulose] 30 ml .ROUTE DAILY 05/21/23 Memantine HCl [Namenda] 1 tab .ROUTE BID 05/21/23 Pnv/Iron,Carb/Om-3/FA/Fat 1 [Multivitamin with Minerals Cap] 1 tab .ROUTE DAILY 05/21/23 Zinc Gluconate [Zinc] 1 tab .ROUTE DAILY 05/21/23 - Past Medical/Surgical History Diabetic: No -: Asthma. -: Hypertension. -: Nicotine dependence. -: Sacral decub - Social History Smoking Status: Current every day smoker Alcohol use: Yes CD- Drugs: No Caffeine use: Yes Place of Residence: [facility] Review of Systems Unremarkable Physical Examination Temp Pulse Resp BP Pulse Ox 98.5 F 106 H 16 140/75 99 05/24/23 08:00 05/24/23 08:00 05/24/23 08:00 05/24/23 08:00 05/24/23 08:00 General: In no apparent distress, Oriented x1 HEENT: Atraumatic, Normocephalic, Other (poor dentition) Respiratory: Clear to auscultation bilaterally, Normal air movement, Other (on room air) Cardiovascular: Normal S1 S2, Other (tachycardic) Gastrointestinal: Normal bowel sounds, Other (PEG tube) Musculoskeletal: Other (generalized weakness) Integumentary: Pressure ulcer (sacrum/coccyx unstageable) Laboratory data -Reviewed Microbiology data -Reviewed Imagings Data: -Reviewed Conclusions/Impression: Problem list Osteomyelitis, coccyx Sepsis Anemia Hypertension Asthma Dysphagia Severe protein calorie malnutrition Concern for Osteomyelitis of Coccyx Pressure Ulcer Unstageable Sacrum/Coccyx -CT abdomen pelvis 05/21: " Cholelithiasis without evidence of cholecystitis. Large posterior pelvis soft tissue ulceration. Subtle cortical irregularity involving the posterior aspect of the coccyx may indicate osteomyelitis. Rectum is distended with stool." -Patient was started on ceftriaxone and vancomycin on 05/22 -Wound culture coccyx 05/21: gram stain with 2+Gram-positive cocci; culture: 3+ diptheroids 24-hour Tmax 100.7 No Leukocytosis Blood cultures 05/21: No growth to date Recommendations - For osteomyelitis, recommend 6 weeks of IV antibiotic therapy. - Currently on Rocephin and Vancomycin, continue for now. - General surgery was also consulted by attending for possible debridement. - Pressure offloading measures. Turn patient Q2H, wedge pillows, low air-loss mattress. - malnutrition, PEG tube: cone machine operator consulted - Monitor WBC and fever trends Case discussed with Thaddeus Lozano
[2023-05-24] MEDS: CEFTRIAXONE 1,000 MG in NA CHLORIDE 0.9% 50 ML IVPB SCH (09:47)
[2023-05-24] MEDS: ENOXAPARIN 40 MG/0.4 ML SQ SCH (09:47)
[2023-05-24] MEDS: ASPIRIN 81 MG CHEWABLE TABLET PO SCH (09:47)
[2023-05-24] MEDS: VANCOMYCIN 1.75 GM in NA CHLORIDE 0.9% 500 ML IVPB SCH (09:50)
[2023-05-24] MEDS: COLLAGENASE 30 GM OINTMENT TOP SCH (12:22)
[2023-05-24] MEDS ORDERED: JEVITY 1.5 CAL LIQUID 1,000 ML BOT RTH SCH (13:20)
--- NOTE | 2023-05-25 08:03 | EKG ---
Test Date: 2023-05-21 Test Time: 15:05:46 Passenger Service Manager: ESTELITA MEASUREMENT RESULTS: Intervals: Rate: 102 SC: 144 QRSD: 78 QT: 348 QTc: 453 [place]: P: 44 SC: 144 QRS: 25 T: 97 INTERPRETIVE STATEMENTS: Sinus tachycardia Nonspecific T wave abnormality Abnormal ECG Compared to ECG 03/31/2023 15:32:51 T-wave abnormality now present Sinus rhythm no longer present Electronically Signed On 05-25-23 07:54:45 CDT by Felix Garcia
[2023-05-25] MEDS: CEFTRIAXONE 1,000 MG in NA CHLORIDE 0.9% 50 ML IVPB SCH (08:21)
[2023-05-25] MEDS: ASPIRIN 81 MG CHEWABLE TABLET PO SCH (08:21)
[2023-05-25] MEDS: ENOXAPARIN 40 MG/0.4 ML SQ SCH (08:21)
[2023-05-25] MEDS: NA CHLORIDE 0.9% 1,000 ML IV SCH ×2 (08:22→19:17)
[2023-05-25] MEDS: COLLAGENASE 30 GM OINTMENT TOP SCH (08:25)
--- NOTE | 2023-05-25 08:54 | P.PN ---
Date of Service: 05/25/23 Chief Complaint: Sacral osteomyelitis,Sepsis Subjective: Patient seen and examined at bedside. In no apparent distress. + sacral pain Denies any nausea, vomiting, abdominal pain or diarrhea. Denies any shortness of breath, cough or chest pain. Denies any dysuria or other urinary symptoms. Physical Examination Temp Pulse Resp BP Pulse Ox 98.6 F 90 16 117/63 95 05/25/23 08:00 05/25/23 08:00 05/25/23 08:00 05/25/23 08:00 05/25/23 08:00 General: In no apparent distress. Oriented x2. HEENT: Atraumatic, Normocephalic. Poor dentition. Respiratory: Clear to auscultation bilaterally, Normal air movement, On room air. Cardiovascular: Normal S1 S2. No edema. Gastrointestinal: Normal bowel sounds. Non-tender. PEG tube. Musculoskeletal: Generalized weakness. Integumentary: Pressure ulcer sacrum/coccyx Laboratory data -Reviewed Microbiology data -Reviewed Imagings Data: -Reviewed Medications List: Acetaminophen (Acetaminophen 500 Mg Tab) 500 mg PO Q4HP PRN PRN Reason: Pain scale 2-4 (Mild) Last Admin: 05/24/23 04:09 Dose: 500 mg Acetaminophen (Acetaminophen 650mg/Rect Supp) 650 mg CO Q6H PRN PRN Reason: TEMP > 100' F Last Admin: 05/21/23 18:53 Dose: 650 mg Aspirin (Aspirin 81 Mg Chewable Tablet) 81 mg PO DAILY [facility] Last Admin: 05/25/23 08:21 Dose: 81 mg Collagenase (Collagenase 30 Gm Ointment) 1 appl TOP DAILY [facility] Last Admin: 05/25/23 08:25 Dose: 1 lalit Enoxaparin Sodium (Enoxaparin 40 Mg/0.4 Ml) 40 mg SQ DAILY [facility] Last Admin: 05/25/23 08:21 Dose: 40 mg Sodium Chloride (Ns 1000 Ml Ivbag) 1,000 mls @ 100 mls/hr IV .Q10H [facility] Last Admin: 05/25/23 08:22 Dose: 1,000 mls Ceftriaxone Sodium 1,000 mg/ (Sodium Chloride) 50 mls @ 100 mls/hr IVPB DAILY [facility]; Protocol Last Admin: 05/25/23 08:21 Dose: 50 mls Vancomycin HCl 1.75 gm/ Sodium (Chloride) 500 mls @ 333.333 mls/hr IVPB Q24H [facility] Last Admin: 05/24/23 09:50 Dose: 500 mls Ondansetron HCl (Ondansetron 4 Mg/2 Ml Vial) 4 mg IV Q6HP PRN PRN Reason: NAUSEA / VOMITING Assessment and Plan Problem list Osteomyelitis, coccyx Sepsis Anemia Hypertension Asthma Dysphagia Severe protein calorie malnutrition Concern for Osteomyelitis of Coccyx Pressure Ulcer Sacrum/Coccyx -CT abdomen pelvis 05/21: " Cholelithiasis without evidence of cholecystitis. L arge posterior pelvis soft tissue ulceration. Subtle cortical irregularity involving the posterior aspect of the coccyx may indicate osteomyelitis. Rectum is distended with stool." -Patient was started on ceftriaxone and vancomycin on 05/22 -Wound culture coccyx 05/21: gram stain with 2+Gram-positive cocci; culture: 3+ diptheroids Blood cultures 05/21: No growth to date 24-hour Tmax 100.7 WBC WNL Recommendations - For osteomyelitis, recommend 6 weeks of IV antibiotic therapy. - Currently on Rocephin and Vancomycin, continue for now. - General surgery was also consulted by attending for possible debridement. - Pressure offloading measures. Turn patient Q2H, wedge pillows, low air-loss mattress. - malnutrition, PEG tube: coat examiner consulted - Monitor WBC and fever trends pending SNF placement. CM/SS following. Case discussed with Thaddeus Lozano
[2023-05-25] MEDS: VANCOMYCIN 1.75 GM in NA CHLORIDE 0.9% 500 ML IVPB SCH (09:47)
[2023-05-25 09:56] LABS: Hematocrit 22.5 % (39.6-49.0); Lymphocytes % 33.5 % (15.3-44.8); MCV 99.2 fL (80-100); MPV 8.5 fL (7.6-11.3); Platelets 174 thou/uL (152-406); RBC Red Blood Cell Count 2.27 M/uL (4.33-5.43)
[2023-05-25 12:36] LABS: Magnesium 2.1 mg/dL (1.6-2.4); Phosphorus 3.1 mg/dL (2.5-4.9)
--- NOTE | 2023-05-25 13:48 | P.PN ---
Subjective Date of Service: 05/25/23 Chief Complaint: Sacral osteomyelitis,Sepsis Subjective: No new changes, Demented, Other reports chronic sacral pain, reports some relief with prn analgesics Review of Systems 10-point ROS is otherwise unremarkable Physical Examination - Vital Signs Temperature: 98.6 F Blood Pressure: 117/63 Pulse: 90 Respirations: 16 Pulse Ox (%): 95 - Physical Exam General: Alert, In no apparent distress, Oriented x3, Other (Frail) HEENT: Atraumatic, Normocephalic, PERRLA Neck: Supple, 2+ carotid pulse no bruit Respiratory: Clear to auscultation bilaterally, Normal air movement Cardiovascular: No edema, Normal pulses, Regular rate/rhythm Capillary refill: <2 Seconds Gastrointestinal: Normal bowel sounds, Soft and benign, Other (Peg tube feeding) Musculoskeletal: No clubbing, No swelling, Other (moderate generalized weakness) Neurological: Normal speech, Normal strength at 5/5 x4 extr, Sensation intact Assessment And Plan - Plan Assessment and plan Sacral decubitus unstageable acute on chronic sacral osteomyelitis acute CT abdomen pelvis with contrast shows left posterior soft tissue pelvis ulceration involving the posterior aspect of the coccyx 05/21/2023) Infectious disease fitness consultant Dr. Torre, Surgery consulted Antibiotic vancomycin and ceftriaxone Coccyx wound culture gram-positive cocci in clusters on vancomycin and ceftriaxone blood cultures no growth 05/24 awaiting family to do paperwork/financials for placement Sepsis without septic shock-improved low grade temp, tach HR 108. WBC normal Anemia chronic Chronic hemoglobin 8.3, 10-31 7.6, Will continue to monitor Hyponatremia Hyponatremia 134, started normal saline 100 mL/h Will continue to recheck and monitor Elevated troponin Acute, denies chest chest pain Patient on aspirin Trend troponin Hypertension Chronic, not on any blood pressure medications at this time Will continue to monitor Asthma controlled PRN nebs, continue home Severe protein calorie malnutrition/failure to thrive-acute on chronic Dysphagia Enteral nutrition Chronic, worsening frail looking patient Will continue to monitor albumin Will continue the enteral feed Jevity 1.5 at 40 mL/h CODE full code DVTLovenox Diet DVT 1.5 through PEG tube. Discharge Plan: Snf - Code Status/Comfort Care Code Status: Full Code Physician Review: Patient Assessed, Agree with Above Assessment and Plan Critical Care: No Time Spent Managing PTS Care (In Minutes): 35
[2023-05-26] MEDS: NA CHLORIDE 0.9% 1,000 ML IV SCH ×2 (08:00→16:34)
[2023-05-26] MEDS: ENOXAPARIN 40 MG/0.4 ML SQ SCH (08:40)
[2023-05-26] MEDS: ASPIRIN 81 MG CHEWABLE TABLET PO SCH (08:40)
[2023-05-26] MEDS: CEFTRIAXONE 1,000 MG in NA CHLORIDE 0.9% 50 ML IVPB SCH (08:40)
[2023-05-26] MEDS: VANCOMYCIN 1.75 GM in NA CHLORIDE 0.9% 500 ML IVPB SCH (09:00)
[2023-05-26] MEDS: COLLAGENASE 30 GM OINTMENT TOP SCH (09:00)
--- NOTE | 2023-05-26 09:23 | P.PN ---
Date of Service: 05/26/23 Chief Complaint: Sacral osteomyelitis,Sepsis Subjective: Patient seen and examined at bedside. + sacrum pain. + generalized weakness No nausea, vomiting, diarrhea or abdominal pain. No cough, shortness of breath or chest pain. Physical Examination Temp Pulse Resp BP Pulse Ox 99.8 F 108 H 16 110/54 L 98 05/26/23 08:00 05/26/23 08:00 05/26/23 08:00 05/26/23 08:00 05/26/23 08:00 General: In no apparent distress. Oriented x2. HEENT: Atraumatic, Normocephalic. Poor dentition. Respiratory: Clear to auscultation bilaterally, Normal air movement, On room a ir. Cardiovascular: Normal S1 S2. No edema. Gastrointestinal: Normal bowel sounds. Non-tender. PEG tube. Musculoskeletal: Generalized weakness. Integumentary: Pressure ulcer sacrum/coccyx Laboratory data -Reviewed Microbiology data -Reviewed Imagings Data: -Reviewed Medications List: Reviewed Assessment and Plan Problem list Osteomyelitis, coccyx Sepsis Anemia Hypertension Asthma Dysphagia Severe protein calorie malnutrition Concern for Osteomyelitis of Coccyx Pressure Ulcer Sacrum/Coccyx -CT abdomen pelvis 05/21: " Cholelithiasis without evidence of cholecystitis. Large posterior pelvis soft tissue ulceration. Subtle cortical irregularity involving the posterior aspect of the coccyx may indicate osteomyelitis. Rectum is distended with stool." -Patient was started on ceftriaxone and vancomycin on 05/22 -Wound culture coccyx 05/21: gram stain with 2+Gram-positive cocci; culture: 3+ diptheroids Blood cultures 05/21: No growth to date 24-hour Tmax 100.7 WBC WNL Recommendations - For osteomyelitis, recommend 6 weeks of IV antibiotic therapy. - Currently on Rocephin and Vancomycin, continue for now. - General surgery was also consulted by attending for possible debridement. - Pressure offloading measures. Turn patient Q2H, wedge pillows, low air-loss mattress. - malnutrition, PEG tube: uniformer consulted - Monitor WBC and fever trends pending SNF placement. CM/SS following. Case discussed with Thaddeus Lozano
[2023-05-26 09:27] LABS: Absolute Lymphocytes (CBC) 2.1 K/uL (0.7-4.9); Hematocrit 23.3 % (39.6-49.0); Lymphocytes % 35.1 % (15.3-44.8); MCV 98.9 fL (80-100); Platelets 175 thou/uL (152-406); RBC Red Blood Cell Count 2.36 M/uL (4.33-5.43)
[2023-05-26] MEDS ORDERED: HOME MED 1 EA UNK (Acetaminophen [Tylenol] 325 MG Capsule) PRN (10:33)
[2023-05-26] MEDS: VANCOMYCIN 1.5 GM in NA CHLORIDE 0.9% 500 ML IVPB SCH (11:31)
--- NOTE | 2023-05-26 16:10 | P.PN ---
Subjective Date of Service: 05/26/23 Primary Care Provider: Dr Samayoa Chief Complaint: Sacral osteomyelitis,Sepsis Subjective: No new changes Resting in bed quietly, he reported he worked with physical therapy yesterday. Reports chronic sacral pain, reports some relief with prn analgesics Review of Systems 10-point ROS is otherwise unremarkable Physical Examination - Vital Signs Temperature: 98.5 F Blood Pressure: 120/54 Pulse: 100 Respirations: 16 Pulse Ox (%): 98 - Physical Exam General: Alert, In no apparent distress, Oriented x3, Other (Frail) HEENT: Atraumatic, Normocephalic, PERRLA Neck: Supple, 2+ carotid pulse no bruit Respiratory: Clear to auscultation bilaterally, Normal air movement Cardiovascular: No edema, Normal pulses, Regular rate/rhythm Capillary refill: <2 Seconds Gastrointestinal: Normal bowel sounds, Soft and benign, Other (PEG tube in place) Musculoskeletal: No clubbing, No swelling, Other (Total care, severe generalized weakness) Neurological: Normal speech, Normal strength at 5/5 x4 extr, Sensation intact - Studies Microbiology Data (last 24 hrs): 05/21/23 15:35 Blood - Blood Aerobic Blood Culture - Final No growth in 5 days. 05/21/23 15:35 Blood - Blood Anaerobic Blood Culture - Final No growth in 5 days. 05/21/23 15:00 Blood - Blood Aerobic Blood Culture - Final No growth in 5 days. 05/21/23 15:00 Blood - Blood Anaerobic Blood Culture - Final Assessment And Plan - Plan Assessment and plan Sacral decubitus unstageable acute on chronic sacral osteomyelitis acute CT abdomen pelvis with contrast shows left posterior soft tissue pelvis ulceration involving the posterior aspect of the coccyx 05/21/2023) Infectious disease research consultant Dr. Torre, Surgery consulted Antibiotic vancomycin and ceftriaxone Coccyx wound culture gram-positive cocci in clusters on vancomycin and ceftriaxone blood cultures no growth 05/24 awaiting family to do paperwork/financials for placement Wound care for sacral ulcer, pressure offloading Sepsis without septic shock-improved low grade temp, tach HR 108. WBC normal Anemia chronic Chronic hemoglobin 8.3, 10-31 7.6, Will continue to monitor Hyponatremia Hyponatremia 134, started normal saline 100 mL/h Will continue to recheck and monitor Elevated troponin Acute, denies chest chest pain Patient on aspirin Trend troponin Hypertension Chronic, not on any blood pressure medications at this time Will continue to monitor Asthma controlled PRN nebs, continue home Severe protein calorie malnutrition/failure to thrive-acute on chronic Dysphagia Enteral nutrition Chronic, worsening frail looking patient Will continue to monitor albumin Will continue the enteral feed Jevity 1.5 at 40 mL/h CODE full code DVTLovenox Diet n.p.o. DVT 1.5 through PEG tube. Disposition : plan to DC when bed available at nursing facility Discharge Plan: [facility] - Code Status/Comfort Care Code Status: Full Code Physician Review: Patient Assessed, Agree with Above Assessment and Plan Critical Care: No Time Spent Managing PTS Care (In Minutes): 35
[2023-05-26] MEDS: DONEPEZIL HCL 5 MG TAB FT SCH (20:19)
[2023-05-26] MEDS: MEMANTINE HCL 10 MG TABLET FT SCH (20:20)
[2023-05-27] MEDS: ACETAMINOPHEN 500 MG TAB PO PRN (01:08)
[2023-05-27] MEDS: NA CHLORIDE 0.9% 1,000 ML IV SCH ×2 (02:46→15:50)
[2023-05-27] MEDS: VANCOMYCIN 1.5 GM in NA CHLORIDE 0.9% 500 ML IVPB SCH ×2 (03:53→22:40)
--- NOTE | 2023-05-27 08:11 | P.PN ---
Date of Service: 05/27/23 Chief Complaint: Sacral osteomyelitis,Sepsis Subjective: Patient seen and examined at bedside. In no apparent distress, breathing comfortably on room air. No acute events reported overnight. He denies any new or worsening complaints at this time. Pending discharge to SNF. Physical Examination Temp Pulse Resp BP Pulse Ox 98.2 F 98 H 16 101/55 L 100 05/27/23 04:00 05/27/23 04:00 05/27/23 04:00 05/27/23 04:00 05/27/23 04:00 General: In no apparent distress. Oriented x3. HEENT: Atraumatic, Normocephalic. Poor dentition. Respiratory: Clear to auscultation bilaterally, Normal air movement, On room air. Cardiovascular: Normal S1 S2. No edema. Gastrointestinal: Normal bowel sounds. Non-tender. PEG tube. Musculoskeletal: Generalized weakness. Integumentary: Pressure ulcer sacrum/coccyx Laboratory data -Reviewed Microbiology data -Reviewed Imagings Data: -Reviewed Medications List: Reviewed Assessment and Plan Problem list Osteomyelitis, coccyx Sepsis Anemia Hypertension Asthma Dysphagia Severe protein calorie malnutrition Concern for Osteomyelitis of Coccyx Pressure Ulcer Sacrum/Coccyx -CT abdomen pelvis 05/21: " Cholelithiasis without evidence of cholecystitis. Large posterior pelvis soft tissue ulceration. Subtle cortical irregularity involving the posterior aspect of the coccyx may indicate osteomyelitis. Rectum is distended with stool." -Patient was started on ceftriaxone and vancomycin on 05/22 -Wound culture coccyx 05/21: gram stain with 2+Gram-positive cocci; culture: 3+ diptheroids Blood cultures 05/21: No growth to date Afebrile >48 hours. WBC WNL Recommendations - For osteomyelitis, recommend 6 weeks of IV antibiotic therapy. - Continue Rocephin and Vancomycin IV. - Continue wound care per wound care team - Pressure offloading measures. Turn patient Q2H, wedge pillows, low air-loss mattress. - malnutrition, PEG tube: cocktail lounge manager consulted - Monitor WBC and fever trends pending SNF placement. CM/SS following. As outpatient while on Vancomycin, obtain CBC, BMP and Vanco trough at least twice weekly (Wednesday and ) Case discussed with Thaddeus Lozano
[2023-05-27] MEDS: ENOXAPARIN 40 MG/0.4 ML SQ SCH (08:22)
[2023-05-27] MEDS: CEFTRIAXONE 1,000 MG in NA CHLORIDE 0.9% 50 ML IVPB SCH (08:22)
[2023-05-27] MEDS: COLLAGENASE 30 GM OINTMENT TOP SCH (08:23)
[2023-05-27] MEDS: ASPIRIN 81 MG CHEWABLE TABLET PO SCH (08:23)
[2023-05-27] MEDS: ASCORBIC ACID 500 MG TABLET FT SCH (08:23)
[2023-05-27] MEDS: MEMANTINE HCL 10 MG TABLET FT SCH (09:00)
[2023-05-27 11:06] LABS: Absolute Lymphocytes (CBC) 1.9 K/uL (0.7-4.9); Hematocrit 24.8 % (39.6-49.0); Lymphocytes % 30.7 % (15.3-44.8); Platelets 207 thou/uL (152-406); RBC Red Blood Cell Count 2.51 M/uL (4.33-5.43)
[2023-05-27 11:20] LABS: Potassium 3.8 mEq/L (3.5-5.1)
[2023-05-27] MEDS ORDERED: POTASSIUM 25 MEQ EFFERV TAB PO ONE (16:06)
[2023-05-27] MEDS: DONEPEZIL HCL 5 MG TAB FT SCH (20:51)
[2023-05-27] MEDS: JUVEN PACKET FT SCH (20:52)
[2023-05-27] MEDS ORDERED: MEMANTINE HCL 10 MG TABLET PO SCH (21:00)
[2023-05-28] MEDS: NA CHLORIDE 0.9% 1,000 ML IV SCH (02:15)
--- NOTE | 2023-05-28 06:37 | P.PN ---
Subjective Date of Service: 05/28/23 Primary Care Provider: Dr Samayoa Chief Complaint: Sacral osteomyelitis,Sepsis Resting in bed quietly, he reported he worked with physical therapy yesterday. Reports chronic sacral pain, reports some relief with prn analgesics Physical Examination - Vital Signs Temperature: 99.3 F Blood Pressure: 127/62 Pulse: 109 Respirations: 17 Pulse Ox (%): 99 Assessment And Plan - Plan Assessment and plan Sacral decubitus unstageable acute on chronic sacral osteomyelitis acute CT abdomen pelvis with contrast shows left posterior soft tissue pelvis ulceration involving the posterior aspect of the coccyx 05/21/2023) Infectious disease pharmacy consultant Dr. Torre, Surgery consulted Antibiotic vancomycin and ceftriaxone Coccyx wound culture gram-positive cocci in clusters on vancomycin and ceftriaxone blood cultures no growth 05/24 awaiting family to do paperwork/financials for placement Wound care for sacral ulcer, pressure offloading Sepsis without septic shock-improved low grade temp, tach HR 108. WBC normal Anemia chronic Chronic hemoglobin 8.3, 10-31 7.6, Will continue to monitor Hyponatremia Hyponatremia 134, started normal saline 100 mL/h Will continue to recheck and monitor Elevated troponin Acute, denies chest chest pain Patient on aspirin Trend troponin Hypertension Chronic, not on any blood pressure medications at this time Will continue to monitor Asthma controlled PRN nebs, continue home Severe protein calorie malnutrition/failure to thrive-acute on chronic Dysphagia Enteral nutrition Chronic, worsening frail looking patient Will continue to monitor albumin Will continue the enteral feed Jevity 1.5 at 40 mL/h CODE full code DVTLovenox Diet n.p.o. DVT 1.5 through PEG tube. Disposition : plan to DC when bed available at nursing facility Physician Review: Patient Assessed, Agree with Above Assessment and Plan
--- NOTE | 2023-05-28 07:26 | P.DS ---
Admission Date: 05/21/23 Discharge Date: 05/28/23 Primary Care Provider: Dr Samayoa Disposition: TRANSFER TO ASSISTED Discharge Condition: FAIR Reason for Admission: Sacral osteomyelitis,Sepsis Consultations: Surg for wound care eval and treatment, ID for sacral osteomyleitis - Problems (1) Acute osteomyelitis of sacrum Current Visit: Yes Status: Acute (2) Malnutrition compromising bodily function Current Visit: No Status: Acute Brief History of Present Illness: Mr. Madrid is a 73-year-old male with past medical history of significant for asthma, nicotine dependence and hypertension was brought to the ER by the ambulance with complaints of sacral pressure ulcer, fever, generalized weakness. He was seen and evaluated for sacral ulcer, seen by Surg and infectious disease for sacral osteomyelits. Plan to discharge to sending facility, [facility]. Hospital Course: - Physical Exam General: Alert, In no apparent distress, Oriented x3, Other (Frail) HEENT: Atraumatic, Normocephalic, PERRLA Neck: Supple, 2+ carotid pulse no bruit Respiratory: Clear to auscultation bilaterally, Normal air movement Cardiovascular: No edema, Normal pulses, Regular rate/rhythm Capillary refill: <2 Seconds Gastrointestinal: Normal bowel sounds, Soft and benign, Other (PEG tube in place) Musculoskeletal: No clubbing, No swelling, Other (Total care, severe generalized weakness) Neurological: Normal speech, Normal strength at 5/5 x4 extr, Sensation intact Assessment and plan Sacral decubitus unstageable acute on chronic-improved sacral osteomyelitis acute -improved CT abdomen pelvis with contrast shows left posterior soft tissue pelvis ulceration involving the posterior aspect of the coccyx 05/21/2023) Infectious disease labor relations consultant Dr. Torre, Surgery consulted Antibiotic vancomycin and ceftriaxone- per ID team Coccyx wound culture gram-positive cocci in clusters on vancomycin and ceftriaxone blood cultures no growth 05/24 awaiting family to do paperwork/financials for placement Wound care for sacral ulcer per Dr Rodriguez, pressure offloading sacral wound Sepsis without septic shock-resolved low grade temp, tach HR 108. WBC normal Anemia chronic Chronic hemoglobin 8.3, 10-31 7.6, Will continue to monitor Hyponatremia Hyponatremia 134, started normal saline 100 mL/h Will continue to recheck and monitor Elevated troponin Acute, denies chest chest pain Patient on aspirin. no reported chest pain Asthma controlled PRN nebs, continue home Severe protein calorie malnutrition/failure to thrive-acute on chronic Dysphagia-NPO Enteral nutrition Chronic, frail, generalized weakness Will continue the enteral feed Jevity 1.5 at 40 mL/h CODE full code DVTLovenox Diet n.p.o. DVT 1.5 through PEG tube. Disposition : plan to [facility] Physician Review: Patient Assessed, Agree with Above Assessment and Plan Vital Signs/Physical Exam: Temp Pulse Resp BP Pulse Ox 99.3 F 109 H 17 127/62 99 05/28/23 06:37 05/28/23 06:37 05/28/23 06:37 05/28/23 06:37 05/28/23 06:37 Laboratory Data at Discharge: WBC 6.20 thou/uL (4.3-10.9) 05/27/23 10:39 Hgb 8.4 g/dL (13.6-17.9) L 05/27/23 10:39 Hct 24.8 % (39.6-49.0) L 05/27/23 10:39 Plt Count 207 thou/uL (152-406) 05/27/23 10:39 PT 14.0 SECONDS (9.5-12.5) H 05/21/23 15:00 INR 1.27 05/21/23 15:00 APTT 28.8 SECONDS (24.3-36.9) 05/21/23 15:00 Sodium 138 mEq/L (136-145) 05/27/23 10:39 Potassium 3.8 mEq/L (3.5-5.1) 05/27/23 10:39 BUN 6 mg/dL (7-18) L 05/27/23 10:39 Creatinine 0.37 mg/dL (0.70-1.30) L 05/27/23 10:39 Glucose 133 mg/dL (74-106) H 05/27/23 10:39 Phosphorus 3.1 mg/dL (2.5-4.9) 05/25/23 12:06 Magnesium 2.1 mg/dL (1.6-2.4) 05/25/23 12:06 Total Bilirubin 0.6 mg/dL (0.2-1.0) 05/22/23 04:41 AST 34 U/L (15-37) 05/22/23 04:41 ALT 57 U/L (16-61) 05/22/23 04:41 Alkaline Phosphatase 254 U/L (45-117) H D 05/22/23 04:41 Triglycerides 53 mg/dL (<150) 05/22/23 04:41 Cholesterol 74 mg/dL (<200) 05/22/23 04:41 HDL Cholesterol 26 mg/dL (40-60) L 05/22/23 04:41 Cholesterol/HDL Ratio 2.85 05/22/23 04:41 Home Medications: Acetaminophen [Tylenol] 2 tab .ROUTE Q6H PRN 05/21/23 Ascorbic Acid 1 tab .ROUTE DAILY 05/21/23 Donepezil HCl [Aricept] 1 tab .ROUTE BEDTIME 05/21/23 Jevity 1.5 Sonido Liquid 40 ml RTH CONT 05/21/23 Lactulose [Enulose] 30 ml .ROUTE DAILY 05/21/23 Memantine HCl [Namenda] 1 tab .ROUTE BID 05/21/23 Pnv/Iron,Carb/Om-3/FA/Fat 1 [Multivitamin with Minerals Cap] 1 tab .ROUTE DAILY 05/21/23 Zinc Gluconate [Zinc] 1 tab .ROUTE DAILY 05/21/23 Acetaminophen [Tylenol*] 650 mg CA Q6H PRN supp 05/26/23 Aspirin Chewable [Aspirin Chewable*] 81 mg PO DAILY tab.chew 05/26/23 Collagenase [Santyl Ointment*] 1 appl TOP DAILY tube 05/26/23 Aspirin Chewable [Aspirin Chewable*] 81 mg FT DAILY tab.chew 05/28/23 Enoxaparin Sodium [Lovenox 40 MG INJ*] 40 mg SQ DAILY syr 05/28/23 Salvador [Salvador*] 1 pkt FT TID 05/28/23 Memantine HCl [Namenda*] 5 mg FT DAILY 05/28/23 Pantoprazole Granules [Protonix Packet (for suspension)] 40 mg GT DAILY #30 packet 05/28/23 New Medications: Pantoprazole Granules [Protonix Packet (for suspension)] 40 mg GT DAILY #30 packet Physician Discharge Instructions: PROBLEM: (list out Acute Problems for the Current visit) GOAL: Clear understanding of disease process INSTRUCTIONS: Concern for Osteomyelitis of Coccyx Pressure Ulcer Sacrum/Coccyx -CT abdomen pelvis 05/21: " Cholelithiasis without evidence of cholecystitis. Large posterior pelvis soft tissue ulceration. Subtle cortical irregularity involving the posterior aspect of the coccyx may indicate osteomyelitis. Rectum is distended with stool." -Wound culture coccyx 05/21: gram stain with 2+Gram-positive cocci; culture: 3+ diptheroids -Blood cultures 05/21: No growth to date Wound care orders... Infectious disease recommendations - For osteomyelitis, recommend 6 weeks of IV antibiotic therapy.-Patient was started on ceftriaxone and vancomycin on 05/22 -Wound culture coccyx 05/21: gram stain with 2+Gram-positive cocci; culture: 3+ diptheroids - Currently on Rocephin and Vancomycin, continue for now - General surgery was also consulted by attending for possible debridement. - Pressure offloading measures. Turn patient Q2H, wedge pillows, low air-loss mattress. - Monitor WBC and fever trends malnutrition, PEG tube: end maker consulted 05/24/23 13:23 - Dietitian Notes by Shivani Cao Acct Num: [id number] : 1950 Patient Age: 73 [address] consulted for enteral nutrition. Patient admitted from [place] with c/o low blood pressure, fever, and generalized weakness. He is A&O to person only and no family available at time of visit. Per chart, he is receiving Jevity 1.5 at 40 ml/hr via PEG tube. No reports of nausea, vomiting, or diarrhea at this time and unable to obtain usual body weight. He is currently 76% of his IBW and considered underweight. Recommend increasing feeding to 50 ml/hr, which will provide 1800 calories, 76g protein, 912ml free water and will more adequately meet patient's estimated needs. RD will continue to monitor. 1.) Jevity 1.5 at 50 ml/hr 2.) Flush with 100ml water every 4hrs to provide a total of 1512ml water/day or as per MD 3.) Monitor EN tolerance and hydration E Diet: GT NPO Activity: Total care DME DME: Date Ordered: Name of Company: [employer] Services Needed: Name of Company: Date or Referral: IMMUNIZATION Influenza Vaccine Indicated: No Influenza Vaccine Given: Date Given: Pneumonia Vaccine Indicated: Yes Pneumonia Vaccine Given: No Date Given: Diet: GT NPO Activity: Total care Followup: NONE,NONE [Primary Care Provider] - Alexy Mckeon MD [ACTIVE - CAN ADMIT] - Juan José Torre MD [ACTIVE - CAN ADMIT] -
[2023-05-28 07:28] LABS: Absolute Lymphocytes (CBC) 2.3 K/uL (0.7-4.9); Hematocrit 24.6 % (39.6-49.0); Lymphocytes % 35.6 % (15.3-44.8); MCV 98.1 fL (80-100); MPV 8.9 fL (7.6-11.3); Platelets 216 thou/uL (152-406)
[2023-05-28 07:44] LABS: Potassium 4.2 mEq/L (3.5-5.1)
[2023-05-28] MEDS: ENOXAPARIN 40 MG/0.4 ML SQ SCH (08:39)
[2023-05-28] MEDS: ASCORBIC ACID 500 MG TABLET FT SCH (08:40)
[2023-05-28] MEDS: CEFTRIAXONE 1,000 MG in NA CHLORIDE 0.9% 50 ML IVPB SCH (08:41)
[2023-05-28] MEDS: COLLAGENASE 30 GM OINTMENT TOP SCH (08:54)
[2023-05-28] MEDS: JUVEN PACKET FT SCH ×2 (08:58→14:51)
[2023-05-28] MEDS ORDERED: ASPIRIN 81 MG CHEWABLE TABLET FT SCH (09:00)
[2023-05-28] MEDS ORDERED: MEMANTINE HCL 10 MG TABLET FT SCH (09:00)
[2023-05-28 10:16] VITALS: O2SAT 98
[2023-05-28 10:59] LABS: SARS-CoV-2 Antigen Rapid Res Negative (Negative)
--- NOTE | 2023-05-28 11:03 | P.PN ---
Date of Service: 05/28/23 Chief Complaint: Sacral osteomyelitis,Sepsis Subjective: Improving. No acute events reported overnight. Patient denies any new or worsening complaints. In no apparent distress. Plan for discharge to SNF today Physical Examination Temp Pulse Resp BP Pulse Ox 97.4 F 104 H 15 129/69 98 05/28/23 08:00 05/28/23 08:00 05/28/23 08:00 05/28/23 08:00 05/28/23 08:00 General: In no apparent distress. Oriented x3. HEENT: Atraumatic, Normocephalic. Poor dentition. Respiratory: Clear to auscultation bilaterally, Normal air movement, On room air. Cardiovascular: Normal S1 S2. No edema. Gastrointestinal: Normal bowel sounds. Non-tender. PEG tube. Musculoskeletal: Generalized weakness. Integumentary: Pressure ulcer sacrum/coccyx unstageable Laboratory data -Reviewed Microbiology data -Reviewed Imagings Data: -Reviewed Medications List: Acetaminophen (Acetaminophen 500 Mg Tab) 500 mg PO Q4HP PRN PRN Reason: Pain scale 2-4 (Mild) Last Admin: 05/27/23 01:08 Dose: 500 mg Acetaminophen (Acetaminophen 650mg/Rect Supp) 650 mg MO Q6H PRN PRN Reason: TEMP > 100' F Last Admin: 05/21/23 18:53 Dose: 650 mg Ascorbic Acid (Ascorbic Acid 500 Mg Tablet) 500 mg FT DAILY REPLACED BY [facility] Last Admin: 05/28/23 08:40 Dose: 500 mg Aspirin (Aspirin 81 Mg Chewable Tablet) 81 mg FT DAILY REPLACED BY [facility] Last Admin: 05/28/23 08:39 Dose: 81 mg Collagenase (Collagenase 30 Gm Ointment) 1 appl TOP DAILY REPLACED BY [facility] Last Admin: 05/28/23 08:54 Dose: 1 lalit Donepezil HCl (Donepezil Hcl 5 Mg Tab) 5 mg FT BEDTIME REPLACED BY [facility] Last Admin: 05/27/23 20:51 Dose: Not Given Enoxaparin Sodium (Enoxaparin 40 Mg/0.4 Ml) 40 mg SQ DAILY REPLACED BY [facility] Last Admin: 05/28/23 08:39 Dose: 40 mg Ceftriaxone Sodium 1,000 mg/ (Sodium Chloride) 50 mls @ 100 mls/hr IVPB DAILY REPLACED BY [facility]; Protocol Last Admin: 05/28/23 08:41 Dose: 50 mls Vancomycin HCl 1.5 gm/ Sodium (Chloride) 500 mls @ 333.333 mls/hr IVPB Q18H REPLACED BY [facility] Last Admin: 05/27/23 22:40 Dose: 500 mls L-Arginine/L-Glutamine/HMB (Salvador Packet) 1 pkt FT TID REPLACED BY [facility] Last Admin: 05/28/23 08:58 Dose: 1 pkt Memantine (Memantine Hcl 10 Mg Tablet) 5 mg FT BID REPLACED BY [facility] Last Admin: 05/28/23 08:40 Dose: 5 mg Ondansetron HCl (Ondansetron 4 Mg/2 Ml Vial) 4 mg IV Q6HP PRN PRN Reason: NAUSEA / VOMITING Assessment and Plan Problem list Osteomyelitis, coccyx Sepsis, resolved Anemia Hypertension Asthma Dysphagia Severe protein calorie malnutrition Concern for Osteomyelitis of Coccyx Pressure Ulcer of Sacrum/Coccyx, Unstageable -CT abdomen pelvis 05/21: " Cholelithiasis without evidence of cholecystitis. Large posterior pelvis soft tissue ulceration. Subtle cortical irregularity involving the posterior aspect of the coccyx may indicate osteomyelitis. Rectum is distended with stool." -Patient was started on ceftriaxone and vancomycin on 05/22 -Wound culture coccyx 05/21: gram stain with 2+Gram-positive cocci; culture: 3+ diptheroids - Wound care per wound care team (consulted 05/25) Blood cultures 05/21: No growth to date No leukocytosis. 24 hour Tmax = 99.3 F Negative Covid PCR 05/28 Recommendations - For osteomyelitis, recommend 6 weeks of IV antibiotic therapy (05/22 to 07/03) - Continue Ceftriaxone and Vancomycin IV. - Obtain CBC, BMP and Vanco trough at least twice weekly (Wednesday and ). - Continue wound care per wound care team - Pressure offloading measures. Turn patient Q2H, wedge pillows, low air-loss mattress. - Malnutrition, PEG tube: loan documentation specialist following - Monitor WBC and fever trends Pending discharge to SNF today. CM/SS following. Case discussed with Thaddeus Lozano
--- NOTE | 2023-05-28 14:35 | RAD REPORT ---
EXAM DESCRIPTION: RAD - Chest Single View - 05/28/2023 2:26 pm CLINICAL HISTORY: Device placement PICC line placement IMPRESSION: PICC line with its tip in 1 centimeter into the right atrium
[2023-05-28 16:56] VITALS: BP 146/84; TEMP 98
[2023-05-28] MEDS ORDERED: Mupirocin NASAL 2 APPL/1 GM TUBE NAS SCH (21:00)
== END 2023-05-28 17:00 | DRG 871 ==
LOC: ER 14:14 → ERHOLD 17:04 → 4TH 19:16
PROVIDERS: ADMIT Internal Medicine; ATTEND Hospitalist
PROC: 02H633Z Insertion of Infusion Device into Right Atrium, Percutaneous Approach (ICD-10-PCS; principal; 2023-05-28)
DX: A41.9 Sepsis, unspecified organism (principal); E43 Unspecified severe protein-calorie malnutrition; E87.1 Hypo-osmolality and hyponatremia; Z68.1 Body mass index [BMI] 19.9 or less, adult; M46.28 Osteomyelitis of vertebra, sacral and sacrococcygeal region; I10 Essential (primary) hypertension; E87.6 Hypokalemia; D64.9 Anemia, unspecified; J45.909 Unspecified asthma, uncomplicated; L89.150 Pressure ulcer of sacral region, unstageable; F03.90 Unspecified dementia, unspecified severity, without behavioral disturbance, psychotic disturbance, mood disturbance, and anxiety; F17.200 Nicotine dependence, unspecified, uncomplicated; R77.8 Other specified abnormalities of plasma proteins; Z11.52 Encounter for screening for COVID-19; Z79.82 Long term (current) use of aspirin; Z79.899 Other long term (current) drug therapy
CPT/HCPCS: 36415; 71045; 74177; 80048; 80053; 80061; 80202; 81001; 82947; 83605; 83735; 84100; 84132; 84484; 85014; 85018; 85025; 85610; 85730; 87040; 87070; 87205; 87811; 93005; 96365; 96366; 96367; 97110; 97161; 97530; 99285; J0696; J1650; J2543; J3590; J7030; J7040; J7050; Q9967

== ENCOUNTER 2023-07-17 14:21 | Inpatient (IN) | payer OTHER ==
[2023-07-17 14:53] LABS: Arterial Blood Carboxyhemoglob 1.2 % (0-1.5); Blood Gas Oxyhemoglobin 92.8 % (94-97); Blood O2 Saturation 95.3 % (92-98.5)
[2023-07-17 14:59] LABS: Absolute Lymphocytes (CBC) 3.1 K/uL (0.7-4.9); Hematocrit 33.6 % (39.6-49.0); Lymphocytes % 31.1 % (15.3-44.8); MCV 89.9 fL (80-100); MPV 8.5 fL (7.6-11.3); Platelets 496 thou/uL (152-406); RBC Red Blood Cell Count 3.74 M/uL (4.33-5.43)
[2023-07-17] MEDS ORDERED: NA CHLORIDE 0.9% 2,000 ML ONE (14:59)
[2023-07-17] MEDS ORDERED: NA CHLORIDE 0.9% 100 ML ONE (14:59)
[2023-07-17] MEDS ORDERED: FAMOTIDINE 20 MG/2 ML VIAL IV ONE (14:59)
[2023-07-17 15:00] LABS: Protime INR 1.33
[2023-07-17] MEDS ORDERED: PIPERACIL/TAZO 3.375 GM VIAL IV ONE (15:00)
[2023-07-17 15:17] LABS: Albumin 2.1 g/dL (3.4-5.0); Bilirubin Direct 0.4 mg/dL (0-0.2); Bilirubin Indirect, Calculated 0.3 mg/dL (0.2-0.8); Bilirubin Total 0.7 mg/dL (0.2-1.0); Potassium 4.7 mEq/L (3.5-5.1); Protein, Total 7.9 g/dL (6.4-8.2)
[2023-07-17 15:20] LABS: Troponin High Sensitivity 78.4 pg/mL (<58.9)
[2023-07-17] MEDS ORDERED: ACETAMINOPHEN 650MG/RECT SUPP PR ONE ×2 (15:26→15:27)
[2023-07-17] MEDS ORDERED: IPRATROPIUM BROM 0.5MG/2.5ML ONE (15:40)
[2023-07-17] MEDS ORDERED: METHYLPREDNISOLONE 125 MG INJ ONE (15:40)
[2023-07-17] MEDS ORDERED: LEVALBUTEROL 1.25 MG/3 ML NEB ONE (15:41)
[2023-07-17] MEDS ORDERED: DIGOXIN 0.25 MG/ML AMP ONE (15:41)
[2023-07-17] MEDS ORDERED: METOPROLOL TARTRATE 5 MG/5 ML INJ IV ONE (15:41)
[2023-07-17] MEDS ORDERED: Levofloxacin500mg IV 500 MG/100 ML BAG IV ONE (15:42)
[2023-07-17] MEDS ORDERED: NA CHLORIDE 0.9% 1,000 ML ONE (15:42)
--- NOTE | 2023-07-17 15:54 | RAD REPORT ---
EXAM DESCRIPTION: Mac Single View07/17/2023 3:37 pm CLINICAL HISTORY: Shortness of breath COMPARISON: May 2023 FINDINGS: The lungs appear clear of acute infiltrate. The heart is normal size IMPRESSION: No acute abnormalities displayed
[2023-07-17 15:55] LABS: SARS-CoV-2 Antigen Rapid Res Negative (Negative)
[2023-07-17 16:11] LABS: Thyroid Stimulating Hormone 1.28 uIU/mL (0.358-3.740)
[2023-07-17 16:15] LABS: Specific Gravity 1.014 (1.005-1.030); Urine Bacteria None Seen /HPF (<20); Urine Bilirubin NEGATIVE (Negative); Urine Blood Negative (Negative); Urine Clarity Extremely Turbid (Clear); Urine Color Yellow (Yellow); Urine Glucose NEGATIVE (Negative); Urine Mucus Slight /HPF (None Seen); Urine Protein TRACE (Negative); Urine RBC None Seen /HPF (None Seen); Urine Urobilinogen Normal (Normal); Urine pH 6.5 (5.0-7.0)
--- NOTE | 2023-07-17 17:51 | EDPHYS ---
Physician Documentation [facility] [address] Name: Alex Madrdi Jr Age: 73 yrs Sex: Male : 1950 Arrival Date: 07/17/2023 Time: 14:21 Bed 7 Private MD: ED Physician Renard Moseley HPI: 07/17 17:36 This 73 yrs old Black Male presents to ER via EMS with complaints of Respiratory ricky Distress. 17:36 The patient has shortness of breath at rest. Onset: The symptoms/episode began/occurred ricky just prior to arrival, this morning. Duration: The symptoms are continuous, and are steadily getting worse. The patient's shortness of breath is aggravated by nothing, is alleviated by rest, sitting up, application of supplemental oxygen. Associated signs and symptoms: Pertinent positives: non-productive cough. Severity of symptoms: At their worst the symptoms were moderate severe in the emergency department the symptoms have improved mildly. The patient has experienced similar episodes in the past, several times. Historical: - Allergies: 15:03 No Known Allergies; hb - PMHx: 15:03 Asthma; Hypertension; hb - PSHx: 15:03 PEG tube (en); hb - Immunization history:: Adult Immunizations up to date. - Social history:: Smoking status: Patient denies any tobacco usage or history of. ROS: 17:37 Eyes: Negative for injury, pain, redness, and discharge, ricky 17:37 Constitutional: Positive for fever, 17:37 Eyes: 17:37 Cardiovascular: Positive for palpitations, 17:37 Respiratory: Positive for shortness of breath, wheezing, inspiratory, expiratory, 17:37 Abdomen/GI: Positive for nausea, vomiting, WITH PEG, 17:37 MS/extremity: Positive for ALL LIMB CONTRACTURES, 17:37 Neuro: Positive for seizure activity, ACUTE CHANGES, Exam: 17:37 Head/Face: Normocephalic, atraumatic. ricky 17:37 Constitutional: The patient appears febrile, in obvious distress, 17:37 Cardiovascular: Rate: tachycardic, actual rate is 127 bpm, Rhythm: irregularly irregular, Pulses: Pulses are 4+ in bilateral radial, brachial, femoral, popliteal, posterior tibial and and dorsalis pedis arteries.. Heart sounds: normal, Edema: is not appreciated, JVD: is not appreciated, 17:37 ECG was reviewed by the Attending Physician. Vital Signs: 14:20 BP 148 / 105; Pulse 168; Resp 40; Pulse Ox 60% on 40 lpm BiPAP; Weight 58.97 kg; Height hb 5 ft. 9 in. ; Pain 5/10; 15:30 BP 148 / 68; Pulse 72; Resp 34; Pulse Ox 100% on 40 lpm BiPAP; hb 16:13 BP 156 / 69; Pulse 146; Resp 30; Pulse Ox 100% on 40 lpm BiPAP; hb 17:00 BP 135 / 55; Pulse 122; Resp 26; Pulse Ox 100% on 40 lpm BiPAP; hb 17:30 BP 134 / 61; Pulse 121; Resp 24; Temp 100.2(R); Pulse Ox 100% on 40 lpm BiPAP; hb 17:58 BP 139 / 53; Pulse 120; Resp 24; Pulse Ox 96% on 40 lpm BiPAP; hb 18:50 BP 135 / 60; Pulse 117; Resp 26; Pulse Ox 95% on 40 lpm BiPAP; hb 19:30 BP 131 / 60; Pulse 119; Resp 36; Pulse Ox 100% on BiPAP; km8 20:00 BP 132 / 58; Pulse 116; Resp 34; Pulse Ox 100% on BiPAP; km8 20:30 BP 132 / 61; Pulse 116; Resp 34; Pulse Ox 100% on BiPAP; km8 14:20 Body Mass Index 19.20 (58.97 kg, 175.26 cm) hb 14:20 Pain Scale: Adult hb MDM: 14:34 Patient medically screened. ricky 15:29 Antibiotic administration: The patient is for pseudomonal infection. ricky 17:40 Differential diagnosis: Anemia Anxiety Reaction asthma, Bronchitis CHF exacerbation, ricky Chronic Obstructive Pulmonary Disease arrythmia, Myocardial Infarction pneumonia, pulmonary edema, reactive airway disease, Unstable Angina. Differential Diagnosis: electrolyte abnormality, pneumonia, seizure, sepsis, UTI, volume depletion. Immunization status: Pneumococcal vaccine: within last 5 years. Influenza vaccine: within last 5 years. Data reviewed: vital signs, nurses notes, EMS record, lab test result(s), EKG, radiologic studies, plain films. Consideration of Admission/Observation Patient was admitted/placed on observation. Escalation of care including admission/observation considered. I considered the following discharge prescriptions or medication management in the emergency department Medications were administered in the Emergency Department. See MAR. Independent interpretation of the following test(s) in the Emergency Department EKG: See my EKG interpretation above. Test considered but Not performed: CT: NO CT CHEST. 07/17 14:36 Order name: Basic Metabolic Panel [facility] 07/17 14:36 Order name: CBC with Diff [facility] 07/17 14:36 Order name: LFT's [facility] 07/17 14:36 Order name: Magnesium [facility] 07/17 14:36 Order name: NT PRO-BNP [facility] 07/17 14:36 Order name: PT-INR [facility] 07/17 14:36 Order name: Troponin HS [facility] 07/17 14:36 Order name: Lipase [facility] 07/17 14:36 Order name: Blood Culture Adult (2) [facility] 07/17 14:36 Order name: Lactate w/ 2H reflex if indic. [facility] 07/17 14:36 Order name: Urinalysis w/ reflexes [facility] 07/17 14:36 Order name: ABG [facility] 07/17 14:36 Order name: SARS RAPID [facility] 07/17 14:36 Order name: Flu [facility] 07/17 15:54 Order name: Thyroid Stimulating Hormone [facility] 07/17 20:23 Order name: Urinalysis w/ reflexes [facility] 07/17 20:23 Order name: CBC with Automated Diff [facility] 07/17 20:23 Order name: CBC with Automated Diff [facility] 07/17 20:23 Order name: Comprehensive Metabolic Panel [facility] 07/17 20:23 Order name: Comprehensive Metabolic Panel [facility] 07/17 20:53 Order name: Lactate Sepsis 2 HR Follow-up [facility] 07/18 06:25 Order name: Manual Differential [facility] 07/17 14:36 Order name: XRAY Chest (1 view) [facility] 07/17 14:36 Order name: BIPAP [facility] 07/17 14:36 Order name: EKG; Complete Time: 14:37 [facility] 07/17 14:36 Order name: Cardiac monitoring; Complete Time: 14:55 [facility] 07/17 14:36 Order name: EKG - Nurse/Tech; Complete Time: 14:55 [facility] 07/17 14:36 Order name: IV Saline Lock; Complete Time: 14:55 [facility] 07/17 14:36 Order name: Labs collected and sent; Complete Time: 14:55 [facility] 07/17 14:36 Order name: O2 Per Protocol; Complete Time: 14:55 [facility] 07/17 14:36 Order name: O2 Sat Monitoring; Complete Time: 14:55 [facility] 07/17 14:36 Order name: Reddy; Complete Time: 15:59 [facility] 07/17 14:36 Order name: IV Saline Lock - Large Bore; Complete Time: 14:55 ricky EC:37 Rate is 163 beats/min. Rhythm is irregularly irregular. QRS Robinson is Normal. QRS ricky interval is normal. QT interval is normal. No Q waves. T waves are Normal. No ST changes noted. Clinical impression: Atrial Fibrillation. Interpreted by me. Reviewed by me. Administered Medications: 14:36 CANCELLED (Duplicate Order): ns 0.9% 500 ml IV at bolus once ricky 15:35 Drug: Acetaminophen DC Suppository 1300 mg DC once Route: DC; ap3 17:28 Follow up: Response: No adverse reaction hb 15:41 Drug: Metoprolol IVP 5 mg IVP once; Hold for SBP <100 or HR <60. Route: IVP; Site: hb right forearm; 17:28 Follow up: Response: No adverse reaction hb 15:42 Drug: Digoxin IVP 0.5 mg IVP once Route: IVP; Site: right forearm; hb 17:28 Follow up: Response: No adverse reaction hb 15:43 Drug: Piperacillin-Tazobactam IVPB 3.375 grams IVPB once over 60 mins; (mix in NS 100 jw7 mL) Route: IVPB; Infused Over: 60 mins; Site: right forearm; 16:45 Follow up: Response: No adverse reaction; IV Status: Completed infusion; IV Intake: hb 100ml 15:43 Drug: Famotidine IVP 20 mg IVP once; dilute with 10 mL 0.9% NaCl; give over 2 minutes jw7 Route: IVP; Site: right forearm; 17:29 Follow up: Response: No adverse reaction hb 15:43 Drug: NS 0.9% IV 1000 ml IV at 1 bolus Per protocol; 1000 mL bolus Route: IV; Rate: 1 jw7 bolus; Site: right forearm; 19:00 Follow up: IV Status: Completed infusion; IV Intake: 1000ml km8 15:43 Drug: MethylPrednisoLONE IVP 125 mg IVP once Route: IVP; Site: right forearm; hb 17:28 Follow up: Response: No adverse reaction hb 16:10 Drug: Levalbuterol Inhalation 3.75 mg Inhalation once Route: Inhalation; hb 16:10 Drug: Ipratropium Inhalation Aerosol 0.5 mg Inhalation once Route: Inhalation; hb 16:10 Drug: Metoprolol IVP 5 mg IVP once; Hold for SBP <100 or HR <60. Route: IVP; Site: right forearm; 17:58 Follow up: Response: No adverse reaction 16:11 Drug: NS 0.9% IV 1000 ml IV at 1 bolus Per protocol; 1000 mL bolus Route: IV; Rate: 1 hb bolus; Site: right forearm; 17:22 Follow up: Response: No adverse reaction; IV Status: Completed infusion; IV Intake: hb 1000ml 17:05 Drug: levofloxacin IVPB 500 mg 100 ml IVPB once over 60 mins Volume: 100 ml; Route: hb IVPB; Infused Over: 60 mins; Site: right forearm; 19:00 Follow up: IV Status: Completed infusion; IV Intake: 100ml [facility] 17:27 Drug: NS 0.9% IV 1000 ml IV at 125 ml/hr continuous Route: IV; Rate: 125 ml/hr; Site: [facility] right forearm; 20:40 Follow up: Response: No adverse reaction [facility] 20:40 Follow up: IV Status: Completed infusion [facility] 17:57 Drug: vancoMYCIN IVPB 1 grams IVPB once over 2 hrs Route: IVPB; Infused Over: 2 hrs; Site: right forearm; 19:58 Follow up: IV Status: Completed infusion; IV Intake: 250ml 8 Disposition Summary: 07/17/23 17:50 Hospitalization Ordered Notes: Hospitalization Status: Inpatient Admission ricky Provider: Polina Jacobs ricky Condition: Serious ricky Problem: new ricky Symptoms: have improved ricky Bed/Room Type: Standard ricky Location: Telemetry/MedSurg (Inpatient)(07/18/23 07:27) sp Room Assignment: [facility](07/18/23 07:36) sp Diagnosis - Persistent atrial fibrillation ricky - Fever, unspecified ricky - Severe sepsis without septic shock ricky - Pneumonia due to other specified bacteria - ASPIRATION ricky - Dyspnea ricky Forms: - Medication Reconciliation Form ricky - SBAR form ricky - Leadership Thank You Letter ricky Signatures: Dispatcher [employer] Renard Vanegas MD MD cha Pinkerton, Shawna sp Garcia, Cindy, RN RN Cierra Conner RN RN hb Prokisch, Amanda, RN RN ap3 Maria Teresa Rodriguez RN RN jw7 Angela Robertson RN [id number] Corrections: (The following items were deleted from the chart) 14:36 14:36 NS 0.9% IV 500 ml IV at bolus once ordered. replaced by [facility] 15:53 15:34 THYROID STIMULAT HORMONE+C.LAB.BRZ ordered. EDMS EDMS 19:55 17:50 Telemetry/MedSurg (Inpatient) [facility] cg 19:55 17:50 ricky cg 07/18 07:27 07/17 19:55 [facility] ER HOLD cg sp 07/18 07:27 07/17 19:55 ERHOLD- cg sp 07/18 07:36 07:27 208 sp sp
--- NOTE | 2023-07-17 17:51 | ER ---
Nurse's Notes [facility] Name: Alex Madrid Jr Age: 73 yrs Sex: Male : 1950 Arrival Date: 07/17/2023 Time: 14:21 Bed 7 Private MD: Diagnosis: Persistent atrial fibrillation;Fever, unspecified;Severe sepsis without septic shock;Pneumonia due to other specified bacteria-ASPIRATION;Dyspnea Presentation: 07/17 14:20 Chief complaint: EMS states: [facility] staff reports pt was found in respiratory hb distress covered in vomit shortly after tube feed administration. SpO2 50s on CPAP upon arrival, HR 160s. Coronavirus screen: Client presents with at least one sign or symptom that may indicate coronavirus-19. Provider contacted for isolation considerations. Ebola Screen: No symptoms or risks identified at this time. Initial Sepsis Screen: Does the patient meet any 2 criteria? RR > 20 per min. HR > 90 bpm. Yes Does the patient have a suspected source of infection? No. Patient's initial sepsis screen is negative. Risk Assessment: Do you want to hurt yourself or someone else? Patient reports no desire to harm self or others. Onset of symptoms was July 17, 2023. 14:20 Method Of Arrival: EMS: [facility] hb 14:20 Acuity: JOSEPHINE 1 hb Historical: - Allergies: 15:03 No Known Allergies; hb - PMHx: 15:03 Asthma; Hypertension; hb - PSHx: 15:03 PEG tube (en); hb - Immunization history:: Adult Immunizations up to date. - Social history:: Smoking status: Patient denies any tobacco usage or history of. Screenin:32 [facility] ED Fall Risk Assessment (Adult) Score/Fall Risk Level 3 or more points = High hb Risk Oriented to surroundings, Maintained a safe environment, Educated pt \T\ family on fall prevention, incl call for assistance when getting out of bed. Abuse screen: Denies threats or abuse. Denies injuries from another. Nutritional screening: No deficits noted. Tuberculosis screening: No symptoms or risk factors identified. Assessment: 14:25 General: Appears distressed. Pain: Unable to use pain scale. FLACC scale score is 5 out hb of 10. Neuro: Level of Consciousness is obeys commands, lethargic, Oriented to person. Cardiovascular: Patient's skin is warm and dry. Rhythm is atrial fibrillation with rapid ventricular response. Respiratory: Respiratory effort is labored, Respiratory pattern is tachypnea. GI: No signs and/or symptoms were reported involving the gastrointestinal system. : No signs and/or symptoms were reported regarding the genitourinary system. EENT: No signs and/or symptoms were reported regarding the EENT system. Derm: Skin is pink, warm \T\ dry. Musculoskeletal: No signs and/or symptoms reported regarding the musculoskeletal system. 15:30 Reassessment: No changes from previously documented assessment. Patient and/or family hb updated on plan of care and expected duration. Pain level reassessed. 16:30 Reassessment: No changes from previously documented assessment. Patient and/or family hb updated on plan of care and expected duration. Pain level reassessed. 17:30 Reassessment: No changes from previously documented assessment. Patient and/or family hb updated on plan of care and expected duration. Pain level reassessed. 18:50 Reassessment: No changes from previously documented assessment. Patient and/or family hb updated on plan of care and expected duration. Pain level reassessed. 20:00 Reassessment: Patient appears in no apparent distress at this time. No changes from km8 previously documented assessment. Patient and/or family updated on plan of care and expected duration. Pain level reassessed. 20:00 General: Appears comfortable, Behavior is calm, quiet. Neuro: Level of Consciousness is km8 awake, Oriented to person. Cardiovascular: Capillary refill < 3 seconds Patient's skin is warm and dry. Respiratory: Airway is patent Respiratory effort is even, Respiratory pattern is tachypnea Patient placed on BiPAP: Respiratory Rate: 36. Vital Signs: 14:20 BP 148 / 105; Pulse 168; Resp 40; Pulse Ox 60% on 40 lpm BiPAP; Weight 58.97 kg; Height hb 5 ft. 9 in. ; Pain 5/10; 15:30 BP 148 / 68; Pulse 72; Resp 34; Pulse Ox 100% on 40 lpm BiPAP; hb 16:13 BP 156 / 69; Pulse 146; Resp 30; Pulse Ox 100% on 40 lpm BiPAP; hb 17:00 BP 135 / 55; Pulse 122; Resp 26; Pulse Ox 100% on 40 lpm BiPAP; hb 17:30 BP 134 / 61; Pulse 121; Resp 24; Temp 100.2(R); Pulse Ox 100% on 40 lpm BiPAP; hb 17:58 BP 139 / 53; Pulse 120; Resp 24; Pulse Ox 96% on 40 lpm BiPAP; hb 18:50 BP 135 / 60; Pulse 117; Resp 26; Pulse Ox 95% on 40 lpm BiPAP; hb 19:30 BP 131 / 60; Pulse 119; Resp 36; Pulse Ox 100% on BiPAP; km8 20:00 BP 132 / 58; Pulse 116; Resp 34; Pulse Ox 100% on BiPAP; km8 20:30 BP 132 / 61; Pulse 116; Resp 34; Pulse Ox 100% on BiPAP; km8 14:20 Body Mass Index 19.20 (58.97 kg, 175.26 cm) hb 14:20 Pain Scale: Adult hb ED Course: 14:33 Patient arrived in ED. jl7 14:34 Renard Moseley MD is Attending Physician. ricky 14:45 Inserted saline lock: 22 gauge in right forearm, using aseptic technique. Blood hb collected. 15:03 Triage completed. hb 15:03 Arm band placed on. hb 15:03 BIPAP Sent. hb 15:39 XRAY Chest (1 view) In Process Unspecified. EDMS 15:39 Inserted saline lock: 22 gauge in right forearm, using aseptic technique. hb 15:45 Cierra Conner, DAYANA is Primary Nurse. hb 17:32 Patient has correct armband on for positive identification. Provided Education on: hb tests, result times. 17:46 Polina Jacobs MD is Hospitalizing Provider. ricky 20:40 No provider procedures requiring assistance completed. Patient admitted, IV remains in km8 place. Administered Medications: 14:36 CANCELLED (Duplicate Order): ns 0.9% 500 ml IV at bolus once ricky 15:35 Drug: Acetaminophen W[place] Suppository 1300 mg W[place] once Route: W[place]; ap3 17:28 Follow up: Response: No adverse reaction hb 15:41 Drug: Metoprolol IVP 5 mg IVP once; Hold for SBP <100 or HR <60. Route: IVP; Site: hb right forearm; 17:28 Follow up: Response: No adverse reaction hb 15:42 Drug: Digoxin IVP 0.5 mg IVP once Route: IVP; Site: right forearm; hb 17:28 Follow up: Response: No adverse reaction hb 15:43 Drug: Piperacillin-Tazobactam IVPB 3.375 grams IVPB once over 60 mins; (mix in NS 100 jw7 mL) Route: IVPB; Infused Over: 60 mins; Site: right forearm; 16:45 Follow up: Response: No adverse reaction; IV Status: Completed infusion; IV Intake: hb 100ml 15:43 Drug: Famotidine IVP 20 mg IVP once; dilute with 10 mL 0.9% NaCl; give over 2 minutes jw7 Route: IVP; Site: right forearm; 17:29 Follow up: Response: No adverse reaction hb 15:43 Drug: NS 0.9% IV 1000 ml IV at 1 bolus Per protocol; 1000 mL bolus Route: IV; Rate: 1 jw7 bolus; Site: right forearm; 19:00 Follow up: IV Status: Completed infusion; IV Intake: 1000ml 15:43 Drug: MethylPrednisoLONE IVP 125 mg IVP once Route: IVP; Site: right forearm; hb 17:28 Follow up: Response: No adverse reaction hb 16:10 Drug: Levalbuterol Inhalation 3.75 mg Inhalation once Route: Inhalation; hb 16:10 Drug: Ipratropium Inhalation Aerosol 0.5 mg Inhalation once Route: Inhalation; hb 16:10 Drug: Metoprolol IVP 5 mg IVP once; Hold for SBP <100 or HR <60. Route: IVP; Site: right [facility]; 17:58 Follow up: Response: No adverse reaction hb 16:11 Drug: NS 0.9% IV 1000 ml IV at 1 bolus Per protocol; 1000 mL bolus Route: IV; Rate: 1 hb bolus; Site: right forearm; 17:22 Follow up: Response: No adverse reaction; IV Status: Completed infusion; IV Intake: hb 1000ml 17:05 Drug: levofloxacin IVPB 500 mg 100 ml IVPB once over 60 mins Volume: 100 ml; Route: hb IVPB; Infused Over: 60 mins; Site: right forearm; 19:00 Follow up: IV Status: Completed infusion; IV Intake: 100ml [facility] 17:27 Drug: NS 0.9% IV 1000 ml IV at 125 ml/hr continuous Route: IV; Rate: 125 ml/hr; Site: [facility] right [facility]; 20:40 Follow up: Response: No adverse reaction [facility] 20:40 Follow up: IV Status: Completed infusion km8 17:57 Drug: vancoMYCIN IVPB 1 grams IVPB once over 2 hrs Route: IVPB; Infused Over: 2 hrs; hb Site: right forearm; 19:58 Follow up: IV Status: Completed infusion; IV Intake: 250ml Medication: 17:33 VIS not applicable for this client. hb Intake: 16:45 IV: 100ml; Total: 100ml. hb 17:22 IV: 1000ml; Total: 1100ml. hb 19:00 IV: 100ml; Total: 1200ml. km8 19:00 IV: 1000ml; Total: 2200ml. km8 19:58 IV: 250ml; Total: 2450ml. km8 Outcome: 17:50 Decision to Hospitalize by Provider. ricky 20:40 Admitted to Med/surg km8 20:40 Condition: stable 20:40 Discharge instructions given to family, Instructed on the need for admit, Demonstrated understanding of instructions, 07/18 08:22 Admitted to Med/surg via stretcher, db 08:50 Patient left the ED. db Signatures: Dispatcher [employer] EDMS Renard Moseley MD MD cha Baxter, Heather, RN RN Praveena Yap RN RN jl7 Korin Abdalla RN RN [email or web address] Maria Teresa Rodriguez RN DAYANA jw7 Mer Lee RN DAYANA db Angela Robertson, RN RN km8 Corrections: (The following items were deleted from the chart) 07/17 18:50 17:30 BP 134 / 61; Pulse 121bpm; Resp 24bpm; Pulse Ox 100% 02 40lpm BiPAP; hb hb
[2023-07-17] MEDS ORDERED: VANCOMYCIN 1 GM/VIAL ONE (17:52)
[2023-07-17] MEDS ORDERED: NA CHLORIDE 0.9% 250 ML ONE (17:53)
[2023-07-17] MEDS ORDERED: ONDANSETRON 4 MG/2 ML VIAL IV PRN (20:15)
--- NOTE | 2023-07-17 20:25 | P.HP ---
Certification for Inpatient Patient admitted to: Inpatient With expected LOS: >2 Midnights Practitioner: I am a practitioner with admitting privileges, knowledge of patient current condition, hospital course, and medical plan of care. Services: Services provided to patient in accordance with Admission requirements found in Title 42 Section 412.3 of the Code of Federal Regulations Patient History Date of Service: 07/18/23 Reason for admission: Sepsis, infected decubitus ulcers, aspiration pneumonia. History of Present Illness: 73-year-old male patient with history of bedbound state and contractures who also has sacral decubitus ulcers who came to the ED after having been brought by family member for with concerns for worsening infection. He had become more altered and there was concerns for infection in the sacral ulcer. Imaging studies done in ED was concerning for aspiration pneumonia and there was fecal contamination of sacral wounds. Patient was pancultured and started on broad- spectrum antibiotic therapy and he was admitted for inpatient care. Allergies No Known Allergies Allergy (Unverified 11/23/16 08:58) Home Medications: Ascorbic Acid 1 tab .ROUTE DAILY 05/21/23 Jevity 1.5 Sonido Liquid 50 ml RTH CONT 05/21/23 Pnv/Iron,Carb/Om-3/FA/Fat 1 [Multivitamin with Minerals Cap] 1 tab .ROUTE DAILY 05/21/23 Acetaminophen [Tylenol] 650 mg .ROUTE Q6HR 07/18/23 Aspirin Chewable [Aspirin Chewable*] 81 mg .ROUTE DAILY 07/18/23 - Past Medical/Surgical History Diabetic: No -: Asthma. -: Hypertension. -: Nicotine dependence. -: Sacral decub - Social History Alcohol use: Yes CD- Drugs: No Caffeine use: Yes Review of Systems is unable to be obtained (due to ams.) Physical Examination - Vital Signs Pulse: 120 Pulse Ox (%): 100 - Physical Exam General: Cachectic HEENT: Atraumatic Neck: Supple Respiratory: Normal air movement Cardiovascular: Regular rate/rhythm, Normal S1 S2 Gastrointestinal: Soft and benign Musculoskeletal: Contractures - Studies Laboratory Data (last 24 hrs) 07/17/23 07/17/23 07/17/23 14:35 14:35 14:35 WBC 10.00 Hgb 10.8 L Hct 33.6 L Plt Count 496 H PT 14.5 H INR 1.33 Sodium 131 L Potassium 4.7 BUN 12 Creatinine 0.67 L Glucose 174 H Magnesium 2.0 Total Bilirubin 0.7 AST 34 ALT 40 Alkaline Phosphatase 351 H Lipase 30 Microbiology Data (last 24 hrs): 07/17/23 15:32 Nasopharnyx Influenza Type A Antigen Screen - Final 07/17/23 15:32 Nasopharnyx Influenza Type B Antigen Screen - Final Assessment and Plan - Plan Sepsis: Present on admission. Deemed secondary to aspiration pneumonia and infected decubitus ulcer. Broad-spectrum antibiotic therapy Flagyl, vancomycin started for management. Will continue antibiotic therapy, wound care and observe cultures for adjustment to therapy as needed. Continue IV fluid for hydration. Aspiration pneumonia: Suspected based on clinical presentation. Will hold tube feeds for now, and have him on aspiration precaution and continue IV Flagyl for management. Will monitor clinical response. Decubitus ulcers: Will continue wound care Prophylaxis: Lovenox for DVT prophylaxis CODE STATUS: Full code Disposition: We will treat his multiple issues and discharge him once he is deemed clinically stable. - Advance Directives Does patient have a Living Will: No Does patient have a Durable POA for Healthcare: No
[2023-07-17] MEDS: NA CHLORIDE 0.9% 1,000 ML IV SCH (21:49)
[2023-07-18 00:19] VITALS: BMI 19.2
[2023-07-18] MEDS ORDERED: NA CHLORIDE 0.9% 1,000 ML ONE (00:58)
[2023-07-18] MEDS ORDERED: METRONIDAZOLE 500mg IVPB 500 MG/100 ML BAG IV ONE (00:58)
[2023-07-18] MEDS: METRONIDAZOLE 500mg IVPB 500 MG/100 ML BAG IV SCH ×2 (01:08→10:50)
[2023-07-18 04:56] LABS: Albumin 1.8 g/dL (3.4-5.0); Bilirubin Total 0.6 mg/dL (0.2-1.0); Potassium 3.4 mEq/L (3.5-5.1); Protein, Total 5.9 g/dL (6.4-8.2)
[2023-07-18 05:28] LABS: Absolute Lymphocytes (CBC) 0.8 K/uL (0.7-4.9); Hematocrit 23.5 % (39.6-49.0); Lymphocytes % 4.8 % (15.3-44.8); MCV 88.5 fL (80-100); MPV 8.6 fL (7.6-11.3); Platelets 245 thou/uL (152-406); RBC Red Blood Cell Count 2.65 M/uL (4.33-5.43)
[2023-07-18] MEDS ORDERED: KCL 20 MEQ/100 mL IVPB 100 ML IV ONE ×2 (05:52→08:16)
[2023-07-18] MEDS: KCL 20 MEQ/100 mL IVPB 20 MEQ/100 ML BAG IV SCH ×2 (06:00→10:50)
[2023-07-18 06:24] LABS: Anisocytosis 1+; Blood Morphology Comment NOTED (NOT SEEN); Platelet Estimate ADEQ; Polychromasia SLIGHT
[2023-07-18] MEDS: NA CHLORIDE 0.9% 1,000 ML IV SCH ×2 (10:43→22:59)
[2023-07-18] MEDS: ENOXAPARIN 40 MG/0.4 ML SQ SCH (10:50)
[2023-07-18] MEDS: VANCOMYCIN 1.5 GM in NA CHLORIDE 0.9% 500 ML IVPB SCH (11:26)
--- NOTE | 2023-07-18 13:26 | P.PN ---
Subjective Date of Service: 07/19/23 Chief Complaint: Sepsis, infected decubitus ulcers, aspiration pneumonia. None responsive contracted extremities on BiPAP Review of Systems is unable to be obtained Physical Examination - Vital Signs Temperature: 98.7 F Blood Pressure: 127/71 Pulse: 106 Respirations: 26 Pulse Ox (%): 100 - Physical Exam General: Unresponsive Respiratory: Clear to auscultation bilaterally, Diminished Gastrointestinal: Normal bowel sounds Integumentary: Other (Large stage III-IV ulcer of coccygeal region) - Studies Laboratory Data (last 24 hrs) 07/17/23 07/17/23 07/17/23 14:35 14:35 14:35 WBC 10.00 Hgb 10.8 L Hct 33.6 L Plt Count 496 H PT 14.5 H INR 1.33 Sodium 131 L Potassium 4.7 BUN 12 Creatinine 0.67 L Glucose 174 H Magnesium 2.0 Total Bilirubin 0.7 AST 34 ALT 40 Alkaline Phosphatase 351 H Lipase 30 Microbiology Data (last 24 hrs): 07/17/23 15:32 Nasopharnyx Influenza Type A Antigen Screen - Final 07/17/23 15:32 Nasopharnyx Influenza Type B Antigen Screen - Final Assessment And Plan - Current Problems (Diagnosis) (1) Decubitus ulcer Current Visit: Yes Status: Acute Plan: 73 years of age she has a very large sacrococcygeal decubitus ulcer by ID possibility of osteomyelitis altered mental status sepsis wound infection acid was elevated will start patient on IV antibiotics consult ID and wound healing white count is elevated Qualifiers: Pressure injury stage: stage 4
[2023-07-18] MEDS: Meropenem 1,000 MG in NA CHLORIDE 0.9% 100 ML IV SCH ×2 (14:24→21:25)
[2023-07-18] MEDS ORDERED: VANCOMYCIN 1 GM in NA CHLORIDE 0.9% 250 ML IVPB SCH (18:00)
[2023-07-19] MEDS: VANCOMYCIN 1.5 GM in NA CHLORIDE 0.9% 500 ML IVPB SCH ×2 (03:22→21:48)
[2023-07-19] MEDS: Meropenem 1,000 MG in NA CHLORIDE 0.9% 100 ML IV SCH ×3 (05:38→20:56)
[2023-07-19 07:03] LABS: Hematocrit 21.2 % (39.6-49.0); MCV 89.5 fL (80-100); MPV 8.5 fL (7.6-11.3); Platelets 250 thou/uL (152-406); RBC Red Blood Cell Count 2.37 M/uL (4.33-5.43)
[2023-07-19 07:09] LABS: Potassium 3.2 mEq/L (3.5-5.1)
[2023-07-19] MEDS: ENOXAPARIN 40 MG/0.4 ML SQ SCH (07:49)
[2023-07-19] MEDS: ASCORBIC ACID 500 MG TABLET PO SCH (09:00)
--- NOTE | 2023-07-19 10:10 | P.PN ---
Subjective Date of Service: 07/19/23 Chief Complaint: Decubitus ulcer Patient is 73 years of age admitted with possible infection of the wound better today he is more responsive cooperative Review of Systems is unable to be obtained Physical Examination - Vital Signs Temperature: 98.7 F Blood Pressure: 127/71 Pulse: 106 Respirations: 26 Pulse Ox (%): 100 - Physical Exam General: Alert, Cooperative Respiratory: Clear to auscultation bilaterally Cardiovascular: No edema, Regular rate/rhythm Integumentary: Other (3-4 sacrococcygeal decubitus ulcer) Assessment And Plan - Current Problems (Diagnosis) (1) Decubitus ulcer Current Visit: Yes Status: Acute Plan: Patient has stage III-IV sacrococcygeal decubitus ulcer he is improving responding consult general surgery is disease continue with Merrem and vancomycin possible osteomyelitis before cultures are negative signs vital signs stable Qualifiers: Pressure injury stage: stage 4
--- NOTE | 2023-07-19 12:50 | CON ---
History Of Present Illness: This is a 73-year-old male, known to me from previous admissions. Sonal nt has been consulted for sacral decubitus ulcer, stage IV; bed-bound with contractures; stage IV sac ral ulcer, brought into the hospital with worsening infection and altered mental status. Patient is being admitted for sepsis. Broad-spectrum antibiotic was initiated including Flagyl, vancomycin. Wo und cultures were also sent at that time. Patient was also found to have aspiration pneumonia, possi ble reason for his declining mental status. Patient is unable to communicate. Most of the history w as obtained through medical records and staff. Past Medical History: As per HPI. Social History: Nonsmoker, nondrinker. Family History: Noncontributory. Medications: Vancomycin, meropenem. See MAR for other medications. Allergies: NO KNOWN DRUG ALLERGIES. Review of Systems: Unable to obtain. Physical Examination: General: This is a 73-year-old male, lying in bed, opens eyes spontaneously, not in any acute cardio pulmonary distress. Vital Signs: Temperature 98, pulse 106, respiration 26, blood pressure 127/71, currently on room air . HEENT: Unremarkable. Neck: Supple. Lungs: Basal crackles. Heart: S1, S2. Regular. Abdomen: Soft, nontender. Bowel sounds present. Extremities: Contractures noted. Muscle wasting noted. Wounds: Sacral wound, well demarcated margins with 80% granulation tissue noted with 20% slough. Laboratory Data: Shows WBC 12.8 down from 16.3, hemoglobin 6.7, platelets are 250. Chemistry shows BUN of 14, creatinine 0.3 with lactic acid of 5.1, down to 1.5, albumin level is 1.8. Liver enzymes are within normal limit. Chest x-ray done on twenty third showed no acute abnormalities. Assessment And Plan: Stage IV ulcer with leukocytosis, currently being treated with vancomycin and m eropenem. Blood cultures are negative for 24 hours. We will recommend to start the patient on Vashe solution with wet-to-dry twice a day and continue empiric antibiotic. Consider getting a CT scan of the sacral area to rule out osteomyelitis. If osteomyelitis is present, we will recommend to treat for at least 6 weeks of IV antibiotic. Consider long-term acute care. Pneumonitis. Continue empiri c antibiotic. Continue respiratory support. Anemia of chronic disease with possible acute loss. Ru le out gastrointestinal bleed. Moderate protein-calorie malnourishment. Consider improving nutritio nal status by supplement or TPN. Low air loss mattress and change position every 2 hours, offloading the pressure wound. Pressure wound site looked light yellow. Thank you Dr. Mclcure for consult. NF/MODL Voice ID: [id number] Report ID: [id number]
[2023-07-19] MEDS: NA CHLORIDE 0.9% 1,000 ML IV SCH (13:21)
[2023-07-20] MEDS: GUAIFENESIN/CODEINE 5ML UCUP PO PRN (00:30)
[2023-07-20] MEDS: NA CHLORIDE 0.9% 1,000 ML IV SCH ×2 (01:16→15:39)
[2023-07-20] MEDS: Meropenem 1,000 MG in NA CHLORIDE 0.9% 100 ML IV SCH ×3 (05:11→21:16)
[2023-07-20 07:24] LABS: MCV 89.1 fL (80-100); MPV 8.1 fL (7.6-11.3); Platelets 219 thou/uL (152-406); RBC Red Blood Cell Count 2.58 M/uL (4.33-5.43)
[2023-07-20 07:54] LABS: Potassium 2.8 mEq/L (3.5-5.1)
[2023-07-20] MEDS ORDERED: GUAIFENESIN 600 MG SA TAB PO SCH (09:00)
[2023-07-20] MEDS: ASCORBIC ACID 500 MG TABLET PO SCH (09:06)
[2023-07-20] MEDS: ENOXAPARIN 40 MG/0.4 ML SQ SCH (09:06)
[2023-07-20] MEDS: POTASSIUM CL 40 MEQ in NA CHLORIDE 0.9% 500 ML IV SCH ×2 (09:25→14:22)
--- NOTE | 2023-07-20 09:43 | P.PN ---
Subjective Date of Service: 07/20/23 Chief Complaint: Decubitus ulcer Subjective: No new changes, No C/O voiced Review of Systems General: Weakness Physical Examination - Vital Signs Temperature: 99.3 F Blood Pressure: 161/74 Pulse: 117 Respirations: 18 Pulse Ox (%): 98 - Physical Exam General: In no apparent distress, Oriented x3, Other (thin,frail) HEENT: Atraumatic, Other (poor dentition) Neck: JVD not distended Respiratory: Clear to auscultation bilaterally, Normal air movement Cardiovascular: Normal pulses, Regular rate/rhythm Gastrointestinal: Normal bowel sounds, Soft and benign, Other (PEG tube) Musculoskeletal: Other (generalized weakness) Integumentary: Pressure ulcer (sacrum stage III; right and left ankle stage II) Urinary: Reddy catheter - Studies Laboratory Data - Reviewed Microbiology Data - Reviewed Imagings Data: - Reviewed Assessment And Plan - Plan Problem List Pressure Ulcer Sacrum stage III Asthma Anemia Severe protein-calorie malnutrition Hypokalemia Hypocalcemia Osteomyelitis sacrum Patient was recently hospitalized in May during which he was diagnosed with osteomylitis of sacrum/coccyx and discharged to SNF on Rocephin and Vancomycin to complete 6 weeks of IV antibiotic therapy from 05/22 to 07/03. - Leukocytosis resolved (WBC 16.3 -> 12.8 -> 9.9) - 24 hour Tmax 100.4 F - Due to recent hospitalizations and antibiotic use, patient was started on empiric Meropenem and Vancomycin 07/18. - Blood cultures 07/17: no growth to date - Negative Influenza A&B - Urinalysis 07/17: + yeast Recommendations - Unclear source of infection at this time, continue meropenem and vancomycin for now. improving - urinalysis (+) yeast, start on fluconazole x 14 days - Pressure offloading measures, turn patient q2h, wedge pillows, low air-loss mattress - Wound care per wound care team: Left and right ankle, sacrum - Reddy catheter care - Nutritional supplementation. Continue enteral nutrition via PEG tube. - Monitor WBC and fever trends - Electrolyte replacement protocol
[2023-07-20] MEDS: VANCOMYCIN 1.5 GM in NA CHLORIDE 0.9% 500 ML IVPB SCH (16:47)
[2023-07-20] MEDS: ACETAMINOPHEN 325 MG TABLET PO PRN (16:50)
--- NOTE | 2023-07-20 17:58 | P.PN ---
Subjective Date of Service: 07/20/23 Chief Complaint: Decubitus ulcer Patient cannot give any subjective complaint. He has been experiencing intermittent low-grade fever. Physical Examination - Vital Signs Temperature: 99.3 F Blood Pressure: 161/74 Pulse: 117 Respirations: 18 Pulse Ox (%): 98 - Physical Exam General: Cachectic, Other (Awake, mute, NAD) HEENT: Mucous membr. moist/pink, Sclerae nonicteric Neck: Supple, JVD not distended Respiratory: Clear to auscultation bilaterally, Normal air movement Cardiovascular: No edema, Other (Tachycardia, regular rhythm.) Capillary refill: <2 Seconds Gastrointestinal: Normal bowel sounds, Soft and benign, Non-distended, Other (PEG tube.) Musculoskeletal: Contractures Integumentary: Other (Stage IV sacral decubitus ulcer) Neurological: Other (Awake, extremity contractures.) Assessment And Plan - Plan Sepsis/infected decubitus ulcer Likely secondary to infected decubitus ulcer. Previous treatment for sacral osteomyelitis Currently on IV meropenem and vancomycin. Infectious disease also added fluconazole. Infectious disease input appreciated. General surgery-Dr. Mckeon consulted Continue IV fluid for hydration. Local wound care for now. Frequent turning Follow blood cultures. Severe Protein calorie malnutrition/electrolyte abnormalities Continue PEG tube feeding Nutritional supplementation as needed. Monitor and correct electrolytes as needed. Acute anemia Likely secondary to malnutrition Transfuse as needed for hemoglobin less than 7. Functional quadriplegia Bedridden. Frequent turning. Acute respiratory failure with hypoxia Asthma exacerbation Patient previously on BiPAP, currently tolerating room air. Bronchodilators as needed. DVT Prophylaxis: Lovenox. CODE STATUS: Full code Disposition:[facility] upon discharge.
[2023-07-20] MEDS: FLUCONAZOLE 200mg IVPB 200 MG/100 ML BAG IV SCH (18:34)
[2023-07-21] MEDS: ACETAMINOPHEN 325 MG TABLET PO PRN ×2 (05:13→16:54)
[2023-07-21] MEDS: Meropenem 1,000 MG in NA CHLORIDE 0.9% 100 ML IV SCH ×3 (05:14→21:20)
[2023-07-21] MEDS: NA CHLORIDE 0.9% 1,000 ML IV SCH (05:14)
[2023-07-21 07:02] LABS: Hematocrit 22.2 % (39.6-49.0); MCV 88.8 fL (80-100)
[2023-07-21 07:03] LABS: Absolute Lymphocytes (CBC) 1.5 K/uL (0.7-4.9); MPV 8.7 fL (7.6-11.3); Platelets 212 thou/uL (152-406)
[2023-07-21 07:13] LABS: Potassium 3.5 mEq/L (3.5-5.1)
[2023-07-21] MEDS: ENOXAPARIN 40 MG/0.4 ML SQ SCH (08:05)
[2023-07-21] MEDS: ASCORBIC ACID 500 MG TABLET PO SCH (08:05)
[2023-07-21] MEDS: VANCOMYCIN 1.5 GM in NA CHLORIDE 0.9% 500 ML IVPB SCH (08:05)
[2023-07-21] MEDS ORDERED: KCL 20 MEQ/100 mL IVPB 20 MEQ/100 ML BAG IV SCH (09:00)
--- NOTE | 2023-07-21 09:58 | P.PN ---
Date of Service: 07/21/23 Chief Complaint: Decubitus ulcer Subjective: No new changes, No C/O voiced Patient seen and examined at bedside. in room. Denies any new or worsening complaints at this time. In no apparent distress. No acute events reported overnight. Physical Examination Temp Pulse Resp BP Pulse Ox 98.5 F 104 H 20 133/67 98 07/21/23 08:00 07/21/23 08:00 07/21/23 08:00 07/21/23 08:00 07/21/23 08:00 - Physical Exam General: In no apparent distress, Oriented x3. Thin, frail. HEENT: Atraumatic. Dentition poor. Neck: JVD not distended Respiratory: Clear to auscultation bilaterally, Normal air movement Cardiovascular: Normal pulses, Regular rate/rhythm Gastrointestinal: Normal bowel sounds. abdomen flat. PEG tube. Musculoskeletal: Generalized weakness. Contractures. Integumentary: Ssacrum stage IV; right and left ankle stage II. Right knee stage II. Urinary: Reddy catheter - Studies Laboratory Data - Reviewed Microbiology Data - Reviewed Imagings Data: - Reviewed Medications List: reviewed Assessment And Plan Problem List Pressure Ulcer Sacrum stage IV Asthma Anemia Severe protein-calorie malnutrition Hypokalemia Hypocalcemia Osteomyelitis sacrum Patient was recently hospitalized in May during which he was diagnosed with osteomylitis of sacrum/coccyx and discharged to SNF on Rocephin and Vancomycin to complete 6 weeks of IV antibiotic therapy from 05/22 to 07/03. - Leukocytosis resolved (WBC 16.3 -> 12.8 -> 9.9) - 24 hour Tmax 100.4 F - Due to recent hospitalizations and antibiotic use, patient was started on empiric Meropenem and Vancomycin 07/18. - urinalysis (+) yeast -> on fluconazole (started 07/20) - Blood cultures 07/17: no growth to date - Negative Influenza A&B - Urinalysis 07/17: + yeast Recommendations - continue meropenem and vancomycin x 5 days. Discontinue on 07/22. - continue fluconazole x 14 days - Pressure offloading measures, turn patient q2h, wedge pillows, low air-loss mattress - Wound care per wound care team: Left and right ankle, sacrum - Reddy catheter care - Nutritional supplementation. - Monitor WBC and fever trends - Electrolyte replacement protocol
[2023-07-21] MEDS: GUAIFENESIN/CODEINE 5ML UCUP PO PRN (11:27)
--- NOTE | 2023-07-21 15:51 | P.PN ---
Subjective Date of Service: 07/21/23 Chief Complaint: Decubitus ulcer Patient is more awake today He has been experiencing intermittent low-grade fever. Also tachycardic today. Physical Examination - Vital Signs Temperature: 98.4 F Blood Pressure: 135/72 Pulse: 101 Respirations: 22 Pulse Ox (%): 97 Assessment And Plan - Plan Sepsis/infected decubitus ulcer Likely secondary to infected decubitus ulcer. Previous treatment for sacral osteomyelitis Currently on IV meropenem and vancomycin. Fluconazole. Infectious disease is following General surgery-Dr. Mckeon consulted to evaluate for debridement. Patient with intermittent fever and tachycardia. Continue IV fluid for hydration. Repeat chest x-ray Local wound care for now. Frequent turning Blood cultures: No growth to date. Repeat blood culture given ongoing fever and tachycardia. Severe Protein calorie malnutrition/electrolyte abnormalities Continue PEG tube feeding Nutritional supplementation as needed. Monitor and correct electrolytes as needed. Acute anemia Likely secondary to malnutrition Transfuse as needed for hemoglobin less than 7. Functional quadriplegia Bedridden. Frequent turning. Acute respiratory failure with hypoxia Asthma exacerbation Patient previously on BiPAP, currently tolerating room air. Bronchodilators as needed. Supplemental oxygen as needed. DVT Prophylaxis: Lovenox. CODE STATUS: Full code Disposition:[facility] upon discharge.
[2023-07-21] MEDS ORDERED: LABETALOL 20 MG/4ML SYRINGE IV PRN (15:55)
--- NOTE | 2023-07-21 16:51 | RAD REPORT ---
EXAM DESCRIPTION: RAD - Chest Single View - 07/21/2023 4:39 pm CLINICAL HISTORY: F Chest pain. COMPARISON: Chest Single View dated 07/17/2023; Chest Single View dated 05/28/2023; Chest Single View dated 05/21/2023; Chest Single View dated 04/26/2023 FINDINGS: Portable technique limits examination quality. Extensive bilateral pulmonary opacities are present likely representing pulmonary edema or pneumonia. The heart is mildly enlarged in size. No displaced fractures. IMPRESSION: Extensive bilateral pulmonary opacities probably representing pulmonary edema.
[2023-07-21] MEDS: FLUCONAZOLE 200mg IVPB 200 MG/100 ML BAG IV SCH (16:57)
[2023-07-22 04:00] LABS: Absolute Lymphocytes (CBC) 1.8 K/uL (0.7-4.9); Hematocrit 22.3 % (39.6-49.0); Lymphocytes % 23.2 % (15.3-44.8); MPV 8.7 fL (7.6-11.3); Platelets 204 thou/uL (152-406); RBC Red Blood Cell Count 2.48 M/uL (4.33-5.43)
[2023-07-22 04:11] LABS: Potassium 3.7 mEq/L (3.5-5.1)
[2023-07-22] MEDS: VANCOMYCIN 1.5 GM in NA CHLORIDE 0.9% 500 ML IVPB SCH ×2 (05:05→21:02)
[2023-07-22] MEDS: Meropenem 1,000 MG in NA CHLORIDE 0.9% 100 ML IV SCH ×3 (05:05→21:02)
[2023-07-22] MEDS: NA CHLORIDE 0.9% 1,000 ML IV SCH ×2 (05:06→07:40)
--- NOTE | 2023-07-22 08:45 | P.PN ---
Date of Service: 07/22/23 Chief Complaint: Decubitus ulcer Subjective: Patient with low-grade fevers yesterday 100.6 F. Blood cultures obtained, pending results. In no apparent distress. Denies any new or worsening complaints at this time. Physical Examination Temp Pulse Resp BP Pulse Ox 98.7 F 102 H 16 138/69 100 07/22/23 04:00 07/22/23 04:00 07/22/23 04:00 07/22/23 04:00 07/22/23 04:00 General: In no apparent distress, Oriented x3. Thin, frail. HEENT: Atraumatic. Dentition poor. Neck: JVD not distended Respiratory: Clear to auscultation bilaterally, Normal air movement Cardiovascular: Normal pulses, Regular rate/rhythm Gastrointestinal: Normal bowel sounds. abdomen flat. PEG tube. Musculoskeletal: Generalized weakness. Contractures. Integumentary: Ssacrum stage IV; right and left ankle stage II. Right knee stage II. Urinary: Reddy catheter Laboratory Data - Reviewed Microbiology Data - Reviewed Imagings Data: - Reviewed Medications List: reviewed Assessment And Plan Problem List Pressure Ulcer Sacrum stage IV Asthma Anemia Severe protein-calorie malnutrition Hypokalemia Hypocalcemia Osteomyelitis sacrum Patient was recently hospitalized in May during which he was diagnosed with osteomylitis of sacrum/coccyx and discharged to SNF on Rocephin and Vancomycin to complete 6 weeks of IV antibiotic therapy from 05/22 to 07/03. - Due to recent hospitalizations and antibiotic use, patient was started on empiric Meropenem and Vancomycin 07/18. - urinalysis 07/17 (+) yeast -> on fluconazole (started 07/20) - Blood cultures 07/17: no growth to date - Negative Influenza A&B - Leukocytosis resolved - 24 hour Tmax 100.6 F Recommendations - Patient with fevers yesterday, continue Meropenem and Vancomycin for now. Repeat blood cultures obtained, follow up with results. - continue fluconazole x 14 days (07/20 - 08/02) - Pressure offloading measures, turn patient q2h, wedge pillows, low air-loss mattress - Wound care per wound care team: Left and right ankle, sacrum - Reddy catheter care - Nutritional supplementation via PEG tube. - Monitor WBC and fever trends
[2023-07-22] MEDS ORDERED: KCL 20 MEQ/100 mL IVPB 20 MEQ/100 ML BAG IV ONE (09:00)
[2023-07-22] MEDS: ENOXAPARIN 40 MG/0.4 ML SQ SCH (09:07)
[2023-07-22] MEDS: ASCORBIC ACID 500 MG TABLET PO SCH (09:07)
--- NOTE | 2023-07-22 13:21 | EKG ---
Test Date: 2023-07-21 Test Time: 16:01:32 Heel Buffer: MARISSA French MEASUREMENT RESULTS: Intervals: Rate: 137 MN: 140 QRSD: 72 QT: 288 QTc: 434 Drake: P: 76 MN: 140 QRS: 22 T: 40 INTERPRETIVE STATEMENTS: Sinus tachycardia Septal infarct, age undetermined Abnormal ECG Compared to ECG 07/17/2023 14:46:45 Myocardial infarct finding now present Atrial fibrillation no longer present Ventricular premature complex(es) no longer present Left-axis deviation no longer present Electronically Signed On 07-22-23 13:18:49 BAG FILLER MACHINE OPERATOR by Felix Garcia
--- NOTE | 2023-07-22 13:36 | EKG ---
Test Date: 2023-07-17 Test Time: 14:46:45 Pretzel Cooker: EVELIA MEASUREMENT RESULTS: Intervals: Rate: 163 LA: QRSD: 78 QT: 282 QTc: 464 Laurel: P: LA: QRS: -40 T: 42 INTERPRETIVE STATEMENTS: Atrial fibrillation with premature ventricular or aberrantly conducted complexes Left axis deviation Abnormal ECG Compared to ECG 05/21/2023 15:05:46 Ventricular premature complex(es) now present Left-axis deviation now present Sinus tachycardia no longer present T-wave abnormality no longer present Electronically Signed On 07-22-23 13:25:57 SOCIAL SCIENCE ANALYST by Felix Garcia
--- NOTE | 2023-07-22 14:09 | P.PN ---
Subjective Date of Service: 07/22/23 Chief Complaint: Decubitus ulcer No major changes from yesterday. No recorded fever today. Physical Examination - Vital Signs Temperature: 98.3 F Blood Pressure: 136/77 Pulse: 103 Respirations: 36 Pulse Ox (%): 99 Assessment And Plan - Plan Physical Exam General: Cachectic, Other (Awake, mute, NAD) HEENT: Mucous membr. moist/pink, Sclerae nonicteric Neck: Supple, JVD not distended Respiratory: Clear to auscultation bilaterally, Normal air movement Cardiovascular: No edema, Other (Tachycardia, regular rhythm.) Capillary refill: <2 Seconds Gastrointestinal: Normal bowel sounds, Soft and benign, Non-distended, Other (PEG tube.) Musculoskeletal: Contractures Integumentary: Other (Stage IV sacral decubitus ulcer) Neurological: Other (Awake, extremity contractures.) Assessment and plan Sepsis/infected decubitus ulcer Likely secondary to infected decubitus ulcer. Previous treatment for sacral osteomyelitis Currently on IV meropenem, vancomycin and Fluconazole. Infectious disease is following General surgery-Dr. Mckeon consulted to evaluate for debridement. Patient with intermittent fever and tachycardia. No recorded fever today Repeat chest x-ray shows extensive bilateral infiltrates-probably pulmonary edema. Local wound care for now. Frequent turning Blood cultures: No growth to date. Follow repeat blood culture Severe Protein calorie malnutrition/electrolyte abnormalities Continue PEG tube feeding Nutritional supplementation as needed. Monitor and correct electrolytes as needed. Acute anemia Likely secondary to malnutrition Transfuse as needed for hemoglobin less than 7. Functional quadriplegia Bedridden. Frequent turning. Acute respiratory failure with hypoxia Asthma exacerbation Pulmonary edema/pneumonia Respiratory status improved. Patient previously on BiPAP, currently tolerating room air. Bronchodilators as needed. Supplemental oxygen as needed. Trial IV Lasix for suspected pulmonary edema. He is on broad-spectrum antibiotics to cover any pneumonia. DVT Prophylaxis: Lovenox. CODE STATUS: Full code Disposition: SNF.
[2023-07-22] MEDS ORDERED: FUROSEMIDE 40 MG/4 ML VIAL IV ONE (14:22)
[2023-07-22] MEDS: FLUCONAZOLE 200mg IVPB 200 MG/100 ML BAG IV SCH (16:45)
[2023-07-22] MEDS: JUVEN PACKET FT SCH (21:00)
[2023-07-23 02:30] LABS: Absolute Lymphocytes (CBC) 2.1 K/uL (0.7-4.9); Hematocrit 21.1 % (39.6-49.0); Lymphocytes % 22.5 % (15.3-44.8); MCV 88.3 fL (80-100); MPV 8.9 fL (7.6-11.3); Platelets 201 thou/uL (152-406); RBC Red Blood Cell Count 2.39 M/uL (4.33-5.43)
[2023-07-23 02:52] LABS: Potassium 3.5 mEq/L (3.5-5.1)
[2023-07-23] MEDS: Meropenem 1,000 MG in NA CHLORIDE 0.9% 100 ML IV SCH ×2 (05:01→12:54)
--- NOTE | 2023-07-23 08:45 | P.PN ---
Date of Service: 07/23/23 Chief Complaint: Decubitus ulcer Subjective: In no apparent distress. Denies any new or worsening complaints. No acute events reported overnight. + generalized weakness. Physical Examination Temp Pulse Resp BP Pulse Ox 99.3 F 108 H 17 130/70 100 07/23/23 04:00 07/23/23 04:00 07/23/23 04:00 07/23/23 04:00 07/23/23 04:00 General: In no apparent distress, Oriented x3. Thin, frail. HEENT: Atraumatic. Dentition poor. Neck: JVD not distended Respiratory: Clear to auscultation bilaterally, Normal air movement Cardiovascular: Normal pulses, Regular rate/rhythm Gastrointestinal: Normal bowel sounds. abdomen flat. PEG tube. Musculoskeletal: Generalized weakness. Contractures. Integumentary: Ssacrum stage IV; right and left ankle stage II. Right knee stage II. Urinary: Reddy catheter Laboratory Data - Reviewed Microbiology Data - Reviewed Imagings Data: - Reviewed Medications List: reviewed Assessment And Plan Problem List Asthma Exacerbation Pulmonary edema vs pneumonia Pressure Ulcer Sacrum stage IV Anemia Severe protein-calorie malnutrition Hypokalemia Hypocalcemia Osteomyelitis sacrum Patient was recently hospitalized in May during which he was diagnosed with osteomylitis of sacrum/coccyx and discharged to SNF on Rocephin and Vancomycin to complete 6 weeks of IV antibiotic therapy from 05/22 to 07/03. - Due to recent hospitalizations and antibiotic use, patient was started on empiric Meropenem and Vancomycin 07/18. - urinalysis 07/17 (+) yeast -> on fluconazole (started 07/20) - Blood cultures 07/17: no growth to date - Negative Influenza A&B - Leukocytosis resolved - Afebrile 24 hours Previously on Vancomycin 07/18-07/22 On Meropenem (07/18-) On Fluconazole (07/20-) 07/21: low-grade fevers 100.6F. Repeat blood cultures obtained, no growth to date. 07/22: vancomycin discontinued Recommendations - pneumonia: on day 5 of meropenem. Discontinue after today's dose. Continue to monitor for worsening s/s of infection. - continue fluconazole x 14 days (07/20 - 08/02) - Pressure offloading measures, turn patient q2h, wedge pillows, low air-loss mattress - Wound care per wound care team: Left and right ankle, sacrum - Reddy catheter care - Nutritional supplementation via PEG tube. - Monitor WBC and fever trends
[2023-07-23] MEDS: JUVEN PACKET FT SCH ×2 (09:00→21:00)
[2023-07-23] MEDS ORDERED: KCL 20 MEQ/100 mL IVPB 20 MEQ/100 ML BAG IV ONE (09:00)
[2023-07-23] MEDS: ENOXAPARIN 40 MG/0.4 ML SQ SCH (09:11)
[2023-07-23] MEDS: ASCORBIC ACID 500 MG TABLET PO SCH (09:11)
--- NOTE | 2023-07-23 15:23 | P.PN ---
Subjective Date of Service: 07/23/23 Chief Complaint: Decubitus ulcer Patient appear better and interactive today. No recorded fever for about 48 hours. He is tolerating tube feeding. Physical Examination - Vital Signs Temperature: 98.8 F Blood Pressure: 122/67 Pulse: 112 Respirations: 30 Pulse Ox (%): 98 - Studies Microbiology Data (last 24 hrs): 07/17/23 14:50 Blood - Blood Aerobic Blood Culture - Final No growth in 5 days. 07/17/23 14:50 Blood - Blood Anaerobic Blood Culture - Final No growth in 5 days. 07/17/23 14:35 Blood - Blood Aerobic Blood Culture - Final No growth in 5 days. 07/17/23 14:35 Blood - Blood Anaerobic Blood Culture - Final No growth in 5 days. Assessment And Plan - Plan Physical Exam General: Cachectic, Awake, NAD HEENT: Mucous membr. moist/pink, Sclerae nonicteric Neck: Supple, JVD not distended Respiratory: Clear to auscultation bilaterally, Normal air movement Cardiovascular: No edema, Tachycardia, regular rhythm. Gastrointestinal: Normal bowel sounds, Soft and benign, Non-distended, PEG tube Musculoskeletal: Contractures Integumentary: Stage IV sacral decubitus ulcer Neurological: Extremity spastic contractures Assessment and plan Sepsis/infected decubitus ulcer Likely secondary to infected decubitus ulcer. Previous treatment for sacral osteomyelitis Continue IV meropenem, vancomycin and Fluconazole. Infectious disease is following General surgery-Dr. Mckeon consulted to evaluate for debridement. No fever over the past 48 hours. Repeat chest x-ray shows extensive bilateral infiltrates-probably pulmonary edema. Local wound care for now. Frequent turning Blood cultures: No growth to date. Follow repeat blood culture Severe Protein calorie malnutrition/electrolyte abnormalities Continue PEG tube feeding Nutritional supplementation as needed. Monitor and correct electrolytes as needed. Acute anemia Likely secondary to malnutrition Transfuse as needed for hemoglobin less than 7. Functional quadriplegia Bedridden. Frequent turning. Acute respiratory failure with hypoxia Asthma exacerbation Pulmonary edema/pneumonia Respiratory status improved. Patient previously on BiPAP, currently tolerating room air. Bronchodilators as needed. Supplemental oxygen as needed. Intermittent Lasix as needed He is on broad-spectrum antibiotics to cover any pneumonia. DVT Prophylaxis: Lovenox. CODE STATUS: Full code Disposition: SNF.
[2023-07-23] MEDS: FLUCONAZOLE 200mg IVPB 200 MG/100 ML BAG IV SCH (16:52)
[2023-07-24] MEDS: JEVITY 1.5 CAL LIQUID 1,000 ML BOT RTH SCH (01:21)
[2023-07-24 06:53] LABS: Absolute Lymphocytes (CBC) 2.1 K/uL (0.7-4.9); Lymphocytes % 27.5 % (15.3-44.8); MPV 9.5 fL (7.6-11.3); Platelets 205 thou/uL (152-406); RBC Red Blood Cell Count 2.58 M/uL (4.33-5.43)
[2023-07-24 07:12] LABS: Phosphorus 2.3 mg/dL (2.5-4.9)
[2023-07-24] MEDS: JUVEN PACKET FT SCH ×2 (09:29→21:00)
[2023-07-24] MEDS: ASCORBIC ACID 500 MG TABLET PO SCH (09:29)
[2023-07-24] MEDS: ENOXAPARIN 40 MG/0.4 ML SQ SCH (09:29)
--- NOTE | 2023-07-24 13:49 | P.PN ---
Subjective Date of Service: 07/24/23 Chief Complaint: Decubitus ulcer No changes from yesterday. No more fever. No reported agitation, no events overnight. Physical Examination - Vital Signs Temperature: 97.4 F Blood Pressure: 112/65 Pulse: 97 Respirations: 32 Pulse Ox (%): 100 Assessment And Plan - Plan Physical Exam General: Cachectic, Awake, NAD HEENT: Mucous membr. moist/pink, Sclerae nonicteric Neck: Supple, JVD not distended Respiratory: Clear to auscultation bilaterally, Normal air movement Cardiovascular: No edema, tachycardia, regular rhythm. Gastrointestinal: Normal bowel sounds, Soft and benign, Non-distended, PEG tube Musculoskeletal: Contractures Integumentary: Stage IV sacral decubitus ulcer Neurological: Extremity spastic contractures Assessment and plan Sepsis/infected decubitus ulcer Pneumonia Likely secondary to infected decubitus ulcer. Previous treatment for sacral osteomyelitis Continue IV meropenem, vancomycin and Fluconazole. Infectious disease is following General surgery-Dr. Mckeon consulted to evaluate for debridement. No fever over the past 72 hours. Repeat chest x-ray shows extensive bilateral infiltrates-probably pulmonary edema. Local wound care. Frequent turning Blood cultures: No growth to date. Severe Protein calorie malnutrition/electrolyte abnormalities Continue PEG tube feeding Nutritional supplementation as needed. Monitor and correct electrolytes as needed. Acute anemia Likely secondary to malnutrition Transfuse as needed for hemoglobin less than 7. Functional quadriplegia Bedridden. Frequent turning. Acute respiratory failure with hypoxia Asthma exacerbation Pulmonary edema/pneumonia Respiratory status improved. Patient previously on BiPAP, currently on oxygen by nasal cannula. Bronchodilators as needed. Supplemental oxygen as needed. Intermittent Lasix as needed Continue broad-spectrum antibiotics to cover any pneumonia. DVT Prophylaxis: Lovenox. CODE STATUS: Full code Disposition: SNF.
[2023-07-24] MEDS: VANCOMYCIN 1.5 GM in NA CHLORIDE 0.9% 500 ML IVPB SCH (15:00)
[2023-07-24] MEDS: Meropenem 1,000 MG in NA CHLORIDE 0.9% 100 ML IV SCH (17:15)
[2023-07-24] MEDS: FLUCONAZOLE 200mg IVPB 200 MG/100 ML BAG IV SCH (17:44)
[2023-07-24] MEDS: METRONIDAZOLE 500mg IVPB 500 MG/100 ML BAG IV SCH (18:49)
[2023-07-25] MEDS: METRONIDAZOLE 500mg IVPB 500 MG/100 ML BAG IV SCH ×3 (00:04→16:45)
[2023-07-25] MEDS: Meropenem 1,000 MG in NA CHLORIDE 0.9% 100 ML IV SCH ×3 (00:04→16:05)
[2023-07-25] MEDS: JEVITY 1.5 CAL LIQUID 1,000 ML BOT RTH SCH (05:32)
[2023-07-25] MEDS: ENOXAPARIN 40 MG/0.4 ML SQ SCH (08:01)
[2023-07-25] MEDS: ASCORBIC ACID 500 MG TABLET PO SCH (08:01)
[2023-07-25] MEDS: JUVEN PACKET FT SCH ×2 (08:03→21:00)
[2023-07-25 08:08] LABS: Hematocrit 25.8 % (39.6-49.0)
[2023-07-25 08:22] LABS: Phosphorus 2.6 mg/dL (2.5-4.9)
[2023-07-25] MEDS: VANCOMYCIN 1.5 GM in NA CHLORIDE 0.9% 500 ML IVPB SCH (10:13)
--- NOTE | 2023-07-25 12:56 | P.PN ---
Subjective Date of Service: 07/25/23 Chief Complaint: Decubitus ulcer Patient is more interactive today No more fever. No reported agitation. Physical Examination - Vital Signs Temperature: 98.2 F Blood Pressure: 124/74 Pulse: 114 Respirations: 32 Pulse Ox (%): 100 Assessment And Plan - Plan Physical Exam General: Cachectic, Awake, NAD Respiratory: Clear to auscultation bilaterally, Normal air movement Cardiovascular: No edema, tachycardia, regular rhythm. Gastrointestinal: Normal bowel sounds, Soft and benign, Non-distended, PEG tube Musculoskeletal: Contracted extremities Integumentary: Stage IV sacral decubitus ulcer Neurological: Extremity spastic contractures Assessment and plan Sepsis/infected decubitus ulcer Pneumonia Likely secondary to infected decubitus ulcer. Previous treatment for sacral osteomyelitis Continue IV meropenem, vancomycin and Fluconazole. Infectious disease is following General surgery-Dr. Mckeon is following and recommend local wound care. No more fever Repeat chest x-ray shows extensive bilateral infiltrates-probably pulmonary edema. Frequent turning Blood cultures: No growth to date. Severe Protein calorie malnutrition/electrolyte abnormalities Continue PEG tube feeding Watch for aspiration Nutritional supplementation as needed. Monitor and correct electrolytes as needed. Acute anemia Likely secondary to malnutrition Transfuse as needed for hemoglobin less than 7. Functional quadriplegia Bedridden. Frequent turning. Acute respiratory failure with hypoxia Asthma exacerbation Pulmonary edema/pneumonia Respiratory status improved. Patient previously on BiPAP, currently on oxygen by nasal cannula. Bronchodilators as needed. Supplemental oxygen as needed. Continue broad-spectrum antibiotics to cover any pneumonia. DVT Prophylaxis: Lovenox. CODE STATUS: Full code Disposition: SNF, awaiting insurance authorization.
[2023-07-25] MEDS ORDERED: AMIODARONE HCL 150 MG in D5W 100 ML IV STA (17:34)
--- NOTE | 2023-07-25 17:42 | P.PN ---
Date of Service: 07/25/23 Nursing staff called and reported patient heart rate was up to 200 Telemetry strip reviewed and noted runs of V. tach. BP was stable, no change in patient clinical condition. Plan: Patient with a history of concentric LVH Obtain EKG Obtain echocardiogram Optimize oxygenation Check magnesium and potassium levels and replace as needed Start amiodarone drip Transferred to the ICU
[2023-07-25] MEDS ORDERED: AMIODARONE HCL 900 MG in Dextrose 5%-Water 482 ML IV SCH (18:00)
[2023-07-25] MEDS ORDERED: AMIODARONE HCL 450 MG in D5W 241 ML IV SCH (18:00)
[2023-07-25] MEDS ORDERED: AMIODARONE HCL 150 MG/3 ML INJ IV ONE (18:47)
[2023-07-25] MEDS ORDERED: AMIODARONE IN DEXTROSE,ISO-OSM 360 MG/200 ML BAG IV ONE (18:48)
[2023-07-25] MEDS ORDERED: D5W 100 ML IV ONE (18:48)
[2023-07-25 19:42] LABS: Magnesium 2.1 mg/dL (1.6-2.4)
[2023-07-26] MEDS ORDERED: Meropenem 500 MG VIAL IV ONE (00:41)
[2023-07-26] MEDS ORDERED: METRONIDAZOLE 500mg IVPB 500 MG/100 ML BAG IV ONE (00:41)
[2023-07-26] MEDS ORDERED: NA CHLORIDE 0.9% 100 ML ONE ×2 (00:41→08:40)
[2023-07-26] MEDS ORDERED: AMIODARONE IN DEXTROSE,ISO-OSM 360 MG/200 ML BAG IV ONE (00:49)
[2023-07-26] MEDS: METRONIDAZOLE 500mg IVPB 500 MG/100 ML BAG IV SCH ×2 (00:51→08:46)
[2023-07-26 01:45] LABS: Hematocrit 24.7 % (39.6-49.0)
[2023-07-26] MEDS ORDERED: Meropenem 1000 MG/VIAL IV ONE ×2 (01:47→08:40)
[2023-07-26] MEDS: Meropenem 1,000 MG in NA CHLORIDE 0.9% 100 ML IV SCH ×2 (01:47→08:45)
[2023-07-26] MEDS: VANCOMYCIN 1.5 GM in NA CHLORIDE 0.9% 500 ML IVPB SCH (03:55)
[2023-07-26] MEDS ORDERED: VANCOMYCIN 1 GM/VIAL ONE (04:42)
[2023-07-26] MEDS ORDERED: NA CHLORIDE 0.9% 500 ML ONE (04:43)
[2023-07-26] MEDS ORDERED: ASCORBIC ACID 500 MG TABLET ONE (08:40)
[2023-07-26] MEDS: ASCORBIC ACID 500 MG TABLET PO SCH (08:45)
[2023-07-26] MEDS: ENOXAPARIN 40 MG/0.4 ML SQ SCH (08:45)
[2023-07-26] MEDS: Mupirocin NASAL 2 APPL/1 GM TUBE NAS SCH ×2 (09:00→20:02)
[2023-07-26] MEDS: JUVEN PACKET FT SCH ×2 (09:00→20:02)
--- NOTE | 2023-07-26 09:40 | P.PN ---
Date of Service: 07/26/23 Chief Complaint: Decubitus ulcer Subjective: Yesterday, patient was noted to have runs of Vtach and was transferred to the ICU. at bedside. Patient is resting comfortably in bed. In no apparent distress. No new or worsening complaints at this time. Physical Examination Temp Pulse Resp BP Pulse Ox 98.0 F 99 H 32 H 128/71 100 07/26/23 08:00 07/26/23 09:00 07/26/23 09:00 07/26/23 09:00 07/26/23 09:00 General: In no apparent distress, Oriented x3. Thin, frail. HEENT: Atraumatic. Dentition poor. Neck: JVD not distended Respiratory: Clear to auscultation bilaterally, Normal air movement Cardiovascular: Irregular rate/rhythm. No edema. Gastrointestinal: Normal bowel sounds. abdomen flat. PEG tube. Musculoskeletal: Generalized weakness. Contractures bilateral upper and lower extremities. Integumentary: Sacrum stage IV; right and left ankle stage II. Right knee stage II. Urinary: Reddy catheter Laboratory Data - Reviewed Microbiology Data - Reviewed Imagings Data: - Reviewed Medications List: - Reviewed Assessment And Plan Problem List Asthma Exacerbation Pulmonary edema vs pneumonia Pressure Ulcer Sacrum stage IV Anemia Severe protein-calorie malnutrition Hypokalemia Hypocalcemia Osteomyelitis sacrum Patient was recently hospitalized in May during which he was diagnosed with osteomyelitis of sacrum/coccyx and discharged to SNF on Rocephin and Vancomycin to complete 6 weeks of IV antibiotic therapy from 05/22 to 07/03. - Due to recent hospitalizations and antibiotic use, patient was started on empiric Meropenem and Vancomycin 07/18. - urinalysis 07/17 (+) yeast -> on fluconazole 07/20-07/25). Discontinued following vtach and amiodarone drip due to qtc prolongation - Blood cultures 07/17: no growth to date - pressure injury sacrum stage IV: general surgery consulted, no debridement required at this time. Pneumonia vs Pulmonary Edema - Negative Influenza A&B - XR Chest 07/21: "Extensive bilateral pulmonary opacities probably representing pulmonary edema." - Completed 7 days meropenem and vancomycin (07/18-07/26) - Leukocytosis resolved - Afebrile Vancomycin (07/18-07/26) Meropenem (07/18-07/26) Fluconazole (07/20-07/25) 07/21: low-grade fevers 100.6F. Repeat blood cultures obtained, no growth to date. 07/22: vancomycin discontinued 07/26: Yesterday, patient was noted to have runs of Vtach and was transferred to the ICU. Discontinued Meropenem and vancomycin 07/26 Recommendations - pneumonia: Completed 7 days of Meropenem and Vancomycin. - previously on fluconazole (07/20-07/25). Discontinued following vtach and amiodarone drip due to qtc prolongation - Pressure offloading measures, turn patient q2h, wedge pillows, low air-loss mattress - Wound care per wound care team: sacrum, left and right ankle. - Reddy catheter care - Nutritional supplementation via PEG tube. - Monitor WBC and fever trends
--- NOTE | 2023-07-26 10:27 | P.PN ---
Subjective Date of Service: 07/26/23 Chief Complaint: Decubitus ulcer Patient experienced a couple of runs of V. tach yesterday. He was transferred to the ICU for close monitoring and amiodarone drip. No more V. tach overnight. Patient is awake and interactive with stable blood pressure. No reported agitation. He is tolerating PEG tube feeding. Physical Examination - Vital Signs Temperature: 98.0 F Blood Pressure: 128/71 Pulse: 99 Respirations: 32 Pulse Ox (%): 100 Assessment And Plan - Plan Physical Exam General: Cachectic, Awake, NAD Respiratory: Clear to auscultation bilaterally, Normal air movement Cardiovascular: No edema, tachycardia, regular rhythm. Gastrointestinal: Normal bowel sounds, Soft and benign, Non-distended, PEG tube Musculoskeletal: Contracted extremities Integumentary: Stage IV sacral decubitus ulcer Neurological: Extremity with spastic contractures Assessment and plan Sepsis/infected decubitus ulcer Pneumonia Likely secondary to infected decubitus ulcer. Previous treatment for sacral osteomyelitis Continue IV meropenem, vancomycin and Fluconazole. Infectious disease is following General surgery-Dr. Mckeon is following and recommend local wound care, no indication for sharp knife debridement No more fever Repeat chest x-ray shows extensive bilateral infiltrates-probably pulmonary edema. Serial chest x-ray Frequent turning Blood cultures: No growth to date. Severe Protein calorie malnutrition/electrolyte abnormalities Continue PEG tube feeding Watch for aspiration Nutritional supplementation as needed. Monitor and correct electrolytes as needed. Acute anemia Likely secondary to malnutrition Hemoglobin has been stable. No active GI bleed. Transfuse as needed for hemoglobin less than 7. Functional quadriplegia Bedridden. Frequent turning. Acute respiratory failure with hypoxia Asthma exacerbation Pulmonary edema/pneumonia Respiratory status improved. Patient previously on BiPAP, currently on oxygen by nasal cannula. Bronchodilators as needed. Supplemental oxygen as needed. Continue broad-spectrum antibiotics to cover any pneumonia. Ventricular tachycardia Stable Patient started on amiodarone drip. He will transition to oral amiodarone. Echocardiogram ordered, cardiology consult requested. Monitor and optimize electrolytes. DVT Prophylaxis: Lovenox. CODE STATUS: Full code Disposition: SNF, awaiting insurance authorization.
[2023-07-26] MEDS ORDERED: AMIODARONE HCL 900 MG in Dextrose 5%-Water 482 ML IV SCH ×2 (14:00→18:00)
[2023-07-26 18:07] LABS: Hematocrit 27.3 % (39.6-49.0)
[2023-07-26 18:08] LABS: Absolute Lymphocytes (CBC) 1.8 K/uL (0.7-4.9); Lymphocytes % 18.5 % (15.3-44.8); Platelets 304 thou/uL (152-406)
[2023-07-26] MEDS: AMIODARONE HCL 200 MG TAB PO SCH (20:02)
[2023-07-26] MEDS ORDERED: VANCOMYCIN 1.75 GM in NA CHLORIDE 0.9% 500 ML IVPB SCH (21:00)
[2023-07-26] MEDS ORDERED: ALBUTEROL 2.5 MG/3 ML NEB SOL NEB PRN (22:31)
[2023-07-27] MEDS ORDERED: FUROSEMIDE 40 MG/4 ML VIAL IV ONE
[2023-07-27 05:59] LABS: Arterial Blood Carboxyhemoglob 1.4 % (0-1.5); Blood Gas Oxyhemoglobin 89.8 % (94-97); Blood O2 Saturation 91.8 % (92-98.5)
[2023-07-27 06:31] LABS: Hematocrit 24.9 % (39.6-49.0)
[2023-07-27 06:35] LABS: Potassium 3.5 mEq/L (3.5-5.1)
--- NOTE | 2023-07-27 08:55 | P.PN ---
Date of Service: 07/27/23 Chief Complaint: Decubitus ulcer Subjective: In no apparent distress. No acute events overnight. Pending discharge back to nursing facility. Continue current plan of care. Physical Examination Temp Pulse Resp BP Pulse Ox 98.5 F 108 H 17 125/64 100 07/27/23 08:00 07/27/23 08:00 07/27/23 08:00 07/27/23 08:00 07/27/23 08:00 General: In no apparent distress, Oriented x3. Thin, frail. HEENT: Atraumatic. Dentition poor. Neck: JVD not distended Respiratory: Clear to auscultation bilaterally, Normal air movement Cardiovascular: Irregular rate/rhythm. No edema. Gastrointestinal: Normal bowel sounds. abdomen flat. PEG tube. Musculoskeletal: Generalized weakness. Contractures bilateral upper and lower extremities. Integumentary: Sacrum stage IV; right and left ankle stage II. Right knee stage II. Urinary: Reddy catheter Laboratory Data - Reviewed Microbiology Data - Reviewed Imagings Data: - Reviewed Medications List: - Reviewed Assessment And Plan Problem List Asthma Exacerbation Pulmonary edema vs pneumonia Pressure Ulcer Sacrum stage IV Anemia Severe protein-calorie malnutrition Hypokalemia Hypocalcemia Osteomyelitis sacrum Patient was recently hospitalized in May during which he was diagnosed with osteomyelitis of sacrum/coccyx and discharged to SNF on Rocephin and Vancomycin to complete 6 weeks of IV antibiotic therapy from 05/22 to 07/03. - Due to recent hospitalizations and antibiotic use, patient was started on empiric Meropenem and Vancomycin 07/18. - urinalysis 07/17 (+) yeast -> on fluconazole 07/20-07/25). Discontinued following vtach and amiodarone drip due to qtc prolongation - Blood cultures 07/17: no growth to date - pressure injury sacrum stage IV: general surgery consulted, no debridement required at this time. Pneumonia vs Pulmonary Edema - Negative Influenza A&B - XR Chest 07/21: "Extensive bilateral pulmonary opacities probably representing pulmonary edema." - Completed 7 days meropenem and vancomycin (07/18-07/26) - Leukocytosis resolved - Afebrile Vancomycin (07/18-07/26) Meropenem (07/18-07/26) Fluconazole (07/20-07/25) 07/21: low-grade fevers 100.6F. Repeat blood cultures obtained, no growth to date. 07/22: vancomycin discontinued 07/26: Yesterday, patient was noted to have runs of Vtach and was transferred to the ICU. Discontinued Meropenem and vancomycin 07/26 Recommendations - pneumonia: Completed 7 days of Meropenem and Vancomycin. Continue to monitor for worsening s/s of infection - Pressure offloading measures, turn patient q2h, wedge pillows, low air-loss mattress - Wound care per wound care team: sacrum, left and right ankle. - Reddy catheter care - Nutritional supplementation via PEG tube. - Aspiration precautions.
[2023-07-27] MEDS: Mupirocin NASAL 2 APPL/1 GM TUBE NAS SCH ×2 (09:00→21:02)
[2023-07-27] MEDS: ENOXAPARIN 40 MG/0.4 ML SQ SCH (09:32)
[2023-07-27] MEDS: JUVEN PACKET FT SCH ×2 (09:33→21:00)
[2023-07-27] MEDS: ASCORBIC ACID 500 MG TABLET PO SCH (09:33)
[2023-07-27] MEDS: AMIODARONE HCL 200 MG TAB PO SCH ×2 (09:33→21:02)
--- NOTE | 2023-07-27 10:22 | P.PN ---
Date of Service: 07/27/23 Subjective: nursing staff report some respiratory distress overnight mumbles to name, not very responsive contracted family not at bedside ROS: 10 point ROS unable to be obtained Physical Exam: GEN: cachectic, Lethargic HEENT: Normal conjunctiva, sclera anicteric, CV: Regular rate and rhythm, no edema Pulm: Nonlabored respirations on 1L NC, clear bilaterally diminished at bases ABD: soft, nontender, nondistended MSK: Quadriplegia. Contractures bilateral upper and lower extremities Integumentary: Stage IV sacral decubitus ulcer, Stage II ulcers of right/left ankle & right knee Neuro: Flat affect, Extremity with spastic contractures PEG tube in place Reddy in place Problem List: Sepsis secondary to infected stage IV decubitus ulcer h/o recent osteomyelitis Acute respiratory failure with hypoxia likely secondary to pulm edema / pneumonia Asthma exacerbation Acute anemia Ventricular tachycardia Severe Protein calorie malnutrition/electrolyte abnormalities Functional quadriplegia Sepsis secondary to infected stage IV decubitus ulcer h/o recent osteomyelitis Likely secondary to infected decubitus ulcer. Previously treated for sacral osteomyelitis discharged to SNF on rocephin / vanc for 6 weeks (05/22-07/03) Infectious disease is following Completed 7 days of merrem / vanc (07/18-07/26) Given fluconazole (07/18-07/25) dc'd d/t prolonged qtc afebrile, no leukocytosis General surgery - Dr. Mckeon is following and recommend local wound care & medical management, no surgical intervention warranted at this time. Blood cx (07/21): No growth Frequent turning Acute respiratory failure with hypoxia likely secondary to pulm edema / pneumonia Asthma exacerbation Respiratory status improved. Patient previously on BiPAP, currently on 1L NC Bronchodilators as needed. Completed 7 days of merrem / vanc (07/18-07/26) CXR (07/21): extensive b/l opacities, likely pulm edema CXR (07/26): negative for any acute cardiopulm process Pulm consulted CT ordered Acute anemia Likely secondary to malnutrition Hemoglobin has been stable. No active GI bleed. Monitor H&H. Transfuse if hgb < 7 Ventricular tachycardia couple of runs of V. tach noted 07/25. He was transferred to the ICU for close monitoring and started on amiodarone drip. Transitioned to oral amio and out of the ICU (07/26); dc IV amio 07/27 Cardio consulted Echocardiogram ordered HR 90-100s today Severe Protein calorie malnutrition/electrolyte abnormalities Continue PEG tube feeding Watch for aspiration Nutritional supplementation as needed. Monitor and correct electrolytes as needed. Functional quadriplegia Bedridden. Frequent turning. VTE: Lovenox Code: Full Dispo: SNF ~2 days
--- NOTE | 2023-07-27 12:11 | P.CNS ---
Date of Consult: 07/27/23 Reason for Consult: Respiratory distress Chief Complaint: Respiratory distress History of Present Illness: Patient is 73 years of age related contracted extremities decubitus ulcers apparently developed some respiratory distress last night had to use BiPAP his sats are satisfactory patient is nonverbal Allergies No Known Allergies Allergy (Unverified 11/23/16 08:58) Home Medications: Ascorbic Acid 1 tab .ROUTE DAILY 05/21/23 Jevity 1.5 Sonido Liquid 50 ml RTH CONT 05/21/23 Pnv/Iron,Carb/Om-3/FA/Fat 1 [Multivitamin with Minerals Cap] 1 tab .ROUTE DAILY 05/21/23 Acetaminophen [Tylenol] 650 mg .ROUTE Q6HR 07/18/23 Aspirin Chewable [Aspirin Chewable*] 81 mg .ROUTE DAILY 07/18/23 - Past Medical/Surgical History Diabetic: No -: Asthma. -: Hypertension. -: Nicotine dependence. -: Sacral decub - Social History Smoking Status: Current every day smoker Alcohol use: Yes CD- Drugs: No Caffeine use: Yes Place of Residence: [facility] Review of Systems is unable to be obtained Physical Examination Temp Pulse Resp BP Pulse Ox 97.7 F 98 H 20 139/71 99 07/27/23 11:02 07/27/23 11:02 07/27/23 11:02 07/27/23 11:02 07/27/23 11:02 General: Unresponsive Respiratory: Clear to auscultation bilaterally, Diminished Cardiovascular: Edema Gastrointestinal: Normal bowel sounds, Soft and benign Musculoskeletal: Other (Contracted extremities) - Problems (1) Respiratory failure Current Visit: Yes Status: Acute Plan: Patient is 73 years old of age debilitated with contracted extremities developed some respiratory distress arterial blood gases show respiratory alkalosis with hypoxemia no acute changes noted on the chest x-ray recommend CT pulmonary angiogram to rule out thromboembolism fully anticoagulate in the meantime vital signs oxygenation satisfactory patient is full code Qualifiers: Chronicity: acute Respiratory failure complication: hypoxia Qualified Code(s): J96.01 - Acute respiratory failure with hypoxia
--- NOTE | 2023-07-27 14:12 | RAD REPORT ---
EXAM DESCRIPTION: Chest Single View 07/27/2023 1:50 AM CONSTRUCTION PROJECT COORDINATOR CLINICAL HISTORY: 73 years, Male, SOB COMPARISON: 03/31/2023 FINDINGS: 1 views of the chest was obtained. Prior films were compared. The patient is slightly ro tated towards the right. Mediastinum: The cardiomediastinal silhouette appears normal in size and shape. Lungs: No areas of consolidations or masses are identified. Heart: The heart is normal in size. Aorta: The thoracic aorta demonstrate to be within normal limits. Pulmonary vasculature: The pulmonary vasculature is normal in distribution. Pleura: The costophrenic angles demonstrate to be sharp. Osseous structures: The bony structures demonstrate to be within normal limits. Other: External EKG leads within the [id number] limits diagnosis. IMPRESSION: No acute cardiopulmonary disease seen. Electronically signed by: Alli Arreguin MD 07/27/2023 01:54 AM CONSTRUCTION PROJECT COORDINATOR Due to temporary technical issues with the PACS/Fluency reporting system, reports are being signed by the in house radiologists without review as a courtesy to insure prompt reporting. The interpreting radiologist is fully responsible for the content of the report.
--- NOTE | 2023-07-27 19:03 | RAD REPORT ---
EXAM DESCRIPTION: CT - Chest Angio - 07/27/2023 2:19 pm CLINICAL HISTORY: Shortness of breath. RO PE COMPARISON: Chest For Pe Angio dated 04/01/2023; Chest For Pe Angio dated 11/05/2018; Chest Single View dated 07/27/2023 TECHNIQUE: Thin axial CT images of the chest were obtained following administration of 100 mL Isovue 370 IV contrast. Multiplanar reconstructions, and maximum intensity projection reconstructions were generated and reviewed. Exam utilizes a protocol for optimal evaluation of pulmonary arterial tree. All CT scans are performed using dose optimization technique as appropriate and may include automated exposure control or mA/KV adjustment according to patient size. FINDINGS: Pulmonary arteries are normal. No emboli or other suspicious finding. No acute or signific ant aorta findings. Small right and small to moderate left pleural effusion. Underlying segmental dependent bilateral low er lobe airspace opacification. Left perihilar patchy airspace opacities. Motion artifact limits eval uation in the right perihilar region. No pneumothorax. No abnormal mediastinal or hilar masses or lymphadenopathy seen. No chest wall mass or abnormal axill iary lymphadenopathy. IMPRESSION: No evidence of acute central pulmonary emboli. Left perihilar patchy airspace opacities, and bilateral effusions larger on the left. Findings may re late to pulmonary edema or pneumonia.
[2023-07-27] MEDS: ENOXAPARIN 60 MG/0.6 ML SQ SCH (21:03)
[2023-07-28 08:14] LABS: Absolute Lymphocytes (CBC) 1.9 K/uL (0.7-4.9); Hematocrit 22.1 % (39.6-49.0); Lymphocytes % 19.3 % (15.3-44.8); MCV 87.9 fL (80-100); MPV 9.1 fL (7.6-11.3); Platelets 212 thou/uL (152-406); RBC Red Blood Cell Count 2.52 M/uL (4.33-5.43)
[2023-07-28 08:29] LABS: Albumin 1.4 g/dL (3.4-5.0); Bilirubin Total 0.4 mg/dL (0.2-1.0); Potassium 3.2 mEq/L (3.5-5.1); Protein, Total 5.1 g/dL (6.4-8.2)
[2023-07-28] MEDS: Mupirocin NASAL 2 APPL/1 GM TUBE NAS SCH ×2 (08:58→21:05)
[2023-07-28] MEDS: AMIODARONE HCL 200 MG TAB PO SCH ×2 (09:03→21:05)
[2023-07-28] MEDS: ENOXAPARIN 60 MG/0.6 ML SQ SCH ×2 (09:03→21:06)
[2023-07-28] MEDS: ASCORBIC ACID 500 MG TABLET PO SCH (09:03)
[2023-07-28] MEDS: JUVEN PACKET FT SCH ×2 (09:04→21:00)
--- NOTE | 2023-07-28 09:48 | P.PN ---
Date of Service: 07/28/23 Chief Complaint: Decubitus ulcer Subjective: Patient seen and examined at bedside. Lethargic, In no apparent distress. Denies any new or worsening complaints at this time. No acute events overnight. Physical Examination Temp Pulse Resp BP Pulse Ox 97.8 F 76 18 184/81 H 98 07/28/23 07:00 07/28/23 07:00 07/28/23 07:00 07/28/23 07:00 07/28/23 07:00 General: In no apparent distress, Oriented x1-2. Cachectic. HEENT: Atraumatic. Dentition poor. Neck: JVD not distended Respiratory: Clear to auscultation bilaterally, Normal air movement. On 3L nasal cannula. Cardiovascular: Irregular rate/rhythm. No edema. Gastrointestinal: Normal bowel sounds. abdomen flat. PEG tube. Musculoskeletal: Generalized weakness. Contractures bilateral upper and lower extremities. Integumentary: Sacrum stage IV; right and left ankle stage II. Right knee stage II. Urinary: Reddy catheter Laboratory Data - Reviewed Microbiology Data - Reviewed Imagings Data: - Reviewed Medications List: - Reviewed Assessment And Plan Problem List Asthma Exacerbation Pulmonary edema vs pneumonia Pressure Ulcer Sacrum stage IV Anemia Severe protein-calorie malnutrition Hypokalemia Hypocalcemia Osteomyelitis sacrum Patient was recently hospitalized in May during which he was diagnosed with osteomyelitis of sacrum/coccyx and discharged to SNF on Rocephin and Vancomycin to complete 6 weeks of IV antibiotic therapy from 05/22 to 07/03. - Due to recent hospitalizations and antibiotic use, patient was started on empiric Meropenem and Vancomycin 07/18. - urinalysis 07/17 (+) yeast -> on fluconazole 07/20-07/25). Discontinued following vtach and amiodarone drip due to qtc prolongation - Blood cultures 07/17: no growth to date - pressure injury sacrum stage IV: general surgery consulted, no debridement required at this time. Pneumonia vs Pulmonary Edema - Negative Influenza A&B - XR Chest 07/21: "Extensive bilateral pulmonary opacities probably representing pulmonary edema." - Completed 7 days meropenem and vancomycin (07/18-07/26) - Leukocytosis resolved - Afebrile Vancomycin (07/18-07/26) Meropenem (07/18-07/26) Fluconazole (07/20-07/25) Recommendations Continue current plan of care. - pneumonia: Completed 7 days of Meropenem and Vancomycin. Continue to monitor for worsening s/s of infection - Pressure Ulcers: Pressure offloading measures. Turn patient q2h, wedge pillows, low air-loss mattress. Offload pressure on heels and ankles. Heel protectors - Wound care per wound care team: sacrum, left and right ankle. - Reddy catheter care - Nutritional supplementation via PEG tube. - Aspiration precautions. Case discussed with Thaddeus Lozano
--- NOTE | 2023-07-28 11:03 | P.PN ---
Date of Service: 07/28/23 Subjective: more alert / awake today follows commands, able to respond to some questions appropriately for the most part but slowly family not at bedside confirmed full code 07/28 afebrile ROS: 10 point ROS unable to be obtained Physical Exam: GEN: cachectic, arousable, follows commands, slow to respond; AOx2 HEENT: Normal conjunctiva, sclera anicteric, CV: Regular rate and rhythm, no edema Pulm: Nonlabored respirations on 3L NC, clear bilaterally diminished at bases ABD: soft, nontender, nondistended MSK: Contractures bilateral upper and lower extremities Integumentary: Stage IV sacral decubitus ulcer, Stage II ulcers of right/left ankle & right knee Neuro: Flat affect, Extremity with spastic contractures PEG tube in place Reddy in place Problem List: Sepsis secondary to infected stage IV decubitus ulcer h/o recent osteomyelitis Acute respiratory failure with hypoxia likely secondary to pulm edema / pneumonia Bilateral Pleural effusions, L > R Asthma exacerbation Acute anemia Ventricular tachycardia Severe Protein calorie malnutrition/electrolyte abnormalities Functional quadriplegia Sepsis secondary to infected stage IV decubitus ulcer h/o recent osteomyelitis Likely secondary to infected decubitus ulcer Previously treated for sacral osteomyelitis discharged to SNF on rocephin / vanc for 6 weeks (05/22-07/03) Infectious disease is following Completed 7 days of merrem / vanc (07/18-07/26) Given fluconazole (07/18-07/25) dc'd d/t prolonged qtc afebrile, no leukocytosis General surgery - Dr. Mckeon is following and recommend local wound care & medical management, no surgical intervention warranted at this time. Blood cx (07/21): No growth Frequent turning Acute respiratory failure with hypoxia likely secondary to pulm edema / pneumon ia Bilateral Pleural effusions, L > R Asthma exacerbation Respiratory status improved. Patient previously on BiPAP, currently tolerating NC Bronchodilators as needed. Completed 7 days of merrem / vanc (07/18-07/26) CXR (07/21): extensive b/l opacities, likely pulm edema CXR (07/26): negative for any acute cardiopulm process CTA (07/27): Left perihilar patchy airspace opacities. bilateral effusions L > R Pulm consulted Acute anemia Likely secondary to malnutrition hgb 8.3 -> 7.4 (07/28) No active GI bleed. Monitor H&H. Transfuse if hgb < 7 Ventricular tachycardia couple of runs of V. tach noted 07/25. He was transferred to the ICU for close monitoring and started on amiodarone drip. Transitioned to oral amio and out of the ICU (07/26); dc IV amio 07/27 Cardio consulted Echocardiogram ordered HR 90-100s today Severe Protein calorie malnutrition/electrolyte abnormalities Continue PEG tube feeding Watch for aspiration Nutritional supplementation as needed. Monitor and correct electrolytes as needed. Functional quadriplegia Bedridden. Frequent turning. VTE: Lovenox Code: Full Dispo: SNF ~2 days confirmed full code 07/28
[2023-07-28] MEDS ORDERED: ALBUTEROL 2.5 MG/3 ML NEB SOL ONE (22:00)
--- NOTE | 2023-07-28 22:38 | RAD REPORT ---
EXAM DESCRIPTION: RAD - Chest Single View - 07/28/2023 10:29 pm CLINICAL HISTORY: shortness of breath,increased congestion Chest pain. COMPARISON: Chest Single View dated 07/27/2023; Chest Single View dated 07/21/2023; Chest Single View dated 07/17/2023; Chest Single View dated 05/28/2023 FINDINGS: Portable technique limits examination quality. Increase is seen in the left lower lobe pulmonary opacities since 07/27/2023 study, likely representi ng a pneumonia. The right lung appears grossly clear. The heart is mildly enlarged in size. No displa doug fractures. IMPRESSION: Worsening left basilar lung aeration noted since comparative study, suggesting pneumonia progression.
[2023-07-29] MEDS ORDERED: FUROSEMIDE 40 MG/4 ML VIAL IV ONE (00:05)
[2023-07-29] MEDS: METRONIDAZOLE 500mg IVPB 500 MG/100 ML BAG IV SCH ×3 (00:22→16:21)
[2023-07-29 08:20] LABS: Absolute Lymphocytes (CBC) 1.8 K/uL (0.7-4.9); Hematocrit 22.3 % (39.6-49.0); Lymphocytes % 19.1 % (15.3-44.8); MCV 87.6 fL (80-100); MPV 9.5 fL (7.6-11.3); Platelets 213 thou/uL (152-406); RBC Red Blood Cell Count 2.54 M/uL (4.33-5.43)
[2023-07-29 08:46] LABS: Albumin 1.5 g/dL (3.4-5.0); Bilirubin Total 0.5 mg/dL (0.2-1.0); Magnesium 2.1 mg/dL (1.6-2.4); Potassium 3.1 mEq/L (3.5-5.1); Protein, Total 5.4 g/dL (6.4-8.2)
[2023-07-29 08:56] LABS: Ferritin 586.8 ng/mL (26-388)
[2023-07-29] MEDS: JUVEN PACKET FT SCH ×2 (09:00→20:49)
--- NOTE | 2023-07-29 09:43 | P.PN ---
Date of Service: 07/29/23 Chief Complaint: Decubitus ulcer Subjective: In no apparent distress. No acute events overnight. No new changes. Off antibiotics since 07/26. Afebrile. Physical Examination Temp Pulse Resp BP Pulse Ox 99.4 F 103 H 20 111/61 100 07/29/23 07:53 07/29/23 07:53 07/29/23 07:53 07/29/23 07:53 07/29/23 07:53 General: In no apparent distress, Oriented x2. Cachectic. HEENT: Atraumatic. Dentition poor. Neck: JVD not distended Respiratory: Clear to auscultation bilaterally, Normal air movement. On 2L nasal cannula. Cardiovascular: Irregular rate/rhythm. No edema. Gastrointestinal: Normal bowel sounds. abdomen flat. PEG tube. Musculoskeletal: Generalized weakness. Contractures bilateral upper and lower extremities. Integumentary: Sacrum stage IV; right and left ankle stage II. Right knee stage II. Urinary: Reddy catheter Laboratory Data - Reviewed Microbiology Data - Reviewed Imagings Data: - Reviewed Medications List: - Reviewed Assessment And Plan Problem List Asthma Exacerbation Pulmonary edema vs pneumonia Pressure Ulcer Sacrum stage IV Anemia Severe protein-calorie malnutrition Hypokalemia Hypocalcemia Osteomyelitis sacrum Patient was recently hospitalized in May during which he was diagnosed with osteomyelitis of sacrum/coccyx and discharged to SNF on Rocephin and Vancomycin to complete 6 weeks of IV antibiotic therapy from 05/22 to 07/03. - Due to recent hospitalizations and antibiotic use, patient was started on empiric Meropenem and Vancomycin 07/18. - urinalysis 07/17 (+) yeast -> on fluconazole 07/20-07/25). Discontinued following vtach and amiodarone drip due to qtc prolongation - Blood cultures 07/17: no growth to date - pressure injury sacrum stage IV: general surgery consulted, no debridement required at this time. Pneumonia vs Pulmonary Edema - Negative Influenza A&B - XR Chest 07/21: "Extensive bilateral pulmonary opacities probably representing pulmonary edema." - Completed 7 days meropenem and vancomycin (07/18-07/26) - Leukocytosis resolved - Afebrile Vancomycin (07/18-07/26) Meropenem (07/18-07/26) Fluconazole (07/20-07/25) Recommendations Continue current plan of care. Pending discharge to nursing facility. - pneumonia: Completed 7 days of Meropenem and Vancomycin. Continue to monitor for worsening s/s of infection - Pressure Ulcers: Pressure offloading measures. Turn patient q2h, wedge pi maureen, low air-loss mattress. Offload pressure on heels and ankles. Heel protectors - Wound care per wound care team: sacrum, left and right ankle. - Reddy catheter care - Nutritional supplementation via PEG tube. - Aspiration precautions. Case discussed with Thaddeus Lozano
[2023-07-29] MEDS: ASCORBIC ACID 500 MG TABLET PO SCH (09:55)
[2023-07-29] MEDS: CEFEPIME 2 GM in NA CHLORIDE 0.9% 100 ML IV SCH ×2 (09:56→20:49)
[2023-07-29] MEDS: ENOXAPARIN 60 MG/0.6 ML SQ SCH ×2 (09:56→20:49)
[2023-07-29] MEDS: AMIODARONE HCL 200 MG TAB PO SCH ×2 (09:56→20:50)
[2023-07-29] MEDS: Mupirocin NASAL 2 APPL/1 GM TUBE NAS SCH ×2 (09:57→20:49)
--- NOTE | 2023-07-29 10:44 | P.PN ---
Date of Service: 07/29/23 Subjective: no significant changes stable afebrile ROS: 10 point ROS unable to be obtained Physical Exam: GEN: cachectic, arousable, follows commands, slow to respond; AOx2 HEENT: Normal conjunctiva, sclera anicteric, CV: Regular rate and rhythm, no edema Pulm: Nonlabored respirations on 3L NC, clear bilaterally diminished at bases ABD: soft, nontender, nondistended MSK: Contractures bilateral upper and lower extremities Integumentary: Stage IV sacral decubitus ulcer, Stage II ulcers of right/left ankle & right knee Neuro: Flat affect, Extremity with spastic contractures PEG tube in place Reddy in place Problem List: Sepsis secondary to infected stage IV decubitus ulcer h/o recent osteomyelitis Acute respiratory failure with hypoxia likely secondary to pulm edema / pneumonia Bilateral Pleural effusions, L > R Asthma exacerbation Iron deficiency Anemia, chronic Ventricular tachycardia Severe Protein calorie malnutrition/electrolyte abnormalities Functional quadriplegia Sepsis secondary to infected stage IV decubitus ulcer h/o recent osteomyelitis Likely secondary to infected decubitus ulcer Previously treated for sacral osteomyelitis discharged to SNF on rocephin / vanc for 6 weeks (05/22-07/03) Infectious disease is following Completed 7 days of merrem / vanc (07/18-07/26) Given fluconazole (07/18-07/25) dc'd d/t prolonged qtc afebrile, no leukocytosis General surgery - Dr. Mckeon is following and recommend local wound care & medical management, no surgical intervention warranted at this time. Blood cx (07/21): No growth Frequent turning Acute respiratory failure with hypoxia likely secondary to pulm edema / pneumonia Bilateral Pleural effusions, L > R Asthma exacerbation Respiratory status improved. Patient previously on BiPAP, currently tolerating NC Bronchodilators as needed. Completed 7 days of merrem / vanc (07/18-07/26) CXR (07/21): extensive b/l opacities, likely pulm edema CXR (07/26): negative for any acute cardiopulm process CTA (07/27): Left perihilar patchy airspace opacities. bilateral effusions L > R Pulm consulted Iron deficiency Anemia, chronic suspect multifactorial secondary to iron deficiency / malnutrition iron studies 07/29 consistent with iron deficiency anemia hgb 7.4 -> 7.3 (07/29) No active GI bleed. Monitor H&H. Transfuse if hgb < 7 Start IV iron Ventricular tachycardia couple of runs of V. tach noted 07/25. He was transferred to the ICU for close monitoring and started on amiodarone drip. Transitioned to oral amio and out of the ICU (07/26); dc IV amio 07/27 Cardio consulted HR 100-110s today Severe Protein calorie malnutrition/electrolyte abnormalities Continue PEG tube feeding Watch for aspiration Nutritional supplementation as needed. Monitor and correct electrolytes as needed. Functional quadriplegia Bedridden. Frequent turning. VTE: Lovenox Code: Full Dispo: SNF ~2 days
[2023-07-29] MEDS: SOD FERRIC GLUC COMPLX/SUCROSE 125 MG in NA CHLORIDE 0.9% 100 ML IV SCH (12:17)
[2023-07-29] MEDS: ACETAMINOPHEN 325 MG TABLET PO PRN (23:42)
[2023-07-30] MEDS: METRONIDAZOLE 500mg IVPB 500 MG/100 ML BAG IV SCH ×3 (01:08→16:31)
--- NOTE | 2023-07-30 08:26 | RAD REPORT ---
EXAM DESCRIPTION: RADChest Single View07/30/2023 7:31 am CLINICAL HISTORY: f/u opacities COMPARISON: Chest Single View dated 07/28/2023; Chest Single View dated 07/27/2023; Chest Single View da kofi 07/21/2023; Chest Single View dated 07/17/2023; Chest Angio dated 07/27/2023 TECHNIQUE: Portable AP view of the chest. FINDINGS: Patient rotation limits evaluation. Left mid to basilar airspace opacities, stable or mild ly progressive. Prior radiograph, allowing for patient rotation. There may be a persistent trace effu zach. No pneumothorax or effusion. The cardiomediastinal contours are unremarkable. IMPRESSION: Stable or mildly progressive left mid to basilar airspace opacities concerning for pneum onia.
[2023-07-30 08:57] LABS: Hematocrit 20.4 % (39.6-49.0); MCV 87.5 fL (80-100); MPV 9.4 fL (7.6-11.3); Platelets 215 thou/uL (152-406); RBC Red Blood Cell Count 2.33 M/uL (4.33-5.43)
[2023-07-30] MEDS ORDERED: POTASSIUM CL SA 10 MEQ TAB PO ONE (09:00)
--- NOTE | 2023-07-30 09:14 | P.PN ---
Date of Service: 07/30/23 Chief Complaint: Decubitus ulcer Subjective: Patient developed temp of 100.2 F overnight. XR chest "Stable or mildly progressive left mid to basilar airspace opacities concerning for pneumonia." Patient was started on Cefepime and Flagyl. Physical Examination Temp Pulse Resp BP Pulse Ox 98.1 F 94 H 16 97/52 L 100 07/30/23 04:00 07/30/23 04:00 07/30/23 04:00 07/30/23 04:00 07/30/23 04:00 General: In no apparent distress, Oriented x2. Cachectic. HEENT: Atraumatic. Dentition poor. Neck: JVD not distended Respiratory: Clear to auscultation bilaterally, Normal air movement. On 2L nasal cannula. Cardiovascular: Irregular rate/rhythm. No edema. Gastrointestinal: Normal bowel sounds. abdomen flat. PEG tube. Musculoskeletal: Generalized weakness. Contractures bilateral upper and lower extremities. Integumentary: Sacrum stage IV; right and left ankle stage II. Right knee stage II. Urinary: Reddy catheter Laboratory Data - Reviewed Microbiology Data - Reviewed Imagings Data: - Reviewed Medications List: - Reviewed Assessment And Plan Problem List Asthma Exacerbation Pulmonary edema vs pneumonia Pressure Ulcer Sacrum stage IV Anemia Severe protein-calorie malnutrition Hypokalemia Hypocalcemia Osteomyelitis sacrum Patient was recently hospitalized in May during which he was diagnosed with osteomyelitis of sacrum/coccyx and discharged to SNF on Rocephin and Vancomycin to complete 6 weeks of IV antibiotic therapy from 05/22 to 07/03. - Due to recent hospitalizations and antibiotic use, patient was started on empiric Meropenem and Vancomycin 07/18. - urinalysis 07/17 (+) yeast -> on fluconazole 07/20-07/25). Discontinued following vtach and amiodarone drip due to qtc prolongation - Blood cultures 07/17: no growth to date - pressure injury sacrum stage IV: general surgery consulted, no debridement required at this time. Pneumonia vs Pulmonary Edema - Negative Influenza A&B - XR Chest 07/21: "Extensive bilateral pulmonary opacities probably representing pulmonary edema." - Completed 7 days meropenem and vancomycin (07/18-07/26) - XR Chest 07/30: "Stable or mildly progressive left mid to basilar airspace opacities concerning for pneumonia." Vancomycin (07/18-07/26) Meropenem (07/18-07/26) Fluconazole (07/20-07/25) Recommendations Patient developed temp 100.2F overnight. Started on cefepime and flagyl. continue for 5 days. - Monitor fever trends. - Pressure Ulcers: Pressure offloading measures. Turn patient q2h, wedge pillows, low air-loss mattress. Offload pressure on heels and ankles. Heel protectors - Wound care per wound care team: sacrum, left and right ankle. - Reddy catheter care - Nutritional supplementation via PEG tube. - Aspiration precautions. Case discussed with Thaddeus Lozano
--- NOTE | 2023-07-30 09:16 | P.PN ---
Date of Service: 07/30/23 Subjective: low grade temps overnight on antibiotics no worsening respiratory symptoms, no bleeding ROS: 10 point ROS unable to be obtained Physical Exam: GEN: cachectic, arousable, follows commands, slow to respond; AOx2, states name and "medical building", more alert today HEENT: Normal conjunctiva, sclera anicteric CV: intermittent Sinus tachycardia, no edema Pulm: Nonlabored respirations on 2L NC, clear bilaterally diminished at bases ABD: soft, nontender, nondistended MSK: Contractures bilateral upper and lower extremities Integumentary: Stage IV sacral decubitus ulcer, Stage II ulcers of right/left ankle & right knee Neuro: Flat affect, Extremity with spastic contractures PEG tube in place Reddy in place Problem List: Sepsis secondary to infected stage IV decubitus ulcer h/o recent osteomyelitis Acute respiratory failure with hypoxia likely secondary to pulm edema / pneumonia Bilateral Pleural effusions, L > R Asthma exacerbation Iron deficiency Anemia, acute on chronic Ventricular tachycardia Severe Protein calorie malnutrition/electrolyte abnormalities Functional quadriplegia Sepsis secondary to infected stage IV decubitus ulcer h/o recent osteomyelitis Likely secondary to infected decubitus ulcer Previously treated for sacral osteomyelitis discharged to SNF on rocephin / vanc for 6 weeks (05/22-07/03) Infectious disease is following Completed 7 days of merrem / vanc (07/18-07/26) Given fluconazole (07/18-07/25) dc'd d/t prolonged qtc low grade temps overnight, no leukocytosis cefepime / flagyl (07/29-); for suspected pneumonia General surgery - Dr. Mckeon is following and recommend local wound care & medical management, no surgical intervention warranted at this time. Blood cx (07/21): No growth Frequent turning Acute respiratory failure with hypoxia likely secondary to pulm edema / pneumonia Bilateral Pleural effusions, L > R Asthma exacerbation Patient previously on BiPAP, currently tolerating NC Bronchodilators as needed. Completed 7 days of merrem / vanc (07/18-07/26) CXR (07/21): extensive b/l opacities, likely pulm edema CXR (07/26): negative for any acute cardiopulm process CTA (07/27): Left perihilar patchy airspace opacities. bilateral effusions L > R CXR (07/28): Worsening left basilar lung aeration CXR (07/30): stable vs mildly progressive left mid to basilar airspace opacities Pulm consulted continue empiric cefepime / flagyl (07/29-); added 07/29 d/t worsening opacities / cover pneumonia low grade temps overnight, no leukocytosis Iron deficiency Anemia, acute on chronic suspect multifactorial secondary to iron deficiency / malnutrition iron studies 07/29 consistent with iron deficiency anemia hgb 7.3 -> 6.8 (07/30) No active GI bleed. Monitor H&H. Transfuse if hgb < 7 continue IV iron; s/p 1 bag so far 1 uPRBC ordered (07/30) Ventricular tachycardia couple of runs of V. tach noted 07/25. He was transferred to the ICU for close monitoring and started on amiodarone drip. Transitioned to oral amio and out of the ICU (07/26); dc IV amio (07/27) Cardio consulted Severe Protein calorie malnutrition/electrolyte abnormalities Continue PEG tube feeding Watch for aspiration Nutritional supplementation as needed. Monitor and correct electrolytes as needed. Functional quadriplegia Bedridden. Frequent turning. VTE: Lovenox Code: Full Dispo: SNF ~2-3 days pending afebrile > 24 hours, breathing improves, hgb stable.
[2023-07-30 09:20] LABS: Albumin 1.4 g/dL (3.4-5.0); Bilirubin Total 0.6 mg/dL (0.2-1.0); Magnesium 2.2 mg/dL (1.6-2.4); Potassium 3.2 mEq/L (3.5-5.1); Protein, Total 5.2 g/dL (6.4-8.2)
[2023-07-30] MEDS: ENOXAPARIN 60 MG/0.6 ML SQ SCH ×2 (10:00→19:59)
[2023-07-30] MEDS: AMIODARONE HCL 200 MG TAB PO SCH ×2 (10:00→20:00)
[2023-07-30] MEDS: ASCORBIC ACID 500 MG TABLET PO SCH (10:00)
[2023-07-30] MEDS: Mupirocin NASAL 2 APPL/1 GM TUBE NAS SCH ×2 (10:02→19:59)
[2023-07-30] MEDS: JUVEN PACKET FT SCH ×2 (10:04→20:00)
[2023-07-30] MEDS: CEFEPIME 2 GM in NA CHLORIDE 0.9% 100 ML IV SCH ×2 (10:38→19:59)
[2023-07-30] MEDS: SOD FERRIC GLUC COMPLX/SUCROSE 125 MG in NA CHLORIDE 0.9% 100 ML IV SCH (11:50)
[2023-07-30] MEDS ORDERED: NA CHLORIDE 0.9% 250 ML IV SCH (13:00)
--- NOTE | 2023-07-30 13:09 | P.PN ---
Subjective Date of Service: 07/30/23 Chief Complaint: Hypoxemia Patient is mildly hypoxic requiring 2 to 3 L of oxygen sats are around 100% and is unresponsive Review of Systems is unable to be obtained Physical Examination - Vital Signs Temperature: 97.3 F Blood Pressure: 90/53 Pulse: 98 Respirations: 18 Pulse Ox (%): 100 - Physical Exam General: Unresponsive Respiratory: Clear to auscultation bilaterally, Diminished Cardiovascular: No edema Assessment And Plan - Current Problems (Diagnosis) (1) Respiratory failure Current Visit: Yes Status: Acute Plan: Patient is mildly hypoxic requiring 2 to 3 L of oxygen with mild cardiomegaly severe diastolic dysfunction CT scan done earlier on showed bilateral pleural effusion no clinical evidence of infection white count is normal patient is mildly hypokalemic check procalcitonin levels hypoxemia is probably due to underlying heart failure stable for discharge to assisted patient is also severely anemic may benefit from a blood transfusion Qualifiers: Chronicity: acute on chronic Respiratory failure complication: hypoxia Qualified Code(s): J96.21 - Acute and chronic respiratory failure with hypoxia
--- NOTE | 2023-07-30 13:49 | EKG ---
Test Date: 2023-07-27 Test Time: 08:20:17 Power Machine Operator: MICHEAL MEASUREMENT RESULTS: Intervals: Rate: 105 CO: 172 QRSD: 82 QT: 284 QTc: 375 [place]: P: 24 CO: 172 QRS: 5 T: 63 INTERPRETIVE STATEMENTS: Sinus tachycardia Nonspecific T wave abnormality Abnormal ECG Compared to ECG 07/21/2023 16:01:32 T-wave abnormality now present Myocardial infarct finding no longer present Electronically Signed On 07-30-23 13:42:02 CERTIFIED NEURODIAGNOSTIC TECHNOLOGIST by Felix Garcia
[2023-07-31] MEDS: METRONIDAZOLE 500mg IVPB 500 MG/100 ML BAG IV SCH ×3 (00:30→16:54)
[2023-07-31 02:45] LABS: Lymphocytes % 22.9 % (15.3-44.8); MCV 85.8 fL (80-100); MPV 9.1 fL (7.6-11.3); Platelets 229 thou/uL (152-406)
[2023-07-31 03:03] LABS: Albumin 1.5 g/dL (3.4-5.0); Bilirubin Total 0.5 mg/dL (0.2-1.0); Protein, Total 5.4 g/dL (6.4-8.2)
[2023-07-31] MEDS: JUVEN PACKET FT SCH ×2 (09:09→21:00)
[2023-07-31] MEDS: POTASS/SODIUM PHOSPHATE 1 PKT POWD.PACK PO SCH ×3 (09:09→10:54)
[2023-07-31] MEDS: AMIODARONE HCL 200 MG TAB PO SCH ×2 (09:09→21:20)
[2023-07-31] MEDS: ENOXAPARIN 60 MG/0.6 ML SQ SCH (09:09)
[2023-07-31] MEDS: CEFEPIME 2 GM in NA CHLORIDE 0.9% 100 ML IV SCH ×2 (09:26→21:20)
[2023-07-31] MEDS: ASCORBIC ACID 500 MG TABLET PO SCH (09:27)
--- NOTE | 2023-07-31 10:48 | P.PN ---
Date of Service: 07/31/23 Subjective: Much more alert / awake today. Responding to questions slowly but mostly appropriately no new / worsening problems given 1 uPRBC yesterday evening no obvious bleeding afebrile ROS: 10 point ROS unable to be fully obtained - denies pain, +shortness of breath Physical Exam: GEN: cachectic, slow to respond; AOx2, more alert HEENT: Normal conjunctiva, sclera anicteric CV: intermittent Sinus tachycardia, 1-2+ pedal edema LLE, 1+ pedal edema RLE, 1+ edema LUE, trace edema RUE Pulm: mildly labored respirations on 2L NC, bilaterally diminished at bases, L>R ABD: soft, nontender, nondistended MSK: Contractures bilateral upper and lower extremities Integumentary: Stage IV sacral decubitus ulcer, Stage II ulcers of right/left ankle & right knee Neuro: Flat affect, Extremity with spastic contractures PEG tube in place Reddy in place Problem List: Sepsis secondary to infected stage IV decubitus ulcer / pneumonia Acute respiratory failure with hypoxia likely secondary to pulm edema / pneumonia Bilateral Pleural effusions, L > R Asthma exacerbation h/o recent osteomyelitis Iron deficiency Anemia, acute on chronic Ventricular tachycardia Severe Protein calorie malnutrition/electrolyte abnormalities Functional quadriplegia Sepsis secondary to infected stage IV decubitus ulcer / pneumonia Acute respiratory failure with hypoxia likely secondary to pulm edema / pneumonia Bilateral Pleural effusions, L > R Asthma exacerbation h/o recent osteomyelitis Previously treated for sacral osteomyelitis discharged to SNF on rocephin / vanc for 6 weeks (05/22-07/03) Initially treated for sepsis to be secondary to infected stage IV decubitus ulcer and completed antibiotics now concerning for pneumonia Blood cx (07/21): No growth Completed 7 days of merrem / vanc (07/18-07/26) Given fluconazole (07/18-07/25) dc'd d/t prolonged qtc currently on empiric cefepime / flagyl (07/29-) to cover pneumonia Frequent turning. q2h ID is following General surgery - Dr. Mckeon is following and recommend local wound care & medical management, no surgical intervention warranted at this time. continue local wound care: Vashe and Santyl packing damp to dry every day Patient previously on BiPAP, currently tolerating NC. Bronchodilators as needed. CXR (07/21): extensive b/l opacities, likely pulm edema CTA (07/27): Left perihilar patchy airspace opacities. bilateral effusions L > R CXR (07/28): Worsening left basilar lung aeration CXR (07/30): stable vs mildly progressive left mid to basilar airspace opacities Dr. Mcclure - pul is following continue empiric cefepime / flagyl (07/29-); added (07/29) d/t worsening opacities / cover pneumonia afebrile, no leukocytosis procal elevated Iron deficiency Anemia, acute on chronic suspect multifactorial secondary to iron deficiency / malnutrition iron studies 07/29 consistent with iron deficiency anemia hgb 6.8 -> 8.0 (07/31) No active GI bleed. Monitor H&H. Transfuse if hgb < 7 continue IV iron; s/p 3 bag so far s/p 1 uPRBC (07/30) Ventricular tachycardia couple of runs of V. tach noted 07/25. He was transferred to the ICU for close monitoring and started on amiodarone drip. Transitioned to oral amio and out of the ICU (07/26); dc IV amio (07/27) Cardio consulted Severe Protein calorie malnutrition/electrolyte abnormalities Continue PEG tube feeding Watch for aspiration Nutritional supplementation as needed. Monitor and correct electrolytes as needed. Functional quadriplegia Bedridden. Frequent turning. VTE: Lovenox Code: Full Dispo: SNF ~2-3 days pending afebrile > 24 hours, breathing improves, hgb stable.
[2023-07-31] MEDS: SOD FERRIC GLUC COMPLX/SUCROSE 125 MG in NA CHLORIDE 0.9% 100 ML IV SCH (10:54)
--- NOTE | 2023-07-31 11:12 | P.PN ---
Subjective Date of Service: 07/31/23 Chief Complaint: Hypoxemia No change in patient's condition he currently appears to be stable no fever Review of Systems is unable to be obtained Physical Examination - Vital Signs Temperature: 98.0 F Blood Pressure: 121/65 Pulse: 102 Respirations: 32 Pulse Ox (%): 100 - Physical Exam General: Alert, Unresponsive Respiratory: Clear to auscultation bilaterally, Diminished Cardiovascular: Regular rate/rhythm, Normal S1 S2, Edema Assessment And Plan - Current Problems (Diagnosis) (1) Respiratory failure Current Visit: Yes Status: Acute Plan: Respiratory failure currently is on 2 L of nasal cannula oxygen we will check daily room air pulse ox chest x-ray some haziness on the left side no obvious infiltrate white count is normal vital signs are also stable doubt sepsis can DC antibiotic stable [facility] changed to back to low- dose Lovenox for DVT prophylaxis cultures are all negative Qualifiers: Chronicity: acute on chronic Respiratory failure complication: hypoxia Qualified Code(s): J96.21 - Acute and chronic respiratory failure with hypoxia
--- NOTE | 2023-07-31 11:22 | CON ---
Date of Consultation: 07/20/2023 Brief History Of Present Illness: The patient is a 73-year-old male known to me from previous admiss ion several months ago with a history of asthma, nicotine dependence, hypertension, altered mental st atus, generalized weakness, decubitus stage 3, 4 ulcer, who presents with concern for worsening infec tion per his family's concern. He had altered mental status and has a history of a sacral ulcer and PEG tube placement. He has been getting nutrition via his PEG tube. In addition, aspiration was a c oncern, which is one of the reasons for his PEG tube placement. He had increased fecal contamination of the wounds at his living facility and as such he was brought into the hospital for the above-stat ed issues. Past Medical History: Significant for asthma, hypertension, nicotine dependence, dysphagia, lethargy , altered mental status on several occasions, sacral decubitus ulcer, PEG tube placement. Allergies: NO KNOWN DRUG ALLERGIES. Home Medications: Include, ascorbic acid, Jevity, multivitamin with minerals, Tylenol, aspirin, Xare lto, thiamine, folic acid. Social History: He does have a significant smoking history. There is a positive alcohol history, bu t currently none reported. Information is mostly obtained from the chart. Review of Systems: 10-point review of systems unable to obtain due to patient's mental status/lethargy. Physical Examination: General: He is lethargic, but arousable. He answers some questions appropriately, but requires freq uent awakening to have a conversation, but does answer some questions appropriately. HEENT: He is otherwise normocephalic. He has some temporal wasting. He is thin, overall and appear s somewhat malnourished, but improved from previous exam. Neck: Supple without JVD. Chest: Normal expansion and excursion. Cardiovascular: Regular rate and rhythm. Pulmonary: Clear to auscultation bilaterally. Abdomen: Soft. PEG tube in place. Functional: No evidence of infection. Extremities: No clubbing, cyanosis, or edema. Skin: Warm and dry. Back: Focused examination of the back shows a stage 3, 4 decubitus ulcer with no evidence of necrosi s. There is some mild fibrinous buildup. There is some red granulation tissue in the area. There w as some fecal contamination, which was cleansed during my examination. Vital Signs: At time of examination were blood pressure is 143/64, respiratory rate was 20, heart ra te was 112, temperature 100.1, O2 sats were 99% on room air. Laboratory Data: He had a laboratory exam, which revealed a white blood cell count of 9.9, hemoglobi n 7.6, hematocrit of 23.0, platelet count was 219. Sodium 142, potassium was 2.8, chloride 113, carb on dioxide 23, BUN 10, creatinine 0.3, glucose is 122. Assessment/plan: This is a 73-year-old male, who comes in with a significant sacral decubitus ulcer. 1.IV fluid hydration. 2.Antibiotic coverage. 3.Wound care with Vashe and Santyl packing damp to dry every day. 4.Pressure reduction strategies with rolling q.2 hours and minimize pressure to the sacral area. 5.Optimize nutrition perhaps consider increasing protein intake to help offset nutritional requireme nts. 6.Continue medical management for electrolyte abnormalities and other concomitant medical issues inc luding possible respiratory issues per the medical team. I have explained the risks, benefits, and a lternatives of the above-stated plan and the patient agrees to proceed as indicated. PEGGY/DAVID Voice ID: [id number] Report ID: [id number]
[2023-07-31] MEDS ORDERED: FUROSEMIDE 20 MG/ 2ML VIAL IV ONE (15:00)
[2023-08-01] MEDS: METRONIDAZOLE 500mg IVPB 500 MG/100 ML BAG IV SCH ×3 (00:53→16:32)
[2023-08-01] MEDS: JEVITY 1.5 CAL LIQUID 1,000 ML BOT RTH SCH (04:48)
[2023-08-01 07:20] LABS: Hematocrit 23.9 % (39.6-49.0); MCV 86.4 fL (80-100); MPV 9.5 fL (7.6-11.3); Platelets 228 thou/uL (152-406); RBC Red Blood Cell Count 2.77 M/uL (4.33-5.43)
[2023-08-01 07:39] LABS: Magnesium 2.1 mg/dL (1.6-2.4); Phosphorus 2.7 mg/dL (2.5-4.9); Potassium 3.7 mEq/L (3.5-5.1)
--- NOTE | 2023-08-01 08:46 | P.PN ---
Date of Service: 08/01/23 Subjective: no acute events overnight less short of breath ROS: 10 point ROS unable to be fully obtained - denies pain, +shortness of breath Physical Exam: GEN: cachectic, slow to respond; AOx2, more alert HEENT: Normal conjunctiva, sclera anicteric CV: intermittent Sinus tachycardia, 1-2+ pedal edema LLE, 1+ pedal edema RLE, 1+ edema LUE, trace edema RUE Pulm: nonlabored respirations on 2L NC, bilaterally diminished at bases, L>R ABD: soft, nontender, nondistended MSK: Contractures bilateral upper and lower extremities Integumentary: Stage IV sacral decubitus ulcer, Stage II ulcers of right/left ankle & right knee Neuro: Flat affect, Extremity with spastic contractures PEG tube in place Reddy in place Problem List: Sepsis secondary to infected stage IV decubitus ulcer / pneumonia Acute respiratory failure with hypoxia likely secondary to pulm edema / pneumonia Bilateral Pleural effusions, L > R Asthma exacerbation h/o recent osteomyelitis Iron deficiency Anemia, acute on chronic Ventricular tachycardia Severe Protein calorie malnutrition/electrolyte abnormalities Functional quadriplegia Sepsis secondary to infected stage IV decubitus ulcer / pneumonia Acute respiratory failure with hypoxia likely secondary to pulm edema / pneumonia Bilateral Pleural effusions, L > R Asthma exacerbation h/o recent osteomyelitis Previously treated for sacral osteomyelitis discharged to SNF on rocephin / vanc for 6 weeks (05/22-07/03) Initially treated for sepsis to be secondary to infected stage IV decubitus ulcer and completed antibiotics now concerning for pneumonia Blood cx (07/21): No growth Completed 7 days of merrem / vanc (07/18-07/26) Given fluconazole (07/18-07/25) dc'd d/t prolonged qtc currently on empiric cefepime / flagyl (07/29-) to cover pneumonia Frequent turning. q2h ID is following General surgery - Dr. Mckeon is following and recommend local wound care & medical management, no surgical intervention warranted at this time. continue local wound care: Vashe and Santyl packing damp to dry every day Patient previously on BiPAP, currently tolerating NC. Bronchodilators as needed. CXR (07/21): extensive b/l opacities, likely pulm edema CTA (07/27): Left perihilar patchy airspace opacities. bilateral effusions L > R CXR (07/28): Worsening left basilar lung aeration CXR (07/30): stable vs mildly progressive left mid to basilar airspace opacities Dr. Mcclure - pulsandra is following continue empiric cefepime / flagyl (07/29-); added (07/29) d/t worsening opacities / cover pneumonia afebrile, no leukocytosis, procal elevated given 20mg PO lasix x1 (07/31) - Breathing seemed to improve with lasix yesterday Iron deficiency Anemia, acute on chronic suspect multifactorial secondary to iron deficiency / malnutrition iron studies 07/29 consistent with iron deficiency anemia No active GI bleed. Monitor H&H. Transfuse if hgb < 7 continue IV iron; s/p 4 bag so far s/p 1 uPRBC (07/30) hgb stable last 24 hours Ventricular tachycardia couple of runs of V. tach noted 07/25. He was transferred to the ICU for close monitoring and started on amiodarone drip. Transitioned to oral amio and out of the ICU (07/26); dc IV amio (07/27) Cardio consulted Severe Protein calorie malnutrition/electrolyte abnormalities Continue PEG tube feeding Watch for aspiration Nutritional supplementation as needed. Monitor and correct electrolytes as needed. Functional quadriplegia Bedridden. Frequent turning. VTE: Lovenox Code: Full Dispo: SNF ~2-3 days pending afebrile > 24 hours, breathing improves, hgb stable.
[2023-08-01] MEDS: AMIODARONE HCL 200 MG TAB PO SCH ×2 (09:05→20:42)
[2023-08-01] MEDS: CEFEPIME 2 GM in NA CHLORIDE 0.9% 100 ML IV SCH ×2 (09:05→20:41)
[2023-08-01] MEDS: ASCORBIC ACID 500 MG TABLET PO SCH (09:05)
[2023-08-01] MEDS: JUVEN PACKET FT SCH ×2 (09:06→20:52)
[2023-08-01] MEDS: ENOXAPARIN 40 MG/0.4 ML SQ SCH (09:06)
[2023-08-01] MEDS: SOD FERRIC GLUC COMPLX/SUCROSE 125 MG in NA CHLORIDE 0.9% 100 ML IV SCH (10:50)
--- NOTE | 2023-08-01 12:10 | P.PN ---
Subjective Date of Service: 08/01/23 Chief Complaint: Hypoxemia / Sacral Wound Subjective: Improving Physical Examination - Vital Signs Temperature: 99.2 F Blood Pressure: 106/57 Pulse: 97 Respirations: 22 Pulse Ox (%): 99 - Physical Exam General: In no apparent distress, Cooperative Integumentary: Other (Sacral wound is stable at this time with good granulation tissue no evidence of necrosis minimal fibrinous buildup.) Assessment And Plan - Current Problems (Diagnosis) (1) Acute osteomyelitis of sacrum Current Visit: No Status: Acute Plan: -Patient is a 73-year-old male with multiple medical issues that I am consulted to see regarding his sacral decubitus ulcer. -The wound continues to be stable with good granulation tissue and slow improvement, no evidence of necrosis or further breakdown. -Continue packing the wound with Santyl and Vashe daily, pressure reduction strategies. Roll patient every 2 hours. -Plan for collagen application to the wound. In consideration of wound VAC topically to this area and continue pressure reduction strategies. -If VAC is applied I recommend white foam and silver foam combination.
[2023-08-01] MEDS: ACETAMINOPHEN 325 MG TABLET PO PRN (20:55)
[2023-08-02] MEDS: METRONIDAZOLE 500mg IVPB 500 MG/100 ML BAG IV SCH ×3 (00:31→16:29)
[2023-08-02] MEDS: JEVITY 1.5 CAL LIQUID 1,000 ML BOT RTH SCH (05:48)
[2023-08-02 06:41] LABS: Absolute Lymphocytes (CBC) 1.6 K/uL (0.7-4.9); Hematocrit 23.3 % (39.6-49.0); Lymphocytes % 22.5 % (15.3-44.8); MCV 87.6 fL (80-100); MPV 9.2 fL (7.6-11.3); Platelets 244 thou/uL (152-406); RBC Red Blood Cell Count 2.66 M/uL (4.33-5.43)
[2023-08-02 07:18] LABS: Albumin 1.5 g/dL (3.4-5.0); Bilirubin Total 0.5 mg/dL (0.2-1.0); Potassium 3.9 mEq/L (3.5-5.1); Protein, Total 5.5 g/dL (6.4-8.2)
[2023-08-02] MEDS: CEFEPIME 2 GM in NA CHLORIDE 0.9% 100 ML IV SCH ×2 (08:46→21:42)
[2023-08-02] MEDS: ASCORBIC ACID 500 MG TABLET PO SCH (08:47)
[2023-08-02] MEDS: JUVEN PACKET FT SCH ×2 (08:47→21:00)
[2023-08-02] MEDS: AMIODARONE HCL 200 MG TAB PO SCH ×2 (08:47→21:42)
[2023-08-02] MEDS: ENOXAPARIN 40 MG/0.4 ML SQ SCH (08:47)
--- NOTE | 2023-08-02 08:53 | P.PN ---
Date of Service: 08/02/23 Subjective: no acute events overnight Breathing ~same as yesterday hgb stable afebrile ROS: 10 point ROS unable to be fully obtained - denies pain, +shortness of breath Physical Exam: GEN: cachectic, slow to respond; AOx2, more alert HEENT: Normal conjunctiva, sclera anicteric. oral cavity with some crusting /scabbing fibrous tissue/scabbing from hard palate to tongue CV: intermittent Sinus tachycardia, 1-2+ pedal edema LLE, 1+ edema LUE, trace edema RUE Pulm: nonlabored respirations on 2L NC, bilaterally diminished at bases, L>R ABD: soft, nontender, nondistended MSK: Contractures bilateral upper and lower extremities Integumentary: Stage IV sacral decubitus ulcer, Stage II ulcers of right/left ankle & right knee Neuro: Flat affect, Extremity with spastic contractures PEG tube in place Reddy in place Problem List: Sepsis secondary to infected stage IV decubitus ulcer / pneumonia Acute respiratory failure with hypoxia likely secondary to pulm edema / pneumonia Bilateral Pleural effusions, L > R Asthma exacerbation h/o recent osteomyelitis Iron deficiency Anemia, acute on chronic Ventricular tachycardia Severe Protein calorie malnutrition/electrolyte abnormalities Functional quadriplegia Sepsis secondary to infected stage IV decubitus ulcer / pneumonia Acute respiratory failure with hypoxia likely secondary to pulm edema / pneumonia Bilateral Pleural effusions, L > R Asthma exacerbation h/o recent osteomyelitis Previously treated for sacral osteomyelitis discharged to SNF on rocephin / vanc for 6 weeks (05/22-07/03) Initially treated for sepsis to be secondary to infected stage IV decubitus ulcer and completed antibiotics now concerning for pneumonia Blood cx (07/21): No growth Completed 7 days of merrem / vanc (07/18-07/26) Given fluconazole (07/18-07/25) dc'd d/t prolonged qtc currently on empiric cefepime / flagyl (07/29-) to cover pneumonia Frequent turning. q2h ID is following General surgery - Dr. Mckeon is following and recommend local wound care & medical management, no surgical intervention warranted at this time. continue local wound care: Vashe and Santyl packing damp to dry every day Patient previously on BiPAP, currently tolerating NC. Bronchodilators as needed. CXR (07/21): extensive b/l opacities, likely pulm edema CTA (07/27): Left perihilar patchy airspace opacities. bilateral effusions L > R CXR (07/28): Worsening left basilar lung aeration CXR (07/30): stable vs mildly progressive left mid to basilar airspace opacities Dr. Mcclure - pulm is following continue empiric cefepime / flagyl (07/29-); added (07/29) d/t worsening opacities / cover pneumonia afebrile, no leukocytosis, procal elevated given 20mg PO lasix x1 (07/31) - Breathing seemed to improve with lasix yesterday add lasix x1 (08/02) Iron deficiency Anemia, acute on chronic suspect multifactorial secondary to iron deficiency / malnutrition iron studies 07/29 consistent with iron deficiency anemia No active GI bleed. Monitor H&H. Transfuse if hgb < 7 continue IV iron; s/p 5 bag so far s/p 1 uPRBC (07/30) hgb stable last 48 hours Ventricular tachycardia couple of runs of V. tach noted 07/25. He was transferred to the ICU for close monitoring and started on amiodarone drip. Transitioned to oral amio and out of the ICU (07/26); dc IV amio (07/27) Cardio consulted Severe Protein calorie malnutrition/electrolyte abnormalities Continue PEG tube feeding Watch for aspiration Nutritional supplementation as needed. Monitor and correct electrolytes as needed. Functional quadriplegia Bedridden. Frequent turning. VTE: Lovenox Code: Full Dispo: SNF ~2days pending afebrile > 24 hours, breathing improves, hgb stable.
--- NOTE | 2023-08-02 09:25 | P.PN ---
Date of Service: 08/02/23 Chief Complaint: Decubitus ulcer Subjective: In no apparent distress. Denies any new or worsening complaints. No acute events overnight. Physical Examination Temp Pulse Resp BP Pulse Ox 98.4 F 98 H 16 107/55 L 100 08/02/23 04:00 08/02/23 04:00 08/02/23 04:00 08/02/23 04:00 08/02/23 04:00 General: In no apparent distress, Oriented x2. Lethargic. Cachectic. HEENT: Atraumatic. Dentition poor. Respiratory: Clear to auscultation bilaterally, Normal air movement. On 2L nasal cannula. Cardiovascular: Irregular rate/rhythm. No edema. Gastrointestinal: Normal bowel sounds. abdomen flat. PEG tube. Musculoskeletal: Generalized weakness. Contractures bilateral upper and lower extremities. Integumentary: Sacrum stage IV; right and left ankle stage II. Right knee stage II. Urinary: Reddy catheter Laboratory Data - Reviewed Microbiology Data - Reviewed Imagings Data: - Reviewed Medications List: - Reviewed Assessment And Plan Problem List Asthma Exacerbation Pulmonary edema vs pneumonia Pressure Ulcer Sacrum stage IV Anemia Severe protein-calorie malnutrition Osteomyelitis sacrum Patient was recently hospitalized in May during which he was diagnosed with osteomyelitis of sacrum/coccyx and discharged to SNF on Rocephin and Vancomycin to complete 6 weeks of IV antibiotic therapy from 05/22 to 07/03. - Due to recent hospitalizations and antibiotic use, patient was started on empiric Meropenem and Vancomycin 07/18. - Blood cultures 07/17: no growth to date - pressure injury sacrum stage IV: general surgery consulted, no debridement required at this time. - On 07/29 Patient developed temp 100.2F overnight and was started on cefepime and flagyl concern for aspiration pneumonia. Pneumonia vs Pulmonary Edema - Negative Influenza A&B - XR Chest 07/21: "Extensive bilateral pulmonary opacities probably representing pulmonary edema." - Completed 7 days meropenem and vancomycin (07/18-07/26) - XR Chest 07/30: "Stable or mildly progressive left mid to basilar airspace opacities concerning for pneumonia." Vancomycin (07/18-07/26) Meropenem (07/18-07/26) Fluconazole (07/20-07/25) Cefepime (07/29-08/02) Metronidazole (07/29-08/02) Recommendations - PNA: On day 5 of 5 Cefepime and Flagyl. Discontinue following today's dosing. - Pressure Ulcers: Pressure offloading measures. Turn patient q2h, wedge pillows, low air-loss mattress. Offload pressure on heels and ankles. Heel protectors - Wound care per wound care team: sacrum, left and right ankle. - Reddy catheter care - Nutritional supplementation via PEG tube. - Aspiration precautions. Case discussed with Thaddeus Lozano
[2023-08-02] MEDS: SOD FERRIC GLUC COMPLX/SUCROSE 125 MG in NA CHLORIDE 0.9% 100 ML IV SCH (11:03)
[2023-08-02 12:41] VITALS: O2SAT 100
[2023-08-02] MEDS ORDERED: FUROSEMIDE 20 MG/ 2ML VIAL IV ONE (17:14)
[2023-08-03 06:50] LABS: Absolute Lymphocytes (CBC) 1.8 K/uL (0.7-4.9); Hematocrit 24.3 % (39.6-49.0); Lymphocytes % 22.6 % (15.3-44.8); MCV 88.5 fL (80-100); MPV 9.2 fL (7.6-11.3); Platelets 253 thou/uL (152-406); RBC Red Blood Cell Count 2.75 M/uL (4.33-5.43)
[2023-08-03 07:04] VITALS: BP 133/60; TEMP 97.1
[2023-08-03 07:09] LABS: Albumin 1.6 g/dL (3.4-5.0); Bilirubin Total 0.4 mg/dL (0.2-1.0); Magnesium 2.2 mg/dL (1.6-2.4); Potassium 3.8 mEq/L (3.5-5.1); Protein, Total 5.5 g/dL (6.4-8.2)
[2023-08-03] MEDS ORDERED: POTASSIUM 25 MEQ EFFERV TAB PO ONE (07:57)
[2023-08-03] MEDS: AMIODARONE HCL 200 MG TAB PO SCH (08:31)
[2023-08-03] MEDS: ASCORBIC ACID 500 MG TABLET PO SCH (08:31)
[2023-08-03] MEDS: ENOXAPARIN 40 MG/0.4 ML SQ SCH (08:31)
[2023-08-03] MEDS: JUVEN PACKET FT SCH (08:31)
--- NOTE | 2023-08-03 08:38 | P.CNS ---
Date of Consult: 08/03/23 Consult request for abnormal oral exam, requested by Dr Hardin Patient seen at 0800 this AM, alone in room with no family or other cooro borating source of history. Patient reported to have thick dried secretions in oral cavity and discomfort/resistance to removal and asked by admitting team to evaluate in case of anatomic or neoplastic concerns. No verbalized complaints or vocalizations from patient. Unable to obtain additional history. Patient arousable and opens eye to voice. No nodding or discernable attempts at communication. Oral exam with very poor denition, gingival retraction and inflammation about remaining teeth. Xerostomia. Thick dried secretions on onral tongue remove with forceps. Hard and soft palate appear clean following reported nursing intervention. No visible tonsil tissle, history of tonsillectomy suspected. No mucosal ulcerations or lesions of HP, SP, tonsillar fossa, or posterior pharyngeal wall. NO visible tongue lesions after crusting removed, no oral bleeding noted. Reassurance in regards to oral cavity/oropharynx. Recommend frequent oral care by nursing due to patient condition. I spend 25 minutes in review of records, examination and care of patient and documentation of condition.
--- NOTE | 2023-08-03 09:01 | P.PN ---
Date of Service: 08/03/23 Chief Complaint: Decubitus ulcer Subjective: No acute events overnight. Patient seen and examined at bedside. In no apparent distress. No new or worsening complaints at this time. Pending SNF. CM/SS following. Physical Examination Temp Pulse Resp BP Pulse Ox 97.1 F 103 H 17 133/60 100 08/03/23 07:01 08/03/23 07:01 08/03/23 07:01 08/03/23 07:01 08/03/23 07:01 General: In no apparent distress. Cachectic. Lethargic. HEENT: Atraumatic. Poor dentition. Dry oral mucosa. Respiratory: Diminished. Unlabored respiraitons. On 2L nasal cannula. Cardiovascular: Tachycardic. edema bilateral feet. Gastrointestinal: Normal bowel sounds. abdomen flat. PEG tube. Musculoskeletal: Generalized weakness. Contractures bilateral upper and lower extremities. Integumentary: Sacrum stage IV; right and left ankle stage II. Right knee stage II. Urinary: Reddy catheter Laboratory Data - Reviewed Microbiology Data - Reviewed Imagings Data: - Reviewed Medications List: - Reviewed Assessment And Plan Problem List Asthma Exacerbation Pulmonary edema vs pneumonia Pressure Ulcer Sacrum stage IV Anemia Severe protein-calorie malnutrition Osteomyelitis sacrum Patient was recently hospitalized in May during which he was diagnosed with osteomyelitis of sacrum/coccyx and discharged to SNF on Rocephin and Vancomycin to complete 6 weeks of IV antibiotic therapy from 05/22 to 07/03. - Due to recent hospitalizations and antibiotic use, patient was started on empiric Meropenem and Vancomycin 07/18. - Blood cultures 07/17: no growth to date - pressure injury sacrum stage IV: general surgery consulted, no debridement required at this time. - On 07/29 Patient developed temp 100.2F overnight and was started on cefepime and flagyl concern for aspiration pneumonia. Pneumonia vs Pulmonary Edema - Negative Influenza A&B - XR Chest 07/21: "Extensive bilateral pulmonary opacities probably representing pulmonary edema." - Completed 7 days meropenem and vancomycin (07/18-07/26) - XR Chest 07/30: "Stable or mildly progressive left mid to basilar airspace opacities concerning for pneumonia." Vancomycin (07/18-07/26) Meropenem (07/18-07/26) Fluconazole (07/20-07/25) Cefepime (07/29-08/02) Metronidazole (07/29-08/02) Recommendations - PNA: completed 5 days cefepime. Off antibiotics since 08/02. Afebrile. - Pressure Ulcers: Pressure offloading measures. Turn patient q2h, wedge pillows, low air-loss mattress. Offload pressure on heels and ankles. Heel protectors - Wound care per wound care team: sacrum, left and right ankle. - Reddy catheter care - Nutritional supplementation via PEG tube. - Aspiration precautions. Case discussed with Thaddeus Lozano
[2023-08-03] MEDS: SOD FERRIC GLUC COMPLX/SUCROSE 125 MG in NA CHLORIDE 0.9% 100 ML IV SCH (11:50)
--- NOTE | 2023-08-03 14:19 | P.DS ---
Admission Date: 07/17/23 Discharge Date: 08/03/23 Disposition: TRANSFER TO RETIREMENT Discharge Condition: FAIR Reason for Admission: Hypoxemia / Sacral Wound Brief History of Present Illness: 73-year-old male patient with history of bedbound state and contractures who also has sacral decubitus ulcers who came to the ED after having been brought by family member for with concerns for worsening infection. He had become more altered and there was concerns for infection in the sacral ulcer. Imaging studies done in ED was concerning for aspiration pneumonia and there was fecal contamination of sacral wounds. Patient was pancultured and started on broad- spectrum antibiotic therapy and he was admitted for inpatient care. Hospital Course: Diagnosis Sepsis secondary to infected stage IV decubitus ulcer / pneumonia Acute respiratory failure with hypoxia likely secondary to pulm edema / pneumonia Bilateral Pleural effusions, L > R Asthma exacerbation h/o recent osteomyelitis Iron deficiency Anemia, acute on chronic Ventricular tachycardia Severe Protein calorie malnutrition/electrolyte abnormalities Functional quadriplegia Sepsis secondary to infected stage IV decubitus ulcer / pneumonia Acute respiratory failure with hypoxia likely secondary to pulm edema / pneumonia Bilateral Pleural effusions, L > R Asthma exacerbation h/o recent osteomyelitis Previously treated for sacral osteomyelitis discharged to SNF on rocephin / vanc for 6 weeks (05/22-07/03). Patient completed 6 weeks of IV antibiotics Initially treated for sepsis to be secondary to infected stage IV decubitus ulcer and completed antibiotics Blood cx (07/21): No growth Completed 7 days of merrem / vanc (07/18-07/26) Cleared with fluconazole (07/18-07/25) dc'd d/t prolonged qtc Followed by empiric cefepime / flagyl (07/29-) to cover pneumonia ID followed patient and at this point recommend no further antibiotics. General surgery - Dr. Mckeon evaluated patient and recommended local wound care & medical management, no surgical intervention warranted at this time. continue local wound care: Vashe and Santyl packing damp to dry every day was done during the hospital stay. Dr. Mckeon now recommended white foam wound VAC which should also help decrease fecal contamination of the wound. Patient previously on BiPAP, and patient weaned down to oxygen by nasal cannula He was treated with bronchodilators as needed. Dr. Ren contreras evaluated patient and assisted with management. Patient was also treated briefly with IV Lasix for pulmonary edema/pleural effusion likely secondary to malnutrition Iron deficiency Anemia, acute on chronic suspect multifactorial secondary to iron deficiency / malnutrition iron studies 07/29 consistent with iron deficiency anemia No active GI bleed. Monitor H&H. Transfuse if hgb < 7 Patient received IV iron therapy for iron deficiency s/p 1 uPRBC (07/30) Hemoglobin has been stable. Ventricular tachycardia couple of runs of V. tach noted 07/25. He was transferred to the ICU for close monitoring and started on amiodarone drip. Transitioned to oral amio and out of the ICU (07/26); dc IV amio (07/27) Cardio consulted. Patient maintained on oral amiodarone. Severe Protein calorie malnutrition/electrolyte abnormalities Continued PEG tube feeding Patient placed on additional supplement Functional quadriplegia Bedridden. Frequent turning. Sacral decubitus ulcer stage IV Local wound care Right foam wound VAC as recommended by surgery Dr. Mckeon. Vital Signs/Physical Exam: Temp Pulse Resp BP Pulse Ox 97.1 F 103 H 17 133/60 100 08/03/23 07:01 08/03/23 07:01 08/03/23 07:01 08/03/23 07:01 08/03/23 07:01 General: Cachectic, Other (Awake) HEENT: Mucous membr. moist/pink Neck: JVD not distended Respiratory: Clear to auscultation bilaterally Cardiovascular: Normal S1 S2, Other (Bilateral feet edema) Gastrointestinal: Soft and benign, Non-distended, Other (PEG tube) Musculoskeletal: Swelling (Bilateral feet) Integumentary: Other (Stage IV sacral decubitus ulcer) Neurological: Other (Contracted extremities) Laboratory Data at Discharge: WBC 8.20 thou/uL (4.3-10.9) 08/03/23 06:16 Hgb 8.1 g/dL (13.6-17.9) L 08/03/23 06:16 Hct 24.3 % (39.6-49.0) L 08/03/23 06:16 Plt Count 253 thou/uL (152-406) 08/03/23 06:16 PT 14.5 SECONDS (9.5-12.5) H 07/17/23 14:35 INR 1.33 07/17/23 14:35 Sodium 138 mEq/L (136-145) 08/03/23 06:16 Potassium 3.8 mEq/L (3.5-5.1) 08/03/23 06:16 BUN 17 mg/dL (7-18) 08/03/23 06:16 Creatinine 0.46 mg/dL (0.70-1.30) L 08/03/23 06:16 Glucose 142 mg/dL (74-106) H 08/03/23 06:16 Phosphorus 2.7 mg/dL (2.5-4.9) 08/01/23 06:50 Magnesium 2.2 mg/dL (1.6-2.4) 08/03/23 06:16 Total Bilirubin 0.4 mg/dL (0.2-1.0) 08/03/23 06:16 AST 12 U/L (15-37) L 08/03/23 06:16 ALT 13 U/L (16-61) L 08/03/23 06:16 Alkaline Phosphatase 139 U/L (45-117) H 08/03/23 06:16 Lipase 30 U/L (13-75) 07/17/23 14:35 Home Medications: Ascorbic Acid 1 tab .ROUTE DAILY 05/21/23 Jevity 1.5 Sonido Liquid 50 ml RTH CONT 05/21/23 Pnv/Iron,Carb/Om-3/FA/Fat 1 [Multivitamin with Minerals Cap] 1 tab .ROUTE DAILY 05/21/23 Acetaminophen [Tylenol] 650 mg .ROUTE Q6HR 07/18/23 Aspirin Chewable [Aspirin Chewable*] 81 mg .ROUTE DAILY 07/18/23 Amiodarone HCl [Cordarone*] 200 mg PO BID tab 08/03/23 Guaifen W/Codeine Syrup [ROBITUSSIN A-C Syrup*] 10 ml PO QID PRN 08/03/23 Salvador [Salvador*] 1 pkt FT BID 08/03/23 Physician Discharge Instructions: Patient presented with confusion, worsening chronic decubitus ulcer. Patient had elevated white count. Urinalysis positive for yeast otherwise unremarkable. ID and General surgery were consulted. Patient completed 7 days empiric vanc / merrem given recent history of sacral osteomyelitis. Blood cultures on 07/17 and repeat cultures 07/21 both were without growth. Discussed with Dr. Mckeon who recommend local wound care & medical management, no surgical intervention warranted at this time. During his hospitalization, patient was noted to also receive fluconazole to cover yeast component. Patient noted to develop couple runs of V. tach with HR in 200s 07/25 evening. Patient was transferred to ICU, and started on an amiodarone drip. EKG noted prolonged qtc. Abx / fluconazole were discontinued. Cardiology was consulted. Heart rate improved. amiodarone drip was deescalated to PO amiodarone 07/26. No further episodes. CTA chest done 07/27 noted Left perihilar patchy airspace opacities. bilateral effusions L > R. no PE. Please apply white foam wound vac to wound. Diet: Jevity tube feeding 50 ml/hr. Free water flushes 240ml q 4 hours. Please perform oral care twice a day. Medications: Follow up: PCP 3-5 days Cardio 1-2 weeks Pulm 1-2 weeks General surgery ~1 week Activity: Fall precautions Followup: Unknown,U [Primary Care Provider] - Time spent managing pt's care (in minutes): 40
[2023-08-03 15:06] LABS: SARS-CoV-2 Antigen Rapid Res Negative (Negative)
== END 2023-08-03 17:00 | DRG 871 ==
LOC: ER 14:21 → ERHOLD 20:15 → 2ND 07-18 07:46 → 3RD-ICU 07-25 18:26 → 4TH 07-26 16:19
PROVIDERS: ADMIT Internal Medicine Nephrology; ATTEND Internal Medicine
PROC: 5A09557 Assistance with Respiratory Ventilation, Greater than 96 Consecutive Hours, Continuous Positive Airway Pressure (ICD-10-PCS; principal; 2023-07-17)
PROC: 4A033R1 Measurement of Arterial Saturation, Peripheral, Percutaneous Approach (ICD-10-PCS; 2023-07-17)
PROC: 30233N1 Transfusion of Nonautologous Red Blood Cells into Peripheral Vein, Percutaneous Approach (ICD-10-PCS; 2023-07-30)
DX: A41.9 Sepsis, unspecified organism (principal); E43 Unspecified severe protein-calorie malnutrition; J69.0 Pneumonitis due to inhalation of food and vomit; L89.154 Pressure ulcer of sacral region, stage 4; R53.2 Functional quadriplegia; J96.21 Acute and chronic respiratory failure with hypoxia; I48.19 Other persistent atrial fibrillation; R64 Cachexia; Z68.1 Body mass index [BMI] 19.9 or less, adult; J45.901 Unspecified asthma with (acute) exacerbation; I47.20 Ventricular tachycardia, unspecified; E87.3 Alkalosis; M46.28 Osteomyelitis of vertebra, sacral and sacrococcygeal region; R65.20 Severe sepsis without septic shock; I10 Essential (primary) hypertension; E83.51 Hypocalcemia; D50.9 Iron deficiency anemia, unspecified; E87.6 Hypokalemia; D63.8 Anemia in other chronic diseases classified elsewhere; L89.522 Pressure ulcer of left ankle, stage 2; L89.512 Pressure ulcer of right ankle, stage 2; F17.200 Nicotine dependence, unspecified, uncomplicated; Z74.01 Bed confinement status; Z79.01 Long term (current) use of anticoagulants; Z11.52 Encounter for screening for COVID-19; Z79.82 Long term (current) use of aspirin; Z79.899 Other long term (current) drug therapy
CPT/HCPCS: 36415; 36600; 71045; 71275; 80048; 80053; 80076; 80202; 81001; 82728; 82805; 82947; 83540; 83605; 83690; 83735; 83880; 84100; 84132; 84145; 84443; 84466; 84484; 85014; 85018; 85025; 85027; 85610; 86850; 86900; 86901; 86920; 87040; 87804; 87811; 93005; 94660; 94760; 96361; 96365; 96366; 96367; 96368; 96375; 97110; 97161; 97530; 99285; J0282; J0692; J1160; J1450; J1650; J1940; J2185; J2543; J2916; J2930; J3480; J7030; J7040; J7050; J7060; J7613; J7614; J7644; P9016; Q9967

== ENCOUNTER 2023-08-18 20:18 | Emergency (ER) | payer OTHER ==
[2023-08-18] MEDS ORDERED: ETOMIDATE 20 MG/10 ML VIAL IV ONE (20:32)
[2023-08-18] MEDS ORDERED: ROCURONIUM 50 MG/5 ML VIAL IV ONE (20:32)
[2023-08-18] MEDS ORDERED: MIDAZOLAM HCL IN 0.9 % NACL/PF 100 MG/100 ML BAG IVPB ONE (20:32)
[2023-08-18] MEDS ORDERED: NA CHLORIDE 0.9% 1,000 ML ONE (20:49)
--- NOTE | 2023-08-18 21:23 | RAD REPORT ---
EXAM DESCRIPTION: RAD - Chest Single View - 08/18/2023 9:16 pm CLINICAL HISTORY: POST ETT Chest pain. COMPARISON: Chest Single View dated 07/30/2023; Chest Single View dated 07/28/2023; Chest Single View da kofi 07/27/2023; Chest Single View dated 07/21/2023 FINDINGS: Portable technique limits examination quality. Endotracheal tube is in place with its tip about 1 cm above the superior aortic arch. Enteric tube de scends into the stomach. Left-sided venous catheter tip in the SVC. The lungs are grossly clear. No p neumothorax.The heart is upper limit normal in size.
[2023-08-18 21:40] LABS: Blood O2 Saturation 99.5 % (92-98.5)
[2023-08-18 21:57] LABS: Albumin 2.1 g/dL (3.4-5.0); Bilirubin Direct 0.4 mg/dL (0-0.2); Bilirubin Indirect, Calculated 0.1 mg/dL (0.2-0.8); Bilirubin Total 0.5 mg/dL (0.2-1.0); Magnesium 1.9 mg/dL (1.6-2.4); Potassium 3.6 mEq/L (3.5-5.1); Protein, Total 6.6 g/dL (6.4-8.2)
[2023-08-18] MEDS ORDERED: NA CHLORIDE 0.9% 2,000 ML ONE (22:00)
[2023-08-18] MEDS ORDERED: VANCOMYCIN 1 GM/VIAL ONE (22:00)
[2023-08-18] MEDS ORDERED: NA CHLORIDE 0.9% 250 ML ONE (22:00)
[2023-08-18] MEDS ORDERED: NA CHLORIDE 0.9% 100 ML ONE (22:01)
[2023-08-18] MEDS ORDERED: PIPERACIL/TAZO 3.375 GM VIAL IV ONE (22:01)
[2023-08-18 22:08] LABS: Troponin High Sensitivity 90.1 pg/mL (<58.9)
[2023-08-18 22:16] LABS: SARS-CoV-2 Antigen Rapid Res Negative (Negative)
[2023-08-18 22:19] LABS: Absolute Lymphocytes (CBC) 0.5 K/uL (0.7-4.9); Hematocrit 27.8 % (39.6-49.0); Lymphocytes % 5.3 % (15.3-44.8); MCV 91.6 fL (80-100); MPV 10.4 fL (7.6-11.3); Platelets 199 thou/uL (152-406); RBC Red Blood Cell Count 3.04 M/uL (4.33-5.43)
[2023-08-18 22:25] LABS: Protime INR 3.59
[2023-08-18] MEDS ORDERED: NA CHLORIDE 0.9% 50 ML ONE (23:08)
[2023-08-18] MEDS ORDERED: FENTANYL CITR 100 MCG/2 ML ONE (23:08)
[2023-08-18 23:09] LABS: Anisocytosis 1+; Blood Morphology Comment NOTED (NOT SEEN); Platelet Estimate ADEQ
--- NOTE | 2023-08-18 23:51 | ER ---
Nurse's Notes [facility] Name: Alex Madrid Jr Age: 73 yrs Sex: Male : 1950 Arrival Date: 08/18/2023 Time: 20:18 Bed 2 Private MD: Diagnosis: Other pneumonia, unspecified organism;Acute multifocal bilateral pneumonia, sepsis without septic shock, dehydration with hypovolemia, respiratory failure with hypoxemia, physical debility, immobility complications, infected sacral decubitus ulcer, bilateral lower extremity heel ulcers. Presentation: 08/18 20:38 Chief complaint: EMS states: toned out by nursing facility for O2 saturation in 80s and tm6 possible aspiration. Coronavirus screen: Vaccine status: Patient reports receiving the 2nd dose of the covid vaccine. Ebola Screen: Patient negative for fever greater than or equal to 101.5 degrees Fahrenheit, and additional compatible Ebola Virus Disease symptoms Patient denies exposure to infectious person. Patient denies travel to an Ebola-affected area in the 21 days before illness onset. No symptoms or risks identified at this time. Initial Sepsis Screen: Does the patient meet any 2 criteria? RR > 20 per min. HR > 90 bpm. Does the patient have a suspected source of infection? No. Patient's initial sepsis screen is negative. Risk Assessment: Do you want to hurt yourself or someone else? Patient reports no desire to harm self or others. Onset of symptoms was August 18, 2023. 20:38 Method Of Arrival: EMS: [facility] tm6 20:38 Acuity: JOSEPHINE 2 tm6 Triage Assessment: 20:40 General: Appears distressed, Behavior is flat. Pain: Denies pain. EENT: No signs and/or tm6 symptoms were reported regarding the EENT system. Neuro: Level of Consciousness is obtunded, Oriented to none contracted extremities. Cardiovascular: Rhythm is sinus tachycardia. Respiratory: Airway is patent Respiratory effort is labored, Respiratory pattern is tachypnea. GI: PEG tube. : No signs and/or symptoms were reported regarding the genitourinary system. Derm: No signs and/or symptoms reported regarding the dermatologic system. Musculoskeletal: No signs and/or symptoms reported regarding the musculoskeletal system. Historical: - PMHx: 20:40 Asthma; Hypertension; Dementia; Peripheral vascular disease; pulmonary hypertension; tm6 copd; - PSHx: 20:40 PEG tube; tm6 - Immunization history:: Adult Immunizations up to date. - Social history:: Smoking status: unknown. - Family history:: not pertinent. Screenin:50 [facility] ED Fall Risk Assessment (Adult) History of falling in the last 3 months, tm6 including since admission. Abuse screen: Denies threats or abuse. Denies injuries from another. Nutritional screening: No deficits noted. Tuberculosis screening: No symptoms or risk factors identified. Assessment: 20:18 General: EMS states was at bedside at intermediate and wants everything done vc1 possible, patient is a full code.. 20:39 Respiratory: Ventilator assessment: ET Tube: 8.0 24cm at teeth. tm6 20:41 GI: Oral gastric tube in place, 14 fr. tm6 20:49 Reassessment: see triage assessment. tm6 20:52 Derm: Parent/caregiver reports the patient having sacral pressure ulcer with wound vac, tm6 bilateral ankle pressure ulcers. 20:52 Reassessment: Asked if she wants everything done and states yes, do vc1 everything. Asked if she would sign the consent for the central line and intubation and states, "what does it matter now, you already did it.". 21:30 Reassessment: No changes from previously documented assessment. tm6 22:30 General: Appears in no apparent distress. Respiratory: Airway is patent Respiratory tm6 effort is even, unlabored, Respiratory pattern is regular, symmetrical. 23:30 Reassessment: No changes from previously documented assessment. Patient and/or family tm6 updated on plan of care and expected duration. Pain level reassessed. 08/19 00:30 Reassessment: No changes from previously documented assessment. Patient and/or family tm6 updated on plan of care and expected duration. Pain level reassessed. 01:31 Reassessment: report called to DAYANA Shepard from [facility] in the [place] ICU. km8 02:47 Reassessment: Patient appears in no apparent distress at this time. No changes from tm6 previously documented assessment. Vital Signs: 08/18 20:38 BP 157 / 90; Pulse 126; Resp 36; Temp 99.8(TE); Pulse Ox 100% on non rebreather; tm6 21:00 BP 146 / 86; Pulse 128; Resp 16; tm6 21:03 BP 136 / 89; Pulse 124; tm6 21:15 BP 145 / 83; Pulse 115; tm6 21:30 BP 147 / 84; Pulse 109; tm6 21:32 Weight 58.9 kg; Height 5 ft. 9 in. ; vc1 21:45 BP 147 / 84; Pulse 110; Resp 16; tm6 22:00 BP 150 / 82; Pulse 108; Resp 16; Pulse Ox 100% on ETT vent; tm6 22:15 BP 161 / 89; Pulse 109; Resp 16; Pulse Ox 100% on ETT vent; tm6 23:06 BP 151 / 80; Pulse 120; Resp 16; Pulse Ox 97% on ETT vent; tm6 23:39 BP 137 / 74; Pulse 120; Resp 16; Pulse Ox 92% on ETT vent; tm6 23:45 BP 126 / 71; Pulse 120; Resp 16; Pulse Ox 92% on ETT vent; tm6 08/19 00:00 BP 121 / 73; Pulse 120; Resp 16; Pulse Ox 95% on ETT vent; tm6 00:15 BP 116 / 67; Pulse 121; Resp 16; Pulse Ox 93% on ETT vent; tm6 00:30 BP 117 / 70; Pulse 120; Resp 16; Pulse Ox 98% on ETT vent; tm6 00:45 BP 112 / 66; Pulse 120; Resp 16; Pulse Ox 100% on ETT vent; tm6 01:00 BP 104 / 67; Pulse 119; Resp 16; Pulse Ox 100% on ETT vent; tm6 01:15 BP 110 / 72; Pulse 117; Resp 21; Pulse Ox 98% on ETT vent; tm6 01:30 BP 105 / 70; Pulse 116; Resp 21; Pulse Ox 95% on ETT vent; tm6 01:45 BP 104 / 66; Pulse 117; Resp 22; Pulse Ox 98% on ETT vent; tm6 02:00 BP 106 / 68; Pulse 116; Resp 21; Pulse Ox 98% on ETT vent; tm6 02:15 BP 123 / 77; Pulse 116; Resp 27; Pulse Ox 98% on ETT vent; tm6 02:30 BP 102 / 69; Pulse 117; Resp 24; Pulse Ox 98% on ETT vent; tm6 08/18 21:32 Body Mass Index 19.18 (58.90 kg, 175.26 cm) vc1 ED Course: 01/24 20:30 Inserted saline lock: 18 gauge in right EJ, using aseptic technique. ,using aseptic vc1 technique. By provider. 20:31 Patient arrived in ED. nj1 20:37 Main Powell MD is Attending Physician. kb 20:38 Ariel Post, RN is Primary Nurse. tm6 20:39 Assisted provider with central line placement. Line placed by Main Powell MD tm6 Assisted provider with intubation using 8.0 mm ETT Intubated by Main Powell MD. 20:40 Triage completed. tm6 20:40 Arm band placed on left wrist. tm6 20:40 Mars cath inserted, using sterile technique, 16 Fr., by me, balloon inflated, to vc1 gravity drainage, returned no urine at this time. Patient tolerated well. critcore mars. 20:50 Patient has correct armband on for positive identification. Bed in low position. Side tm6 rails up X2. Provided Education on: plan of care. Client placed on continuous cardiac and pulse oximetry monitoring. NIBP monitoring applied. electronic device monitor on. 21:16 initiated transfer with natalie at [facility]. [facility] 21:18 Chest Single View XRAY In Process Unspecified. EDMS 21:49 Influenza Screen (a \\T\\ B) Sent. tm6 21:49 SARS RAPID Sent. tm6 22:07 Notified ED physician of a critical lab result(s). Trop 90, lactate 2.2. vc1 22:40 doc to doc. [facility] 23:03 CT Chest, Abdomen, Pelvis - W/Contrast In Process Unspecified. EDMS 08/19 00:50 called in regards to bed update. jeanna let me know they are moving a pt out of ICU to [facility] make room. will call back with MOT once done. 01:03 dandre madsen called with admin approval \\[id number]\\ [id number]. accepting Manolo Amador [id number]. pt will [facility] go to [facility] ICU bed 265. Number for nurse to nurse report is [phone]. Faxed pt facesheet and covid results to [phone]. [facility] to transfer pt, per family request. ETA 15-20. Administered Medications: 08/18 20:38 Drug: Etomidate IVP 40 mg IVP once Route: IVP; Site: right jugular; vc1 21:20 Drug: NS 0.9% IV 1000 ml IV at 1 bolus Per protocol; 1000 mL bolus Route: IV; Rate: 1 vc1 bolus; Site: right jugular; 21:22 Drug: Rocuronium IVP 100 mg IVP once Route: IVP; Site: right jugular; vc1 21:33 Drug: Midazolam IVP or IV 0.01 mg/kg/h IV at calculated rate See Administration vc1 Instructions; (Standard concentration: 100 mg / 100 mL NS); Recommended max rate 0.1 mg/kg/hr; Titrate 0.01 mg/kg/hr as often as every 30 minutes to achieve goal (see titration policy); Goal parameter RASS 0 to -2 Route: IV; Rate: calculated rate; Site: left jugular; 22:22 Drug: NS 0.9% IV 1000 ml IV at 1 bolus Per protocol; 1000 mL bolus Route: IV; Rate: 1 tm6 bolus; Site: Other; 22:22 Follow up: IV Intake: 1000ml tm6 22:22 Drug: NS 0.9% IV 1000 ml IV at 125 ml/hr continuous Route: IV; Rate: 125 ml/hr; Site: tm6 Other; 22:23 Drug: Piperacillin-Tazobactam IVPB 3.375 grams IVPB once over 60 mins; (mix in NS 100 tm6 mL) Route: IVPB; Infused Over: 60 mins; Site: Other; 23:04 Drug: vancoMYCIN IVPB 1 grams IVPB once over 2 hrs Route: IVPB; Infused Over: 2 hrs; tm6 Site: Other; 23:26 Drug: fentaNYL (PF) IV 25 mcg/kg/h IV at calculated rate See Administration tm6 Instructions; (Standard concentration 500 mcg / 50 mL NS [10 mcg / 1 mL); Recommended max rate 4 mcg/kg/hr; Titrate 0.25 mcg/kg/hr as often as every 3 minutes to achieve goal (see titration policy); Goal parameter RASS score 0 to -2 Route: IV; Rate: ml/hr; Site: Other; 08/19 01:34 Drug: Meropenem IV 1 grams IV at calculated rate once; (mix in NS 100 mL) Route: IV; tm6 Rate: calculated rate; Site: Other; 01:35 Drug: D5-NS IV 1000 ml IV at 125 ml/hr continuous Route: IV; Rate: 125 ml/hr; Site: tm6 Other; 01:35 Drug: Albuterol Inhalation 2.5 mg Inhalation once Route: Inhalation; tm6 01:35 Drug: Solu-CORTEF IVP 100 mg IVP once Route: IVP; Site: Other; tm6 02:21 Drug: Sodium Bicarbonate IVP 1 amp IVP once; (50 mL); equals 50 mEq Route: IVP; Site: tm6 Other; Medication: 08/18 20:50 VIS not applicable for this client. tm6 Intake: 22:22 IV: 1000ml; Total: 1000ml. tm6 Outcome: 23:51 ER care complete, transfer ordered by sp4 08/19 03:36 Patient left the ED. km8 Signatures: Dispatcher [employer] EDMS Davida Tellez FNP-C FNP-Asha Morel RN RN vc1 Main Powell MD MD sp4 Maite Duong RN RN nj1 Daria Mendosa [facility] Angela Robertson RN RN km8 Ariel Post RN RN tm6
--- NOTE | 2023-08-18 23:52 | EDPHYS ---
Physician Documentation [facility] Name: Alex Madrid Jr Age: 73 yrs Sex: Male : 1950 Arrival Date: 08/18/2023 Time: 20:18 Bed 2 Private MD: ED Physician Main Powell HPI: 08/18 21:12 This 73 yrs old Black Male presents to ER via EMS with complaints of Respiratory sp4 distress, fever . 21:12 Patient is 73-year-old male who presents with acute severe respiratory distress and sp4 hypoxemia based on EMS report. Patient was in the 80s at the custodial. Nonrebreather improved saturation to 99%. On arrival patient is tachypneic and severe respiratory distress also appears to be immobilized chronically demented. ROS in [facility] is not available. Patient has history of osteomyelitis of vertebral sacral sacrococcygeal region, peripheral vascular disease, sepsis, protein calorie malnutrition, nicotine dependence, dementia, essential hypertension, COPD, asthma, COVID-19, prolonged immobility, generalized weakness, dysphagia, cognitive communication deficit, pulmonary disease, history of alcohol use, pressure ulcer to sacrum and bilateral heels. Patient is full code based on custodial report. . Patient's medications include acetaminophen, amiodarone, sorbic acid, Eliquis 5 mg twice a day, guaifenesin, multivitamins, Tylenol 3, zinc. . Historical: - PMHx: 20:40 Asthma; Hypertension; Dementia; Peripheral vascular disease; pulmonary hypertension; tm6 copd; - PSHx: 20:40 PEG tube; tm6 - Immunization history:: Adult Immunizations up to date. - Social history:: Smoking status: unknown. - Family history:: not pertinent. ROS: 21:12 Constitutional: Positive for fever and respiratory distress otherwise full ROS is not sp4 available secondary to nonverbal status Eyes: Not available 21:12 All other systems are negative, 21:12 Unable to obtain ROS due to patient is in a persistent vegetative state, Exam: 21:12 Constitutional: Patient has chronically immobilized thin appearing male, multiple sp4 contractures, signs of prolonged immobility, severe respiratory distress, tachypnea, retractions, tachycardia, accessory muscle use, gastrostomy tube, bilateral chronic heel ulcers, sacral decubitus ulcer with a wound VAC in place, continent of bowel and bladder, nonverbal Head/Face: Normocephalic, atraumatic. Eyes: Pupils equal round and reactive to light, otherwise exam is limited ENT: Nares patent. No nasal discharge, no septal abnormalities noted. Tympanic membranes are normal and external auditory canals are clear. Oropharynx with redness, multiple inspissated secretions, foamy discharge, poor dentition. Neck: Trachea midline, no thyromegaly or masses palpated, and no cervical lymphadenopathy. There is chronic contractures with associated neck rigidity. Chest/axilla: Normal chest wall appearance and motion. Nontender with no deformity. No lesions are appreciated. Cardiovascular: Tachycardia, sinus tachycardia on monitor, poor peripheral access, no gallops, murmurs, or rubs. Normal PMI, no JVD. No pulse deficits. Respiratory: Lungs have equal breath sounds bilaterally, clear to auscultation and percussion. No rales, rhonchi or wheezes noted. No increased work of breathing, no retractions or nasal flaring. Abdomen/GI: Soft, non-tender, with normal bowel sounds. No distension or tympany. Gastrostomy tube present Back: No spinal tenderness. No costovertebral tenderness. Male : Normal genitalia with no discharge or lesions. Continent of bowel and bladder, Reddy catheter placed on arrival Skin: Warm, dry with normal turgor. Normal color with no rashes, no lesions, and no evidence of cellulitis. MS/ Extremity: Pulses equal, no cyanosis. Neurovascular intact. Full, normal range of motion. Neuro: Obtunded, appears nonverbal, multiple contractures from prolonged immobility, exam is limited, appears cachectic, no new neurologic deficits reported. 23:59 ECG was reviewed by the Attending Physician. 21:50 sinus tachycardia at the rate of sp4 114 Vital Signs: 20:38 BP 157 / 90; Pulse 126; Resp 36; Temp 99.8(TE); Pulse Ox 100% on non rebreather; tm6 21:00 BP 146 / 86; Pulse 128; Resp 16; tm6 21:03 BP 136 / 89; Pulse 124; tm6 21:15 BP 145 / 83; Pulse 115; tm6 21:30 BP 147 / 84; Pulse 109; tm6 21:32 Weight 58.9 kg; Height 5 ft. 9 in. ; vc1 21:45 BP 147 / 84; Pulse 110; Resp 16; tm6 22:00 BP 150 / 82; Pulse 108; Resp 16; Pulse Ox 100% on ETT vent; tm6 22:15 BP 161 / 89; Pulse 109; Resp 16; Pulse Ox 100% on ETT vent; tm6 23:06 BP 151 / 80; Pulse 120; Resp 16; Pulse Ox 97% on ETT vent; tm6 23:39 BP 137 / 74; Pulse 120; Resp 16; Pulse Ox 92% on ETT vent; tm6 23:45 BP 126 / 71; Pulse 120; Resp 16; Pulse Ox 92% on ETT vent; tm6 08/19 00:00 BP 121 / 73; Pulse 120; Resp 16; Pulse Ox 95% on ETT vent; tm6 00:15 BP 116 / 67; Pulse 121; Resp 16; Pulse Ox 93% on ETT vent; tm6 00:30 BP 117 / 70; Pulse 120; Resp 16; Pulse Ox 98% on ETT vent; tm6 00:45 BP 112 / 66; Pulse 120; Resp 16; Pulse Ox 100% on ETT vent; tm6 01:00 BP 104 / 67; Pulse 119; Resp 16; Pulse Ox 100% on ETT vent; tm6 01:15 BP 110 / 72; Pulse 117; Resp 21; Pulse Ox 98% on ETT vent; tm6 01:30 BP 105 / 70; Pulse 116; Resp 21; Pulse Ox 95% on ETT vent; tm6 01:45 BP 104 / 66; Pulse 117; Resp 22; Pulse Ox 98% on ETT vent; tm6 02:00 BP 106 / 68; Pulse 116; Resp 21; Pulse Ox 98% on ETT vent; tm6 02:15 BP 123 / 77; Pulse 116; Resp 27; Pulse Ox 98% on ETT vent; tm6 02:30 BP 102 / 69; Pulse 117; Resp 24; Pulse Ox 98% on ETT vent; tm6 08/18 21:32 Body Mass Index 19.18 (58.90 kg, 175.26 cm) vc1 Procedures: 08/18 21:20 Intubation: Ventilated with 100% NRB prior to procedure. O2 saturation prior to sp4 procedure was 99 %. Intubated [place] scope assisted intubation using S4 lighted glide scope blade with 8.0 mm ETT. was successful on first attempt. Ventilated with Ambu bag. ventilator. Tube secured with ETT avelar at center of mouth measured 23 cm at lip. Placement verified by CXR, CO2 detector with (+) color change, auscultating bilateral breath sounds, O2 saturation after procedure was 100 %. Patient tolerated well, Intubated with RSI. Central Line: the site was prepped with in sterile fashion, Chlorhexidine , a triple lumen catheter was inserted, in the left internal jugular vein, in 1 attempts. placement was verified, by CXR, by blood return, Ultrasound assisted CVL , the site was dressed with Tegaderm, using sterile technique, the patient tolerated the procedure, well, Triple-lumen left internal jugular CVL placed with ultrasound. MDM: 20:37 Patient medically screened. kb 23:14 Differential Diagnosis altered mental status, sepsis, flu. Data reviewed: vital signs, sp4 nurses notes, EMS record, old medical records, lab test result(s), EKG, radiologic studies, CT scan, plain films. Consideration of Admission/Observation Patient was admitted/placed on observation. Escalation of care including admission/observation considered. ED course: Be managed to secure transfer to [facility] ICU. ED course: Last admission the record 07/17/2023 with a discharge date 08/03/2023 with discharge to custodial. Patient was admitted for sacral wound with osteomyelitis and hypoxemia. Patient has been noted to have history of long-term contracture secondary to immobilization and sacral decubitus ulcer with a wound infection. At that time images also were positive for aspiration pneumonia and fecal contamination of sacral wound. Patient was admitted for sepsis secondary to infected stage IV decubitus ulcer, aspiration pneumonia, acute respiratory failure with hypoxia, bilateral pleural effusions, asthma exacerbation, history of recurrent osteomyelitis, iron deficiency anemia acute on chronic, ventricular tachycardia, severe protein calorie malnutrition, electrolyte anomalies, functional quadriplegia. Patient was managed with meropenem, fluconazole, empiric cefepime. General surgeon has evaluated patient and applied wound VAC to the sacral decubitus ulcer. Patient was managed with BiPAP and weaned down to oxygen by nasal cannula. Patient was managed with gastrostomy tube feedings for protein calorie malnutrition. Discharged to custodial with Jevity feeding, multivitamins, chewable aspirin by PEG tube, amiodarone, guaifenesin with codeine, and [place].. 23:48 ED course: EXAM: 1. CT scan of the CHEST with intravenous contrast. 2. CT scan of the sp4 ABDOMEN AND PELVIS with intravenous contrast CLINICAL DATA: 73 years Male FEVER. TECHNICAL DATA: CT imaging of the chest, abdomen and pelvis with intravenous contrast administration. Sagittal and coronal reconstructed images were performed. The CT study is performed according to ALARA (as low as reasonably achievable) or ALARA/IMAGE GENTLY, with automatic adjustment of mA and/or kV according to patient size. Performed on: 08/18/2023 at 10:50 PM Comparisons: CT chest with contrast performed on 07/27/[address] abdomen and pelvis with contrast performed on 05/21/2023 FINDINGS: CHEST: Lungs:The lungs are well expanded. There is bilateral perihilar and bibasilar dense airspace disease which may be due to edema or multifocal pneumonia. There are no pleural effusions. There is no pneumothorax. Heart: The heart is normal in size. There is no pericardial effusion. There are mild coronary artery calcifications. A left IJ central venous catheter is present which terminates in the cavoatrial junction. An endotracheal tube terminates above the alyssa. The feeding tube is present which terminates in the stomach. Mediastinum:The mediastinum is unremarkable. The mediastinal vessels are normal in caliber and contour. Bones:No acute osseous abnormalities are identified. Soft tissues:No focal soft tissue abnormalities are identified. The thyroid gland is normal in size and configuration. Lymphadenopathy: No pathologic hilar, mediastinal or axillary lymphadenopathy is identified. ABDOMEN/PELVIS: Liver:The liver is normal in size and configuration. No focal hepatic abnormalities are identified. Liver attenuation is within normal limits. Spleen:The spleen is normal in size, configuration and attenuation. Gallbladder and bile duct: The gallbladder is well distended. There is increased density layering within the dependent portion of the gallbladder consistent with cholelithiasis. There is no biliary ductal dilatation. Pancreas: The pancreas is grossly normal in size and configuration. Adrenal Glands:The adrenal glands are grossly normal in size and configuration. Kidneys:The kidneys are normal in size and configuration. There is no evidence of hydronephrosis. There is no evidence of nephrolithiasis. There are peripheral wedge-shaped perfusion defects along the periphery of both kidneys which may be related to renal infarcts versus possible pyelonephritis. Stomach:The stomach is grossly normal. There is no definite hiatal hernia. A feeding tube extends into the stomach. A percutaneous gastrostomy tube is also present in satisfactory position. Bowel:The bowel gas pattern is non specific and non obstructive. There is moderate fecal residue scattered throughout the colon and rectum. A fecal impaction is not excluded. Appendix: The appendix is normal. Free air:There is no evidence of free air. Free fluid: There is no evidence of free fluid. Vasculature: The aorta is normal in caliber and contour. The inferior vena cava is grossly unremarkable. There are atherosclerotic calcifications along the abdominal aorta and iliac arteries. Lymphadenopathy: No pathologic lymphadenopathy is identified. Bladder: The bladder is well distended and smooth in contour. A Reddy catheter is present in the bladder. There is air in the bladder which is likely iatrogenic in nature related to the presence of a Reddy catheter. A gas forming infection cannot be entirely excluded. Reproductive: The prostate gland is grossly within normal limits. Bones: No acute osseous abnormalities are identified. There are degenerative changes of the lumbar spine most pronounced at L5-S1, similar to the prior study. Soft tissues: There appears to be a superficial wound involving the right posterior sacral soft tissues with overlying bandage material IMPRESSION: CT CHEST: 1. Bilateral perihilar and bibasilar dense airspace disease which may be due to edema or multifocal pneumonia. 2. No definite CT evidence to suggest acute or chronic pulmonary embolism, aortic aneurysm or aortic dissection. 3. Support tubes and lines as described above. CTABDOMEN AND PELVIS: 1. Cholelithiasis. 2. Moderate fecal residue scattered throughout the colon and rectum. A fecal impaction is not excluded. 3. Peripheral wedge-shaped perfusion defects along the periphery of both kidneys which may be related to renal infarcts versus possible pyelonephritis. 4. Air in the bladder which is likely iatrogenic in nature related to the presence of a Reddy catheter. A gas forming infection cannot be entirely excluded. 5. Suspect superficial wound involving the right posterior sacral soft tissues with overlying bandage material. 6. Degenerative changes of the lumbar spine most pronounced at L5-S1, similar to the prior study. These findings were discussed with Dr. Powell on 08/18/2023 at 11:39 PM central time.. 08/19 01:01 Management of patient was discussed with the following: Micromatic Hone Operator: Earth Mover. sp4 Special discussion: Based on the history and exam findings, there is no indication for further emergent testing or inpatient evaluation. I discussed with the patient/guardian the need to see the infectious disease specialist for further evaluation of the symptoms. ED course: Sepsis reevaluation complete, weight-based septic fluid bolus was given. . 08/18 21:05 Order name: Blood Culture Adult (2) [facility] 08/18 21:05 Order name: CBC with Diff; Complete Time: 23:48 [facility] 08/18 21:05 Order name: CMP; Complete Time: 22:39 [facility] 08/18 21:05 Order name: Lactate w/ 2H reflex if indic.; Complete Time: 22:39 [facility] 08/18 21:05 Order name: Protime (+inr); Complete Time: 22:39 [facility] 08/18 21:05 Order name: Ptt, Activated; Complete Time: 22:39 [facility] 08/18 21:05 Order name: ABG; Complete Time: 21:58 [facility] 08/18 21:05 Order name: Basic Metabolic Panel [facility] 08/18 21:05 Order name: D-Dimer; Complete Time: 22:39 [facility] 08/18 21:05 Order name: LFT's; Complete Time: 22:39 [facility] 08/18 21:05 Order name: Magnesium; Complete Time: 22:39 [facility] 08/18 21:05 Order name: NT PRO-BNP; Complete Time: 22:39 [facility] 08/18 21:05 Order name: Troponin HS; Complete Time: 22:39 [facility] 08/18 21:11 Order name: SARS RAPID; Complete Time: 22:39 [facility] 08/18 21:11 Order name: Influenza Screen (a \T\ B); Complete Time: 23:48 [facility] 08/18 22:24 Order name: Manual Differential; Complete Time: 23:48 [facility] 08/19 01:27 Order name: Lactate Sepsis 2 HR Follow-up; Complete Time: 01:52 [facility] 08/18 21:05 Order name: Chest Single View XRAY; Complete Time: 21:58 [facility] 08/18 21:11 Order name: CT Chest, Abdomen, Pelvis - W/Contrast [facility] 08/18 21:05 Order name: EKG; Complete Time: 21:06 [facility] 08/18 21:05 Order name: Accucheck; Complete Time: 23:41 [facility] 08/18 21:05 Order name: Cardiac monitoring; Complete Time: 21:22 vc1 01/24 21:05 Order name: Cath; Complete Time: 08/18 21:05 Order name: EKG - Nurse/Tech; Complete Time: 08/18 21:05 Order name: IV Saline Lock - Large Bore; Complete Time: :08/18 21:05 Order name: Labs collected and sent; Complete Time: :08/18 21:05 Order name: O2 Per Protocol; Complete Time: :08/18 21:05 Order name: O2 Sat Monitoring; Complete Time: :08/18 21:05 Order name: Vital Signs; Complete Time: :08/18 21:05 Order name: IV Saline Lock; Complete Time: 08/18 21:05 Order name: Central Line Kit; Complete Time: : EC/24 23:59 Rate is 114 beats/min. Rhythm is regular, Sinus tachycardia. QRS [place] is Normal. [place] sp4 interval is normal. QRS interval is normal. QT interval is normal. No Q waves. T waves are Normal. No ST changes noted. Clinical impression: No evidence of ischemia. Interpreted by me. Reviewed by me. Administered Medications: 20:38 Drug: Etomidate IVP 40 mg IVP once Route: IVP; Site: right jugular; vc1 21:20 Drug: NS 0.9% IV 1000 ml IV at 1 bolus Per protocol; 1000 mL bolus Route: IV; Rate: 1 vc1 bolus; Site: right jugular; 21:22 Drug: Rocuronium IVP 100 mg IVP once Route: IVP; Site: right jugular; vc1 21:33 Drug: Midazolam IVP or IV 0.01 mg/kg/h IV at calculated rate See Administration vc1 Instructions; (Standard concentration: 100 mg / 100 mL NS); Recommended max rate 0.1 mg/kg/hr; Titrate 0.01 mg/kg/hr as often as every 30 minutes to achieve goal (see titration policy); Goal parameter RASS 0 to -2 Route: IV; Rate: calculated rate; Site: left jugular; 22:22 Drug: NS 0.9% IV 1000 ml IV at 1 bolus Per protocol; 1000 mL bolus Route: IV; Rate: 1 tm6 bolus; Site: Other; 22:22 Follow up: IV Intake: 1000ml tm6 22:22 Drug: NS 0.9% IV 1000 ml IV at 125 ml/hr continuous Route: IV; Rate: 125 ml/hr; Site: tm6 Other; 22:23 Drug: Piperacillin-Tazobactam IVPB 3.375 grams IVPB once over 60 mins; (mix in NS 100 tm6 mL) Route: IVPB; Infused Over: 60 mins; Site: Other; 23:04 Drug: vancoMYCIN IVPB 1 grams IVPB once over 2 hrs Route: IVPB; Infused Over: 2 hrs; tm6 Site: Other; 23:26 Drug: fentaNYL (PF) IV 25 mcg/kg/h IV at calculated rate See Administration tm6 Instructions; (Standard concentration 500 mcg / 50 mL NS [10 mcg / 1 mL); Recommended max rate 4 mcg/kg/hr; Titrate 0.25 mcg/kg/hr as often as every 3 minutes to achieve goal (see titration policy); Goal parameter RASS score 0 to -2 Route: IV; Rate: ml/hr; Site: Other; 08/19 01:34 Drug: Meropenem IV 1 grams IV at calculated rate once; (mix in NS 100 mL) Route: IV; tm6 Rate: calculated rate; Site: Other; 01:35 Drug: D5-NS IV 1000 ml IV at 125 ml/hr continuous Route: IV; Rate: 125 ml/hr; Site: 6 Other; 01:35 Drug: Albuterol Inhalation 2.5 mg Inhalation once Route: Inhalation; tm6 01:35 Drug: Solu-CORTEF IVP 100 mg IVP once Route: IVP; Site: Other; tm6 02:21 Drug: Sodium Bicarbonate IVP 1 amp IVP once; (50 mL); equals 50 mEq Route: IVP; Site: tm6 Other; Disposition Summary: 08/18/23 23:51 Transfer Ordered Notes: Transfer Location: Other Acute Care Facility sp4 Reason: Higher level of care sp4 Condition: Serious sp4 Problem: new sp4 Symptoms: have improved sp4 Accepting Physician: Earth Mover at [facility](08/19/23 03:36) km8 Diagnosis - Other pneumonia, unspecified organism sp4 - Acute multifocal bilateral pneumonia, sepsis without septic shock, dehydration with sp4 hypovolemia, respiratory failure with hypoxemia, physical debility, immobility complications, infected sacral decubitus ulcer, bilateral lower extremity heel ulcers. Forms: - Medication Reconciliation Form sp4 - SBAR form sp4 Signatures: Dispatcher [employer] Davida Stevens, NICK-Asha Torres RN RN vc1 Main Powell MD MD sp4 Angela Robertson RN RN [id number] Ariel Post RN RN tm6 Corrections: (The following items were deleted from the chart) 03:36 08/18 23:[address] [facility] sp4 [id number]
[2023-08-19] MEDS ORDERED: HYDROCORTISONE SUC 100 MG INJ ONE (01:05)
[2023-08-19] MEDS ORDERED: Meropenem 1000 MG/VIAL IV ONE (01:05)
[2023-08-19] MEDS ORDERED: ALBUTEROL 2.5 MG/3 ML NEB SOL ONE (01:05)
[2023-08-19] MEDS ORDERED: D5 0.9 NS 1,000 ML IV ONE (01:05)
[2023-08-19] MEDS ORDERED: NA CHLORIDE 0.9% 100 ML ONE (01:07)
[2023-08-19] MEDS ORDERED: SODIUM BICARB 50 MEQ/50ML VIAL ONE (02:15)
[2023-08-19 06:30] VITALS: TEMP 99.8
[2023-08-19 06:55] VITALS: BP 102/69; O2SAT 98
--- NOTE | 2023-08-19 13:34 | RAD REPORT ---
EXAM DESCRIPTION: CT - Chest Abdomen Pelvis W Cont - 08/19/2023 4:59 am CLINICAL HISTORY: 73 years Male FEVER. TECHNIQUE: CT imaging of the chest, abdomen and pelvis with intravenous contrast administration. Sag ittal and coronal reconstructed images were performed. The CT study is performed according to ALARA ( as low as reasonably achievable) or ALARA/IMAGE GENTLY, with automatic adjustment of mA and/or kV acc ording to patient size. Performed on: 08/18/2023 at 10:50 PM COMPARISON: CT chest with contrast performed on 07/27/[address] abdomen and pelvis with contrast per formed on 05/21/2023 FINDINGS: CHEST: Lungs: The lungs are well expanded. There is bilateral perihilar and bibasilar dense airspace disease which may be due to edema or multifocal pneumonia. There are no pleural effusions. There is no pneum othorax. Heart: The heart is normal in size. There is no pericardial effusion. There are mild coronary art ky calcifications. A left IJ central venous catheter is present which terminates in the cavoatrial j unction. An endotracheal tube terminates above the alyssa. The feeding tube is present which terminat es in the stomach. Mediastinum: The mediastinum is unremarkable. The mediastinal vessels are normal in caliber and con tour. Bones: No acute osseous abnormalities are identified. Soft tissues: No focal soft tissue abnormalities are identified. The thyroid gland is normal in size and configuration. Lymphadenopathy: No pathologic hilar, mediastinal or axillary lymphadenopathy is identified. ABDOMEN/PELVIS: Liver: The liver is normal in size and configuration. No focal hepatic abnormalities are identified. Liver attenuation is within normal limits. Spleen: The spleen is normal in size, configuration and attenuation. Gallbladder and bile duct: The gallbladder is well distended. There is increased density layering w ithin the dependent portion of the gallbladder consistent with cholelithiasis. There is no biliary du ctal dilatation. Pancreas: The pancreas is grossly normal in size and configuration. Adrenal Glands: The adrenal glands are grossly normal in size and configuration. Kidneys: The kidneys are normal in size and configuration. There is no evidence of hydronephrosis. Th ere is no evidence of nephrolithiasis. There are peripheral wedge-shaped perfusion defects along the periphery of both kidneys which may be related to renal infarcts versus possible pyelonephritis . Stomach: The stomach is grossly normal. There is no definite hiatal hernia. A feeding tube extends in to the stomach. A percutaneous gastrostomy tube is also present in satisfactory position. Bowel: The bowel gas pattern is non specific and non obstructive. There is moderate fecal residue sca ttered throughout the colon and rectum. A fecal impaction is not excluded. Appendix: The appendix is normal. Free air: There is no evidence of free air. Free fluid: There is no evidence of free fluid. Vasculature: The aorta is normal in caliber and contour. The inferior vena cava is grossly unremarkab le. There are atherosclerotic calcifications along the abdominal aorta and iliac arteries. Lymphadenopathy: No pathologic lymphadenopathy is identified. Bladder: The bladder is well distended and smooth in contour. A Reddy catheter is present in the blad courtney. There is air in the bladder which is likely iatrogenic in nature related to the presence of a Fo dalila catheter. A gas forming infection cannot be entirely excluded. Reproductive: The prostate gland is grossly within normal limits. Bones: No acute osseous abnormalities are identified. There are degenerative changes of the lumbar sp ine most pronounced at L5-S1, similar to the prior study. Soft tissues: There appears to be a superficial wound involving the right posterior sacral soft tissu es with overlying bandage material IMPRESSION: CT CHEST: 1. Bilateral perihilar and bibasilar dense airspace disease which may be due to edema or multifocal pneumonia. 2. No definite CT evidence to suggest acute or chronic pulmonary embolism, aortic aneurysm or aorti c dissection. 3. Support tubes and lines as described above. CT ABDOMEN AND PELVIS: 1. Cholelithiasis. 2. Moderate fecal residue scattered throughout the colon and rectum. A fecal impaction is not exclu ded. 3. Peripheral wedge-shaped perfusion defects along the periphery of both kidneys which may be relat ed to renal infarcts versus possible pyelonephritis. 4. Air in the bladder which is likely iatrogenic in nature related to the presence of a Reddy monica ter. A gas forming infection cannot be entirely excluded. 5. Suspect superficial wound involving the right posterior sacral soft tissues with overlying celeste ge material. 6. Degenerative changes of the lumbar spine most pronounced at L5-S1, similar to the prior study. These findings were discussed with Dr. Powell on 08/18/2023 at 11:39 PM central time. Electronically signed by: Ana Jackson DO 08/18/2023 11:41 PM CURRICULUM AND INSTRUCTION SPECIALIST Due to temporary technical issues with the PACS/Fluency reporting system, reports are being signed by the in house radiologist without review as a courtesy to ensure prompt reporting. The interpreting r adiologist is fully responsible for the content of the report.
--- NOTE | 2023-08-19 16:26 | EKG ---
Test Date: 2023-08-18 Test Time: 21:25:00 Kitchen Bath Designer: ALIYAH MEASUREMENT RESULTS: Intervals: Rate: 114 CT: 120 QRSD: 98 QT: 354 QTc: 487 [place]: P: 239 CT: 120 QRS: 16 T: 1 INTERPRETIVE STATEMENTS: Unusual P axis, possible ectopic atrial tachycardia Septal infarct, age undetermined T wave abnormality, consider inferior ischemia Abnormal ECG Compared to ECG 07/27/2023 08:20:17 Myocardial infarct finding now present Possible ischemia now present Sinus tachycardia no longer present T-wave abnormality still present Electronically Signed On 08-19-23 16:25:09 CERTIFIED LEGAL SECRETARY SPECIALIST by Felix Garcia
== END 2023-08-19 03:36 | disposition home or self-care (01) ==
LOC: ER 20:18
PROC: 02HV33Z Insertion of Infusion Device into Superior Vena Cava, Percutaneous Approach (ICD-10-PCS; principal; 2023-08-18)
PROC: 0BH17EZ Insertion of Endotracheal Airway into Trachea, Via Natural or Artificial Opening (ICD-10-PCS; 2023-08-18)
DX: A41.9 Sepsis, unspecified organism (principal); J18.8 Other pneumonia, unspecified organism; J96.91 Respiratory failure, unspecified with hypoxia; E86.0 Dehydration; E86.1 Hypovolemia; R53.81 Other malaise; L08.9 Local infection of the skin and subcutaneous tissue, unspecified; L89.629 Pressure ulcer of left heel, unspecified stage; L89.619 Pressure ulcer of right heel, unspecified stage; I10 Essential (primary) hypertension; I73.9 Peripheral vascular disease, unspecified; F03.90 Unspecified dementia, unspecified severity, without behavioral disturbance, psychotic disturbance, mood disturbance, and anxiety; I27.20 Pulmonary hypertension, unspecified; J44.9 Chronic obstructive pulmonary disease, unspecified; Z11.52 Encounter for screening for COVID-19
CPT/HCPCS: 93005; 87040 ×2; 85025; 36415; 83735; 85610; 85379; 83605; 85730; 82248; 84484; 80053; 83880; 87804 ×2; 71260; 74177; 71045; 82805; 87811; 36600; 94002; 94003; 36556; 31500; Q9967; J2250; J2543; J3010; J7050; J7030 ×2